=== PATIENT | female | born 1940 | race Caucasian/White ===

== ENCOUNTER 2018-12-27 11:58 | Inpatient (IN) | payer MEDICARE, OTHER ==
[~2018-12-27] VITALS: Ht 172.7 cm; Wt 48.4 kg
[2018-12-27] VITALS (12 sets, daily range): BP systolic 85–125; BP diastolic 55–79
[2018-12-27] MEDS ORDERED: RT-ALBUTEROL SULF 2.5 MG/3 ML PRE-MIX VIAL ONE (12:01)
[2018-12-27] MEDS ORDERED: RT-ALBUTEROL/IPRATROPIUM 3 ML (DUONEB) VIAL ONE (12:01)
[2018-12-27] MEDS ORDERED: RT-ALBUTEROL SULF 2.5 MG/3 ML PRE-MIX VIAL INH ONE (12:10)
[2018-12-27] MEDS ORDERED: RT-ALBUTEROL/IPRATROPIUM 3 ML (DUONEB) VIAL INH ONE (12:11)
--- NOTE | 2018-12-27 12:12 | ED Respiratory ---
General Stated Complaint: SOA Source: patient, EMS Exam Limitations: no limitations History of Present Illness Date Seen by Provider: Dec 27, 2018 Time Seen by Provider: 12:09 Initial Comments This 78-year-old white female presents with a complaint of increasing shortness of breath for the last several days. The patient has had multiple similar episodes in the past secondary to exacerbations of her COPD. The patient has been found to be flu positive in the last few days. The patient required steroids in the past for her exacerbations. She is under the care of Dr. Kirk in in [place]. Allergies and Home Medications Allergies Coded Allergies: No Known Drug Allergies (Unverified , 12/27/18) Patient Home Medication List Home Medication List Reviewed: Yes Review of Systems Review of Systems Constitutional: fever EENTM: No ear pain Respiratory: see HPI, cough, short of breath Cardiovascular: No chest pain, No palpitations Gastrointestinal: No abdominal pain, No diarrhea, No nausea, No vomiting Genitourinary: No dysuria, No frequency : No Musculoskeletal: No back pain Skin: No rash Psychiatric/Neurological: No Symptoms Reported Hematologic/Lymphatic: No Symptoms Reported Immunological/Allergic: no symptoms reported Past Uothbot-Qdddze-Ugwfpw Hx Past Med/Social Hx: Reviewed Nursing Past Med/Soc Hx Patient Social History Recent Foreign Travel: No Contact w/Someone Who Travel: No Physical Exam Vital Signs - First Documented 12/27/18 12:00 Temp 100.8 Pulse 115 Resp 18 B/P (MAP) 115/74 (88) Pulse Ox 96 O2 Delivery Nasal Cannula O2 Flow Rate 4.00 Capillary Refill : Height: '" Weight: lbs. oz. kg; BMI Method: General Appearance: WD/WN, mild distress Eyes: Bilateral Eye Normal Inspection HEENT: normal ENT inspection Neck: supple, normal inspection Respiratory: decreased breath sounds, wheezing Cardiovascular: regular rate, rhythm, tachycardia Gastrointestinal: normal bowel sounds Extremities: normal range of motion, non-tender, normal inspection Neurologic/Psychiatric: no motor/sensory deficits, alert, normal mood/affect, oriented x 3 Skin: normal color, warm/dry Focused Exam Lactate Level 12/27/18 12:25: Lactic Acid Level 1.42 Lactic Acid Level Laboratory Tests Test 12/27/18 12:25 Lactic Acid Level 1.42 MMOL/L (0.50-2.00) Progress/Results/Core Measures Suspected Sepsis SIRS Temperature: Pulse: Respiratory Rate: Laboratory Tests 12/27/18 12:25: White Blood Count 17.2H Blood Pressure / Mean: 12/27/18 12:25: Lactic Acid Level 1.42 Laboratory Tests 12/27/18 12:25: Creatinine 0.98, Platelet Count 304, Total Bilirubin 0.7 Results/Orders Lab Results Laboratory Tests Test 12/27/18 12:25 Range/Units White Blood Count 17.2 H 4.3-11.0 10^3/uL Red Blood Count 4.26 L 4.35-5.85 10^6/uL Hemoglobin 13.3 11.5-16.0 G/DL Hematocrit 41 35-52 % Mean Corpuscular Volume 97 80-99 FL Mean Corpuscular Hemoglobin 31 25-34 PG Mean Corpuscular Hemoglobin Concent 32 32-36 G/DL Red Cell Distribution Width 14.1 10.0-14.5 % Platelet Count 304 130-400 10^3/uL Mean Platelet Volume 10.2 7.4-10.4 FL Neutrophils (%) (Auto) 94 H 42-75 % Lymphocytes (%) (Auto) 4 L 12-44 % Monocytes (%) (Auto) 2 0-12 % Eosinophils (%) (Auto) 0 0-10 % Basophils (%) (Auto) 0 0-10 % Neutrophils # (Auto) 16.1 H 1.8-7.8 X 10^3 Lymphocytes # (Auto) 0.7 L 1.0-4.0 X 10^3 Monocytes # (Auto) 0.4 0.0-1.0 X 10^3 Eosinophils # (Auto) 0.0 0.0-0.3 10^3/uL Basophils # (Auto) 0.0 0.0-0.1 10^3/uL Neutrophils % (Manual) 85 % Lymphocytes % (Manual) 8 % Band Neutrophils 7 % Blood Morphology Comment NORMAL D-Dimer 1.07 H 0.00-0.49 UG/ML Sodium Level 141 135-145 MMOL/L Potassium Level 3.9 3.6-5.0 MMOL/L Chloride Level 105 98-107 MMOL/L Carbon Dioxide Level 24 21-32 MMOL/L Anion Gap 12 5-14 MMOL/L Blood Urea Nitrogen 10 7-18 MG/DL Creatinine 0.98 0.60-1.30 MG/DL Estimat Glomerular Filtration Rate 55 BUN/Creatinine Ratio 10 Glucose Level 104 70-105 MG/DL Lactic Acid Level 1.42 0.50-2.00 MMOL/L Calcium Level 8.7 8.5-10.1 MG/DL Corrected Calcium 8.9 8.5-10.1 MG/DL Total Bilirubin 0.7 0.1-1.0 MG/DL Aspartate Amino Transf (AST/SGOT) 51 H 5-34 U/L Alanine Aminotransferase (ALT/SGPT) 57 H 0-55 U/L Alkaline Phosphatase 78 40-136 U/L Troponin I < 0.028 <0.028 NG/ML B-Type Natriuretic Peptide 182.4 H <100.0 PG/ML Total Protein 6.5 6.4-8.2 GM/DL Albumin 3.7 3.2-4.5 GM/DL My Orders Orders - BENNIE ROSARIO MD Albuterol Pre-Mix Nebs (Rt) (Proventil (12/27/18 12:01) Albuterol/Ipra Inhalation Soln (Duoneb I (12/27/18 12:01) Blood Culture (12/27/18 12:05) Cbc With Automated Diff (12/27/18 12:05) Comprehensive Metabolic Panel (12/27/18 12:05) BNP (12/27/18 12:05) Fibrin Degradation Products (12/27/18 12:05) Chest 1 View, Ap/Pa Only (12/27/18 12:05) Ekg Tracing (12/27/18 12:05) Troponin I (12/27/18 12:05) Lactic Acid Analyzer (12/27/18 12:05) Albuterol Pre-Mix Nebs (Rt) (Proventil (12/27/18 12:10) Albuterol/Ipra Inhalation Soln (Duoneb I (12/27/18 12:11) Svn Small Volume Nebulizer (12/27/18 12:09) Svn Small Volume Nebulizer (12/27/18 12:09) Methylprednisolone Sod Succ (Solu-Medrol (12/27/18 12:15) Ceftriaxone For Iv Use (Rocephin For I (12/27/18 12:15) Manual Differential (12/27/18 12:25) Ns Iv 1000 Ml (Sodium Chloride 0.9%) (12/27/18 13:03) Medications Given in ED Current Medications Medications Dose Ordered Sig/Gokul Route Start Time Stop Time Status Last Admin Dose Admin Albuterol Sulfate 12.5 mg ONCE ONCE INH 12/27/18 12:10 12/27/18 12:11 DC 12/27/18 12:11 12.5 MG Albuterol/ Ipratropium 3 ml ONCE ONCE INH 12/27/18 12:11 12/27/18 12:12 DC 12/27/18 12:11 3 ML Ceftriaxone Sodium 2000 mg/ Sterile Water 20 ml @ 240 mls/hr ONCE ONCE IV 12/27/18 12:15 12/27/18 12:19 DC 12/27/18 13:01 240 MLS/HR Methylprednisolone Sodium Succinate 125 mg ONCE ONCE IVP 12/27/18 12:15 12/27/18 12:16 DC 12/27/18 13:01 125 MG Vital Signs/I&O 12/27/18 12/27/18 12:00 12:12 Temp 100.8 Pulse 115 Resp 18 B/P (MAP) 115/74 (88) Pulse Ox 96 97 O2 Delivery Nasal Cannula Nasal Cannula O2 Flow Rate 4.00 5.00 Capillary Refill : Progress Note : Time: 13:17 Progress Note Patient's laboratory evaluation demonstrated a leukocytosis. There was I believe a subtle infiltrate on the patient's right side on her chest x-ray. Treatment course patient was continued on supplemental oxygen which we humidified. 2 g Rocephin were given to the patient IV as well as 125 mg of Solu -Medrol IV. Dr. Bermudez was kind enough to admit the patient. Consult was placed with Dr. Gallegos. I have ordered Rocephin and Zithromax to be continued upstairs with steroids and frequent nebulized treatments. Departure Communication (Admissions) Time/Spoke to Admitting Phy: 13:18 Dr. Bermudez Time/Spoke to Consulting Phy: 13:18 Call was placed and a message left for Dr. Gallegos. Impression Primary Impression: Pneumonia Qualified Codes: J18.9 - Pneumonia, unspecified organism Disposition: ADMITTED INPATIENT Condition: Improved Admissions Decision to Admit Reason: Admit from ER (General) Decision to Admit/Date: Dec 27, 2018 Time/Decision to Admit Time: 13:20 Departure-Patient Inst. Referrals: BRITTNI KIRK MD (PCP/Family) Primary Care Physician BENNIE ROSARIO MD Dec 27, 2018 12:12
[2018-12-27] MEDS ORDERED: methylPREDNISolone 125 MG (Solu-MEDROL) VIAL IVP ONE (12:15)
[2018-12-27] MEDS ORDERED: cefTRIAXone FOR IV USE 2,000 MG in WATER (STERILE) FOR INJECTION 20 ML IV ONE (12:15)
--- NOTE | 2018-12-27 12:23 | NUR ---
VAPOTHERM 30L/45% TAKING RT HOUR LONG TX
[2018-12-27 12:46] LABS: BASOPHILS % (AUTO) 0 % (0-10); EOSINOPHILS % (AUTO) 0 % (0-10); HEMATOCRIT 41 % (35-52); HEMOGLOBIN 13.3 G/DL (11.5-16.0); LYMPHOCYTES # (AUTO) 0.7 X 10^3 (1.0-4.0); LYMPHOCYTES % (AUTO) 4 % (12-44); MEAN CORPUSCULAR HEMOGLOBIN 31 PG (25-34); MEAN CORPUSCULAR HGB CONC 32 G/DL (32-36); MEAN CORPUSCULAR VOLUME 97 FL (80-99); MEAN PLATELET VOLUME 10.2 FL (7.4-10.4); MONOCYTES # (AUTO) 0.4 X 10^3 (0.0-1.0); MONOCYTES % (AUTO) 2 % (0-12); NEUTROPHILS # (AUTO) 16.1 X 10^3 (1.8-7.8); NEUTROPHILS % (AUTO) 94 % (42-75); PLATELET COUNT 304 10^3/uL (130-400); RED CELL DISTRIBUTION WIDTH 14.1 % (10.0-14.5); WHITE BLOOD COUNT 17.2 10^3/uL (4.3-11.0)
[2018-12-27] MEDS ORDERED: NS IV 1000 ML 1,000 ML ONE (13:03)
[2018-12-27 13:05] LABS: ALANINE AMINOTRANSFERASE 57 U/L (0-55); ALBUMIN 3.7 GM/DL (3.2-4.5); ALKALINE PHOSPHATASE 78 U/L (40-136); BILIRUBIN,TOTAL 0.7 MG/DL (0.1-1.0); BUN/CREATININE RATIO 10; CALCIUM 8.7 MG/DL (8.5-10.1); CARBON DIOXIDE 24 MMOL/L (21-32); CHLORIDE 105 MMOL/L (98-107); CREATININE SERUM 0.98 MG/DL (0.60-1.30); GFR ESTIMATED 55; GLUCOSE 104 MG/DL (70-105); POTASSIUM 3.9 MMOL/L (3.6-5.0); SODIUM 141 MMOL/L (135-145); TOTAL PROTEIN 6.5 GM/DL (6.4-8.2)
--- NOTE | 2018-12-27 13:06 | Diagnostic Imaging Report ---
Indication: Shortness of air and fever. Time of exam: 12:54 PM Heart size is normal. There is some some interstitial and airspace infiltrate in the right perihilar and right basilar region suggestive of pneumonia. There is a small right effusion as well. Left lung is clear. Lungs are hyperinflated consistent with COPD. Impression: Right-sided pulmonary infiltrate suggestive of pneumonia. Dictated by: Dictated on workstation # [id number]
[2018-12-27 13:12] LABS: BAND NEUTROPHILS 7 %; LYMPHOCYTES % (MANUAL) 8 %; NEUTROPHILS % (MANUAL) 85 %; RBC MORPH NORMAL
[2018-12-27] MEDS: AZITHROMYCIN 500 MG/NS 250 ML IVPB IV SCH ×2 (16:01)
[2018-12-27] MEDS: methylPREDNISolone 125 MG (Solu-MEDROL) VIAL IVP SCH (17:24)
[2018-12-27] MEDS: RT-ALBUTEROL/IPRATROPIUM 3 ML (DUONEB) VIAL INH SCH (20:10)
[2018-12-27] MEDS ORDERED: ZOLPIDEM 5 MG (AMBIEN) TAB PO ONE (22:15)
[2018-12-28] VITALS (14 sets, daily range): BP systolic 87–149; BP diastolic 56–79
[2018-12-28] MEDS: methylPREDNISolone 125 MG (Solu-MEDROL) VIAL IVP SCH ×2 (00:40→05:22)
[2018-12-28 03:43] LABS: BASOPHILS % (AUTO) 0 % (0-10); EOSINOPHILS % (AUTO) 0 % (0-10); HEMATOCRIT 39 % (35-52); HEMOGLOBIN 12.5 G/DL (11.5-16.0); LYMPHOCYTES # (AUTO) 0.4 X 10^3 (1.0-4.0); LYMPHOCYTES % (AUTO) 2 % (12-44); MEAN CORPUSCULAR HEMOGLOBIN 31 PG (25-34); MEAN CORPUSCULAR HGB CONC 33 G/DL (32-36); MEAN CORPUSCULAR VOLUME 96 FL (80-99); MEAN PLATELET VOLUME 10.2 FL (7.4-10.4); MONOCYTES # (AUTO) 0.3 X 10^3 (0.0-1.0); MONOCYTES % (AUTO) 2 % (0-12); NEUTROPHILS # (AUTO) 18.4 X 10^3 (1.8-7.8); NEUTROPHILS % (AUTO) 96 % (42-75); PLATELET COUNT 267 10^3/uL (130-400); RED CELL DISTRIBUTION WIDTH 14.1 % (10.0-14.5); WHITE BLOOD COUNT 19.2 10^3/uL (4.3-11.0)
[2018-12-28 04:07] LABS: ALANINE AMINOTRANSFERASE 43 U/L (0-55); ALBUMIN 3.1 GM/DL (3.2-4.5); ALKALINE PHOSPHATASE 65 U/L (40-136); BILIRUBIN,TOTAL 0.4 MG/DL (0.1-1.0); BUN/CREATININE RATIO 15; CARBON DIOXIDE 22 MMOL/L (21-32); CHLORIDE 106 MMOL/L (98-107); CREATININE SERUM 0.85 MG/DL (0.60-1.30); GFR ESTIMATED > 60; GLUCOSE 159 MG/DL (70-105); MAGNESIUM 1.5 MG/DL (1.8-2.4); PHOSPHORUS 2.4 MG/DL (2.3-4.7); POTASSIUM 4.2 MMOL/L (3.6-5.0); SODIUM 139 MMOL/L (135-145); TOTAL PROTEIN 5.8 GM/DL (6.4-8.2)
[2018-12-28] MEDS: MAGNESIUM 1 GM/100 ML IVPB 100 ML IV SCH ×2 (05:22→06:25)
[2018-12-28] MEDS ORDERED: KCL 20 MEQ TAB (K-DUR) PO SCH (06:00)
[2018-12-28] MEDS ORDERED: POTASSIUM CL 10MEQ/50ML IVPB 50 ML IV SCH (06:00)
[2018-12-28] MEDS ORDERED: MAGNESIUM 1 GM/100 ML IVPB 100 ML IV SCH (06:00)
--- NOTE | 2018-12-28 06:27 | Pulmonary Consultation ---
History of Present Illness History of Present Illness Date of Consultation 12/28/18 06:22 Time Seen by Provider: 06:22 Date of Admission History of Present Illness 78yo with hx of severe COPD and multiple episodes of COPDAE presented to ED secondary to worsening SOB over the last several days. Pt was recently dx with influenza and was treated. Pt has been on prednisone prior to admission secondary to COPDAE. Pt failed out patient treatment. I am consulted for pulmonary management. Allergies and Home Medications Allergies Coded Allergies: No Known Drug Allergies (Unverified , 12/27/18) Home Medications Albuterol Sulfate 1 Puff Puff, 2 PUFF INH Q4H PRN for SHORTNESS OF BREATH, ( Reported) 1 PUFF = 90 MCG Albuterol Sulfate 2.5 Mg/3 Ml Vial.neb, 2.5 MG INH TID PRN for SHORTNESS OF BREATH, (Reported) Alendronate Sodium 70 Mg Tablet, 70 MG PO WEEK, (Reported) Alprazolam 0.5 Mg Tablet, 0.5 MG PO BID, (Reported) Fluticasone/Salmeterol 1 Each Blst.w.dev, 1 EACH IH BID, (Reported) Fluticasone/Vilanterol 1 Each Blst.w.dev, 1 EACH IH DAILY, (Reported) Oseltamivir Phosphate 75 Mg Cap, 75 MG PO BID, (Reported) Prescribed 12/23/18 Pravastatin Sodium 40 Mg Tablet, 40 MG PO DAILY, (Reported) Prednisone 20 Mg Tab, 0 PO UD, (Reported) Take 3 tabs x 3 days, 2 tabs x 3 days, 1 tab x 3 days. Prescribed 12/23/2018 Prednisone 5 Mg Tablet, 5 MG PO DAILY, (Reported) Tiotropium [place] 1 Inh Aerp, 1 INH IH DAILY, (Reported) Zolpidem Tartrate 5 Mg Tablet, 5 MG PO HS PRN for INSOMNIA, (Reported) Past Kvqsnfs-Yyfrqr-Wkslta Hx Past Med/Social Hx: Reviewed Nursing Past Med/Soc Hx Patient Social History Alcohol Use: Denies Use Recreational Drug Use: No Smoking Status: Former Smoker Type Used: Cigarettes Recent Foreign Travel: No Contact w/Someone Who Travel: No Recent Infectious Disease Expo: No Recent Hopitalizations: No Immunizations Up To Date Date of Pneumonia Vaccine: Dec 27, 2016 Date of Influenza Vaccine: Jul 27, 2018 Seasonal Allergies Seasonal Allergies: No Past Medical History Respiratory: Yes COPD, Emphysema Cardiac: No Neurological: No Genitourinary: No Gastrointestinal: No Musculoskeletal: No Endocrine: No HEENT: No Cancer: No Psychosocial: No Integumentary: No Review of Systems Time Seen by Provider: 05:31 Constitutional: Fever, Chills, Sweats, Weakness, Malaise Eyes: No: Pain, Vision change, Conjunctivae inflammation, Eyelid inflammation, Other, Redness ENT: Nose congestion; No: Ear pain, Ear discharge, Nose pain, Nose discharge, Mouth pain, Mouth swelling, Throat pain, Throat swelling, Other Respiratory: Cough, Dry, Shortness of breath, SOB with excertion, Wheezing, Pleuritic Pain, Sputum; No: Hemoptysis Cardiovascular: Palpitations, Paroxysmal Noc. Dyspnea Gastrointestinal: Nausea; No: Vomiting, Abdominal Pain Neurological: Weakness Sepsis Event Evaluation Height, Weight, BMI Height: 5'8.00" Weight: 109lbs. 2.0oz. [id number]; 16.6 BMI Method:Stated Exam Exam Vital Signs Date Time Temp Pulse Resp B/P (MAP) Pulse Ox O2 Delivery O2 Flow Rate FiO2 12/28/18 06:00 84 25 96/62 (73) 99 Vapotherm 40.00 35.00 12/28/18 05:00 84 25 108/79 (89) 99 Vapotherm 40.00 35.00 12/28/18 04:00 99 Vapotherm 35.00 12/28/18 04:00 98.8 12/28/18 04:00 85 19 98/56 (70) 96 Vapotherm 40.00 35.00 12/28/18 03:00 97 31 106/67 (80) 98 Vapotherm 40.00 35.00 12/28/18 02:00 89 25 92/62 (72) 97 Vapotherm 40.00 35.00 12/28/18 01:00 93 28 100/72 (81) 98 Vapotherm 40.00 35.00 12/28/18 01:00 93 12/28/18 00:00 97.3 12/28/18 00:00 99 Vapotherm 35.00 12/28/18 00:00 93 22 97/65 (76) 99 Vapotherm 40.00 35.00 12/27/18 23:11 99 Vapotherm 33.00 40 12/27/18 23:00 94 25 109/68 (82) 99 Vapotherm 40.00 35.00 12/27/18 22:00 96 27 125/76 (92) 99 Vapotherm 40.00 35.00 12/27/18 21:00 98 25 122/77 (92) 99 Vapotherm 40.00 35.00 12/27/18 20:10 99 Vapotherm 35.00 40 12/27/18 20:00 98.7 12/27/18 20:00 96 25 114/79 (91) 99 Vapotherm 40.00 35.00 12/27/18 20:00 99 Vapotherm 35.00 12/27/18 19:00 100 26 114/74 (87) 97 Vapotherm 40.00 35.00 12/27/18 19:00 103 12/27/18 18:00 106 28 115/76 (89) 99 Vapotherm 40.00 35.00 12/27/18 17:00 110 35 97/66 (76) 97 Vapotherm 40.00 35.00 12/27/18 16:30 111 22 103/71 (82) 98 Vapotherm 40.00 35.00 12/27/18 16:15 109 20 99/66 (77) 97 Vapotherm 40.00 35.00 12/27/18 16:00 109 23 85/55 (65) 97 Vapotherm 40.00 35.00 12/27/18 16:00 99.4 12/27/18 15:45 111 20 99/63 (75) 98 Vapotherm 40.00 35.00 12/27/18 15:30 97 Vapotherm 30.00 40 12/27/18 15:30 Vapotherm 35.00 40 12/27/18 15:30 100.3 12/27/18 15:30 112 19 102/57 (72) 97 Vapotherm 40.00 35.00 12/27/18 14:58 98.7 112 32 96/66 (76) 96 Vapotherm 12/27/18 12:12 97 Nasal Cannula 5.00 12/27/18 12:00 100.8 115 18 115/74 (88) 96 Nasal Cannula 4.00 I & O 12/28/18 07:00 Intake Total 870 ml Output Total 950 ml Balance -80 ml Height & Weight Height: 5'8.00" Weight: 109lbs. 2.0oz. 49.687884ux; 16.6 BMI Method:Stated General Appearance: Anxious, Chronically ill, Mild Distress HEENT: PERRL/EOMI, Pharynx Normal Neck: Full Range of Motion, Non Tender, Supple Respiratory: Accessory Muscle Use, Crackles, Decreased Breath Sounds Cardiovascular: Regular Rate, Rhythm Capillary Refill: Less Than 3 Seconds Gastrointestinal: normal bowel sounds Extremity: Normal Capillary Refill, Normal Inspection Neurologic/Psychiatric: Alert Skin: Normal Color, Warm/Dry Lymphatic: No Adenopathy Results Lab Laboratory Tests 12/27/18 12:25 12/28/18 03:07 Assessment/Plan Assessment/Plan PNA with sepsis - failed out patient treatment -Continue Rocephin and azithromycin Recent dx of influenza - only partially treated as out patient -Resume Tamiflu COPDAE- pt does have home oxygen -SVNS -SOlumedrol - change to 40 IV Q 6 -Check MARIELOS DUCKWORTH DO Dec 28, 2018 06:27
[2018-12-28] MEDS ORDERED: fentaNYL 15 MCG/3 ML NS SYRINGE (PACU) IV NR (06:57)
[2018-12-28] MEDS: RT-ALBUTEROL/IPRATROPIUM 3 ML (DUONEB) VIAL INH SCH ×4 (07:30→19:41)
--- NOTE | 2018-12-28 07:37 | History & Physicial ([facility]) ---
HPI History of Present Illness: 78 yo female diagnosed with influenza A on Saturday of this week and was taking Tamiflu, got better but then had sudden worsening Saturday night. She denies fever. She does have underlying COPD and usually wears 3 lpm of supplemental oxygen at baseline. Her this week as well, so she is feeling a little overwhelmed. Date seen by provider: Dec 28, 2018 Time Seen by Provider: 06:35 Attending Physician Melissa Bermudez MD PCP Brittni Kirk MD Consult Date of Admission Dec 27, 2018 at 13:00 Home Medications Home Medications Reviewed patient Home Medication Reconciliation performed by pharmacy medication reconciliations deburr technician and/or nursing. Patients Allergies have been reviewed. Allergies Coded Allergies: No Known Drug Allergies (Unverified , 12/27/18) OJJ-Asqzbv-Btjhsr Hx Patient Social History Alcohol Use: Denies Use Recreational Drug Use: No Smoking Status: Former Smoker Type Used: Cigarettes Recent Foreign Travel: No Contact w/other who traveled: No Recent Hopitalizations: No Recent Infectious Disease Expo: No Immunizations Up To Date Date of Pneumonia Vaccine: Dec 27, 2016 Date of Influenza Vaccine: Jul 27, 2018 Past Medical History PMHx: COPD Osteoporosis Family Medical History Significant Family History: No Pertinent Family Hx Review of Systems ([facility]) Constitutional: No fever; malaise EENTM: nose congestion; No throat pain Respiratory: short of breath Cardiovascular: No chest pain Gastrointestinal: No abdominal pain, No constipation; diarrhea; No nausea, No vomiting Musculoskeletal: No joint pain Skin: No rash Psychiatric/Neurological: See HPI Reviewed Test Results Reviewed Test Results Lab Laboratory Tests Test 12/27/18 12:25 12/28/18 03:07 Range/Units White Blood Count 17.2 H 19.2 H 4.3-11.0 10^3/uL Red Blood Count 4.26 L 4.03 L 4.35-5.85 10^6/uL Hemoglobin 13.3 12.5 11.5-16.0 G/DL Hematocrit 41 39 35-52 % Mean Corpuscular Volume 97 96 80-99 FL Mean Corpuscular Hemoglobin 31 31 25-34 PG Mean Corpuscular Hemoglobin Concent 32 33 32-36 G/DL Red Cell Distribution Width 14.1 14.1 10.0-14.5 % Platelet Count 304 267 130-400 10^3/uL Mean Platelet Volume 10.2 10.2 7.4-10.4 FL Neutrophils (%) (Auto) 94 H 96 H 42-75 % Lymphocytes (%) (Auto) 4 L 2 L 12-44 % Monocytes (%) (Auto) 2 2 0-12 % Eosinophils (%) (Auto) 0 0 0-10 % Basophils (%) (Auto) 0 0 0-10 % Neutrophils # (Auto) 16.1 H 18.4 H 1.8-7.8 X 10^3 Lymphocytes # (Auto) 0.7 L 0.4 L 1.0-4.0 X 10^3 Monocytes # (Auto) 0.4 0.3 0.0-1.0 X 10^3 Eosinophils # (Auto) 0.0 0.0 0.0-0.3 10^3/uL Basophils # (Auto) 0.0 0.0 0.0-0.1 10^3/uL Neutrophils % (Manual) 85 % Lymphocytes % (Manual) 8 % Band Neutrophils 7 % Blood Morphology Comment NORMAL D-Dimer 1.07 H 0.00-0.49 UG/ML Sodium Level 141 139 135-145 MMOL/L Potassium Level 3.9 4.2 3.6-5.0 MMOL/L Chloride Level 105 106 98-107 MMOL/L Carbon Dioxide Level 24 22 21-32 MMOL/L Anion Gap 12 11 5-14 MMOL/L Blood Urea Nitrogen 10 13 7-18 MG/DL Creatinine 0.98 0.85 0.60-1.30 MG/DL Estimat Glomerular Filtration Rate 55 > 60 BUN/Creatinine Ratio 10 15 Glucose Level 104 159 H 70-105 MG/DL Lactic Acid Level 1.42 0.50-2.00 MMOL/L Calcium Level 8.7 8.0 L 8.5-10.1 MG/DL Corrected Calcium 8.9 8.7 8.5-10.1 MG/DL Total Bilirubin 0.7 0.4 0.1-1.0 MG/DL Aspartate Amino Transf (AST/SGOT) 51 H 38 H 5-34 U/L Alanine Aminotransferase (ALT/SGPT) 57 H 43 0-55 U/L Alkaline Phosphatase 78 65 40-136 U/L Troponin I < 0.028 <0.028 NG/ML B-Type Natriuretic Peptide 182.4 H <100.0 PG/ML Total Protein 6.5 5.8 L 6.4-8.2 GM/DL Albumin 3.7 3.1 L 3.2-4.5 GM/DL Phosphorus Level 2.4 2.3-4.7 MG/DL Magnesium Level 1.5 L 1.8-2.4 MG/DL Radiology CXR 12/27/18: Impression: Right-sided pulmonary infiltrate suggestive of pneumonia. Physical Exam-([facility]) Physical Exam Vital Signs VS - Last 72 Hours, by Label 12/27/18 12/27/18 12/27/18 12/27/18 12:00 12:12 14:58 15:30 Temp 100.8 98.7 Pulse 115 112 112 Resp 18 32 19 B/P (MAP) 115/74 (88) 96/66 (76) 102/57 (72) Pulse Ox 96 97 96 97 O2 Delivery Nasal Cannula Nasal Cannula Vapotherm Vapotherm O2 Flow Rate 4.00 5.00 40.00 35.00 12/27/18 12/27/18 12/27/18 12/27/18 15:30 15:30 15:30 15:45 Temp 100.3 Pulse 111 Resp 20 B/P (MAP) 99/63 (75) Pulse Ox 97 98 O2 Delivery Vapotherm Vapotherm Vapotherm O2 Flow Rate 35.00 30.00 40.00 35.00 FiO2 40 40 12/27/18 12/27/18 12/27/18 12/27/18 16:00 16:00 16:15 16:30 Temp 99.4 Pulse 109 109 111 Resp 23 20 22 B/P (MAP) 85/55 (65) 99/66 (77) 103/71 (82) Pulse Ox 97 97 98 O2 Delivery Vapotherm Vapotherm Vapotherm O2 Flow Rate 40.00 40.00 40.00 35.00 35.00 35.00 12/27/18 12/27/18 12/27/18 12/27/18 17:00 18:00 19:00 19:00 Pulse 110 106 103 100 Resp 35 28 26 B/P (MAP) 97/66 (76) 115/76 (89) 114/74 (87) Pulse Ox 97 99 97 O2 Delivery Vapotherm Vapotherm Vapotherm O2 Flow Rate 40.00 40.00 40.00 35.00 35.00 35.00 12/27/18 12/27/18 12/27/18 12/27/18 20:00 20:00 20:00 20:10 Temp 98.7 Pulse 96 Resp 25 B/P (MAP) 114/79 (91) Pulse Ox 99 99 99 O2 Delivery Vapotherm Vapotherm Vapotherm O2 Flow Rate 35.00 40.00 35.00 35.00 FiO2 40 12/27/18 12/27/18 12/27/18 12/27/18 21:00 22:00 23:00 23:11 Pulse 98 96 94 Resp 25 27 25 B/P (MAP) 122/77 (92) 125/76 (92) 109/68 (82) Pulse Ox 99 99 99 99 O2 Delivery Vapotherm Vapotherm Vapotherm Vapotherm O2 Flow Rate 40.00 40.00 40.00 33.00 35.00 35.00 35.00 FiO2 40 12/28/18 12/28/18 12/28/18 12/28/18 00:00 00:00 00:00 01:00 Temp 97.3 Pulse 93 93 Resp 22 B/P (MAP) 97/65 (76) Pulse Ox 99 99 O2 Delivery Vapotherm Vapotherm O2 Flow Rate 40.00 35.00 35.00 12/28/18 12/28/18 12/28/18 12/28/18 01:00 02:00 03:00 04:00 Pulse 93 89 97 85 Resp 28 25 31 19 B/P (MAP) 100/72 (81) 92/62 (72) 106/67 (80) 98/56 (70) Pulse Ox 98 97 98 96 O2 Delivery Vapotherm Vapotherm Vapotherm Vapotherm O2 Flow Rate 40.00 40.00 40.00 40.00 35.00 35.00 35.00 35.00 12/28/18 12/28/18 12/28/18 12/28/18 04:00 04:00 05:00 06:00 Temp 98.8 Pulse 84 84 Resp 25 25 B/P (MAP) 108/79 (89) 96/62 (73) Pulse Ox 99 99 99 O2 Delivery Vapotherm Vapotherm Vapotherm O2 Flow Rate 35.00 40.00 40.00 35.00 35.00 Capillary Refill : Less Than 3 Seconds General Appearance: mild distress, thin Respiratory: lungs clear, no respiratory distress, decreased breath sounds Cardiovascular: regular rate, rhythm, no murmur Gastrointestinal: normal bowel sounds, non tender, soft Extremities: no pedal edema Neurologic/Psychiatric: normal mood/affect Skin: normal color, warm/dry Assessment/Plan Assessment/Plan Admission Status: Inpatient Order (span 2 midnights) Reason for Inpatient Admission: Pneumonia with underlying COPD at high risk for severe illness, requires IV antibiotics and respiratory support. (1) Sepsis Status: Acute Assessment & Plan: Secondary to pneumonia. No evidence of severe sepsis. Treatment for pneumonia as noted. Qualifiers: Qualified Codes: A41.9 - Sepsis, unspecified organism (2) Pneumonia Status: Acute Assessment & Plan: Azithromycin and ceftriaxone for CAP that was likely secondary to her influenza. RT. Supplemental oxygen as needed, currently on vapotherm at 40% FiO2 with 30 lpm flow. Qualifiers: Qualified Codes: J18.9 - Pneumonia, unspecified organism (3) COPD (chronic obstructive pulmonary disease) Status: Chronic Assessment & Plan: Treated for COPD exacerbation outpatient with steroids along with the Tamiflu, will continue steroids for now. Respiratory support as needed, on 3 lpm supplemental O2 at baseline. Dr. Gallegos consulted, appreciate recommendations. (4) Influenza A Status: Acute Assessment & Plan: Treated with 4/5 days of Tamiflu. (5) DVT prophylaxis Status: Acute Assessment & Plan: Enoxaparin Clinical Quality Measures DVT/VTE Risk/Contraindication: Risk Factor Score Per Nursin RFS Level Per Nursing on Admit: 4+=Very High Copy Copies To 1: BRITTNI KIRK MD, BETHANY N MD Dec 28, 2018 07:36
[2018-12-28 07:54] LABS: ABG BASE EXCESS 0.1 MMOL/L (-2.5-2.5); ABG OXYGEN SATURATION 96 % (94-100); ABG PCO2 38 MMHG (35-45); ABG PH 7.42 (7.37-7.43); ABG PO2 69 MMHG (79-93); ABG TCO2 25.3 MMOL/L (21.0-31.0)
[2018-12-28] MEDS ORDERED: RT-ALBUINH INH (08:01)
[2018-12-28] MEDS ORDERED: ALBU2.5V4 INH (08:01)
[2018-12-28] MEDS ORDERED: TIOT18CA2 IH (08:01)
[2018-12-28] MEDS ORDERED: FLUT1DIS26 IH (08:01)
[2018-12-28] MEDS ORDERED: PRED5TAB PO (08:01)
[2018-12-28] MEDS ORDERED: ALEN70TA5 PO (08:01)
[2018-12-28] MEDS ORDERED: ALPR0.5T7 PO (08:01)
[2018-12-28] MEDS ORDERED: PRAV40TA2 PO (08:01)
[2018-12-28] MEDS ORDERED: FLUT1BLS IH (08:01)
[2018-12-28] MEDS ORDERED: ZOLP5TAB7 PO (08:01)
[2018-12-28] MEDS ORDERED: PRD20T PO (08:01)
[2018-12-28] MEDS ORDERED: OSLT75C PO (08:01)
[2018-12-28 08:05] LABS: ALLENS TEST YES-POS; INSPIRED O2 30%; PATIENT TEMP 97.7
[2018-12-28] MEDS ORDERED: ENOXAPARIN 40 MG/0.4 ML (LOVENOX) SYR SC SCH (08:15)
[2018-12-28] MEDS: ENOXAPARIN 30 MG/0.3 ML (LOVENOX) SYR SC SCH (08:57)
[2018-12-28] MEDS: OSELTAMIVIR 75 MG (TAMIFLU) CAPSULE PO SCH ×2 (08:58→20:50)
[2018-12-28] MEDS ORDERED: cefTRIAXone 1,000 MG/SWFI 10 ML IV PUSH IV SCH ×2 (09:00)
[2018-12-28] MEDS: IBUPROFEN 600 MG (MOTRIN) TAB PO PRN (09:50)
--- NOTE | 2018-12-28 10:44 | Diagnostic Imaging Report ---
Indication: Dyspnea. Time of exam: 2:42 AM Correlation is made with prior study one day earlier. The heart size is stable. Infiltrate in the right mid and lower lung field has increased since yesterday's study. There is a small amount of pleural fluid on the right as well. Left lung remains clear. No pneumothorax is seen. Impression: Worsening right-sided infiltrate suggestive of pneumonia when compared with examination one day earlier. Dictated by: Dictated on workstation # [id number]
[2018-12-28] MEDS: methylPREDNISolone 40 MG/ML (Solu-MEDROL) VIAL IV SCH ×2 (13:58→17:53)
[2018-12-28] MEDS: NS IV 1000 ML 1,000 ML IV SCH (14:15)
[2018-12-28] MEDS: AZITHROMYCIN 500 MG/NS 250 ML IVPB IV SCH ×2 (16:29)
[2018-12-28] MEDS ORDERED: RT-ADVAIR HFA 115/21 MCG PER PUFF IH SCH (20:00)
[2018-12-28] MEDS ORDERED: RT-ALBUTEROL/IPRATROPIUM 3 ML (DUONEB) VIAL INH PRN (20:15)
--- NOTE | 2018-12-28 20:25 | NUR ---
CONTACTED DR BEJARANO ABOUT PRN BREATHING TREATMENTS FOR THE NIGHT. DR BEJARANO ORDERED Q4HR PRN TREATMENTS.
[2018-12-28] MEDS: ALPRAZolam 0.5 MG (XANAX) TAB PO SCH (20:50)
[2018-12-28] MEDS: SIMvastatin 20 MG (ZOCOR) TAB PO SCH (20:50)
[2018-12-29] VITALS (7 sets, daily range): BP systolic 107–160; BP diastolic 61–87
[2018-12-29] MEDS: methylPREDNISolone 40 MG/ML (Solu-MEDROL) VIAL IV SCH ×5 (00:07→17:46)
[2018-12-29] MEDS ORDERED: WATER (STERILE) FOR INJECTION 20 ML ONE (05:50)
[2018-12-29] MEDS ORDERED: cefTRIAXone 2 GM IV (ROCEPHIN) VIAL ONE (05:50)
[2018-12-29 06:07] LABS: HEMOGLOBIN 11.2 G/DL (11.5-16.0); MEAN PLATELET VOLUME 9.9 FL (7.4-10.4); RED CELL DISTRIBUTION WIDTH 14.3 % (10.0-14.5); WHITE BLOOD COUNT 14.8 10^3/uL (4.3-11.0)
[2018-12-29 06:32] LABS: ALANINE AMINOTRANSFERASE 39 U/L (0-55); ALBUMIN 2.9 GM/DL (3.2-4.5); ALKALINE PHOSPHATASE 59 U/L (40-136); BILIRUBIN,TOTAL 0.3 MG/DL (0.1-1.0); BUN/CREATININE RATIO 20; CALCIUM 7.9 MG/DL (8.5-10.1); CARBON DIOXIDE 23 MMOL/L (21-32); CHLORIDE 109 MMOL/L (98-107); CREATININE SERUM 0.75 MG/DL (0.60-1.30); GFR ESTIMATED > 60; GLUCOSE 168 MG/DL (70-105); POTASSIUM 3.7 MMOL/L (3.6-5.0); SODIUM 142 MMOL/L (135-145); TOTAL PROTEIN 5.6 GM/DL (6.4-8.2)
[2018-12-29] MEDS: RT-ALBUTEROL/IPRATROPIUM 3 ML (DUONEB) VIAL INH SCH ×4 (07:51→23:17)
[2018-12-29] MEDS: ADVAIR HFA 115/21 MCG INHALER 8 GM IH SCH ×2 (07:53→20:00)
[2018-12-29] MEDS: NS IV 1000 ML 1,000 ML IV SCH (08:22)
[2018-12-29] MEDS: ENOXAPARIN 30 MG/0.3 ML (LOVENOX) SYR SC SCH (08:23)
[2018-12-29] MEDS: ALPRAZolam 0.5 MG (XANAX) TAB PO SCH ×2 (08:24→20:42)
[2018-12-29] MEDS: IBUPROFEN 600 MG (MOTRIN) TAB PO PRN (08:25)
[2018-12-29] MEDS: cefTRIAXone 1,000 MG/SWFI 10 ML IV PUSH IV SCH ×2 (08:27)
[2018-12-29] MEDS: OSELTAMIVIR 30 MG (TAMIFLU) CAPSULE PO SCH ×2 (08:30→20:42)
--- NOTE | 2018-12-29 08:51 | Progress Note-Hospitalist ---
Subjective HPI/CC On Admission Date Seen by Provider: Dec 29, 2018 Time Seen by Provider: 09:30 Subjective/Events-last exam Pt reports she is still short of breath and wheezing. Pt needs help with constipation so meds were ordered. All home meds were restarted. Appreciate Dr. Gallegos's expertise. Pt maintained on Vapotherm. Influenza treatment tolerated. Pt wears oxygen 24/7 at home. Review of Systems Pulmonary: Dyspnea Gastrointestinal: Constipation Focused Exam Lactate Level 12/27/18 12:25: Lactic Acid Level 1.42 Objective Exam Vital Signs Vital Signs Date Time Temp Pulse Resp B/P (MAP) Pulse Ox O2 Delivery O2 Flow Rate FiO2 12/29/18 19:58 98 Vapotherm 20.00 30 12/29/18 16:36 98.0 97 16 153/87 (109) Capillary Refill : Less Than 3 Seconds General Appearance: WD/WN, Anxious, Chronically ill, Cachetic, Mild Distress Respiratory: Chest Non Tender, Accessory Muscle Use, Crackles, Decreased Breath Sounds, Rales, Wheezing Cardiovascular: Regular Rate, Rhythm, No Edema Neurologic/Psychiatric: Alert, Oriented x3, No Motor/Sensory Deficits, Normal Mood/Affect Results/Procedures Lab Laboratory Tests 12/29/18 05:45 Patient resulted labs reviewed. Assessment/Plan Assessment and Plan Assess & Plan/Chief Complaint AECOPD Influenza A Chronic hypoxia Anxiety Plan: Tamiflu Steroids Guarded prognosis Diagnosis/Problems Diagnosis/Problems (1) Pneumonia Status: Acute Qualifiers: Pneumonia type: due to unspecified organism Laterality: right Lung location: unspecified part of lung Qualified Codes: J18.9 - Pneumonia, unspecified organism (2) Sepsis Status: Acute Qualifiers: Sepsis type: sepsis due to unspecified organism Qualified Codes: A41.9 - Sepsis, unspecified organism (3) Influenza A Status: Acute (4) COPD (chronic obstructive pulmonary disease) Status: Chronic Qualifiers: COPD type: unspecified COPD Qualified Codes: J44.9 - Chronic obstructive pulmonary disease, unspecified (5) Osteoporosis Status: Chronic (6) DVT prophylaxis Status: Acute (7) Hyperlipidemia Status: Chronic Clinical Quality Measures DVT/VTE Risk/Contraindication: Risk Factor Score Per Nursin RFS Level Per Nursing on Admit: 4+=Very High MARYAN HUGHES DO Dec 29, 2018 08:50
[2018-12-29] MEDS ORDERED: NON-FORMULARY MEDICATION 1 EA EA (Fluticasone/Vilanterol (Breo Ellipta 200-25 Mcg INH) 1 E IH SCH (09:00)
[2018-12-29] MEDS ORDERED: NON-FORMULARY MEDICATION 1 EA EA (Pravastatin Sodium 40 MG) PO SCH (09:00)
[2018-12-29] MEDS: SENNA W/DOCUSATE (SENOKOT S) TABLET PO SCH ×2 (10:27→20:43)
[2018-12-29] MEDS: LACTULOSE SYRUP 10GM/15ML (ENULOSE) 30ML UDC PO SCH ×2 (10:27→20:43)
[2018-12-29] MEDS: POLYETHYLENE GLYCOL 17 GM (MIRALAX) PACK PO SCH ×2 (10:27→20:43)
--- NOTE | 2018-12-29 16:51 | Pulmonary Progress Note ---
Subjective Time Seen by a Provider: 15:00 Subjective/Events-last exam SOB is about the same. Sepsis Event Evaluation Height, Weight, BMI Height: 5'8.00" Weight: 110lbs. 2.0oz. 49.489444pa; 16.6 BMI Method:Stated Focused Exam Lactate Level 12/27/18 12:25: Lactic Acid Level 1.42 Exam Exam Vital Signs Date Time Temp Pulse Resp B/P (MAP) Pulse Ox O2 Delivery O2 Flow Rate FiO2 12/29/18 16:36 98.0 97 16 153/87 (109) 96 12/29/18 16:25 96 Vapotherm 20.00 30 12/29/18 12:00 97.0 98 18 147/69 (95) 97 Vapotherm 30.00 25.00 12/29/18 08:41 Vapotherm 25.00 30 12/29/18 08:01 97.8 89 22 124/73 (90) 98 Venturi Mask 30.00 35.00 12/29/18 07:51 97 Vapotherm 35.00 30 12/29/18 04:57 96.9 91 22 160/73 (102) 98 Vapotherm 35.00 25.00 12/29/18 02:43 98 Vapotherm 35.00 30 12/29/18 01:02 96.7 83 24 117/61 (79) 95 Vapotherm 35.00 25.00 12/29/18 00:00 96.7 83 24 117/61 (79) 95 Vapotherm 35.00 25.00 12/28/18 23:45 96 Vapotherm 30 12/28/18 21:00 Vapotherm 25.00 30 12/28/18 20:00 98.1 95 28 145/70 (95) 95 Vapotherm 35.00 25.00 12/28/18 19:41 96 Vapotherm 35.00 30 12/28/18 17:04 97.8 96 28 149/71 (97) 96 Vapotherm 35.00 25.00 I & O 12/29/18 07:00 Intake Total 1390 ml Output Total 1825 ml Balance -435 ml Height & Weight Height: 5'8.00" Weight: 110lbs. 2.0oz. 49.109052pw; 16.6 BMI Method:Stated General Appearance: Anxious, Mild Distress, Thin HEENT: PERRL/EOMI, Normal ENT Inspection, Pharynx Normal Neck: Full Range of Motion, Non Tender, Supple Respiratory: Crackles, Decreased Breath Sounds, Wheezing Cardiovascular: Regular Rate, Rhythm, No Edema Capillary Refill: Less Than 3 Seconds Gastrointestinal: normal bowel sounds, non tender, soft Extremity: Normal Capillary Refill, Normal Inspection Neurologic/Psychiatric: Alert Skin: Normal Color, Warm/Dry Results Lab Laboratory Tests 12/28/18 03:07 12/29/18 05:45 Assessment/Plan Assessment/Plan PNA with sepsis -Continue Rocephin and azithromycin -Repeat CXR shows worsening infiltration -repeat CXR in AM -Give 60mg of lasix now and 40 kcl Recent dx of influenza - only partially treated as out patient - Tamiflu COPDAE- pt does have home oxygen -SVNS -SOlumedrol - change to 40 IV Q 6 -Check MARIELOS DUCKWORTH DO Dec 29, 2018 16:51
[2018-12-29] MEDS ORDERED: FUROSEMIDE 40 MG/4 ML INJ (LASIX) IVP NR (17:00)
[2018-12-29] MEDS: AZITHROMYCIN 250 MG TAB (ZITHROMAX) PO SCH (17:32)
[2018-12-29] MEDS: POTASSIUM CL 10MEQ/50ML IVPB 50 ML IV SCH ×3 (17:33→20:42)
[2018-12-29] MEDS ORDERED: methylPREDNISolone 125 MG (Solu-MEDROL) VIAL IM NR (17:45)
[2018-12-29] MEDS: RT-ALBUTEROL/IPRATROPIUM 3 ML (DUONEB) VIAL INH PRN (19:59)
[2018-12-29] MEDS ORDERED: RT-ALBUTEROL/IPRATROPIUM 3 ML (DUONEB) VIAL INH SCH (20:00)
[2018-12-29] MEDS: SIMvastatin 20 MG (ZOCOR) TAB PO SCH (20:43)
--- NOTE | 2018-12-29 21:52 | NUR ---
Last bag of potassium was given at this time. eMAR wouldn't allow me to scan it.
[2018-12-30] VITALS (7 sets, daily range): BP systolic 99–167; BP diastolic 62–78
[2018-12-30] MEDS: methylPREDNISolone 40 MG/ML (Solu-MEDROL) VIAL IV SCH ×4 (00:11→16:46)
[2018-12-30] MEDS: RT-ALBUTEROL/IPRATROPIUM 3 ML (DUONEB) VIAL INH SCH ×6 (03:03→20:39)
--- NOTE | 2018-12-30 05:40 | Pulmonary Progress Note ---
Subjective Time Seen by a Provider: 05:39 Subjective/Events-last exam Persistent SOB and nonproductive cough. Sepsis Event Evaluation Height, Weight, BMI Height: 5'8.00" Weight: 107lbs. 9.6oz. 48.190529gi; 16.6 BMI Method:Stated Focused Exam Lactate Level 12/27/18 12:25: Lactic Acid Level 1.42 Exam Exam Vital Signs Date Time Temp Pulse Resp B/P (MAP) Pulse Ox O2 Delivery O2 Flow Rate FiO2 12/30/18 05:00 94.1 91 16 167/78 (107) 94 Vapotherm 30.00 25.00 12/30/18 03:03 95 Vapotherm 20.00 30 12/30/18 00:46 97.9 92 16 162/73 (102) 95 Vapotherm 30.00 25.00 12/29/18 23:17 93 Vapotherm 20.00 30 12/29/18 21:00 Nasal Cannula 10.00 12/29/18 20:00 97.6 88 16 107/62 (77) 93 Vapotherm 30.00 25.00 12/29/18 19:58 98 Vapotherm 20.00 30 12/29/18 16:36 98.0 97 16 153/87 (109) 96 12/29/18 16:25 96 Vapotherm 20.00 30 12/29/18 12:00 97.0 98 18 147/69 (95) 97 Vapotherm 30.00 25.00 12/29/18 08:41 Vapotherm 25.00 30 12/29/18 08:01 97.8 89 22 124/73 (90) 98 Venturi Mask 30.00 35.00 12/29/18 07:51 97 Vapotherm 35.00 30 I & O 12/30/18 07:00 Intake Total 1760 ml Output Total 2000 ml Balance -240 ml Height & Weight Height: 5'8.00" Weight: 107lbs. 9.6oz. 48.497451ua; 16.6 BMI Method:Stated General Appearance: Anxious, Mild Distress, Thin HEENT: PERRL/EOMI, Normal ENT Inspection, Pharynx Normal Neck: Full Range of Motion, Non Tender, Supple Respiratory: Crackles, Decreased Breath Sounds, Wheezing Cardiovascular: Regular Rate, Rhythm, No Edema Capillary Refill: Less Than 3 Seconds Gastrointestinal: normal bowel sounds, non tender, soft Extremity: Normal Capillary Refill, Normal Inspection Neurologic/Psychiatric: Alert Skin: Normal Color, Warm/Dry Lymphatic: No Adenopathy Results Lab Laboratory Tests 12/29/18 05:45 Assessment/Plan Assessment/Plan PNA with sepsis - failed out patient treatment - Rocephin and azithromycin Recent dx of influenza - only partially treated as out patient - Tamiflu COPDAE- pt does have home oxygen -SVNS -SOlumedrol -40 IV Q 6 MARIELOS SHEPARD DO Dec 30, 2018 05:40
[2018-12-30] MEDS: ADVAIR HFA 115/21 MCG INHALER 8 GM IH SCH ×2 (06:53→20:39)
[2018-12-30] MEDS: POLYETHYLENE GLYCOL 17 GM (MIRALAX) PACK PO SCH ×2 (08:57→19:31)
[2018-12-30] MEDS: SENNA W/DOCUSATE (SENOKOT S) TABLET PO SCH ×2 (08:57→19:32)
[2018-12-30] MEDS: LACTULOSE SYRUP 10GM/15ML (ENULOSE) 30ML UDC PO SCH ×2 (08:57→19:31)
[2018-12-30] MEDS: cefTRIAXone 1,000 MG/SWFI 10 ML IV PUSH IV SCH ×2 (08:57)
[2018-12-30] MEDS: ENOXAPARIN 30 MG/0.3 ML (LOVENOX) SYR SC SCH (08:57)
[2018-12-30] MEDS: ALPRAZolam 0.5 MG (XANAX) TAB PO SCH ×2 (08:58→20:21)
[2018-12-30] MEDS: OSELTAMIVIR 30 MG (TAMIFLU) CAPSULE PO SCH ×2 (08:58→20:21)
[2018-12-30] MEDS: IBUPROFEN 600 MG (MOTRIN) TAB PO PRN (09:01)
[2018-12-30] MEDS: POTASSIUM CL 10MEQ/50ML IVPB 50 ML IV SCH (09:11)
[2018-12-30] MEDS ORDERED: FUROSEMIDE 40 MG/4 ML INJ (LASIX) IVP NR (09:15)
[2018-12-30] MEDS ORDERED: KCL 8 MEQ (MICRO K) TABLET PO NR (09:15)
--- NOTE | 2018-12-30 09:47 | Progress Note-Hospitalist ---
MARYAN HUGHES DO 12/30/18 0947: Subjective HPI/CC On Admission Date Seen by Provider: Dec 30, 2018 Time Seen by Provider: 09:00 Subjective/Events-last exam Patient has worsened and in respiratory distress Dr Gallegos initiated meds and uon recheck she is doing much better and sis not require transfer to ICU Very poor reserve Pt is worse with worse with worsening shortness of breath and wheezing. On Vapotherm and still having some difficulty, so will transfer over to the ICU under Dr. Gallegos pulmonary consultation. Overall frail status and poor reserve, and her recently so she has significant issues with motivation and trying to improve her status. [id number] at the bedside trying to give her her home medications. Will need BiPAP or intubation if worsens. Reviewed meds and labs. Review of Systems Pulmonary: Dyspnea Focused Exam Lactate Level Objective Exam Vital Signs Vital Signs Date Time Temp Pulse Resp B/P (MAP) Pulse Ox O2 Delivery O2 Flow Rate FiO2 12/30/18 16:50 98.2 100 22 99/64 (76) 94 Nasal Cannula 2.00 12/30/18 10:37 30 Capillary Refill : Less Than 3 Seconds General Appearance: Anxious, Chronically ill, Moderate Distress, Thin HEENT: PERRL/EOMI, Normal ENT Inspection, Pharynx Normal Neck: Full Range of Motion, Non Tender, Supple Respiratory: Accessory Muscle Use, Crackles, Decreased Breath Sounds, Rales, Respiratory Distress, Wheezing Cardiovascular: Regular Rate, Rhythm, No Edema Extremity: Normal Capillary Refill, Normal Inspection Neurologic/Psychiatric: Alert Skin: Normal Color, Warm/Dry Lymphatic: No Adenopathy Results/Procedures Lab Laboratory Tests 12/30/18 10:30 Patient resulted labs reviewed. Assessment/Plan Assessment and Plan Assess & Plan/Chief Complaint Acute respiratory distress may need transfer to ICU for vent AECOPD Influenza A Chronic hypoxia Anxiety Plan: Tamiflu May need ICU Steroids Guarded prognosis Diagnosis/Problems Diagnosis/Problems (1) Respiratory insufficiency Status: Acute (2) Pneumonia Status: Acute Qualifiers: Pneumonia type: due to unspecified organism Laterality: right Lung location: unspecified part of lung Qualified Codes: J18.9 - Pneumonia, unspecified organism (3) Sepsis Status: Acute Qualifiers: Sepsis type: sepsis due to unspecified organism Qualified Codes: A41.9 - Sepsis, unspecified organism (4) Influenza A Status: Acute (5) COPD (chronic obstructive pulmonary disease) Status: Chronic Qualifiers: COPD type: unspecified COPD Qualified Codes: J44.9 - Chronic obstructive pulmonary disease, unspecified (6) Osteoporosis Status: Chronic (7) DVT prophylaxis Status: Acute (8) Hyperlipidemia Status: Chronic (9) Grief reaction Status: Acute (10) Frailty Status: Acute Clinical Quality Measures DVT/VTE Risk/Contraindication: Risk Factor Score Per Nursin RFS Level Per Nursing on Admit: 4+=Very High KALYANI FUNEZ MEDICAL STUDENT 12/30/18 1348: Subjective HPI/CC On Admission CC: Dyspnea HPI: This is a 78 white female who presented to ER last week with worsening dyspnea. Pt had been diagnosed with influenza and started Tamiflu earlier in the week. She has a hx of COPD and is on 3L of O2 at home. Subjective/Events-last exam Pt states she is having harder time breathing Her voqqrr-qq-zbe is present and also thinks pt is not eating/drinking enough Pt denies pain, f/c Review of Systems General: No Chills HEENT: No Head Aches Pulmonary: Dyspnea; No Pleuritic Chest Pain Gastrointestinal: No: Nausea, Vomiting, Abdominal Pain, Constipation Genitourinary: No Dysuria Neurological: No: Weakness Objective Exam General Appearance: Chronically ill, Mild Distress, Thin HEENT: PERRL/EOMI, Normal ENT Inspection, Pharynx Normal Neck: Full Range of Motion, Non Tender Respiratory: Chest Non Tender, Accessory Muscle Use, Crackles, Decreased Breath Sounds, Respiratory Distress, Wheezing Cardiovascular: Regular Rate, Rhythm, No Edema Gastrointestinal: Normal Bowel Sounds, Non Tender, Soft Extremity: Normal Capillary Refill, Normal Inspection Neurologic/Psychiatric: Alert, Oriented x3 Skin: Normal Color, Warm/Dry Lymphatic: No Adenopathy Results/Procedures Imaging: Reviewed Imaging Films, Reviewed Imaging Report Assessment/Plan Assessment and Plan Assess & Plan/Chief Complaint Assessment: Hypokalemia Hyperglycemia Acute exacerbation, COPD Oxygen dependent Influenza A Plan: Tamiflu IV steroids, nebulizer txs Pt on vapotherm Replete potassium Sugar control Appreciate Dr. Gallegos's recommendations Diagnosis/Problems Diagnosis/Problems (1) Pneumonia Status: Acute Qualifiers: Pneumonia type: due to unspecified organism Laterality: right Lung location: unspecified part of lung Qualified Codes: J18.9 - Pneumonia, unspecified organism (2) Influenza A Status: Acute (3) DVT prophylaxis Status: Acute (4) COPD (chronic obstructive pulmonary disease) Status: Chronic Qualifiers: COPD type: unspecified COPD Qualified Codes: J44.9 - Chronic obstructive pulmonary disease, unspecified (5) Hyperlipidemia Status: Chronic MARYAN HUGHES DO Dec 30, 2018 09:47 KALYANI FUNEZ MEDICAL STUDENT Dec 30, 2018 13:48
[2018-12-30 10:36] LABS: BASOPHILS % (AUTO) 0 % (0-10); EOSINOPHILS % (AUTO) 0 % (0-10); HEMATOCRIT 37 % (35-52); LYMPHOCYTES # (AUTO) 0.3 X 10^3 (1.0-4.0); LYMPHOCYTES % (AUTO) 2 % (12-44); MEAN CORPUSCULAR HEMOGLOBIN 31 PG (25-34); MEAN CORPUSCULAR HGB CONC 32 G/DL (32-36); MEAN CORPUSCULAR VOLUME 95 FL (80-99); MEAN PLATELET VOLUME 10.1 FL (7.4-10.4); MONOCYTES # (AUTO) 0.4 X 10^3 (0.0-1.0); MONOCYTES % (AUTO) 4 % (0-12); NEUTROPHILS # (AUTO) 11.7 X 10^3 (1.8-7.8); NEUTROPHILS % (AUTO) 94 % (42-75); PLATELET COUNT 312 10^3/uL (130-400); RED CELL DISTRIBUTION WIDTH 14.4 % (10.0-14.5); WHITE BLOOD COUNT 12.4 10^3/uL (4.3-11.0)
--- NOTE | 2018-12-30 10:50 | Diagnostic Imaging Report ---
INDICATION: Pneumonia. TECHNIQUE: Single view chest at 3:05 AM. CORRELATION STUDY: 12/28/2018. FINDINGS: Patchy airspace disease of the right mid lower lung field persists but does appear to be slightly less dense. Left lung is stable. Heart size and mediastinum are unchanged. IMPRESSION: Right-sided infiltrate persisting but perhaps very minimally improved from previous study. Dictated by: Dictated on workstation # [id number]
--- NOTE | 2018-12-30 11:00 | NUR ---
RT notified of the ABG
[2018-12-30 11:03] LABS: ALBUMIN 3.4 GM/DL (3.2-4.5); BILIRUBIN,TOTAL 0.3 MG/DL (0.1-1.0); CALCIUM 8.4 MG/DL (8.5-10.1); CREATININE SERUM 0.99 MG/DL (0.60-1.30); MAGNESIUM 1.8 MG/DL (1.8-2.4); POTASSIUM 3.1 MMOL/L (3.6-5.0)
[2018-12-30] MEDS: AZITHROMYCIN 250 MG TAB (ZITHROMAX) PO SCH (16:46)
[2018-12-30] MEDS: SIMvastatin 20 MG (ZOCOR) TAB PO SCH (20:21)
[2018-12-30] MEDS: ZOLPIDEM 5 MG (AMBIEN) TAB PO PRN (22:22)
[2018-12-31] MEDS: methylPREDNISolone 40 MG/ML (Solu-MEDROL) VIAL IV SCH ×5 (00:40→23:16)
[2018-12-31] MEDS: RT-ALBUTEROL/IPRATROPIUM 3 ML (DUONEB) VIAL INH SCH ×6 (02:27→22:31)
[2018-12-31 04:00] VITALS: BP 117/66
[2018-12-31] MEDS: ADVAIR HFA 115/21 MCG INHALER 8 GM IH SCH ×2 (06:33→19:04)
[2018-12-31] MEDS ORDERED: FUROSEMIDE 40 MG/4 ML INJ (LASIX) IVP NR (07:30)
[2018-12-31] MEDS ORDERED: KCL 10 MEQ TAB (MICRO K) PO NR (07:30)
--- NOTE | 2018-12-31 07:40 | Pulmonary Progress Note ---
Subjective Time Seen by a Provider: 07:40 Subjective/Events-last exam C/o SOB Sepsis Event Evaluation Height, Weight, BMI Height: 5'8.00" Weight: 108lbs. 5.0oz. 49.180145eo; 16.6 BMI Method:Stated Exam Exam Vital Signs Date Time Temp Pulse Resp B/P (MAP) Pulse Ox O2 Delivery O2 Flow Rate FiO2 12/31/18 06:34 96 High Flow N/C 2.00 12/31/18 04:00 97.5 95 20 117/66 (83) 96 Nasal Cannula 2.00 2.00 12/31/18 02:27 97 Nasal Cannula 2.00 12/30/18 23:31 98.1 98 18 99/62 (74) 96 Nasal Cannula 2.00 12/30/18 21:00 Nasal Cannula 3.00 12/30/18 20:42 97 Nasal Cannula 2.00 12/30/18 20:18 98.1 100 22 109/67 (81) 95 Nasal Cannula 2.00 12/30/18 16:50 98.2 100 22 99/64 (76) 94 Nasal Cannula 2.00 12/30/18 14:06 93 Nasal Cannula 2.00 12/30/18 12:00 98.6 101 22 113/73 (86) 95 Nasal Cannula 2.00 12/30/18 10:37 91 Vapotherm 10.00 30 12/30/18 09:00 Vapotherm 25.00 30 12/30/18 08:10 98.9 99 18 105/71 (82) 91 Vapotherm 30.00 10.00 I & O 12/31/18 07:00 Intake Total 2390 ml Output Total 500 ml Balance 1890 ml Height & Weight Height: 5'8.00" Weight: 108lbs. 5.0oz. 49.285473qf; 16.6 BMI Method:Stated General Appearance: Anxious, Chronically ill, Mild Distress, Thin HEENT: PERRL/EOMI, Normal ENT Inspection, Pharynx Normal Neck: Full Range of Motion, Non Tender, Supple Respiratory: Accessory Muscle Use, Crackles, Decreased Breath Sounds, Rales, Respiratory Distress, Wheezing Cardiovascular: Regular Rate, Rhythm, No Edema Capillary Refill: Less Than 3 Seconds Gastrointestinal: normal bowel sounds, non tender, soft Extremity: Normal Capillary Refill, Normal Inspection Neurologic/Psychiatric: Alert Skin: Normal Color, Warm/Dry Lymphatic: No Adenopathy Results Lab Laboratory Tests 12/30/18 10:30 Assessment/Plan Assessment/Plan PNA with sepsis - failed out patient treatment - Rocephin and azithromycin -Repeat labs -CXR reviewed. Recent dx of influenza - only partially treated as out patient - Tamiflu COPDAE- pt does have home oxygen -SVNS -SOlumedrol -40 IV Q 6 Pulmonary edema -Give 40mg of lasix IV x 1 - BNP is 413 MARIELOS SHEPARD DO Dec 31, 2018 07:40
[2018-12-31 08:00] VITALS: BP 113/65
[2018-12-31] MEDS: cefTRIAXone 1,000 MG/SWFI 10 ML IV PUSH IV SCH ×2 (08:34)
[2018-12-31] MEDS: ENOXAPARIN 30 MG/0.3 ML (LOVENOX) SYR SC SCH (08:34)
[2018-12-31] MEDS: LACTULOSE SYRUP 10GM/15ML (ENULOSE) 30ML UDC PO SCH ×2 (08:35→21:10)
[2018-12-31] MEDS: IBUPROFEN 600 MG (MOTRIN) TAB PO PRN (08:35)
[2018-12-31] MEDS: POLYETHYLENE GLYCOL 17 GM (MIRALAX) PACK PO SCH ×2 (08:35→21:10)
[2018-12-31] MEDS: SENNA W/DOCUSATE (SENOKOT S) TABLET PO SCH ×2 (08:35→21:10)
[2018-12-31] MEDS: OSELTAMIVIR 30 MG (TAMIFLU) CAPSULE PO SCH ×2 (08:35→21:10)
[2018-12-31] MEDS: ALPRAZolam 0.5 MG (XANAX) TAB PO SCH ×2 (08:35→21:10)
--- NOTE | 2018-12-31 09:52 | Diagnostic Imaging Report ---
Indication: Pneumonia. Time of exam 3:49 AM Correlation is made with prior study one day earlier. Heart size is stable. Interstitial and airspace infiltrate throughout the right lung particularly right perihilar and right basilar region persists. Left lung is clear. No significant effusion or pneumothorax is seen. Impression: No significant change in right-sided pneumonia when compared to examination one day earlier. Dictated by: Dictated on workstation # [id number]
--- NOTE | 2018-12-31 10:27 | Progress Note-Hospitalist ---
MARYAN HUGHES DO 12/31/18 1027: Subjective HPI/CC On Admission Date Seen by Provider: Dec 31, 2018 Time Seen by Provider: 10:00 CC: Dyspnea HPI: This is a 78 white female who presented to ER last week with worsening dyspnea. Pt had been diagnosed with influenza and started Tamiflu earlier in the week. She has a hx of COPD and is on 3L of O2 at home. Subjective/Events-last exam Pt is breathing better but still very wheezy. Lasix improved volume overload and shortness of breath. Did have a bowel movement and is taking meds to keep her regular. Will initiate physical therapy to get her out of bed. Guarded prognosis. May need swing bed in a senior living once oxygen requirements are decreased. Review of Systems General: Fatigue Pulmonary: Dyspnea Objective Exam Vital Signs Vital Signs Date Time Temp Pulse Resp B/P (MAP) Pulse Ox O2 Delivery O2 Flow Rate FiO2 12/31/18 19:12 High Flow N/C 2.00 12/31/18 19:04 94 12/31/18 16:37 98.4 99 18 108/70 (83) 12/30/18 10:37 30 Capillary Refill : Less Than 3 Seconds General Appearance: Anxious, Chronically ill, Mild Distress, Thin HEENT: PERRL/EOMI, Normal ENT Inspection, Pharynx Normal Neck: Full Range of Motion, Non Tender, Supple Respiratory: Accessory Muscle Use, Crackles, Decreased Breath Sounds, Rales, Respiratory Distress, Wheezing Cardiovascular: Regular Rate, Rhythm, No Edema Gastrointestinal: Normal Bowel Sounds, Non Tender, Soft Extremity: Normal Capillary Refill, Normal Inspection Neurologic/Psychiatric: Alert Skin: Normal Color, Warm/Dry Lymphatic: No Adenopathy Results/Procedures Lab Laboratory Tests 12/31/18 10:27 Patient resulted labs reviewed. Imaging: Reviewed Imaging Films, Reviewed Imaging Report Assessment/Plan Assessment and Plan Assess & Plan/Chief Complaint Acute respiratory distress may need additional oxygen support AECOPD Influenza A Chronic hypoxia Anxiety Plan: Tamiflu May need ICU if worsens Steroids Guarded prognosis PT for OOB today Diagnosis/Problems Diagnosis/Problems (1) Respiratory insufficiency Status: Acute (2) Pneumonia Status: Acute Qualifiers: Pneumonia type: due to unspecified organism Laterality: right Lung location: unspecified part of lung Qualified Codes: J18.9 - Pneumonia, unspecified organism (3) Sepsis Status: Acute Qualifiers: Sepsis type: sepsis due to unspecified organism Qualified Codes: A41.9 - Sepsis, unspecified organism (4) Influenza A Status: Acute (5) COPD (chronic obstructive pulmonary disease) Status: Chronic Qualifiers: COPD type: unspecified COPD Qualified Codes: J44.9 - Chronic obstructive pulmonary disease, unspecified (6) Osteoporosis Status: Chronic (7) DVT prophylaxis Status: Acute (8) Hyperlipidemia Status: Chronic (9) Grief reaction Status: Acute (10) Frailty Status: Acute Clinical Quality Measures DVT/VTE Risk/Contraindication: Risk Factor Score Per Nursin RFS Level Per Nursing on Admit: 4+=Very High KALYANI FUNEZ MEDICAL STUDENT 12/31/18 1526: Subjective HPI/CC On Admission CC: Dyspnea HPI: This is a 78 white female who presented to ER last week with worsening dyspnea. Pt had been diagnosed with influenza and started Tamiflu earlier in the week. She has a hx of COPD and is on 3L of O2 at home. Pt is a former smoker. Subjective/Events-last exam Pt received lasix for pulmonary edema, she states she feels it is easier to breath. She feels she has increased chest congestion, however. Denies pain/fever. Son is at bedside, states that pt hasn't moved from bed since Saturday. Review of Systems General: No Chills; Fatigue HEENT: No Head Aches Pulmonary: Dyspnea, Cough; No Pleuritic Chest Pain Cardiovascular: No: Chest Pain, Palpitations, Edema Gastrointestinal: No: Nausea Genitourinary: No Dysuria Neurological: No: Weakness Objective Exam General Appearance: WD/WN, Chronically ill, Mild Distress, Thin HEENT: Normal ENT Inspection, Pharynx Normal Neck: Full Range of Motion, Non Tender Respiratory: Chest Non Tender, Accessory Muscle Use, Crackles, Decreased Breath Sounds, Respiratory Distress, Wheezing Cardiovascular: Regular Rate, Rhythm, No Edema Gastrointestinal: Normal Bowel Sounds, Non Tender, Soft Extremity: Normal Capillary Refill, Normal Inspection Neurologic/Psychiatric: Alert, Oriented x3, No Motor/Sensory Deficits Skin: Normal Color, Warm/Dry Results/Procedures Imaging: Reviewed Imaging Films, Reviewed Imaging Report Assessment/Plan Assessment and Plan Assess & Plan/Chief Complaint Assessment: PNA w/ sepsis superimposed on influenza Acute exacerbation, COPD Oxygen dependent Pulmonary edema Hypophosphatemia Former smoker Plan: IV steroids, nebulizer txs Pt on vapotherm Replete phosphate Azithromycin and Rocephin for PNA Sugar control Appreciate Dr. Gallegos's recommendations MARYAN HUGHES DO Dec 31, 2018 10:27 KALYANI FUNEZ MEDICAL STUDENT Dec 31, 2018 15:26
[2018-12-31 10:37] LABS: BASOPHILS % (AUTO) 0 % (0-10); EOSINOPHILS % (AUTO) 0 % (0-10); HEMATOCRIT 39 % (35-52); HEMOGLOBIN 12.6 G/DL (11.5-16.0); LYMPHOCYTES # (AUTO) 0.4 X 10^3 (1.0-4.0); LYMPHOCYTES % (AUTO) 3 % (12-44); MEAN CORPUSCULAR HEMOGLOBIN 31 PG (25-34); MEAN CORPUSCULAR HGB CONC 33 G/DL (32-36); MEAN CORPUSCULAR VOLUME 96 FL (80-99); MEAN PLATELET VOLUME 9.7 FL (7.4-10.4); MONOCYTES # (AUTO) 0.5 X 10^3 (0.0-1.0); MONOCYTES % (AUTO) 4 % (0-12); NEUTROPHILS # (AUTO) 10.2 X 10^3 (1.8-7.8); NEUTROPHILS % (AUTO) 92 % (42-75); PLATELET COUNT 368 10^3/uL (130-400); RED CELL DISTRIBUTION WIDTH 14.6 % (10.0-14.5)
[2018-12-31 10:55] LABS: BUN/CREATININE RATIO 26; CALCIUM 8.6 MG/DL (8.5-10.1); CARBON DIOXIDE 26 MMOL/L (21-32); CHLORIDE 101 MMOL/L (98-107); CREATININE SERUM 0.85 MG/DL (0.60-1.30); GFR ESTIMATED > 60; GLUCOSE 193 MG/DL (70-105); MAGNESIUM 1.9 MG/DL (1.8-2.4); PHOSPHORUS 1.4 MG/DL (2.3-4.7); POTASSIUM 3.8 MMOL/L (3.6-5.0); SODIUM 143 MMOL/L (135-145)
[2018-12-31 12:00] VITALS: BP 104/67
--- NOTE | 2018-12-31 15:34 | Physical Therapy Evaluation ---
PT Evaluation-General Medical Diagnosis Admission Date Dec 27, 2018 at 13:00 Medical Diagnosis: Sepsis, Pneumonia Onset Date: Dec 27, 2018 Therapy Diagnosis Therapy Diagnosis: weakness, decreased mobility Height/Weight Height (Feet): 5 Height (Inches): 8.00 Weight (Pounds): 108 Weight (Ounces): 5.0 Precautions Precautions/Isolations: Droplet Isolation, Standard Precautions Weight Bear Status Right Lower Extremity: Right Full Weight Bearing Left Lower Extremity: Left Full Weight Bearing Referral Physician: Sherin Cook DO Reason for Referral: Evaluation/Treatment Medical History Pertinent Medical History: COPD Additional Medical History Osteoporosis Reviewed History: Yes Social History Home: Single Level Current Living Status: Alone Entry Into Home: Stairs Without Railing PT Steps Into Home: 2 Prior/Core FIM Prior Level of Function Therapy Code Descriptions/Definitions Functional [place] Measure: 0=Not Assessed/NA 4=Minimal Assistance 1=Total Assistance 5=Supervision or Setup 2=Maximal Assistance 6=Modified [place] 3=Moderate Assistance 7=Complete [place] Therapy Quality Codes: 6 Independent with activity with or without an assistive device 5 Patient requires set up or clean up by helper. Patient completes activity by themselves 4 Supervision or touching assist (CGA). [place] provide cues , steadying assist 3 The helper provides less than half the effort to complete the activity 2 The helper provides more than half the effort to complete the activity 1 Dependent. The helper does all the effort to complete an activity 7 Patient refused to complete or attempt activity 9 The patient did not perform the activity before the current illness or injury 88 Not attempted due to Medical conditions or safety concerns Functional Abilities and Goals: Independent: Patient completed the activities by him/herself, with or without an assistive device, with no assistance from a helper. Needed Some Help: Patient needed partial assistance from another person to complete activities. Dependent: A helper completed the activities for the patient. Unknown: Not Applicable: Bed Mobility: 7 Transfers (B,C,W/C) (FIM): 7 Gait: 7 Stairs: 7 Indoor Mobility (Ambulation): Independent Stairs: Independent Prior Devices Use: Walker Prior Device Use: 4WW Pt doesn't use 4WW very often PT Evaluation-Current Subjective Pt in recliner with familly in room and agrees to PT. Pain Numeric Pain Scale: 0-No Pain Location: No Pain Reported Pt/Family Goals Pt to return home. Objective Patient Orientation: Person, Place, Situation, Normal For Age Attachments: Oxygen (3L) ROM/Strength ROM Lower Extremities WNL Strength Lower Extremities Gross motor BLE 4/5 Neuromuscular (Tone, Coordination, Reflexes) NT Sensory Vision: Functional Hearing: Functional Sensation Right Lower Extremit: Intact Sensation Left Lower Extremity: Intact Transfers Therapy Code Descriptions/Definitions Functional [place] Measure: 0=Not Assessed/NA 4=Minimal Assistance 1=Total Assistance 5=Supervision or Setup 2=Maximal Assistance 6=Modified [place] 3=Moderate Assistance 7=Complete [place] Transfers (B, C, W/C) (FIM): 4 Scootin Sit to/from Stand: 4 Gait Mode of Locomotion: Walk Anticipated Mode of Locomotion: Walk Gait (FIM): 1 Distance (FIM): 1=up to 49 ft Distance: 15' Gait Level of Assist: 4 Gait Persons Needed: 1 Gait Assistive Device: FWW Comments/Gait Description Pt uses short step length Balance Sitting Static: Good Sitting Dynamic: Good Standing Static: Good Standing Dynamic: Good Assessment/Needs Pt was able to perform sit<>stand transfer from recliner to FWW with CGA. Pt was able to amb 15' with FWW and CGA for safety with O2 at 3L. Pt had audible wheezing during amb. Pt reported SOA after amb. Pt able to recover after a couple mins. Pt is in recliner with all needs met and family in room. PT to increase activity as pt is able to tolerate. Rehab Potential: Fair Post Rehab Potential-Barriers: co-morbidities PT Short Term Goals Short Term Goals Time Frame: Jan 07, 2019 Transfers (B,C,W/C) (FIM): 5 Gait (FIM): 1 Distance (FIM): 1=up to 49 ft Gait Distance Comment: 25' Gait Level of Assist: 4 Gait Assistive Device: FWW PT Plan Problem List Problem List: Activity Tolerance, Functional Strength, Safety, Balance, Gait, Transfer, Bed Mobility, ROM Treatment/Plan Treatment Plan: Continue Plan of Care Treatment Plan: Bed Mobility, Education, Functional Activity Karen, Functional Strength, Gait, Safety, Therapeutic Exercise, Transfers Treatment Duration: Jan 07, 2019 Frequency: 6 times per week Estimated Hrs Per Day: .25 hour per day (15-30') Patient and/or Family Agrees t: Yes Safety Risks/Education Patient Education: Gait Training, Transfer Techniques, Correct Positioning, Safety Issues Teaching Recipient: Patient Teaching Methods: Demonstration, Discussion Response to Teaching: Reinforcement Needed Discharge Recommendations Plan strengthening, endurance training, ambulation Therapy D/C Recommendations: Home w/ Family Support, Retirement (TCU/NH) Equpiment Recommendations-D/C: Front Wheeled Walker Time/GCodes Time In: 1501 Time Out: 1513 Total Billed Treatment Time: 12 Total Billed Treatment 1 visit EVL 12 min ZORAIDA RANDOLPH PT Dec 31, 2018 15:34
--- NOTE | 2018-12-31 15:36 | Occupational Therapy Eval ---
OT Evaluation-General/PLF Medical Diagnosis Admission Date Dec 27, 2018 at 13:00 Medical Diagnosis: pneumonia, sepsis Onset Date: Dec 27, 2018 Therapy Diagnosis Therapy Diagnosis: Decreased activity tolerance, impaired self care skills Height/Weight Height (Feet): 5 Height (Inches): 8.00 Weight (Pounds): 108 Weight (Ounces): 5.0 Precautions Precautions/Isolations: Droplet Isolation, Standard Precautions Safety Interventions: None Medical History Pertinent Medical History: COPD Additional Medical History osteoporosis Current History Pt was diagnosed with Influenza A. Was treated as an outpatient, but then began worsening. Pt has COPD. Social History Home: Single Level Current Living Status: Alone Entry Into Home: Stairs Without Railing Steps Into Home: 2 ADL-Prior Level of Function Therapy Code Descriptions/Definitions Functional [place] Measure: 0=Not Assessed/NA 4=Minimal Assistance 1=Total Assistance 5=Supervision or Setup 2=Maximal Assistance 6=Modified [place] 3=Moderate Assistance 7=Complete [place] Therapy Quality Codes: 6 Independent with activity with or without an assistive device 5 Patient requires set up or clean up by helper. Patient completes activity by themselves 4 Supervision or touching assist (CGA). [place] provide cues , steadying assist 3 The helper provides less than half the effort to complete the activity 2 The helper provides more than half the effort to complete the activity 1 Dependent. The helper does all the effort to complete an activity 7 Patient refused to complete or attempt activity 9 The patient did not perform the activity before the current illness or injury 88 Not attempted due to Medical conditions or safety concerns Functional Abilities and Goals: Independent: Patient completed the activities by him/herself, with or without an assistive device, with no assistance from a helper. Needed Some Help: Patient needed partial assistance from another person to complete activities. Dependent: A helper completed the activities for the patient. Unknown: Not Applicable: ADL PLOF Comments Pt states she is normally able to complete basic self care tasks. Spouse assisted with housework, but pt reports he about a week ago. Son states pt will have some assist at home, but they have not worked out the details yet. DME/Equipment: Tub/Shower son states they will be getting a shower chair Drive Self: Yes OT Current Status Subjective Pt sitting in chair, agrees to therapy. Pt has no c/o pain. Mental Status/Objective Patient Orientation: Person, Place, Situation Attachments: Oxygen Current Glasses/Contacts: Yes Hearing Aids: No Dentures/Partials: Yes (upper) Upper Extremity ROM Grossly WFL Upper Extremity Strength 3+/5 ADL-Treatment ADL-Current Pt participated in UE assessment while seated. Pt states she was able to feed herself after set up. Had some difficulty opening containers per report. Pt sit to stand with minimal assistance. Pt demonstrated ability to perform transfer with CGA using FWW. Pt has decreased activity tolerance and fatigues quickly. Requires rest break. Pt sitting in chair with needs met after session. Therapy Code Descriptions/Definitions Functional [place] Measure: 0=Not Assessed/NA 4=Minimal Assistance 1=Total Assistance 5=Supervision or Setup 2=Maximal Assistance 6=Modified [place] 3=Moderate Assistance 7=Complete [place] Therapy Quality Codes: 6 Independent with activity with or without an assistive device 5 Patient requires set up or clean up by helper. Patient completes activity by themselves 4 Supervision or touching assist (CGA). [place] provide cues , steadying assist 3 The helper provides less than half the effort to complete the activity 2 The helper provides more than half the effort to complete the activity 1 Dependent. The helper does all the effort to complete an activity 7 Patient refused to complete or attempt activity 9 The patient did not perform the activity before the current illness or injury 88 Not attempted due to Medical conditions or safety concerns Eating (FIM): 5 (By report) Transfers (B, C, W/C) (FIM): 4 Education OT Patient Education: Rehab process Teaching Recipient: Patient Teaching Methods: Discussion Response to Teaching: Verbalize Understanding OT Short Term Goals Short Term Goals 1=Demonstrate adherence to instructed precautions during ADL tasks. 2=Patient will verbalize/demonstrate understanding of assistive devices/ modifications for ADL. 3=Patient will improve strength/tolerance for activity to enable patient to perform ADL's. OT Correction Goals Correction Goals Time Frame: Jan 14, 2019 Eating (FIM): 6 Grooming(FIM): 6 Bathing(FIM): 5 Upper Body Dressing(FIM): 6 Lower Body Dressing(FIM): 6 Toileting(FIM): 6 Toilet/Commode Transfer(FIM): 6 Additional Goals: 1-Demonstrate ADL Tasks, 2-Verbalize Understanding, 3- ImproveStrength/Karen 1=Demonstrate adherence to instructed precautions during ADL tasks. 2=Patient will verbalize/demonstrate understanding of assistive devices/ modifications for ADL. 3=Patient will improve strength/tolerance for activity to enable patient to perform ADL's. OT Education/Plan Discharge Recommendations Plan/Recommendations: Continue POC Treatment Plan/Plan of Care Treatment,Training & Education: Yes Patient would benefit from OT for education, treatment and training to promote independence in ADL's, mobility, safety and/or upper extremity function for ADL' s. Plan of Care: ADL Retraining, Functional Mobility, UE Funct Exercise/Act Treatment Duration: Jan 14, 2019 Frequency: 5 times per week Estimated Hrs Per Day: .25 hour per day Rehab Potential: Fair Time/GCodes Start Time: 14:18 Stop Time: 14:38 Total Time Billed (hr/min): 20 Billed Treatment Time 1 visit, GAMA(20minutes) SRINIVASAN DRISCOLL OT Dec 31, 2018 15:35
[2018-12-31 16:37] VITALS: BP 108/70
[2018-12-31] MEDS: AZITHROMYCIN 250 MG TAB (ZITHROMAX) PO SCH (17:27)
[2018-12-31 20:00] VITALS: BP 95/67
[2018-12-31] MEDS: SIMvastatin 20 MG (ZOCOR) TAB PO SCH (21:10)
[2018-12-31] MEDS: ZOLPIDEM 5 MG (AMBIEN) TAB PO PRN (23:00)
[2019-01-01] VITALS (7 sets, daily range): BP systolic 95–131; BP diastolic 53–85
[2019-01-01] MEDS: RT-ALBUTEROL/IPRATROPIUM 3 ML (DUONEB) VIAL INH SCH ×6 (01:41→22:04)
[2019-01-01] MEDS: methylPREDNISolone 40 MG/ML (Solu-MEDROL) VIAL IV SCH (05:19)
[2019-01-01 05:47] LABS: BASOPHILS % (AUTO) 0 % (0-10); EOSINOPHILS % (AUTO) 0 % (0-10); HEMATOCRIT 39 % (35-52); HEMOGLOBIN 12.3 G/DL (11.5-16.0); LYMPHOCYTES # (AUTO) 0.4 X 10^3 (1.0-4.0); LYMPHOCYTES % (AUTO) 5 % (12-44); MEAN CORPUSCULAR HEMOGLOBIN 30 PG (25-34); MEAN CORPUSCULAR HGB CONC 32 G/DL (32-36); MEAN CORPUSCULAR VOLUME 96 FL (80-99); MEAN PLATELET VOLUME 9.7 FL (7.4-10.4); MONOCYTES # (AUTO) 0.6 X 10^3 (0.0-1.0); MONOCYTES % (AUTO) 7 % (0-12); NEUTROPHILS # (AUTO) 7.9 X 10^3 (1.8-7.8); NEUTROPHILS % (AUTO) 88 % (42-75); PLATELET COUNT 342 10^3/uL (130-400); RED CELL DISTRIBUTION WIDTH 14.2 % (10.0-14.5); WHITE BLOOD COUNT 8.9 10^3/uL (4.3-11.0)
[2019-01-01 06:06] LABS: BUN/CREATININE RATIO 31; CALCIUM 8.6 MG/DL (8.5-10.1); CARBON DIOXIDE 29 MMOL/L (21-32); CHLORIDE 102 MMOL/L (98-107); CREATININE SERUM 0.78 MG/DL (0.60-1.30); GFR ESTIMATED > 60; GLUCOSE 153 MG/DL (70-105); POTASSIUM 4.4 MMOL/L (3.6-5.0); SODIUM 140 MMOL/L (135-145)
--- NOTE | 2019-01-01 06:07 | Diagnostic Imaging Report ---
INDICATION: Lower respiratory infection Portable chest 4:45 AM There is interstitial infiltrate present in the right lower lung unchanged in appearance from the previous days comparison exam. Left lung is clear. IMPRESSION: Stable interstitial infiltrate right lower lung. Dictated by: Dictated on workstation # [id number]
[2019-01-01] MEDS: ADVAIR HFA 115/21 MCG INHALER 8 GM IH SCH ×2 (07:46→22:05)
--- NOTE | 2019-01-01 09:14 | Pulmonary Progress Note ---
Sepsis Event Evaluation Height, Weight, BMI Height: 5'8.00" Weight: 108lbs. 3.2oz. 49.062335ox; 16.6 BMI Method:Stated Exam Exam Vital Signs Date Time Temp Pulse Resp B/P (MAP) Pulse Ox O2 Delivery O2 Flow Rate FiO2 01/01/19 07:46 94 High Flow N/C 2.00 01/01/19 07:38 94 High Flow N/C 2.00 01/01/19 04:37 96.5 87 16 106/53 (70) 99 Nasal Cannula 2.00 01/01/19 01:41 97 High Flow N/C 2.00 01/01/19 00:00 96.7 87 14 105/60 (75) 95 Nasal Cannula 2.00 12/31/18 22:31 96 High Flow N/C 2.00 12/31/18 21:00 Nasal Cannula 3.00 12/31/18 20:00 98.1 104 18 95/67 (76) 94 Nasal Cannula 2.00 12/31/18 19:12 High Flow N/C 2.00 12/31/18 19:04 94 High Flow N/C 2.00 12/31/18 16:37 98.4 99 18 108/70 (83) 96 Nasal Cannula 2.00 12/31/18 14:46 High Flow N/C 2.00 12/31/18 12:00 97.7 94 18 104/67 (79) 98 Nasal Cannula 2.00 12/31/18 11:00 95 High Flow N/C 2.00 I & O 01/01/19 06:59 Intake Total 1320 ml Balance 1320 ml Height & Weight Height: 5'8.00" Weight: 108lbs. 3.2oz. 49.534884qy; 16.6 BMI Method:Stated General Appearance: Anxious, Chronically ill, Mild Distress, Thin HEENT: PERRL/EOMI, Normal ENT Inspection, Pharynx Normal Neck: Full Range of Motion, Non Tender, Supple Respiratory: Accessory Muscle Use, Crackles, Decreased Breath Sounds, Rales, Respiratory Distress, Wheezing Cardiovascular: Regular Rate, Rhythm, No Edema Capillary Refill: Less Than 3 Seconds Gastrointestinal: normal bowel sounds, non tender, soft Extremity: Normal Capillary Refill, Normal Inspection Neurologic/Psychiatric: Alert Skin: Normal Color, Warm/Dry Lymphatic: No Adenopathy Results Lab Laboratory Tests 12/30/18 10:30 12/31/18 10:27 01/01/19 05:20 01/01/19 05:25 Assessment/Plan Assessment/Plan PNA with sepsis - failed out patient treatment - Rocephin and azithromycin -CXR reviewed. Recent dx of influenza - only partially treated as out patient - Tamiflu COPDAE- pt does have home oxygen -SVNS -SOlumedrol-- change to prednisone taper Pulmonary edema -MARIELOS Gentile DO Jan 01, 2019 09:14
--- NOTE | 2019-01-01 09:15 | Progress Note-Hospitalist ---
Subjective HPI/CC On Admission Date Seen by Provider: Jan 01, 2019 Time Seen by Provider: 09:45 CC: Dyspnea HPI: This is a 78 white female who presented to ER last week with worsening dyspnea. Pt had been diagnosed with influenza and started Tamiflu earlier in the week. She has a hx of COPD and is on 3L of O2 at home. Pt is a former smoker. Subjective/Events-last exam Patient doing better Less dyspneic Needs NH and we talked about that along with SW Improved overall BM+ so holding meds Thrush treatment initiated Review of Systems General: Fatigue Pulmonary: Dyspnea Objective Exam Vital Signs Vital Signs Date Time Temp Pulse Resp B/P (MAP) Pulse Ox O2 Delivery O2 Flow Rate FiO2 01/01/19 10:55 95 High Flow N/C 2.00 01/01/19 08:00 98.9 94 18 131/83 (99) 12/30/18 10:37 30 Capillary Refill : Less Than 3 Seconds General Appearance: No Apparent Distress, Anxious, Chronically ill, Thin HEENT: PERRL/EOMI, Normal ENT Inspection, Pharynx Normal Neck: Full Range of Motion, Non Tender, Supple Respiratory: Accessory Muscle Use, Crackles, Decreased Breath Sounds, Rales, Respiratory Distress, Wheezing Cardiovascular: Regular Rate, Rhythm, No Edema Gastrointestinal: Normal Bowel Sounds, Non Tender, Soft Extremity: Normal Capillary Refill, Normal Inspection Neurologic/Psychiatric: Alert Skin: Normal Color, Warm/Dry Lymphatic: No Adenopathy Results/Procedures Lab Laboratory Tests 01/01/19 05:20 01/01/19 05:25 Patient resulted labs reviewed. Imaging: Reviewed Imaging Films, Reviewed Imaging Report Assessment/Plan Assessment and Plan Assess & Plan/Chief Complaint Acute respiratory distress now improved AECOPD on steroids Influenza A s/p treatment Chronic hypoxia Anxiety Plan: Tamiflu Steroids Guarded prognosis PT for OOB today PT/OT NHP Diagnosis/Problems Diagnosis/Problems (1) Respiratory insufficiency Status: Acute (2) Pneumonia Status: Acute Qualifiers: Pneumonia type: due to unspecified organism Laterality: right Lung location: unspecified part of lung Qualified Codes: J18.9 - Pneumonia, unspecified organism (3) Sepsis Status: Acute Qualifiers: Sepsis type: sepsis due to unspecified organism Qualified Codes: A41.9 - Sepsis, unspecified organism (4) Influenza A Status: Acute (5) COPD (chronic obstructive pulmonary disease) Status: Chronic Qualifiers: COPD type: unspecified COPD Qualified Codes: J44.9 - Chronic obstructive pulmonary disease, unspecified (6) Osteoporosis Status: Chronic (7) DVT prophylaxis Status: Acute (8) Hyperlipidemia Status: Chronic (9) Grief reaction Status: Acute (10) Frailty Status: Acute Clinical Quality Measures DVT/VTE Risk/Contraindication: Risk Factor Score Per Nursin RFS Level Per Nursing on Admit: 4+=Very High MARYAN HUGHES DO Jan 01, 2019 09:15
[2019-01-01] MEDS ORDERED: NYSTATIN ORAL SUSP 5 ML UDC PO NR (10:00)
[2019-01-01] MEDS: ENOXAPARIN 30 MG/0.3 ML (LOVENOX) SYR SC SCH (10:17)
[2019-01-01] MEDS: cefTRIAXone 1,000 MG/SWFI 10 ML IV PUSH IV SCH ×2 (10:17)
[2019-01-01] MEDS: ALPRAZolam 0.5 MG (XANAX) TAB PO SCH ×2 (10:18→20:31)
[2019-01-01] MEDS: OSELTAMIVIR 30 MG (TAMIFLU) CAPSULE PO SCH ×2 (10:18→20:31)
[2019-01-01] MEDS: LACTULOSE SYRUP 10GM/15ML (ENULOSE) 30ML UDC PO SCH ×2 (10:22→20:31)
[2019-01-01] MEDS: SENNA W/DOCUSATE (SENOKOT S) TABLET PO SCH ×2 (10:22→20:32)
[2019-01-01] MEDS: POLYETHYLENE GLYCOL 17 GM (MIRALAX) PACK PO SCH ×2 (10:22→20:31)
[2019-01-01] MEDS: fluCOnazole (DIFLUCAN) 100 MG TAB PO SCH (10:32)
--- NOTE | 2019-01-01 11:17 | Physical Therapy Daily Note ---
PT Daily Note-Current Subjective Pt in bed and agrees to PT. Daughter in room and her and pt report that pt is feeling much weaker today than yesterday. Mental Status Patient Orientation: Person, Place, Situation Attachments: Oxygen (3L), IV Transfers Therapy Code Descriptions/Definitions Functional [place] Measure: 0=Not Assessed/NA 4=Minimal Assistance 1=Total Assistance 5=Supervision or Setup 2=Maximal Assistance 6=Modified [place] 3=Moderate Assistance 7=Complete [place] Therapy Quality Codes: 6 Independent with activity with or without an assistive device 5 Patient requires set up or clean up by helper. Patient completes activity by themselves 4 Supervision or touching assist (CGA). [place] provide cues , steadying assist 3 The helper provides less than half the effort to complete the activity 2 The helper provides more than half the effort to complete the activity 1 Dependent. The helper does all the effort to complete an activity 7 Patient refused to complete or attempt activity 9 The patient did not perform the activity before the current illness or injury 88 Not attempted due to Medical conditions or safety concerns Transfers (B, C, W/C) (FIM): 4 Scootin Supine to/from Sit: 4 Sit to/from Stand: 4 Weight Bearing Right Lower Extremity: Right Full Weight Bearing Left Lower Extremity: Left Full Weight Bearing Gait Training Gait (FIM): 1 Distance (FIM): 1=up to 49 ft Distance: 5' Gait Level of Assist: 4 Gait Persons Needed: 1 Gait Assistive Device: FWW small step length. very slow gait speed. Assessment Current Status: Poor Progress Pt was able to perform bed mobility min A-SBA. Pt sit<>stand transfer from EOB to FWW is min A. Pt attempted to walk around bed but only made it 2' and had to turn and go to the recliner for a total of 5' with FWW and min A-CGA and 3L O2. Pt was fatigued and SOA. Pt is in recliner with all needs met and daughter in room. PT Short Term Goals Short Term Goals Time Frame: Jan 07, 2019 Transfers (B,C,W/C) (FIM): 5 Gait (FIM): 1 Distance (FIM): 1=up to 49 ft Gait Distance Comment: 25' Gait Level of Assist: 4 Gait Assistive Device: FWW PT Plan Problem List Problem List: Activity Tolerance, Functional Strength, Safety, Balance, Gait, Transfer, Bed Mobility, ROM Treatment/Plan Treatment Plan: Continue Plan of Care Treatment Plan: Bed Mobility, Education, Functional Activity Karen, Functional Strength, Gait, Safety, Therapeutic Exercise, Transfers Treatment Duration: Jan 07, 2019 Frequency: 6 times per week Estimated Hrs Per Day: .25 hour per day Patient and/or Family Agrees t: Yes Time/GCodes Time In: 1019 Time Out: 1034 Total Billed Treatment Time: 15 Total Billed Treatment 1 visit FA 15 min KRISTI BERNAL PT Jan 01, 2019 11:17
--- NOTE | 2019-01-01 11:59 | NUR ---
SWINGBED/DISCHARGE PLANNING: Received a SWINGBED referral for this patient. Visited with the patient and her [id number] about POC for post acute care. Discussed with them [facility] options including for short term with the expectation of discharge eventually to home with [facility]. Patient does not seem apposed but definitely does not want to be a time buyer resident of a fci. Took the opportunity to discuss the COPD disease process and educate on the hospice benefit.They were appreciative of the education. REJI Angela will follow up for the choice facility of the patient and complete the referral process.
--- NOTE | 2019-01-01 13:51 | Occupational Ther Daily Note ---
OT Current Status-Daily Note Subjective Pt alert, sitting in recliner. Pt states that she is exhausted today because she was up/down all night going to the toilet. Pt agrees to therapy. Mental Status/Objective Patient Orientation: Person, Place, Time, Situation Therapy Code Descriptions/Definitions Functional [place] Measure: 0=Not Assessed/NA 4=Minimal Assistance 1=Total Assistance 5=Supervision or Setup 2=Maximal Assistance 6=Modified [place] 3=Moderate Assistance 7=Complete [place] Attachments: Oxygen ADL-Treatment Pt was incontinent of bowel/bladder. Offered BSC, pt agrees prior to get into bed. Pt transferred with CGA using FWW to BS. Assist to don/doff briefs over feet then able to complete with CGA. [place] stepped out for 10 min due to pt wanting to sit on BSC to empty self out as much as possible. Family present in room. Pt able to complete own hygiene with SBA for safety. Tied neck of hospital gown for pt to work on lifting shirt over head. CGA to transfer to bed then assist to lift LE's into bed. After therapy, pt lying in bed with call light/phone in reach. All needs met in room. Nrsg and family present in room. Upper Body (FIM): 5 Lower Body Dressing (FIM): 4 Toileting (FIM): 4 (CGA) Transfers (B, C, W/C) (FIM): 4 (CGA) Toilet/Commode Transfer (FIM): 4 (CGA) OT Short Term Goals Short Term Goals Transfers (B,C,W/C) (FIM): 5 1=Demonstrate adherence to instructed precautions during ADL tasks. 2=Patient will verbalize/demonstrate understanding of assistive devices/ modifications for ADL. 3=Patient will improve strength/tolerance for activity to enable patient to perform ADL's. OT Chcf Goals Chcf Goals Time Frame: Jan 14, 2019 Eating (FIM): 6 Grooming(FIM): 6 Bathing(FIM): 5 Upper Body Dressing(FIM): 6 Lower Body Dressing(FIM): 6 Toileting(FIM): 6 Toilet/Commode Transfer(FIM): 6 Additional Goals: 1-Demonstrate ADL Tasks, 2-Verbalize Understanding, 3- ImproveStrength/Karen 1=Demonstrate adherence to instructed precautions during ADL tasks. 2=Patient will verbalize/demonstrate understanding of assistive devices/ modifications for ADL. 3=Patient will improve strength/tolerance for activity to enable patient to perform ADL's. OT Education/Plan Discharge Recommendations Plan/Recommendations: Continue POC Treatment Plan/Plan of Care Patient would benefit from OT for education, treatment and training to promote independence in ADL's, mobility, safety and/or upper extremity function for ADL' s. Plan of Care: ADL Retraining, Functional Mobility, UE Funct Exercise/Act Treatment Duration: Jan 14, 2019 Frequency: 5 times per week Estimated Hrs Per Day: .25 hour per day Rehab Potential: Fair Time/GCodes Start Time: 13:50 ([id number]) Stop Time: 14:20 ([id number]) Total Time Billed (hr/min): 20 Billed Treatment Time 1 [id number] JESENIA JOSHI Jan 01, 2019 13:51
[2019-01-01] MEDS: NYSTATIN ORAL SUSP 5 ML UDC PO SCH ×2 (14:51→17:03)
[2019-01-01] MEDS: predniSONE 10 MG TAB PO SCH (14:52)
--- NOTE | 2019-01-01 15:50 | NUR ---
DISCHARGE PLANNING: Patient has yet to make a decision regarding discharge location. Encouraging them toward SNF. They may be leaning this direction, however she is not super excited bout this. Another option is for home with daughter with HHC.
[2019-01-01] MEDS: SIMvastatin 20 MG (ZOCOR) TAB PO SCH (20:31)
[2019-01-02] MEDS: NYSTATIN ORAL SUSP 5 ML UDC PO SCH ×5 (00:13→23:11)
[2019-01-02] MEDS: ZOLPIDEM 5 MG (AMBIEN) TAB PO PRN ×2 (00:19→23:11)
[2019-01-02] MEDS: RT-ALBUTEROL/IPRATROPIUM 3 ML (DUONEB) VIAL INH SCH ×6 (02:58→22:45)
[2019-01-02 03:59] VITALS: BP 107/60
[2019-01-02] MEDS: predniSONE 10 MG TAB PO SCH (05:53)
[2019-01-02 06:05] LABS: BASOPHILS % (AUTO) 0 % (0-10); EOSINOPHILS % (AUTO) 0 % (0-10); HEMATOCRIT 38 % (35-52); HEMOGLOBIN 12.1 G/DL (11.5-16.0); LYMPHOCYTES # (AUTO) 0.6 X 10^3 (1.0-4.0); LYMPHOCYTES % (AUTO) 6 % (12-44); MEAN CORPUSCULAR HEMOGLOBIN 31 PG (25-34); MEAN CORPUSCULAR HGB CONC 32 G/DL (32-36); MEAN CORPUSCULAR VOLUME 96 FL (80-99); MEAN PLATELET VOLUME 9.7 FL (7.4-10.4); MONOCYTES # (AUTO) 0.8 X 10^3 (0.0-1.0); MONOCYTES % (AUTO) 7 % (0-12); NEUTROPHILS # (AUTO) 9.7 X 10^3 (1.8-7.8); NEUTROPHILS % (AUTO) 87 % (42-75); PLATELET COUNT 373 10^3/uL (130-400); WHITE BLOOD COUNT 11.1 10^3/uL (4.3-11.0)
[2019-01-02 06:16] LABS: BUN/CREATININE RATIO 35; CALCIUM 8.6 MG/DL (8.5-10.1); CARBON DIOXIDE 29 MMOL/L (21-32); CHLORIDE 103 MMOL/L (98-107); CREATININE SERUM 0.72 MG/DL (0.60-1.30); GFR ESTIMATED > 60; GLUCOSE 131 MG/DL (70-105); PHOSPHORUS 2.8 MG/DL (2.3-4.7); POTASSIUM 4.3 MMOL/L (3.6-5.0); SODIUM 141 MMOL/L (135-145)
[2019-01-02 07:01] LABS: LYMPHOCYTES % (MANUAL) 9 %; MONOCYTES % (MANUAL) 10 %; NEUTROPHILS % (MANUAL) 81 %
[2019-01-02] MEDS: ADVAIR HFA 115/21 MCG INHALER 8 GM IH SCH ×2 (07:22→19:41)
--- NOTE | 2019-01-02 07:23 | Pulmonary Progress Note ---
Subjective Time Seen by a Provider: 11:12 Subjective/Events-last exam Pt appears to be doing better. Sepsis Event Evaluation Height, Weight, BMI Height: 5'8.00" Weight: 109lbs. 5.0oz. 49.747827pj; 16.6 BMI Method:Stated Exam Exam Vital Signs Date Time Temp Pulse Resp B/P (MAP) Pulse Ox O2 Delivery O2 Flow Rate FiO2 01/02/19 03:59 96.2 85 18 107/60 (76) 96 Nasal Cannula 2.00 01/02/19 02:58 99 High Flow N/C 2.00 01/01/19 23:05 96.4 90 16 116/85 (95) 97 Nasal Cannula 2.00 01/01/19 22:19 High Flow N/C 2.00 01/01/19 22:05 97 High Flow N/C 2.00 01/01/19 21:00 Nasal Cannula 3.00 01/01/19 19:58 96.4 94 16 119/84 (96) 94 Nasal Cannula 2.00 01/01/19 16:06 96.2 97 16 95/68 (77) 97 Nasal Cannula 2.00 01/01/19 14:20 98 High Flow N/C 2.00 01/01/19 12:00 97.9 106 20 106/72 (83) 94 Nasal Cannula 2.00 01/01/19 10:55 95 High Flow N/C 2.00 01/01/19 09:00 Nasal Cannula 3.00 01/01/19 08:00 98.9 94 18 131/83 (99) 94 Nasal Cannula 2.00 01/01/19 07:46 94 High Flow N/C 2.00 01/01/19 07:38 94 High Flow N/C 2.00 I & O 01/02/19 07:00 Intake Total 1620 ml Output Total 950 ml Balance 670 ml Height & Weight Height: 5'8.00" Weight: 109lbs. 5.0oz. 49.312943gr; 16.6 BMI Method:Stated General Appearance: No Apparent Distress, Anxious, Chronically ill, Thin HEENT: PERRL/EOMI, Normal ENT Inspection, Pharynx Normal Neck: Full Range of Motion, Non Tender, Supple Respiratory: Accessory Muscle Use, Crackles, Decreased Breath Sounds, Rales, Respiratory Distress, Wheezing Cardiovascular: Regular Rate, Rhythm, No Edema Capillary Refill: Less Than 3 Seconds Gastrointestinal: normal bowel sounds, non tender, soft Extremity: Normal Capillary Refill, Normal Inspection Neurologic/Psychiatric: Alert Skin: Normal Color, Warm/Dry Lymphatic: No Adenopathy Results Lab Laboratory Tests 12/31/18 10:27 01/01/19 05:20 01/01/19 05:25 01/02/19 05:10 Assessment/Plan Assessment/Plan PNA with sepsis - failed out patient treatment - Rocephin -CXR reviewed. Recent dx of influenza - only partially treated as out patient - Tamiflu COPDAE- pt does have home oxygen -SVNS - prednisone taper Pulmonary edema -MARIELOS Gentile DO Jan 02, 2019 07:23
[2019-01-02 08:00] VITALS: BP 133/85
[2019-01-02] MEDS: SENNA W/DOCUSATE (SENOKOT S) TABLET PO SCH ×2 (08:43→20:47)
[2019-01-02] MEDS: POLYETHYLENE GLYCOL 17 GM (MIRALAX) PACK PO SCH ×2 (08:43→20:47)
[2019-01-02] MEDS: LACTULOSE SYRUP 10GM/15ML (ENULOSE) 30ML UDC PO SCH ×2 (08:44→20:47)
[2019-01-02] MEDS: cefTRIAXone 1,000 MG/SWFI 10 ML IV PUSH IV SCH ×2 (08:46)
[2019-01-02] MEDS: ENOXAPARIN 30 MG/0.3 ML (LOVENOX) SYR SC SCH (08:46)
[2019-01-02] MEDS: fluCOnazole (DIFLUCAN) 100 MG TAB PO SCH (08:46)
--- NOTE | 2019-01-02 08:57 | Diagnostic Imaging Report ---
INDICATION: Followup pneumonia. TIME OF EXAMINATION: 4:11 AM. COMPARISON: 01/01/2019. FINDINGS: The heart size is normal. The right basilar infiltrate shows no real change. There is some mild right perihilar infiltrate as well. The left lung is clear. No effusion or pneumothorax is seen. IMPRESSION: No significant change in the right-sided infiltrates when compared with the exam of one day earlier. Dictated by: Dictated on workstation # [id number]
--- NOTE | 2019-01-02 10:56 | Progress Note-Hospitalist ---
MARYAN HUGHES DO 01/02/19 1056: Subjective HPI/CC On Admission Date Seen by Provider: Jan 02, 2019 Time Seen by Provider: 10:00 CC: Dyspnea HPI: This is a 78 white female who presented to ER last week with worsening dyspnea. Pt had been diagnosed with influenza and started Tamiflu earlier in the week. She has a hx of COPD and is on 3L of O2 at home. Pt is a former smoker. Subjective/Events-last exam patient doing very well Eating better Frail status will require NHP for skilled care Wants a walker so I ordered that Review of Systems General: Fatigue Pulmonary: Dyspnea Objective Exam Vital Signs Vital Signs Date Time Temp Pulse Resp B/P (MAP) Pulse Ox O2 Delivery O2 Flow Rate FiO2 01/02/19 16:12 98.1 102 20 153/82 (105) 99 Nasal Cannula 2.00 12/30/18 10:37 30 Capillary Refill : Less Than 3 Seconds General Appearance: No Apparent Distress, Anxious, Chronically ill, Cachetic, Thin HEENT: PERRL/EOMI, Normal ENT Inspection, Pharynx Normal Neck: Full Range of Motion, Non Tender, Supple Respiratory: Accessory Muscle Use, Crackles, Decreased Breath Sounds, Rales, Respiratory Distress, Wheezing Cardiovascular: Regular Rate, Rhythm, No Edema Gastrointestinal: Normal Bowel Sounds, Non Tender, Soft Extremity: Normal Capillary Refill, Normal Inspection Neurologic/Psychiatric: Alert Skin: Normal Color, Warm/Dry Lymphatic: No Adenopathy Results/Procedures Lab Laboratory Tests 01/02/19 05:10 Patient resulted labs reviewed. Imaging: Reviewed Imaging Films, Reviewed Imaging Report Assessment/Plan Assessment and Plan Assess & Plan/Chief Complaint Acute respiratory distress now improved AECOPD on steroids Influenza A s/p treatment Chronic hypoxia Anxiety Plan: Tamiflu Steroids Guarded prognosis [facility] but improved today PT/OT NHP Diagnosis/Problems Diagnosis/Problems (1) Respiratory insufficiency Status: Acute (2) Pneumonia Status: Acute Qualifiers: Pneumonia type: due to unspecified organism Laterality: right Lung location: unspecified part of lung Qualified Codes: J18.9 - Pneumonia, unspecified organism (3) Sepsis Status: Acute Qualifiers: Sepsis type: sepsis due to unspecified organism Qualified Codes: A41.9 - Sepsis, unspecified organism (4) Influenza A Status: Acute (5) COPD (chronic obstructive pulmonary disease) Status: Chronic Qualifiers: COPD type: unspecified COPD Qualified Codes: J44.9 - Chronic obstructive pulmonary disease, unspecified (6) Osteoporosis Status: Chronic (7) DVT prophylaxis Status: Acute (8) Hyperlipidemia Status: Chronic (9) Grief reaction Status: Acute (10) Frailty Status: Acute Clinical Quality Measures DVT/VTE Risk/Contraindication: Risk Factor Score Per Nursin RFS Level Per Nursing on Admit: 4+=Very High KALYANI FUNEZ MEDICAL STUDENT 01/02/19 1332: Subjective HPI/CC On Admission CC: Dyspnea HPI: This is a 78 white female who presented to ER last week with worsening dyspnea. Pt had been diagnosed with influenza and started Tamiflu earlier in the week. She has a hx of COPD and is on 3L of O2 at home. Pt is a former smoker. Subjective/Events-last exam Pt continues to improve. She says she feels much better, is breathing easier, and is now clearing some of the chest congestion with a cough She had several BMs yesterday Her throat feels better after the Nystatin Her daughter was present today, plan is for [facility], they need a script for a walker Review of Systems General: No Chills; Fatigue HEENT: No Sinus Congestion Pulmonary: Dyspnea, Cough; No Pleuritic Chest Pain Cardiovascular: No: Chest Pain, Edema Gastrointestinal: Diarrhea; No: Nausea, Vomiting, Abdominal Pain, Constipation Objective Exam General Appearance: No Apparent Distress, Chronically ill, Thin HEENT: PERRL/EOMI, Normal ENT Inspection, Pharynx Normal Neck: Full Range of Motion, Non Tender Respiratory: Chest Non Tender, No Accessory Muscle Use, No Respiratory Distress , Expiration, Wheezing Cardiovascular: Regular Rate, Rhythm, No Edema Gastrointestinal: Normal Bowel Sounds, Non Tender, Soft Extremity: Normal Capillary Refill, Normal Inspection Neurologic/Psychiatric: Alert Skin: Normal Color, Warm/Dry Lymphatic: No Adenopathy Assessment/Plan Assessment and Plan Assess & Plan/Chief Complaint Assessment: PNA w/ sepsis superimposed on influenza Acute exacerbation, COPD Oxygen dependent Pulmonary edema, improved Hypophosphatemia, resolved Former smoker Plan: IV steroids, nebulizer txs Continue decreasing O2 as tolerated Azithromycin and Rocephin for PNA Sugar control Prepare for transfer to [facility] Diagnosis/Problems Diagnosis/Problems (1) Pneumonia Status: Acute Qualifiers: Pneumonia type: due to unspecified organism Laterality: right Lung location: unspecified part of lung Qualified Codes: J18.9 - Pneumonia, unspecified organism (2) Influenza A Status: Acute (3) Sepsis Status: Acute Qualifiers: Sepsis type: sepsis due to unspecified organism Qualified Codes: A41.9 - Sepsis, unspecified organism (4) COPD (chronic obstructive pulmonary disease) Status: Chronic Qualifiers: COPD type: unspecified COPD Qualified Codes: J44.9 - Chronic obstructive pulmonary disease, unspecified (5) Osteoporosis Status: Chronic (6) Hyperlipidemia Status: Chronic (7) Grief reaction Status: Acute (8) Respiratory insufficiency Status: Acute (9) Frailty Status: Acute (10) LIMITATION OF ACTIVITIES DUE TO DISABILITY (11) DVT prophylaxis Status: Acute MARYAN HUGHES DO Jan 02, 2019 10:56 KALYANI FUNEZ MEDICAL STUDENT Jan 02, 2019 13:32
--- NOTE | 2019-01-02 11:05 | Physical Therapy Daily Note ---
PT Daily Note-Current Subjective Pt reports she has been up a lot already this morning but is agreeable to PT treatment. Daughter states pt has been walking to and from bathroom with walker and also walked recliner to and from bedroom door last night. Pt reports her biggest concern is her breathing and short of air Pain Numeric Pain Scale: 0-No Pain Appearance Pt sitting up in recliner awake and alert, with daughter present. At end of session, pt sitting up in recliner with daughter and psychotherapist social worker present, call light, phone and bedside table within reach. All needs met at this time Mental Status Patient Orientation: Person, Place, Time, Situation Attachments: Oxygen Transfers Therapy Code Descriptions/Definitions Functional [place] Measure: 0=Not Assessed/NA 4=Minimal Assistance 1=Total Assistance 5=Supervision or Setup 2=Maximal Assistance 6=Modified [place] 3=Moderate Assistance 7=Complete [place] Therapy Quality Codes: 6 Independent with activity with or without an assistive device 5 Patient requires set up or clean up by helper. Patient completes activity by themselves 4 Supervision or touching assist (CGA). [place] provide cues , steadying assist 3 The helper provides less than half the effort to complete the activity 2 The helper provides more than half the effort to complete the activity 1 Dependent. The helper does all the effort to complete an activity 7 Patient refused to complete or attempt activity 9 The patient did not perform the activity before the current illness or injury 88 Not attempted due to Medical conditions or safety concerns Transfers (B, C, W/C) (FIM): 5 Sit to/from Stand: 5 Pt demonstrating safe techniques with all transitions, although does perform very slowly, Weight Bearing Right Lower Extremity: Right Full Weight Bearing Left Lower Extremity: Left Full Weight Bearing Gait Training Gait (FIM): 1 Distance (FIM): 1=up to 49 ft Distance: 40 Gait Level of Assist: 5 Gait Persons Needed: 1 Gait Assistive Device: FWW good posture and positioning with walker, instruction in breathing while walking which did improve report of shortness of air. Pt with very slow pace, several long standing sessions during gait. Exercises Seated Therapy Exercises: Ankle pumps, Sit to stand, Long arc quads, Hip flexion, Hip abd/add Seated Reps: 10 Treatments transfer and gait training, breathing techniques, LE exercise Assessment Current Status: Good Progress PT Short Term Goals Short Term Goals Time Frame: Jan 07, 2019 Transfers (B,C,W/C) (FIM): 5 Gait (FIM): 1 Distance (FIM): 1=up to 49 ft Gait Distance Comment: 25' Gait Level of Assist: 4 Gait Assistive Device: FWW PT Plan Problem List Problem List: Activity Tolerance, Functional Strength, Gait, Transfer Treatment/Plan Treatment Plan: Continue Plan of Care Treatment Plan: Bed Mobility, Education, Functional Activity Karen, Functional Strength, Gait, Safety, Therapeutic Exercise, Transfers Treatment Duration: Jan 07, 2019 Frequency: 6 times per week Estimated Hrs Per Day: .25 hour per day Patient and/or Family Agrees t: Yes Safety Risks/Education Patient Education: Gait Training, Transfer Techniques, Safety Issues Teaching Recipient: Patient Teaching Methods: Demonstration, Discussion Response to Teaching: Verbalize Understanding, Return Demonstration Time/GCodes Time In: 936 Time Out: 954 Total Billed Treatment Time: 18 Total Billed Treatment 1 visit, GT x10', EX x8' GARY KAY REMEDIATION CONSULTANT Jan 02, 2019 11:05
--- NOTE | 2019-01-02 11:11 | NUR ---
DISCHARGE PLANNING: This morning when I came in there was a IRF eval. Now it is not in the orders. Unsure what happened to it, nut in talking with Alyce Rousseau, it is unlikely that the patient will be able to tolerate the 3 hours of therapy a day due to her current inability to walk further that from the bed to the recliner. Turns out that the [place] CHIEF ADMINISTRATIVE OFFICER has been in to speak with them and they have given authorization to sent clinical information to [facility]. This has been done after having spoken to Ivelisse at [facility].
[2019-01-02 12:00] VITALS: BP 148/80
[2019-01-02] MEDS: ALPRAZolam 0.5 MG (XANAX) TAB PO SCH ×2 (12:12→20:47)
[2019-01-02 16:12] VITALS: BP 153/82
[2019-01-02 20:00] VITALS: BP 134/86
[2019-01-02] MEDS: SIMvastatin 20 MG (ZOCOR) TAB PO SCH (20:47)
[2019-01-02 23:25] VITALS: BP 104/73
[2019-01-03] MEDS: RT-ALBUTEROL/IPRATROPIUM 3 ML (DUONEB) VIAL INH SCH ×5 (02:11→19:19)
[2019-01-03 03:52] VITALS: BP 122/59
[2019-01-03 05:29] LABS: BASOPHILS % (AUTO) 0 % (0-10); EOSINOPHILS % (AUTO) 0 % (0-10); HEMATOCRIT 37 % (35-52); LYMPHOCYTES # (AUTO) 1.1 X 10^3 (1.0-4.0); LYMPHOCYTES % (AUTO) 9 % (12-44); MEAN CORPUSCULAR HEMOGLOBIN 31 PG (25-34); MEAN CORPUSCULAR HGB CONC 32 G/DL (32-36); MEAN CORPUSCULAR VOLUME 96 FL (80-99); MEAN PLATELET VOLUME 9.5 FL (7.4-10.4); MONOCYTES # (AUTO) 0.8 X 10^3 (0.0-1.0); MONOCYTES % (AUTO) 7 % (0-12); NEUTROPHILS # (AUTO) 9.8 X 10^3 (1.8-7.8); NEUTROPHILS % (AUTO) 84 % (42-75); PLATELET COUNT 431 10^3/uL (130-400); RED CELL DISTRIBUTION WIDTH 14.2 % (10.0-14.5); WHITE BLOOD COUNT 11.7 10^3/uL (4.3-11.0)
[2019-01-03 05:49] LABS: BUN/CREATININE RATIO 29; CALCIUM 8.7 MG/DL (8.5-10.1); CARBON DIOXIDE 30 MMOL/L (21-32); CHLORIDE 103 MMOL/L (98-107); CREATININE SERUM 0.78 MG/DL (0.60-1.30); GFR ESTIMATED > 60; GLUCOSE 92 MG/DL (70-105); MAGNESIUM 1.9 MG/DL (1.8-2.4); PHOSPHORUS 3.5 MG/DL (2.3-4.7); POTASSIUM 3.8 MMOL/L (3.6-5.0); SODIUM 143 MMOL/L (135-145)
[2019-01-03] MEDS: NYSTATIN ORAL SUSP 5 ML UDC PO SCH ×3 (06:09→17:47)
[2019-01-03] MEDS: predniSONE 10 MG TAB PO SCH (06:09)
--- NOTE | 2019-01-03 06:47 | Diagnostic Imaging Report ---
INDICATION: Followup pneumonia. COMPARISON: 01/02/2019 FINDINGS: Single frontal radiographic view of the chest was obtained and demonstrates interval improved aeration of the right lower lung field. There is now suggestion of 3.3 cm right perihilar mass. Left lung is relatively clear. There is mild hyperaeration bilaterally. No large effusion or pneumothorax is seen. Cardiac silhouette and pulmonary vasculature are within normal limits. Bony structures show no gross acute abnormalities. IMPRESSION: 1. Interval improved aeration of the right lower lung field. 2. Rounded pneumonia versus mass in the right perihilar region. Continued followup is recommended. If the area in question persists, further characterization with CT chest is recommended. IV contrast is preferred. 3. Probable background of COPD. Dictated by: Dictated on workstation # [id number]
[2019-01-03 08:00] VITALS: BP 132/85
--- NOTE | 2019-01-03 08:25 | Pulmonary Progress Note ---
Subjective Time Seen by a Provider: 08:26 Subjective/Events-last exam Pt appears to be doing better. Sepsis Event Evaluation Height, Weight, BMI Height: 5'8.00" Weight: 108lbs. 5.0oz. 49.311303eu; 16.6 BMI Method:Stated Exam Exam Vital Signs Date Time Temp Pulse Resp B/P (MAP) Pulse Ox O2 Delivery O2 Flow Rate FiO2 01/03/19 03:52 96.4 92 20 122/59 (80) 97 Nasal Cannula 2.00 01/03/19 02:13 96 Nasal Cannula 2.00 01/02/19 23:25 97.5 102 18 104/73 (83) 95 Nasal Cannula 2.00 01/02/19 22:46 97 Nasal Cannula 2.00 01/02/19 21:00 Nasal Cannula 3.00 01/02/19 20:00 97.8 103 18 134/86 (102) 98 Nasal Cannula 2.00 01/02/19 19:41 97 Nasal Cannula 2.00 01/02/19 16:12 98.1 102 20 153/82 (105) 99 Nasal Cannula 2.00 01/02/19 14:45 97 Nasal Cannula 2.00 01/02/19 12:00 97.8 104 20 148/80 (102) 99 Nasal Cannula 2.00 01/02/19 11:31 96 Nasal Cannula 2.00 01/02/19 09:00 Nasal Cannula 3.00 I & O 01/03/19 07:00 Intake Total 1620 ml Output Total 1100 ml Balance 520 ml Height & Weight Height: 5'8.00" Weight: 108lbs. 5.0oz. 49.482014zu; 16.6 BMI Method:Stated General Appearance: No Apparent Distress, Anxious, Chronically ill, Cachetic, Thin HEENT: PERRL/EOMI, Normal ENT Inspection, Pharynx Normal Neck: Full Range of Motion, Non Tender, Supple Respiratory: Accessory Muscle Use, Crackles, Decreased Breath Sounds, Rales, Respiratory Distress, Wheezing Cardiovascular: Regular Rate, Rhythm, No Edema Capillary Refill: Less Than 3 Seconds Gastrointestinal: normal bowel sounds, non tender, soft Extremity: Normal Capillary Refill, Normal Inspection Neurologic/Psychiatric: Alert Skin: Normal Color, Warm/Dry Lymphatic: No Adenopathy Results Lab Laboratory Tests 01/02/19 05:10 01/03/19 04:20 Assessment/Plan Assessment/Plan PNA with sepsis - failed out patient treatment - Rocephin -CXR reviewed. Rounded atelectasis vs lung mass -Will continue to follow as an out patient. Recent dx of influenza - -s/p Tamiflu COPDAE- pt does have home oxygen -SVNS - prednisone taper Pulmonary edema -MARIELOS Gentile DO Jan 03, 2019 08:25
[2019-01-03] MEDS: ADVAIR HFA 115/21 MCG INHALER 8 GM IH SCH ×2 (08:32→20:03)
[2019-01-03] MEDS: cefTRIAXone 1,000 MG/SWFI 10 ML IV PUSH IV SCH ×2 (09:12)
[2019-01-03] MEDS: ENOXAPARIN 30 MG/0.3 ML (LOVENOX) SYR SC SCH (09:12)
[2019-01-03] MEDS: SENNA W/DOCUSATE (SENOKOT S) TABLET PO SCH ×2 (09:13→21:16)
[2019-01-03] MEDS: ALPRAZolam 0.5 MG (XANAX) TAB PO SCH ×2 (09:14→20:15)
[2019-01-03] MEDS: LACTULOSE SYRUP 10GM/15ML (ENULOSE) 30ML UDC PO SCH ×2 (09:17→21:16)
[2019-01-03] MEDS: fluCOnazole (DIFLUCAN) 100 MG TAB PO SCH (09:18)
[2019-01-03] MEDS: POLYETHYLENE GLYCOL 17 GM (MIRALAX) PACK PO SCH ×2 (09:18→21:16)
--- NOTE | 2019-01-03 11:03 | Progress Note-Hospitalist ---
Subjective HPI/CC On Admission Date Seen by Provider: Jan 03, 2019 Time Seen by Provider: 11:30 CC: Dyspnea HPI: This is a 78 white female who presented to ER last week with worsening dyspnea. Pt had been diagnosed with influenza and started Tamiflu earlier in the week. She has a hx of COPD and is on 3L of O2 at home. Pt is a former smoker. Subjective/Events-last exam Patient is doing much better Slow recovery NHP Saturday Walker order placed Wants a lift for the toilet and I explained that would all be arranged once she is DC from skilled care but I seriously doubt she will be strong enough to be DC home but will continue to be supportive of her wishes Pain is not reported Eating better Frail status Review of Systems General: Fatigue Pulmonary: Dyspnea Objective Exam Vital Signs Vital Signs Date Time Temp Pulse Resp B/P (MAP) Pulse Ox O2 Delivery O2 Flow Rate FiO2 01/03/19 16:00 97.9 100 20 90/63 (72) 96 Nasal Cannula 2.00 12/30/18 10:37 30 Capillary Refill : Less Than 3 Seconds General Appearance: No Apparent Distress, Anxious, Chronically ill, Cachetic, Thin HEENT: PERRL/EOMI, Normal ENT Inspection, Pharynx Normal Neck: Full Range of Motion, Non Tender, Supple Respiratory: No Accessory Muscle Use, No Respiratory Distress, Decreased Breath Sounds, Wheezing Cardiovascular: Regular Rate, Rhythm, No Edema Gastrointestinal: Normal Bowel Sounds, Non Tender, Soft Extremity: Normal Capillary Refill, Normal Inspection Neurologic/Psychiatric: Alert Skin: Normal Color, Warm/Dry Lymphatic: No Adenopathy Results/Procedures Lab Laboratory Tests 01/03/19 04:20 Patient resulted labs reviewed. 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 PT/OT NHP Frail status Diagnosis/Problems Diagnosis/Problems (1) Respiratory insufficiency Status: Resolved Resolution Date/Time: 01/03/19 @ 19:46 (2) Pneumonia Status: Acute Qualifiers: Pneumonia type: due to unspecified organism Laterality: right Lung location: unspecified part of lung Qualified Codes: J18.9 - Pneumonia, unspecified organism (3) Sepsis Status: Resolved Qualifiers: Sepsis type: sepsis due to unspecified organism Qualified Codes: A41.9 - Sepsis, unspecified organism Resolution Date/Time: 01/03/19 @ 19:46 (4) Influenza A Status: Resolved Resolution Date/Time: 01/03/19 @ 19:46 (5) COPD (chronic obstructive pulmonary disease) Status: Chronic Qualifiers: COPD type: unspecified COPD Qualified Codes: J44.9 - Chronic obstructive pulmonary disease, unspecified (6) Osteoporosis Status: Chronic (7) DVT prophylaxis Status: Acute (8) Hyperlipidemia Status: Chronic Qualifiers: Hyperlipidemia type: mixed hyperlipidemia Qualified Codes: E78.2 - Mixed hyperlipidemia (9) Grief reaction Status: Acute (10) Frailty Status: Chronic Clinical Quality Measures DVT/VTE Risk/Contraindication: Risk Factor Score Per Nursin RFS Level Per Nursing on Admit: 4+=Very High MARYAN HUGHES DO Jan 03, 2019 11:03
--- NOTE | 2019-01-03 11:11 | Physical Therapy Daily Note ---
PT Daily Note-Current Subjective Pt denies pain, agreeable to treatment. Pt sitting EOB upon arrival. Mental Status Patient Orientation: Person, Place, Situation Transfers Therapy Code Descriptions/Definitions Functional [place] Measure: 0=Not Assessed/NA 4=Minimal Assistance 1=Total Assistance 5=Supervision or Setup 2=Maximal Assistance 6=Modified [place] 3=Moderate Assistance 7=Complete [place] Therapy Quality Codes: 6 Independent with activity with or without an assistive device 5 Patient requires set up or clean up by helper. Patient completes activity by themselves 4 Supervision or touching assist (CGA). [place] provide cues , steadying assist 3 The helper provides less than half the effort to complete the activity 2 The helper provides more than half the effort to complete the activity 1 Dependent. The helper does all the effort to complete an activity 7 Patient refused to complete or attempt activity 9 The patient did not perform the activity before the current illness or injury 88 Not attempted due to Medical conditions or safety concerns Weight Bearing Right Lower Extremity: Right Full Weight Bearing Left Lower Extremity: Left Full Weight Bearing Exercises Seated Therapy Exercises: Ankle pumps, Long arc quads, Hip flexion Seated Reps: 15 Treatments Pt amb with FWW and CGA x 25ft. Pt stood at bedside x 5 min with support of walker. Pt back to sitting EOB post therapy. Assessment Current Status: Good Progress Pt appeared to tolerate very well with minimal SOB. Pt on O2 per nc throughout treatment. Pt ur[place] well. All needs met with call light in place. Granddaughter present PT Short Term Goals Short Term Goals Time Frame: Jan 07, 2019 Transfers (B,C,W/C) (FIM): 5 Gait (FIM): 1 Distance (FIM): 1=up to 49 ft Gait Distance Comment: 25' Gait Level of Assist: 4 Gait Assistive Device: FWW PT Plan Treatment/Plan Treatment Plan: Continue Plan of Care Treatment Plan: Bed Mobility, Education, Functional Activity Karen, Functional Strength, Gait, Safety, Therapeutic Exercise, Transfers Treatment Duration: Jan 07, 2019 Frequency: 6 times per week Estimated Hrs Per Day: .25 hour per day Patient and/or Family Agrees t: Yes Time/GCodes Time In: 810 Time Out: 833 Total Billed Treatment Time: 23 Total Billed Treatment 1, gait 13', ther ex 10' APRIL GREGORY CPTA Jan 03, 2019 11:11
[2019-01-03 11:47] VITALS: BP 128/81
[2019-01-03 16:00] VITALS: BP 90/63
[2019-01-03] MEDS: RT-ALBUTEROL/IPRATROPIUM 3 ML (DUONEB) VIAL INH PRN (20:03)
[2019-01-03] MEDS: SIMvastatin 20 MG (ZOCOR) TAB PO SCH (20:15)
[2019-01-03 23:01] VITALS: BP 146/75
[2019-01-04] MEDS: RT-ALBUTEROL/IPRATROPIUM 3 ML (DUONEB) VIAL INH SCH ×7 (01:10→23:25)
[2019-01-04] MEDS: NYSTATIN ORAL SUSP 5 ML UDC PO SCH ×5 (01:40→17:53)
[2019-01-04] MEDS: ZOLPIDEM 5 MG (AMBIEN) TAB PO PRN ×2 (01:45→22:19)
[2019-01-04] MEDS: predniSONE 10 MG TAB PO SCH (06:27)
[2019-01-04 06:29] LABS: BASOPHILS % (AUTO) 0 % (0-10); EOSINOPHILS # (AUTO) 0.1 10^3/uL (0.0-0.3); EOSINOPHILS % (AUTO) 1 % (0-10); HEMATOCRIT 39 % (35-52); HEMOGLOBIN 12.3 G/DL (11.5-16.0); LYMPHOCYTES # (AUTO) 0.9 X 10^3 (1.0-4.0); LYMPHOCYTES % (AUTO) 10 % (12-44); MEAN CORPUSCULAR HEMOGLOBIN 31 PG (25-34); MEAN CORPUSCULAR HGB CONC 32 G/DL (32-36); MEAN CORPUSCULAR VOLUME 97 FL (80-99); MEAN PLATELET VOLUME 9.5 FL (7.4-10.4); MONOCYTES # (AUTO) 0.6 X 10^3 (0.0-1.0); MONOCYTES % (AUTO) 6 % (0-12); NEUTROPHILS % (AUTO) 82 % (42-75); PLATELET COUNT 458 10^3/uL (130-400); RED CELL DISTRIBUTION WIDTH 14.3 % (10.0-14.5); WHITE BLOOD COUNT 8.6 10^3/uL (4.3-11.0)
[2019-01-04 07:06] LABS: BUN/CREATININE RATIO 28; CALCIUM 9.1 MG/DL (8.5-10.1); CARBON DIOXIDE 31 MMOL/L (21-32); CHLORIDE 100 MMOL/L (98-107); CREATININE SERUM 0.82 MG/DL (0.60-1.30); GFR ESTIMATED > 60; GLUCOSE 91 MG/DL (70-105); MAGNESIUM 1.9 MG/DL (1.8-2.4); PHOSPHORUS 3.9 MG/DL (2.3-4.7); POTASSIUM 3.9 MMOL/L (3.6-5.0); SODIUM 142 MMOL/L (135-145)
[2019-01-04] MEDS: ADVAIR HFA 115/21 MCG INHALER 8 GM IH SCH ×2 (07:21→19:22)
[2019-01-04 08:00] VITALS: BP 139/75
[2019-01-04] MEDS: SENNA W/DOCUSATE (SENOKOT S) TABLET PO SCH ×2 (08:33→20:46)
[2019-01-04] MEDS: ENOXAPARIN 30 MG/0.3 ML (LOVENOX) SYR SC SCH (08:33)
[2019-01-04] MEDS: ALPRAZolam 0.5 MG (XANAX) TAB PO SCH ×2 (08:33→20:48)
[2019-01-04] MEDS: fluCOnazole (DIFLUCAN) 100 MG TAB PO SCH (08:33)
[2019-01-04] MEDS: LACTULOSE SYRUP 10GM/15ML (ENULOSE) 30ML UDC PO SCH ×2 (09:01→20:48)
[2019-01-04] MEDS: POLYETHYLENE GLYCOL 17 GM (MIRALAX) PACK PO SCH ×2 (09:01→20:48)
--- NOTE | 2019-01-04 10:04 | Diagnostic Imaging Report ---
INDICATION: Pneumonia. FINDINGS: Upright portable chest shows normal heart size and vascularity. There is obstructive airway disease. There has been improved aeration of the right hilum. There remains mild parabronchial thickening. No consolidated infiltrates are seen. There is no effusion or pneumothorax. IMPRESSION: Improving chest since 01/03/2019 with improved aeration of the right hilum. Dictated by: Dictated on workstation # [id number]
--- NOTE | 2019-01-04 11:57 | Progress Note-Hospitalist ---
Subjective HPI/CC On Admission Date Seen by Provider: Jan 04, 2019 Time Seen by Provider: 10:45 CC: Dyspnea HPI: This is a 78 white female who presented to ER last week with worsening dyspnea. Pt had been diagnosed with influenza and started Tamiflu earlier in the week. She has a hx of COPD and is on 3L of O2 at home. Pt is a former smoker. Subjective/Events-last exam Patient doing well Slept well last night Appears to be very weak and fragile Likely NHP will be permanent No pain is reported Eating well Review of Systems General: Fatigue Pulmonary: Dyspnea Objective Exam Vital Signs Vital Signs Date Time Temp Pulse Resp B/P (MAP) Pulse Ox O2 Delivery O2 Flow Rate FiO2 01/04/19 10:39 95 Nasal Cannula 2.00 01/04/19 08:00 98.4 101 22 139/75 (96) 12/30/18 10:37 30 Capillary Refill : Less Than 3 Seconds General Appearance: No Apparent Distress, Anxious, Chronically ill, Cachetic, Thin HEENT: PERRL/EOMI, Normal ENT Inspection, Pharynx Normal Neck: Full Range of Motion, Non Tender, Supple Respiratory: No Accessory Muscle Use, No Respiratory Distress, Decreased Breath Sounds, Wheezing Cardiovascular: Regular Rate, Rhythm, No Edema Gastrointestinal: Normal Bowel Sounds, Non Tender, Soft Extremity: Normal Capillary Refill, Normal Inspection Neurologic/Psychiatric: Alert Skin: Normal Color, Warm/Dry Lymphatic: No Adenopathy Results/Procedures Lab Laboratory Tests 01/04/19 05:40 Patient resulted labs reviewed. Imaging: Reviewed Imaging Films, Reviewed Imaging Report Assessment/Plan Assessment and Plan Assess & Plan/Chief Complaint Acute respiratory distress now improved AECOPD on steroids Influenza A s/p treatment Chronic hypoxia Anxiety Plan: Tamiflu Steroids Guarded prognosis [facility] but improved today PT/OT NHP Frail status Diagnosis/Problems Diagnosis/Problems (1) Respiratory insufficiency Status: Resolved Resolution Date/Time: 01/03/19 @ 19:46 (2) Pneumonia Status: Acute Qualifiers: Pneumonia type: due to unspecified organism Laterality: right Lung location: unspecified part of lung Qualified Codes: J18.9 - Pneumonia, unspecified organism (3) Sepsis Status: Resolved Qualifiers: Sepsis type: sepsis due to unspecified organism Qualified Codes: A41.9 - Sepsis, unspecified organism Resolution Date/Time: 01/03/19 @ 19:46 (4) Influenza A Status: Resolved Resolution Date/Time: 01/03/19 @ 19:46 (5) COPD (chronic obstructive pulmonary disease) Status: Chronic Qualifiers: COPD type: unspecified COPD Qualified Codes: J44.9 - Chronic obstructive pulmonary disease, unspecified (6) Osteoporosis Status: Chronic (7) DVT prophylaxis Status: Acute (8) Hyperlipidemia Status: Chronic Qualifiers: Hyperlipidemia type: mixed hyperlipidemia Qualified Codes: E78.2 - Mixed hyperlipidemia (9) Grief reaction Status: Acute (10) Frailty Status: Chronic Clinical Quality Measures DVT/VTE Risk/Contraindication: Risk Factor Score Per Nursin RFS Level Per Nursing on Admit: 4+=Very High MARYAN HUGHES DO Jan 04, 2019 11:57
[2019-01-04] MEDS ORDERED: SALIVA STIMULANT MOUTH SPRAY (BIOTENE) 1.5 OZ MM PRN (12:00)
--- NOTE | 2019-01-04 12:41 | Pulmonary Progress Note ---
Subjective Time Seen by a Provider: 06:00 Subjective/Events-last exam No complications noted. Sepsis Event Evaluation Height, Weight, BMI Height: 5'8.00" Weight: 106lbs. 8.0oz. 48.265558it; 16.6 BMI Method:Stated Exam Exam Vital Signs Date Time Temp Pulse Resp B/P (MAP) Pulse Ox O2 Delivery O2 Flow Rate FiO2 01/04/19 10:39 95 Nasal Cannula 2.00 01/04/19 09:00 Nasal Cannula 2.00 01/04/19 08:00 98.4 101 22 139/75 (96) 97 Nasal Cannula 2.00 01/04/19 07:22 98 Nasal Cannula 2.00 01/04/19 03:08 99 Nasal Cannula 2.00 01/03/19 23:01 96.6 89 14 146/75 (98) 98 Nasal Cannula 2.00 01/03/19 21:00 Nasal Cannula 2.00 01/03/19 20:04 98 Nasal Cannula 2.00 01/03/19 16:00 97.9 100 20 90/63 (72) 96 Nasal Cannula 2.00 01/03/19 15:25 96 Nasal Cannula 2.00 I & O 01/04/19 07:00 Intake Total 3110 ml Output Total 1100 ml Balance 2010 ml Height & Weight Height: 5'8.00" Weight: 106lbs. 8.0oz. 48.338243bt; 16.6 BMI Method:Stated General Appearance: No Apparent Distress, Anxious, Chronically ill, Cachetic, Thin HEENT: PERRL/EOMI, Normal ENT Inspection, Pharynx Normal Neck: Full Range of Motion, Non Tender, Supple Respiratory: No Accessory Muscle Use, No Respiratory Distress, Decreased Breath Sounds, Wheezing Cardiovascular: Regular Rate, Rhythm, No Edema Capillary Refill: Less Than 3 Seconds Gastrointestinal: normal bowel sounds, non tender, soft Extremity: Normal Capillary Refill, Normal Inspection Neurologic/Psychiatric: Alert Skin: Normal Color, Warm/Dry Lymphatic: No Adenopathy Results Lab Laboratory Tests 01/03/19 04:20 01/04/19 05:40 Assessment/Plan Assessment/Plan PNA with sepsis - failed out patient treatment - Rocephin -CXR reviewed. Rounded atelectasis vs lung mass -Will continue to follow as an out patient. Recent dx of influenza - -s/p Tamiflu COPDAE- pt does have home oxygen -SVNS - prednisone taper Pulmonary edema -MARIELOS Gentile DO Jan 04, 2019 12:41
[2019-01-04 16:00] VITALS: BP 134/73
[2019-01-04] MEDS: SIMvastatin 20 MG (ZOCOR) TAB PO SCH (20:46)
[2019-01-04] MEDS: RT-ALBUTEROL/IPRATROPIUM 3 ML (DUONEB) VIAL INH PRN (23:35)
[2019-01-05] VITALS: BP 128/78
[2019-01-05] MEDS: RT-ALBUTEROL/IPRATROPIUM 3 ML (DUONEB) VIAL INH SCH ×4 (02:29→13:25)
[2019-01-05] MEDS: NYSTATIN ORAL SUSP 5 ML UDC PO SCH ×3 (06:26→13:28)
[2019-01-05] MEDS: predniSONE 10 MG TAB PO SCH (06:26)
[2019-01-05] MEDS: ADVAIR HFA 115/21 MCG INHALER 8 GM IH SCH (06:30)
[2019-01-05 06:38] LABS: BASOPHILS % (AUTO) 0 % (0-10); EOSINOPHILS # (AUTO) 0.2 10^3/uL (0.0-0.3); EOSINOPHILS % (AUTO) 2 % (0-10); HEMATOCRIT 40 % (35-52); HEMOGLOBIN 12.5 G/DL (11.5-16.0); LYMPHOCYTES # (AUTO) 1.2 X 10^3 (1.0-4.0); LYMPHOCYTES % (AUTO) 13 % (12-44); MEAN CORPUSCULAR HEMOGLOBIN 31 PG (25-34); MEAN CORPUSCULAR HGB CONC 32 G/DL (32-36); MEAN CORPUSCULAR VOLUME 99 FL (80-99); MEAN PLATELET VOLUME 9.9 FL (7.4-10.4); MONOCYTES # (AUTO) 0.7 X 10^3 (0.0-1.0); MONOCYTES % (AUTO) 8 % (0-12); NEUTROPHILS # (AUTO) 7.2 X 10^3 (1.8-7.8); NEUTROPHILS % (AUTO) 77 % (42-75); PLATELET COUNT 409 10^3/uL (130-400); WHITE BLOOD COUNT 9.3 10^3/uL (4.3-11.0)
[2019-01-05 07:12] LABS: BUN/CREATININE RATIO 29; CARBON DIOXIDE 26 MMOL/L (21-32); CHLORIDE 102 MMOL/L (98-107); CREATININE SERUM 0.85 MG/DL (0.60-1.30); GFR ESTIMATED > 60; GLUCOSE 87 MG/DL (70-105); MAGNESIUM 2.2 MG/DL (1.8-2.4); PHOSPHORUS 3.9 MG/DL (2.3-4.7); POTASSIUM 4.2 MMOL/L (3.6-5.0); SODIUM 139 MMOL/L (135-145)
--- NOTE | 2019-01-05 07:36 | Diagnostic Imaging Report ---
INDICATION: Pneumonia. Followup. COMPARISON: 01/04/2019 FINDINGS: Single frontal radiographic view of the chest was obtained and again demonstrates focal subsolid rounded opacity within the right perihilar region, stable compared to prior exams. There is background of COPD. There is no large effusion or pneumothorax. Overall, aeration is stable. Cardiac silhouette and pulmonary vasculature are stable as well. Bony structures show no adverse interval change. IMPRESSION: 1. Stable rounded subsolid opacity within the right perihilar region. Continued followup to resolution is recommended. Dictated by: Dictated on workstation # [id number]
[2019-01-05 07:45] VITALS: BP 128/61
--- NOTE | 2019-01-05 09:07 | Occupational Ther Daily Note ---
OT Current Status-Daily Note Subjective LATE ENTRY FOR 01/02/2019-Pt alert, sitting in recliner. Pt working with personal computer looking out window. Pt agrees to therapy. C/o increased fatigue and everything tiring pt out. Mental Status/Objective Patient Orientation: Person, Place, Time, Situation Therapy Code Descriptions/Definitions Functional [place] Measure: 0=Not Assessed/NA 4=Minimal Assistance 1=Total Assistance 5=Supervision or Setup 2=Maximal Assistance 6=Modified [place] 3=Moderate Assistance 7=Complete [place] Attachments: IV, Oxygen Other Treatment Began to discuss using energy conservation techniques for daily functional activities. Pt acknowledged understanding. Light resistance theraband given to use in room. Pt was able to complete 5 reps 2 sets with recovery breaks. Pt demonstrated decreased activity tolerance and was quick to fatigue with minimal exercise. Recommended that pt attempt to complete throughout the day with minimal reps. After therapy, pt sitting in recliner with call light/phone in reach. All needs met in room. OT Short Term Goals Short Term Goals Transfers (B,C,W/C) (FIM): 5 1=Demonstrate adherence to instructed precautions during ADL tasks. 2=Patient will verbalize/demonstrate understanding of assistive devices/ modifications for ADL. 3=Patient will improve strength/tolerance for activity to enable patient to perform ADL's. OT Inweaver Goals Inweaver Goals Time Frame: Jan 14, 2019 Eating (FIM): 6 Grooming(FIM): 6 Bathing(FIM): 5 Upper Body Dressing(FIM): 6 Lower Body Dressing(FIM): 6 Toileting(FIM): 6 Toilet/Commode Transfer(FIM): 6 Additional Goals: 1-Demonstrate ADL Tasks, 2-Verbalize Understanding, 3- ImproveStrength/Karen 1=Demonstrate adherence to instructed precautions during ADL tasks. 2=Patient will verbalize/demonstrate understanding of assistive devices/ modifications for ADL. 3=Patient will improve strength/tolerance for activity to enable patient to perform ADL's. OT Education/Plan Discharge Recommendations Plan/Recommendations: Continue POC Treatment Plan/Plan of Care Patient would benefit from OT for education, treatment and training to promote independence in ADL's, mobility, safety and/or upper extremity function for ADL' s. Plan of Care: ADL Retraining, Functional Mobility, UE Funct Exercise/Act Treatment Duration: Jan 14, 2019 Frequency: 5 times per week Estimated Hrs Per Day: .25 hour per day Rehab Potential: Fair Time/GCodes Start Time: 11:45 Stop Time: 11:55 Total Time Billed (hr/min): 10 Billed Treatment Time 1 visit-EX 1 (10 min) JESENIA JOSHI Jan 05, 2019 09:07
--- NOTE | 2019-01-05 09:17 | NUR ---
DISCHARGE PLANNING: Had gotten a call from [facility] about patient. Want added information and to know if patient still intended to come there. Spoke with the patient who is doing better and is still wanting to go to [facility] for short term to get better. I have collected and faxed requested information to the facility. Awaiting final determination regarding acceptance. Addendum: 01/05/19 at 1006 by ELIU MARIN RN She has been accepted to [facility] for admission today. Let Dr. Jaeger know and awaiting orders.
[2019-01-05] MEDS: fluCOnazole (DIFLUCAN) 100 MG TAB PO SCH (09:49)
[2019-01-05] MEDS: ALPRAZolam 0.5 MG (XANAX) TAB PO SCH (09:49)
[2019-01-05] MEDS: ENOXAPARIN 30 MG/0.3 ML (LOVENOX) SYR SC SCH (09:49)
[2019-01-05] MEDS: SENNA W/DOCUSATE (SENOKOT S) TABLET PO SCH (09:50)
[2019-01-05] MEDS: LACTULOSE SYRUP 10GM/15ML (ENULOSE) 30ML UDC PO SCH (09:50)
[2019-01-05] MEDS: POLYETHYLENE GLYCOL 17 GM (MIRALAX) PACK PO SCH (09:50)
--- NOTE | 2019-01-05 10:17 | NUR ---
CM/SS completed the CARE assessment with the patient. Copy of assessment was sent to FEMI Florez and a copy was retained in the patient chart.
--- NOTE | 2019-01-05 10:51 | Pulmonary Progress Note ---
Sepsis Event Evaluation Height, Weight, BMI Height: 5'8.00" Weight: 106lbs. 10.0oz. 48.868839qv; 16.6 BMI Method:Stated Exam Exam Vital Signs Date Time Temp Pulse Resp B/P (MAP) Pulse Ox O2 Delivery O2 Flow Rate FiO2 01/05/19 07:45 98.0 103 20 128/61 (83) 98 Nasal Cannula 2.00 01/05/19 06:30 97 Nasal Cannula 2.00 01/05/19 02:30 97 Nasal Cannula 2.00 01/05/19 00:00 96.7 88 20 128/78 (95) 98 Nasal Cannula 2.00 01/04/19 21:00 Nasal Cannula 2.00 01/04/19 19:24 96 Nasal Cannula 2.00 01/04/19 16:00 96.7 97 19 134/73 (93) 98 High Flow N/C 2.00 01/04/19 15:51 95 Nasal Cannula 2.00 96 I & O 01/05/19 07:00 Intake Total 3580 ml Output Total 1300 ml Balance 2280 ml Height & Weight Height: 5'8.00" Weight: 106lbs. 10.0oz. 48.359350ih; 16.6 BMI Method:Stated General Appearance: No Apparent Distress, Anxious, Chronically ill, Cachetic, Thin HEENT: PERRL/EOMI, Normal ENT Inspection, Pharynx Normal Neck: Full Range of Motion, Non Tender, Supple Respiratory: No Accessory Muscle Use, No Respiratory Distress, Decreased Breath Sounds, Wheezing Cardiovascular: Regular Rate, Rhythm, No Edema Capillary Refill: Less Than 3 Seconds Gastrointestinal: normal bowel sounds, non tender, soft Extremity: Normal Capillary Refill, Normal Inspection Neurologic/Psychiatric: Alert Skin: Normal Color, Warm/Dry Lymphatic: No Adenopathy Results Lab Laboratory Tests 01/04/19 05:40 01/05/19 05:33 Assessment/Plan Assessment/Plan PNA with sepsis - failed out patient treatment - Rocephin -CXR reviewed. Rounded atelectasis vs lung mass -Will continue to follow as an out patient. Recent dx of influenza - -s/p Tamiflu COPDAE- pt does have home oxygen -SVNS - prednisone taper Pulmonary edema -MARIELOS Gentile DO Jan 05, 2019 10:51
--- NOTE | 2019-01-05 11:36 | Discharge Summary ---
Diagnosis/Chief Complaint Date of Admission Dec 27, 2018 at 13:00 Date of Discharge Discharge Diagnosis Problems/Diagnosis: (1) Sepsis Assessment & Plan: Secondary to pneumonia. No evidence of severe sepsis. Treatment for pneumonia as noted. Qualifiers: Qualified Codes: A41.9 - Sepsis, unspecified organism Status: Resolved Resolution Date/Time: 01/03/19 @ 19:46 (2) Pneumonia Assessment & Plan: Azithromycin and ceftriaxone for CAP that was likely secondary to her influenza. RT. Supplemental oxygen as needed, currently on vapotherm at 40% FiO2 with 30 lpm flow. Qualifiers: Qualified Codes: J18.9 - Pneumonia, unspecified organism Status: Acute (3) COPD (chronic obstructive pulmonary disease) Assessment & Plan: Treated for COPD exacerbation outpatient with steroids along with the Tamiflu, will continue steroids for now. Respiratory support as needed, on 3 lpm supplemental O2 at baseline. Dr. Gallegos consulted, appreciate recommendations. Qualifiers: Qualified Codes: J44.9 - Chronic obstructive pulmonary disease, unspecified Status: Chronic (4) Influenza A Assessment & Plan: Treated with 4/5 days of Tamiflu. Status: Resolved Resolution Date/Time: 01/03/19 @ 19:46 (5) DVT prophylaxis Assessment & Plan: Enoxaparin Status: Acute Chief Complaint/HPI Chief Complaint/HPI 78 yo female diagnosed with influenza A on Saturday of this week and was taking Tamiflu, got better but then had sudden worsening Saturday night. She denies fever. She does have underlying COPD and usually wears 3 lpm of supplemental oxygen at baseline. Her this week as well, so she is feeling a little overwhelmed. Discharge Summary-Simple/Stand Consultations Discharge Physical Examination Allergies: Coded Allergies: No Known Drug Allergies (Unverified , 12/27/18) Vitals & I&Os Vital Sign - Last 12Hours Date Time Temp Pulse Resp B/P (MAP) Pulse Ox O2 Delivery O2 Flow Rate FiO2 01/05/19 10:56 97 Nasal Cannula 2.00 01/05/19 07:45 98.0 103 20 128/61 (83) 01/04/19 15:51 96 Intake and Output 01/05/19 00:00 Intake Total 3180 ml Output Total 1300 ml Balance 1880 ml Hospital Course See final discharge diagnosis. Radiology Reviewed CXR 12/27/18: Impression: Right-sided pulmonary infiltrate suggestive of pneumonia. Discharge Instructions to patient/family Please see electronic discharge instructions given to patient. Discharge Medications Reviewed and agree with Discharge Medication list on patient's Discharge Instruction sheet Clinical Quality Measures DVT/VTE Risk/Contraindication: Risk Factor Score Per Nursin RFS Level Per Nursing on Admit: 4+=Very High SONJA CORLEY MD Jan 05, 2019 11:36
[2019-01-05] MEDS ORDERED: PRD10T PO (11:41)
[2019-01-05] MEDS ORDERED: POLY17PO31 PO (11:41)
[2019-01-05] MEDS ORDERED: FLUC100T6 PO (11:41)
--- NOTE | 2019-01-05 11:43 | Discharge Inst-Skilled Nursing ---
Discharge Inst-Skilled NF Patient Instructions Patient Problems: CAP Influenza A COPD with oxygen dependence Goal: - Return to Independent living - Getting stronger Patient Instructions: - Make sure to complete steroid taper Consult/Follow Up/Orders Follow up appt.: - Dr Stein will see you at Rehab Skilled NF Admit to: [facility] Certifications SNF I certify that SNF services are required to be given on an inpatient basis because of the above named patient's need for [facility] care on a continuing basis for the conditions(s) for which he/she was receiving inpatient hospital services prior to his/her transfer to the SNF. Senior Living Facility Order: Nursing Services, [facility] Worker-Evaluate & Treat, Physical Therapy-Evaluate & Treat Oxygen Delivery Method: Nasal Cannula Discharge Diet: No Restrictions Discharge Medications New Medications: Fluconazole (Fluconazole) 100 Mg Tablet 100 MG PO DAILY, #7 TAB Polyethylene Glycol 3350 (Polyethylene Glycol 3350) 17 Gm Powd.pack 34 GM PO BID for 30 Days, EACH Prednisone (Prednisone) 10 Mg Tab 40 MG PO DAILY@0700 for 5 Days, TAB Start on Day 5 Continued Medications: Albuterol Sulfate (Ventolin Hfa) 1 Puff Puff 2 PUFF INH Q4H PRN for SHORTNESS OF BREATH, PUFF 1 PUFF = 90 MCG Albuterol Sulfate (Albuterol Sulfate) 2.5 Mg/3 Ml Vial.neb 2.5 MG INH TID PRN for SHORTNESS OF BREATH, EA Alprazolam (Alprazolam) 0.5 Mg Tablet 0.5 MG PO BID, TAB Fluticasone/Salmeterol (Advair 250-50 Diskus) 1 Each Blst.w.dev 1 EACH IH BID Pravastatin Sodium (Pravastatin Sodium) 40 Mg Tablet 40 MG PO DAILY, TAB Tiotropium [place] (Spiriva) 1 Inh Aerp 1 INH IH DAILY, INHALER Zolpidem Tartrate (Zolpidem Tartrate) 5 Mg Tablet 5 MG PO HS PRN for INSOMNIA, TAB Discontinued Medications: Alendronate Sodium (Alendronate Sodium) 70 Mg Tablet 70 MG PO WEEK, TAB Fluticasone/Vilanterol (Breo Ellipta 200-25 Mcg INH) 1 Each Blst.w.dev 1 EACH IH DAILY Oseltamivir Phosphate (Tamiflu) 75 Mg Cap 75 MG PO BID for 5 Days, CAP Prescribed 12/23/18 Prednisone (Prednisone) 20 Mg Tab 0 PO UD, TAB Take 3 tabs x 3 days, 2 tabs x 3 days, 1 tab x 3 days. Prescribed 12/23/2018 Prednisone (Prednisone) 5 Mg Tablet 5 MG PO DAILY, TAB Sonja Jaeger Jan 05, 2019 11:42 SONJA JAEGER MD Jan 05, 2019 11:43
--- NOTE | 2019-01-05 12:04 | Physical Therapy Daily Note ---
PT Daily Note-Current Subjective Pt sitting EOB with family in room and agrees to PT. Reports she is being dismissed to rehab in [place] today. Mental Status Patient Orientation: Person, Place, Situation, Normal For Age Attachments: Oxygen (2.5L) Transfers Therapy Code Descriptions/Definitions Functional [place] Measure: 0=Not Assessed/NA 4=Minimal Assistance 1=Total Assistance 5=Supervision or Setup 2=Maximal Assistance 6=Modified [place] 3=Moderate Assistance 7=Complete [place] Therapy Quality Codes: 6 Independent with activity with or without an assistive device 5 Patient requires set up or clean up by helper. Patient completes activity by themselves 4 Supervision or touching assist (CGA). [place] provide cues , steadying assist 3 The helper provides less than half the effort to complete the activity 2 The helper provides more than half the effort to complete the activity 1 Dependent. The helper does all the effort to complete an activity 7 Patient refused to complete or attempt activity 9 The patient did not perform the activity before the current illness or injury 88 Not attempted due to Medical conditions or safety concerns Transfers (B, C, W/C) (FIM): 5 Scootin Sit to/from Stand: 5 Weight Bearing Right Lower Extremity: Right Full Weight Bearing Left Lower Extremity: Left Full Weight Bearing Gait Training Gait (FIM): 2 Distance (FIM): 7=874-84 ft Distance: 100' Gait Persons Needed: 1 Gait Assistive Device: FWW Short step length Exercises Seated Therapy Exercises: Ankle pumps, Long arc quads, Hip flexion Seated Reps: 10 Assessment Current Status: Good Progress Pt able to perform transfers sit<>stand SBA to FWW. Pt amb with FWW and O2 2.5L for 100' with SBA. Pt was able to perform seated LE ex in recliner. Pt in recliner and has all needs met. PT Short Term Goals Short Term Goals Time Frame: Jan 07, 2019 Transfers (B,C,W/C) (FIM): 5 Gait (FIM): 1 Distance (FIM): 1=up to 49 ft Gait Distance Comment: 25' Gait Level of Assist: 4 Gait Assistive Device: FWW PT Plan Problem List Problem List: Activity Tolerance, Functional Strength, Safety, Balance, Gait, Transfer, Bed Mobility, ROM Treatment/Plan Treatment Plan: Continue Plan of Care Treatment Plan: Bed Mobility, Education, Functional Activity Karen, Functional Strength, Gait, Safety, Therapeutic Exercise, Transfers Treatment Duration: Jan 07, 2019 Frequency: 6 times per week Estimated Hrs Per Day: .25 hour per day Patient and/or Family Agrees t: Yes Time/GCodes Time In: 1043 Time Out: 1053 Total Billed Treatment Time: 10 Total Billed Treatment 1 visit FA 10 min KRISTI BERNAL PT Jan 05, 2019 12:04
== END 2019-01-05 15:12 | DRG 871 ==
LOC: ER 12:00 → ICU 13:00 → 4TH 12-28 10:52
PROVIDERS: ADMIT Family Medicine; ATTEND Family Medicine
DX: A41.89 Other specified sepsis (principal); J10.01 Influenza due to other identified influenza virus with the same other identified influenza virus pneumonia; J81.1 Chronic pulmonary edema; B37.0 Candidal stomatitis; J43.9 Emphysema, unspecified; R06.03 Acute respiratory distress; M81.0 Age-related osteoporosis without current pathological fracture; K59.00 Constipation, unspecified; F41.9 Anxiety disorder, unspecified; E78.2 Mixed hyperlipidemia; F43.20 Adjustment disorder, unspecified; R54 Age-related physical debility; E87.6 Hypokalemia; R73.9 Hyperglycemia, unspecified; E83.39 Other disorders of phosphorus metabolism; Z87.891 Personal history of nicotine dependence; Z99.81 Dependence on supplemental oxygen
CPT/HCPCS: 36415; 36600; 51702; 71045; 80048; 80053; 82805; 83605; 83735; 83880; 84100; 84484; 85007; 85025; 85027; 85379; 87040; 87081; 93005; 94640; 94760; 96365; 96375

== ENCOUNTER → 2019-03-24 | Outpatient (CLI) | payer MEDICARE, OTHER ==
[~2019-03-24] MED LIST: ALBU2.5V4 INH; ALEN70TA5 PO; ALPR0.5T7 PO; CATHETER FLUSH 10 ML SYR IV PRN; FLUC100T6 PO; FLUT1BLS IH; FLUT1DIS26 IH; HOLD METFORMIN - RECEIVED CONTRAST 20 ML VIAL IV SCH; IOHEXOL 350 MG/ML 100 ML (OMNIPAQUE 350) VIAL IV ONE; NS 100 ML (IVPB) BAG IV ONE; OSLT75C PO; POLY17PO31 PO; PRAV40TA2 PO; PRD10T PO; PRD20T PO; PRED5TAB PO; RT-ALBUINH INH; TIOT18CA2 IH; ZOLP5TAB7 PO
[2019-03-24 10:02] LABS: CREATININE SERUM 0.98 MG/DL (0.60-1.30)
--- NOTE | 2019-03-24 14:09 | Diagnostic Imaging Report ---
PROCEDURE: CT chest with contrast only. TECHNIQUE: Multiple contiguous axial images were obtained through the chest after administration of intravenous contrast. Auto Exposure Controls were utilized during the CT exam to meet ALARA standards for radiation dose reduction. INDICATION: Cough and shortness of breath. COMPARISON: Chest radiograph of 01/05/2019. FINDINGS: Lungs and airway: No endoluminal nodule within the trachea. Severe centrilobular and paraseptal emphysema is present. No pulmonary mass or consolidation. 7 mm nodule in the right lower lobe (image 57, series 3) is predominantly linear in nature and is likely a focus of nodular atelectasis. Pleura: No pleural effusion or pneumothorax. Heart and mediastinum: Thyroid is normal where visualized. No supraclavicular or axillary lymphadenopathy. No mediastinal, hilar or juxtaphrenic lymphadenopathy. Heart is normal in size and there is no pericardial effusion. Coronary artery calcifications are present. Extensive calcifications of the aorta are noted. Upper abdomen: Atherosclerotic calcifications of the abdominal aorta. Musculoskeletal: No concerning focal osseous lesion. IMPRESSION: 1. Severe emphysema. 2. Right lower lobe 7 mm nodular focus is most likely due to an area of atelectasis and architectural distortion. However, since patient is at elevated risk for primary lung cancer, followup CT chest in 6 months is recommended to assess stability. 3. No intrathoracic lymphadenopathy. Dictated by: Dictated on workstation # [id number]
== END ==
LOC: RAD FS 09:23
PROVIDERS: ATTEND Nurse Practitioner Family
DX: J43.2 Centrilobular emphysema (principal); J98.11 Atelectasis; J30.9 Allergic rhinitis, unspecified; J18.8 Other pneumonia, unspecified organism
CPT/HCPCS: 36415; 71260; 82565; 84520

== ENCOUNTER → 2019-06-10 | Outpatient (CLI) | payer MEDICARE, OTHER ==
[~2019-06-10] MED LIST changes: -CATHETER FLUSH 10 ML SYR IV PRN; -HOLD METFORMIN - RECEIVED CONTRAST 20 ML VIAL IV SCH; -IOHEXOL 350 MG/ML 100 ML (OMNIPAQUE 350) VIAL IV ONE; -NS 100 ML (IVPB) BAG IV ONE; +RT-ALBUTEROL SULF 2.5 MG/3 ML PRE-MIX VIAL INH ONE
== END ==
LOC: RT 11:53
PROVIDERS: ATTEND Nurse Practitioner Family
DX: J18.8 Other pneumonia, unspecified organism (principal); J30.9 Allergic rhinitis, unspecified
CPT/HCPCS: 94060; 94640; 94726; 94729

== ENCOUNTER 2019-07-14 08:52 | Inpatient (IN) | payer MEDICARE, OTHER ==
[~2019-07-14] VITALS: Ht 172.7 cm; Wt 45.4 kg
[~2019-07-14 08:52] MED LIST changes: -RT-ALBUTEROL SULF 2.5 MG/3 ML PRE-MIX VIAL INH ONE
[2019-07-14] MEDS ORDERED: RT-ALBUTEROL/IPRATROPIUM 3 ML (DUONEB) VIAL INH ONE (09:15)
--- NOTE | 2019-07-14 09:19 | ED Dyspnea ---
General Chief Complaint: Abdominal/GI Problems Stated Complaint: COUGH; FEVER; DIARRHEA Source of Information: Patient, Family History of Present Illness Date Seen by Provider: Jul 14, 2019 Time Seen by Provider: 09:19 Initial Comments 79 yo female O2 dependent COPD'r on prednisone 2d ago had hoarse voice then gradually developed cough with yellow/brown sputum, some fever/chills, and dyspnea some MEJIA some diarrhea no N/V no urinary sx's Allergies and Home Medications Allergies Coded Allergies: No Known Drug Allergies (Unverified , 12/27/18) Home Medications Albuterol Sulfate 1 Puff Puff, 2 PUFF INH Q4H PRN for SHORTNESS OF BREATH, (Reported) 1 PUFF = 90 MCG Albuterol Sulfate 2.5 Mg/3 Ml Vial.neb, 2.5 MG INH TID PRN for SHORTNESS OF BREATH, (Reported) Alprazolam 0.5 Mg Tablet, 0.5 MG PO BID, (Reported) Fluconazole 100 Mg Tablet, 100 MG PO DAILY Prescribed by: SONJA CORLEY on 01/05/19 1141 Fluticasone/Salmeterol 1 Each Blst.w.dev, 1 EACH IH BID, (Reported) Polyethylene Glycol 3350 17 Gm Powd.pack, 34 GM PO BID Prescribed by: SONJA CORLEY on 01/05/19 1141 Pravastatin Sodium 40 Mg Tablet, 40 MG PO DAILY, (Reported) Prednisone 10 Mg Tab, 40 MG PO DAILY@0700 Start on Day 5 Prescribed by: SONJA CORLEY on 01/05/19 1141 Tiotropium [place] 1 Inh Aerp, 1 INH IH DAILY, (Reported) Zolpidem Tartrate 5 Mg Tablet, 5 MG PO HS PRN for INSOMNIA, (Reported) Patient Home Medication List Home Medication List Reviewed: Yes Review of Systems Review of Systems Constitutional: fever EENTM: hoarseness Respiratory: cough, short of breath Cardiovascular: No chest pain, No palpitations, No syncope Gastrointestinal: No abdominal pain; diarrhea; No vomiting Genitourinary: no symptoms reported Past Ymivefs-Khgzdn-Oedxtd Hx Patient Social History Type Used: Cigarettes Recent Hopitalizations: No Immunizations Up To Date Date of Pneumonia Vaccine: Dec 27, 2016 Date of Influenza Vaccine: Jul 27, 2018 Seasonal Allergies Seasonal Allergies: No Past Medical History Respiratory: Yes COPD, Emphysema Cardiac: No Neurological: No Genitourinary: No Gastrointestinal: No Musculoskeletal: No Endocrine: No HEENT: No Cancer: No Psychosocial: No Integumentary: No Family Medical History No Pertinent Family Hx Physical Exam Vital Signs Vital Signs - First Documented 07/14/19 09:00 Temp 101.6 Pulse 104 Resp 22 B/P (MAP) 188/86 (120) Pulse Ox 98 O2 Delivery Room Air O2 Flow Rate 3.00 Capillary Refill : Height, Weight, BMI Height: 5'8.00" Weight: 106lbs. 10.0oz. 48.144824ql; 16.6 BMI Method:Stated General Appearance: Mild Distress HEENT: PERRL/EOMI, Pharynx Normal, Moist Mucous Membranes Neck: Supple Respiratory: Accessory Muscle Use, Rhonci Cardiovascular: Regular Rate, Rhythm Gastrointestinal: Normal Bowel Sounds, Non Tender, Soft Extremity: Normal Capillary Refill, No Pedal Edema Neurologic/Psychiatric: Alert, Oriented x3, No Motor/Sensory Deficits, manager ethics II- XII Norm as Tested Skin: Warm/Dry Progress/Results/Core Measures Results/Orders Lab Results Laboratory Tests Test 07/14/19 09:30 Range/Units White Blood Count 18.7 H 4.3-11.0 10^3/uL Red Blood Count 3.93 L 4.35-5.85 10^6/uL Hemoglobin 12.2 11.5-16.0 G/DL Hematocrit 39 35-52 % Mean Corpuscular Volume 99 80-99 FL Mean Corpuscular Hemoglobin 31 25-34 PG Mean Corpuscular Hemoglobin Concent 31 L 32-36 G/DL Red Cell Distribution Width 13.2 10.0-14.5 % Platelet Count 384 130-400 10^3/uL Mean Platelet Volume 9.6 7.4-10.4 FL Neutrophils (%) (Auto) 85 H 42-75 % Lymphocytes (%) (Auto) 7 L 12-44 % Monocytes (%) (Auto) 8 0-12 % Eosinophils (%) (Auto) 0 0-10 % Basophils (%) (Auto) 0 0-10 % Neutrophils # (Auto) 15.8 H 1.8-7.8 X 10^3 Lymphocytes # (Auto) 1.4 1.0-4.0 X 10^3 Monocytes # (Auto) 1.4 H 0.0-1.0 X 10^3 Eosinophils # (Auto) 0.0 0.0-0.3 10^3/uL Basophils # (Auto) 0.1 0.0-0.1 10^3/uL Neutrophils % (Manual) 69 % Lymphocytes % (Manual) 6 % Monocytes % (Manual) 4 % Band Neutrophils 19 % Atypical Lymphocytes 2 % Blood Morphology Comment NORMAL Sodium Level 141 135-145 MMOL/L Potassium Level 3.9 3.6-5.0 MMOL/L Chloride Level 97 L 98-107 MMOL/L Carbon Dioxide Level 30 21-32 MMOL/L Anion Gap 14 5-14 MMOL/L Blood Urea Nitrogen 15 7-18 MG/DL Creatinine 0.87 0.60-1.30 MG/DL Estimat Glomerular Filtration Rate > 60 BUN/Creatinine Ratio 17 Glucose Level 112 H 70-105 MG/DL Calcium Level 9.3 8.5-10.1 MG/DL Corrected Calcium 9.1 8.5-10.1 MG/DL Total Bilirubin 1.0 0.1-1.0 MG/DL Aspartate Amino Transf (AST/SGOT) 23 5-34 U/L Alanine Aminotransferase (ALT/SGPT) 15 0-55 U/L Alkaline Phosphatase 68 40-136 U/L Total Protein 7.3 6.4-8.2 GM/DL Albumin 4.3 3.2-4.5 GM/DL My Orders Orders - HAI ALONSO MD Cbc With Automated Diff (07/14/19 09:09) Comprehensive Metabolic Panel (07/14/19 09:09) Blood Culture (07/14/19 09:09) Chest 1 View Ap/Pa Only (07/14/19 09:09) Albuterol/Ipra Inhalation Soln (Duoneb I (07/14/19 09:15) Ekg Tracing (07/14/19 09:09) O2 (07/14/19 09:09) Ed Iv/Invasive Line Start (07/14/19 09:09) Monitor-Rhythm Ecg Trace Only (07/14/19 09:09) Svn Small Volume Nebulizer (07/14/19 09:09) Acetaminophen Tablet/Caplet (Tylenol T (07/14/19 09:30) Sputum Culture (07/14/19 09:29) Acetaminophen Tablet/Caplet (Tylenol T (07/14/19 09:27) Ceftriaxone For Iv Use (Rocephin For I (07/14/19 09:45) Methylprednisolone Sod Succ (Solu-Medrol (07/15/19 09:00) Manual Differential (07/14/19 09:30) Methylprednisolone Sod Succ (Solu-Medrol (07/14/19 09:53) Methylprednisolone Sod Succ (Solu-Medrol (07/14/19 10:15) Medications Given in ED Current Medications Medications Dose Ordered Sig/Gokul Route Start Time Stop Time Status Last Admin Dose Admin Acetaminophen 650 mg ONCE ONCE PO 07/14/19 09:30 07/14/19 09:35 DC 07/14/19 09:58 650 MG Albuterol/ Ipratropium 3 ml ONCE ONCE INH 07/14/19 09:15 07/14/19 09:16 DC 07/14/19 09:58 3 ML Ceftriaxone Sodium 1000 mg/ Sterile Water 10 ml @ 200 mls/hr ONCE ONCE IV 07/14/19 09:45 07/14/19 09:47 DC 07/14/19 10:09 200 MLS/HR Methylprednisolone Sodium Succinate 125 mg ONCE ONCE IVP 07/14/19 10:15 07/14/19 10:16 DC 07/14/19 10:09 125 MG Vital Signs/I&O 07/14/19 07/14/19 09:00 09:00 Temp 101.6 Pulse 104 Resp 22 B/P (MAP) 188/86 (120) Pulse Ox 98 98 O2 Delivery Room Air Nasal Cannula O2 Flow Rate 3.00 Progress Progress Note : Time: 10:17 Progress Note Hb 12.2 WBC 18,700 CMP ess neg VS stable sats good Assess - bronchitis, suspect early pneumonia COPD exacerbation Plan - admit floor bed [facility] discussed Dr. Cook admitting for [facility] wants Zosyn given, lactic acid, and Dr. Gallegos consulted Dr. Gallegos contacted, wants flu test UA C&S in addition to blood and sputum cultures being done all above ordered Initial ECG Impression Date: Jul 14, 2019 Initial ECG Impression Time: 10:25 Comment sinus @99 no acute changes 1 PVC Diagnostic Imaging Diagonstic Imaging: Xray Comments CXR COPD spiculated opacity which apparently is residual from infiltrate 6 months ago no new infiltrate Departure Communication (Admissions) Time/Spoke to Admitting Phy: 10:50 Time/Spoke to Consulting Phy: 10:50 Notes admitting physician requests constancesyn Impression Primary Impression: Pneumonia Qualified Codes: J18.9 - Pneumonia, unspecified organism Additional Impression: COPD (chronic obstructive pulmonary disease) Qualified Codes: J44.9 - Chronic obstructive pulmonary disease, unspecified Disposition: 09 ADMITTED INPATIENT Condition: Stable Admissions Decision to Admit Reason: Admit from ER (General) Decision to Admit/Date: Jul 14, 2019 Time/Decision to Admit Time: 10:52 Departure-Patient Inst. Referrals: BRITTNI KIRK MD (PCP/Family) Primary Care Physician HAI ALONSO MD Jul 14, 2019 09:19
[2019-07-14] MEDS ORDERED: ACETAMINOPHEN 325 MG TABLET ONE (09:27)
[2019-07-14] MEDS ORDERED: ACETAMINOPHEN 325 MG TABLET PO ONE (09:30)
[2019-07-14] MEDS ORDERED: cefTRIAXone FOR IV USE 1,000 MG in WATER (STERILE) FOR INJECTION 10 ML IV ONE (09:45)
[2019-07-14 09:48] LABS: HEMATOCRIT 39 % (35-52); HEMOGLOBIN 12.2 G/DL (11.5-16.0); MEAN CORPUSCULAR HEMOGLOBIN 31 PG (25-34); MEAN CORPUSCULAR HGB CONC 31 G/DL (32-36); MEAN CORPUSCULAR VOLUME 99 FL (80-99); WHITE BLOOD COUNT 18.7 10^3/uL (4.3-11.0)
--- NOTE | 2019-07-14 09:48 | Diagnostic Imaging Report ---
INDICATION: Cough. Shortness of air. COMPARISON: 01/05/2019 FINDINGS: Single frontal radiographic view of the chest was obtained and demonstrates normal cardiac silhouette and pulmonary vasculature. Lungs remain hyperinflated, but otherwise now clear. There has been interval resolution of previously described right perihilar opacity. There is no focal consolidation, large effusion, nor pneumothorax on today's exam. Osseous structures show no gross acute abnormalities. IMPRESSION: 1. No acute cardiopulmonary process. 2. Hyperinflated appearance consistent with background COPD changes. 3. Previously described right perihilar opacity appears resolved. However, review of interim CT suggest some residual spiculated opacity. Followup CT chest per recommendations from prior CT chest remains recommended. Dictated by: Dictated on workstation # [id number]
[2019-07-14 09:49] LABS: BASOPHILS # (AUTO) 0.1 10^3/uL (0.0-0.1); BASOPHILS % (AUTO) 0 % (0-10); EOSINOPHILS % (AUTO) 0 % (0-10); LYMPHOCYTES # (AUTO) 1.4 X 10^3 (1.0-4.0); LYMPHOCYTES % (AUTO) 7 % (12-44); MEAN PLATELET VOLUME 9.6 FL (7.4-10.4); MONOCYTES # (AUTO) 1.4 X 10^3 (0.0-1.0); MONOCYTES % (AUTO) 8 % (0-12); NEUTROPHILS # (AUTO) 15.8 X 10^3 (1.8-7.8); NEUTROPHILS % (AUTO) 85 % (42-75); PLATELET COUNT 384 10^3/uL (130-400); RED CELL DISTRIBUTION WIDTH 13.2 % (10.0-14.5)
[2019-07-14] MEDS ORDERED: methylPREDNISolone 125 MG (Solu-MEDROL) VIAL ONE (09:53)
[2019-07-14 09:58] LABS: CARBON DIOXIDE 30 MMOL/L (21-32); CHLORIDE 97 MMOL/L (98-107); POTASSIUM 3.9 MMOL/L (3.6-5.0); SODIUM 141 MMOL/L (135-145)
[2019-07-14 09:59] LABS: ALANINE AMINOTRANSFERASE 15 U/L (0-55); ALBUMIN 4.3 GM/DL (3.2-4.5); ALKALINE PHOSPHATASE 68 U/L (40-136); BUN/CREATININE RATIO 17; CALCIUM 9.3 MG/DL (8.5-10.1); CREATININE SERUM 0.87 MG/DL (0.60-1.30); GFR ESTIMATED > 60; GLUCOSE 112 MG/DL (70-105); TOTAL PROTEIN 7.3 GM/DL (6.4-8.2)
[2019-07-14 10:05] LABS: ATYPICAL LYMPHOCYTES 2 %; BAND NEUTROPHILS 19 %; LYMPHOCYTES % (MANUAL) 6 %; MONOCYTES % (MANUAL) 4 %; NEUTROPHILS % (MANUAL) 69 %; RBC MORPH NORMAL
[2019-07-14] MEDS: PIPERACILLIN/TAZOBACTAM (BULK) 4.5 GM in NS (IVPB) 100 ML IV ONE ×2 (10:09→11:26)
[2019-07-14] MEDS ORDERED: methylPREDNISolone 125 MG (Solu-MEDROL) VIAL IVP ONE (10:15)
[2019-07-14] MEDS ORDERED: PIPERACILLIN/TAZO 4.5 GM VIAL (ZOSYN) IV ONE (11:08)
[2019-07-14] MEDS ORDERED: NS (IVPB) 100 ML ONE (11:08)
[2019-07-14 11:32] LABS: CLARITY,URINE CLEAR; COLOR,URINE YELLOW; GLUCOSE, URINE (UA) NEGATIVE (NEGATIVE); PROTEIN,URINE 1+ (NEGATIVE)
[2019-07-14 11:33] LABS: BACTERIA,URINE NEGATIVE /HPF; BILIRUBIN,URINE NEGATIVE (NEGATIVE); KETONES,URINE NEGATIVE (NEGATIVE); LEUKOCYTE ESTERASE ,URINE TRACE (NEGATIVE); NITRITE,URINE NEGATIVE (NEGATIVE); UROBILINOGEN,URINE 0.2 MG/DL (NORMAL)
[2019-07-14 13:00] VITALS: BP 124/77
[2019-07-14] MEDS ORDERED: CATHETER FLUSH 10 ML SYR IV PRN (13:00)
--- NOTE | 2019-07-14 13:00 | NUR ---
HOLLY VAZQUEZ admitted to room 414-1, with an admitting diagnosis of bronchitis, on 07/14/19 from ED via stretcher, accompanied by [facility]. HOLLY VAZQUEZ introduced to surroundings, call light, bed controls, phone, TV, temperature control, lights, meal times, smoking policy, visitor policy, side rail policy, bathrooms and showers. Patient Rights given to patient in the handbook. HOLLY VAZQUEZ verbalizes understanding that [facility] is not responsible for the loss or damage to any personal effects or valuables that are kept in the patients possession during their hospitalization. The following Patient Care Plans were discussed with the patient and family: Discharge Planning, medications, pain management, and dehydration. HOLLY VAZQUEZ verbalizes understanding of Interdisciplinary Patient Education. Patient and/or family were informed about the Rapid Response Team and its purpose.
[2019-07-14] MEDS: NS IV 1000 ML 1,000 ML IV SCH (14:05)
[2019-07-14] MEDS: RT-ALBUTEROL SULF 2.5 MG/3 ML PRE-MIX VIAL IH SCH ×2 (14:40→18:45)
[2019-07-14] MEDS ORDERED: PRED5TAB PO (14:56)
[2019-07-14] MEDS ORDERED: ALEN70TA5 PO (14:56)
[2019-07-14] MEDS ORDERED: MIRT15TA6 PO (14:56)
[2019-07-14] MEDS ORDERED: CALC-676 PO (15:05)
[2019-07-14] MEDS ORDERED: FOLI1TAB7 PO (15:05)
--- NOTE | 2019-07-14 15:10 | NUR ---
PATIENT HAD A LIST OF HER MEDICATIONS WITH HER. I COMPARED THAT WITH THE EXT MED HX. IN ADDITION TO WHAT IS SHOWN ON THE EXT MED HX [facility] FILLED ADVAIR 250/50 AND SPIRIVA HANDIHALER 06-26-19. SHE STATES SHE DOES NOT TAKE THE MIRTAZAPINE AND ZOLPIDEM TOGETHER, SHE USUALLY TAKES ONE OR THE OTHER EVERY NIGHT BUT SHE ALTERNATES BETWEEN THE TWO. SHE TAKES CALCIUM AND A CHEWABLE MTV OTC DAILY.
[2019-07-14 16:20] VITALS: BP 134/63
[2019-07-14] MEDS ORDERED: ONDANSETRON 4 MG/2 ML (SDV) Z0FRAN IVP PRN (18:15)
[2019-07-14] MEDS ORDERED: ACETAMINOPHEN 325 MG TABLET PO PRN (18:15)
[2019-07-14] MEDS: PIPERACILLIN/TAZOBACTAM (BULK) 4.5 GM in NS (IVPB) 100 ML IV SCH (18:49)
[2019-07-14 19:54] VITALS: BP 130/66
--- NOTE | 2019-07-14 20:59 | NUR ---
PT SOA AT REST, AND WORSENED A LOT WITH EXERTION, PT ALSO CONCERNED ABOUT HOME MEDS. DR. HUGHES CONTACTED. ORDERED MAT PROTOCOL, AND TO RESTART PT HOME MEDS
[2019-07-14] MEDS ORDERED: NON-FORMULARY MEDICATION 1 EA EA (Mirtazapine 15 MG) PO PRN (21:15)
[2019-07-14] MEDS ORDERED: NON-FORMULARY MEDICATION 1 EA EA (Zolpidem Tartrate 5 MG) PO PRN (21:15)
[2019-07-14] MEDS ORDERED: MIRTAZAPINE 15 MG (REMERON) TAB PO PRN (21:45)
[2019-07-14] MEDS ORDERED: RT-ALBUTEROL/IPRATROPIUM 3 ML (DUONEB) VIAL INH PRN (21:45)
[2019-07-14] MEDS: ZOLPIDEM 5 MG (AMBIEN) TAB PO PRN (22:38)
[2019-07-15 00:30] VITALS: BP 115/67
[2019-07-15] MEDS: methylPREDNISolone 40 MG/ML (Solu-MEDROL) VIAL IV SCH ×4 (01:07→19:02)
[2019-07-15] MEDS: PIPERACILLIN/TAZOBACTAM (BULK) 4.5 GM in NS (IVPB) 100 ML IV SCH ×3 (01:52→19:02)
[2019-07-15] MEDS: NS IV 1000 ML 1,000 ML IV SCH (01:53)
[2019-07-15 04:20] VITALS: BP 115/64
[2019-07-15 05:48] LABS: BASOPHILS % (AUTO) 0 % (0-10); EOSINOPHILS % (AUTO) 0 % (0-10); HEMATOCRIT 33 % (35-52); HEMOGLOBIN 10.3 G/DL (11.5-16.0); LYMPHOCYTES # (AUTO) 0.5 X 10^3 (1.0-4.0); LYMPHOCYTES % (AUTO) 3 % (12-44); MEAN CORPUSCULAR HEMOGLOBIN 31 PG (25-34); MEAN CORPUSCULAR HGB CONC 31 G/DL (32-36); MEAN CORPUSCULAR VOLUME 99 FL (80-99); MEAN PLATELET VOLUME 10.2 FL (7.4-10.4); MONOCYTES # (AUTO) 0.5 X 10^3 (0.0-1.0); MONOCYTES % (AUTO) 3 % (0-12); NEUTROPHILS % (AUTO) 94 % (42-75); PLATELET COUNT 288 10^3/uL (130-400); RED CELL DISTRIBUTION WIDTH 13.5 % (10.0-14.5)
[2019-07-15 06:10] LABS: ALANINE AMINOTRANSFERASE 30 U/L (0-55); ALBUMIN 3.5 GM/DL (3.2-4.5); ALKALINE PHOSPHATASE 51 U/L (40-136); BILIRUBIN,TOTAL 0.8 MG/DL (0.1-1.0); BUN/CREATININE RATIO 19; CALCIUM 8.1 MG/DL (8.5-10.1); CARBON DIOXIDE 24 MMOL/L (21-32); CHLORIDE 108 MMOL/L (98-107); CREATININE SERUM 0.86 MG/DL (0.60-1.30); GFR ESTIMATED > 60; GLUCOSE 162 MG/DL (70-105); SODIUM 142 MMOL/L (135-145)
[2019-07-15] MEDS: MULTIVIT W/MINERALS TAB (THERAGRAN M) PO SCH (06:59)
--- NOTE | 2019-07-15 07:20 | Pulmonary Consultation ---
History of Present Illness History of Present Illness Date of Consultation 07/15/19 07:20 Time Seen by Provider: 13:37 Date of Admission History of Present Illness 79yo presented to ED secondary to worsening SOB, SPC of yellow sputum, wheezing, and fevers. Allergies and Home Medications Allergies Coded Allergies: No Known Drug Allergies (Unverified , 12/27/18) Home Medications Albuterol Sulfate 1 Puff Puff, 2 PUFF INH Q4H PRN for SHORTNESS OF BREATH, (Reported) 1 PUFF = 90 MCG Albuterol Sulfate 2.5 Mg/3 Ml Vial.neb, 2.5 MG INH Q4H PRN for SHORTNESS OF BREATH, (Reported) Alendronate Sodium 70 Mg Tablet, 70 MG PO Sa, (Reported) Alprazolam 0.5 Mg Tablet, 0.5 MG PO TID PRN for ANXIETY, (Reported) Calcium Carbonate/Vitamin D3 1 Each Tablet, 1 TAB PO DAILY, (Reported) Fluticasone/Salmeterol 1 Each Blst.w.dev, 1 PUFF IH BID, (Reported) Folic Acid/Multivit-Min/Lutein 1 Each Tab.chew, 1 TAB PO DAILY, (Reported) Mirtazapine 15 Mg Tablet, 15 MG PO HS PRN for SLEEP, (Reported) ALTERNATES WITH ZOLPIDEM Nystatin 100,000 Unit/1 Ml Oral.susp, 5 ML PO TID Prescribed by: CECILE BEJARANO on 07/21/191457 Pravastatin Sodium 40 Mg Tablet, 40 MG PO DAILY, (Reported) Prednisone 5 Mg Tablet, 5 MG PO DAILY, (Reported) Prednisone 10 Mg Tab, 0 PO UD Take 6 tabs(60mg)daily, decrease by 1 tab(10mg) every other day. Prescribed by: CECILE BEJARANO on 07/21/191457 Tiotropium [place] 1 Inh Aerp, 1 CAP IH DAILY, (Reported) Zolpidem Tartrate 5 Mg Tablet, 5 MG PO HS PRN for INSOMNIA, (Reported) ALTERNATES WITH MIRTAZAPINE Past Chpizki-Sxaunf-Ckfobs Hx Patient Social History Alcohol Use: Denies Use Recreational Drug Use: No Smoking Status: Former Smoker Type Used: Cigarettes 2nd Hand Smoke Exposure: No Recent Foreign Travel: No Contact w/Someone Who Travel: No Recent Infectious Disease Expo: No Recent Hopitalizations: No Physical Abuse: No Sexual Abuse: No Mistreated: No Fear: No Immunizations Up To Date Date of Pneumonia Vaccine: Dec 27, 2016 Date of Influenza Vaccine: Jul 27, 2018 Seasonal Allergies Seasonal Allergies: No Past Medical History Surgeries: No Respiratory: Yes COPD, Emphysema Cardiac: No Neurological: No Genitourinary: No Gastrointestinal: No Musculoskeletal: No Endocrine: No HEENT: No Cancer: No Psychosocial: No Integumentary: No Family Medical History No Pertinent Family Hx Review of Systems Time Seen by Provider: 13:39 Sepsis Event Evaluation Height, Weight, BMI Height: 5'8.00" Weight: 100lbs. 0.0oz. 45.716839cp; 15.2 BMI Method:Stated Exam Exam Vital Signs Date Time Temp Pulse Resp B/P (MAP) Pulse Ox O2 Delivery O2 Flow Rate FiO2 07/15/19 04:20 99.4 84 17 115/64 (81) 97 Nasal Cannula 3.00 07/15/19 00:30 98.0 84 16 115/67 (83) 97 Nasal Cannula 3.00 07/14/19 21:26 83 94 07/14/19 20:30 Nasal Cannula 3.00 07/14/19 19:54 98.9 102 24 130/66 (87) 97 Nasal Cannula 3.00 07/14/19 18:46 96 Nasal Cannula 3.50 07/14/19 16:20 99.0 96 22 134/63 (86) 92 Nasal Cannula 3.00 07/14/19 13:00 99.7 95 24 124/77 (93) 95 Nasal Cannula 3.00 07/14/19 13:00 99.7 95 24 124/77 95 Nasal Cannula 3.00 3.00 07/14/19 12:50 Nasal Cannula 3.00 07/14/19 11:52 100.4 94 25 128/47 (74) 98 Nasal Cannula 3.00 07/14/19 10:38 100.4 07/14/19 09:45 98 Nasal Cannula 3.00 07/14/19 09:00 98 Nasal Cannula 3.00 07/14/19 09:00 101.6 104 22 188/86 (120) 98 Room Air I & O 07/15/19 07:00 Intake Total 2140 ml Output Total 950 ml Balance 1190 ml Height & Weight Height: 5'8.00" Weight: 100lbs. 0.0oz. 45.810372zx; 15.2 BMI Method:Stated General Appearance: Mild Distress HEENT: PERRL/EOMI, Pharynx Normal, Moist Mucous Membranes Neck: Supple Respiratory: Accessory Muscle Use, Rhonci Cardiovascular: Regular Rate, Rhythm Capillary Refill: Less Than 3 Seconds Extremity: Normal Capillary Refill, No Pedal Edema Neurologic/Psychiatric: Alert, Oriented x3, No Motor/Sensory Deficits, office bookkeeper II- XII Norm as Tested Skin: Warm/Dry Results Lab Laboratory Tests 07/14/19 09:30 07/15/19 05:30 Assessment/Plan Assessment/Plan Pneumonia with severe sepsis (not septic shock) -Pt was started on Zosyn -Henson cultures -Influenza is negative -Check urine strep/legionella ag -Will give a liter bolus of LR and start IVF with LR at 150cc/hr COPDAE -Solumedrol -SVNS Anemia -Monitor -Check occult stool hx of spiculated lung nodule -This is being followed as an out pt by my office MARIELOS SHEPARD DO Jul 15, 2019 07:20
[2019-07-15] MEDS: RT-ALBUTEROL/IPRATROPIUM 3 ML (DUONEB) VIAL INH SCH ×4 (07:32→19:40)
[2019-07-15 08:00] VITALS: BP 147/70
[2019-07-15] MEDS ORDERED: NS IV SCH (09:00)
[2019-07-15] MEDS ORDERED: CALCIUM CARBONATE PO SCH (09:00)
[2019-07-15] MEDS ORDERED: METHYLPREDNISOLONE SOD SUCC IV SCH (09:00)
[2019-07-15] MEDS ORDERED: VITAMIN D3 PO SCH (09:00)
[2019-07-15] MEDS ORDERED: [UNRECOGNIZED DRUG - OTHER] PO SCH (09:00)
[2019-07-15] MEDS ORDERED: NON-FORMULARY MEDICATION 1 EA EA (Pravastatin Sodium 40 MG) PO SCH (09:00)
[2019-07-15] MEDS: ALPRAZolam 0.5 MG (XANAX) TAB PO PRN (09:03)
[2019-07-15] MEDS: CALCIUM CARB + VIT D 600 MG (CALCARB + D) TAB PO SCH (09:03)
--- NOTE | 2019-07-15 09:24 | Diagnostic Imaging Report ---
INDICATION: Shortness of air. COMPARISON: 07/14/2019. FINDINGS: Air trapping and COPD as chronic findings are stable. The hilar and mediastinal contours are unremarkable. No focal consolidation, effusion, or pneumothorax. No change. IMPRESSION: Chronic symmetrical hyperexpansion of emphysematous appearing lungs with no focal infiltrate or adverse development demonstrated. Dictated by: Dictated on workstation # [id number]
--- NOTE | 2019-07-15 11:00 | NUR ---
Initial visit with the pt. She engaged warmly, and shared that she is most closely affiliated with [employer], however her александр is more on a personal level and she does not participate in corporate александр activities. I offered hospitable presence to the pt and her daughter by engaging in rapport building, offering coffee and water to the daughter, and providing active listening.
[2019-07-15] MEDS: ENOXAPARIN 30 MG/0.3 ML (LOVENOX) SYR SC SCH (11:34)
[2019-07-15 12:00] VITALS: BP 119/61
--- NOTE | 2019-07-15 12:01 | Occupational Therapy Eval ---
OT Evaluation-General/PLF Medical Diagnosis Admission Date Jul 14, 2019 at 11:12 Medical Diagnosis: bronchitis Onset Date: Jul 15, 2019 Therapy Diagnosis Therapy Diagnosis: impaired ADLs and mobility Height/Weight Height (Feet): 5 Height (Inches): 8.00 Weight (Pounds): 100 Weight (Ounces): 0.0 Precautions Precautions/Isolations: Standard Precautions Safety Interventions: None Weight Bear Status Weight Bearing Restriction: Weight Bearing/Tolerated Referral Referral Reason: Activity Tolerance, Self Care, Evaluation/Treatment, Strengthening/ROM Medical History Pertinent Medical History: COPD Additional Medical History per H&P: "79 yo female O2 dependent COPD'r on prednisone 2d ago had hoarse voice then gradually developed cough with yellow/brown sputum, some fever/chills, and dyspnea some MEJIA some diarrhea no N/V no urinary sx's" Reviewed History: Yes Social History Home: Single Level Current Living Status: Alone Entry Into Home: Stairs Without Railing Steps Into Home: 2 ADL-Prior Level of Function Therapy Code Descriptions/Definitions Functional Webster Measure: 0=Not Assessed/NA 4=Minimal Assistance 1=Total Assistance 5=Supervision or Setup 2=Maximal Assistance 6=Modified Webster 3=Moderate Assistance 7=Complete Webster Therapy Quality Codes: 6 Independent with activity with or without an assistive device 5 Patient requires set up or clean up by helper. Patient completes activity by themselves 4 Supervision or touching assist (CGA). [place] provide cues , steadying a ssist 3 The helper provides less than half the effort to complete the activity 2 The helper provides more than half the effort to complete the activity 1 Dependent. The helper does all the effort to complete an activity 7 Patient refused to complete or attempt activity 9 The patient did not perform the activity before the current illness or injury 88 Not attempted due to Medical conditions or safety concerns Functional Abilities and Goals: Independent: Patient completed the activities by him/herself, with or without an assistive device, with no assistance from a helper. Needed Some Help: Patient needed partial assistance from another person to complete activities. Dependent: A helper completed the activities for the patient. Unknown: Not Applicable: ADL PLOF Comments indep PLOF using no AD Self Care: Independent Functional Cognition: Independent DME/Equipment: Tub/Shower Drive Self: Yes OT Current Status Subjective pt laying supine in bed upon OT arrival in no apparent distress. pt agreed to OT session. pt reports no pain. pt daughter is present during session. Pain Numeric Pain Scale: 0-No Pain Mental Status/Objective Patient Orientation: Person, Place, Time, Situation, Normal For Age Attachments: IV, Oxygen (3.5 L NC; pt wears 3L NC PLOF ) Current Glasses/Contacts: Yes Hearing Aids: No Dentures/Partials: Yes Hand Dominance: Right Upper Extremity ROM WNL Upper Extremity Coordination finger to nose WNL opposition: WNL Upper Extremity Sensation light touch: WNL Upper Extremity Strength 4-5 MMT ADL-Treatment Therapy Code Descriptions/Definitions Functional Webster Measure: 0=Not Assessed/NA 4=Minimal Assistance 1=Total Assistance 5=Supervision or Setup 2=Maximal Assistance 6=Modified Webster 3=Moderate Assistance 7=Complete Webster Therapy Quality Codes: 6 Independent with activity with or without an assistive device 5 Patient requires set up or clean up by helper. Patient completes activity by themselves 4 Supervision or touching assist (CGA). [place] provide cues , steadying assist 3 The helper provides less than half the effort to complete the activity 2 The helper provides more than half the effort to complete the activity 1 Dependent. The helper does all the effort to complete an activity 7 Patient refused to complete or attempt activity 9 The patient did not perform the activity before the current illness or injury 88 Not attempted due to Medical conditions or safety concerns Grooming (FIM): 5 (set up to wash face ) Lower Body Dressing (FIM): 5 (seated EOB. noted SOB with task and increase timing for energy conservation. ) Transfers (B, C, W/C) (FIM): 5 (use of RW in beginning then no AD for functional ambulation 8 ft. noted SOB with functional mobility. ) noted SOB with all tasks. requiring increase timing to complete tasks. noted pt O2 remained above 94% with tasks and HR increase to 114BPM. NSG is aware of tasks. pt education on importance of sitting in chair Vs. laying in bed. pt/ daughter verb understanding. pt sitting in recliner chair post OT session, call light, phone, tray within reach, all needs met. Other Treatments pt education on energy conservation techniques within ADL including pursed lip breathing. pt verbalized and demo understanding of trained techniques. Education OT Patient Education: Energy conservation, Purpose of tx/functional activities Teaching Recipient: Patient Teaching Methods: Discussion Response to Teaching: Verbalize Understanding, Return Demonstration OT Short Term Goals Short Term Goals Bathing(FIM): 5 1=Demonstrate adherence to instructed precautions during ADL tasks. 2=Patient will verbalize/demonstrate understanding of assistive devices/modifications for ADL. 3=Patient will improve strength/tolerance for activity to enable patient to perform ADL's. OT Finishing Room Supervisor Goals Finishing Room Supervisor Goals Time Frame: Jul 22, 2019 Grooming(FIM): 6 Bathing(FIM): 6 Upper Body Dressing(FIM): 6 Lower Body Dressing(FIM): 6 Toileting(FIM): 6 Transfers (B,C,W/C) (FIM): 6 Toilet/Commode Transfer(FIM): 6 Additional Goals: 1-Demonstrate ADL Tasks, 2-Verbalize Understanding, 3- ImproveStrength/Karen 1=Demonstrate adherence to instructed precautions during ADL tasks. 2=Patient will verbalize/demonstrate understanding of assistive devices/modifications for ADL. 3=Patient will improve strength/tolerance for activity to enable patient to perform ADL's. OT Education/Plan Problem List/Assessment Assessment: Decreased Activ Tolerance, Decreased UE Strength, Impaired I ADL's, Impaired Self-Care Skills Discharge Recommendations Plan/Recommendations: Continue POC Therapy D/C Recommendations: Acute Rehab, Home w/ Family Support Treatment Plan/Plan of Care Treatment,Training & Education: Yes Patient would benefit from OT for education, treatment and training to promote independence in ADL's, mobility, safety and/or upper extremity function for ADL's. Plan of Care: ADL Retraining, Functional Mobility, Group Exercise/Act as Ind, UE Funct Exercise/Act Treatment Duration: Jul 29, 2019 Frequency: 5 times per week Estimated Hrs Per Day: .25 hour per day Agreement: Yes Rehab Potential: Good Time/GCodes Start Time: 11:30 Stop Time: 11:50 Billed Treatment Time EVL 10 minutes FA 10 minutes, 1 unit SHAILANAOMY OT Jul 15, 2019 12:01
--- NOTE | 2019-07-15 13:12 | NUR ---
Pt is Alevism and indicates that she does not need spiritual support. Substance Abuse Services Director offered blessing.
[2019-07-15] MEDS ORDERED: LACTATED RINGERS 1,000 ML IV SCH (13:45)
--- NOTE | 2019-07-15 14:11 | Physical Therapy Evaluation ---
PT Evaluation-General Medical Diagnosis Admission Date Jul 14, 2019 at 11:12 Medical Diagnosis: bronchitis Onset Date: Jul 14, 2019 Therapy Diagnosis Therapy Diagnosis: impaired mobility, strength, endurance Height/Weight Height (Feet): 5 Height (Inches): 8.00 Weight (Pounds): 100 Weight (Ounces): 0.0 Precautions Precautions/Isolations: Standard Precautions Referral Physician: Sherin Cook DO Reason for Referral: Evaluation/Treatment Medical History Pertinent Medical History: COPD Additional Medical History Past Medical History Surgeries: No Respiratory: Yes COPD, Emphysema Cardiac: No Neurological: No Genitourinary: No Gastrointestinal: No Musculoskeletal: No Endocrine: No HEENT: No Cancer: No Psychosocial: No Integumentary: No Reviewed History: Yes Social History Home: Single Level Current Living Status: Alone Entry Into Home: Stairs Without Railing PT Steps Into Home: 1 Prior/Core FIM Prior Level of Function Therapy Code Descriptions/Definitions Functional [place] Measure: 0=Not Assessed/NA 4=Minimal Assistance 1=Total Assistance 5=Supervision or Setup 2=Maximal Assistance 6=Modified [place] 3=Moderate Assistance 7=Complete [place] Therapy Quality Codes: 6 Independent with activity with or without an assistive device 5 Patient requires set up or clean up by helper. Patient completes activity by themselves 4 Supervision or touching assist (CGA). [place] provide cues , steadying assist 3 The helper provides less than half the effort to complete the activity 2 The helper provides more than half the effort to complete the activity 1 Dependent. The helper does all the effort to complete an activity 7 Patient refused to complete or attempt activity 9 The patient did not perform the activity before the current illness or injury 88 Not attempted due to Medical conditions or safety concerns Functional Abilities and Goals: Independent: Patient completed the activities by him/herself, with or without an assistive device, with no assistance from a helper. Needed Some Help: Patient needed partial assistance from another person to complete activities. Dependent: A helper completed the activities for the patient. Unknown: Not Applicable: Bed Mobility: 7 Transfers (B,C,W/C) (FIM): 7 Gait: 7 Stairs: 7 Indoor Mobility (Ambulation): Independent Stairs: Independent PT Evaluation-Current Subjective Patient in recliner pre tx, agrees to PT, has no complaints of pain. Pt/Family Goals "to breathe better" Objective Patient Orientation: Person, Place, Situation Attachments: Oxygen 4L of O2 nasal canula ROM/Strength ROM Lower Extremities WNL Strength Lower Extremities bilateral hip flexion 3+/5, all other 4/5 gross Sensory Vision: Wears Glasses Hearing: Functional Hand Dominance: Right Sensation Right Lower Extremit: Intact Sensation Left Lower Extremity: Intact Transfers Therapy Code Descriptions/Definitions Functional [place] Measure: 0=Not Assessed/NA 4=Minimal Assistance 1=Total Assistance 5=Supervision or Setup 2=Maximal Assistance 6=Modified [place] 3=Moderate Assistance 7=Complete [place] Transfers (B, C, W/C) (FIM): 5 Sit to/from Stand: 5 Gait Mode of Locomotion: Walk Anticipated Mode of Locomotion: Walk Gait (FIM): 2 Distance: 80' Gait Level of Assist: 4 Gait Persons Needed: 1 Gait Assistive Device: None Comments/Gait Description CGA, slight unsteadiness when turning, SOB with ambulation, cues for purse lip breathing Balance Sitting Static: Normal Sitting Dynamic: Normal Standing Static: Good Standing Dynamic: Good Treatment BLE seated exercises x15 (AP, LAQ) Assessment/Needs Patient has impaired mobility, strength, endurance. She gets very SOB with activity. Rehab Potential: Fair PT Short Term Goals Short Term Goals Time Frame: Jul 22, 2019 Transfers (B,C,W/C) (FIM): 6 Gait (FIM): 5 Gait Distance Comment: 150' Gait Level of Assist: 5 Gait Assistive Device: None PT Plan Problem List Problem List: Activity Tolerance, Functional Strength, Safety, Balance, Gait, Transfer, Bed Mobility Treatment/Plan Treatment Plan: Continue Plan of Care Treatment Plan: Bed Mobility, Education, Functional Activity Karen, Functional Strength, Gait, Safety, Therapeutic Exercise, Transfers Treatment Duration: Jul 22, 2019 Frequency: 6 times per week Estimated Hrs Per Day: .25 hour per day Patient and/or Family Agrees t: Yes Safety Risks/Education Patient Education: Gait Training, Transfer Techniques, Correct Positioning, S afety Issues Teaching Recipient: Patient Teaching Methods: Demonstration, Discussion Response to Teaching: Reinforcement Needed Discharge Recommendations Plan Patient will perform bed mobility and transfer training, balance and endurance training, functional strengthening, stair training, gait training, and education, to improve functional mobility and independence at home. Therapy D/C Recommendations: Home w/ Family Support Time/GCodes Time In: 1350 Time Out: 1403 Total Billed Treatment Time: 13 Total Billed Treatment 1 visit EVM 13' ZORAIDA RANDOLPH PT Jul 15, 2019 14:11
--- NOTE | 2019-07-15 14:45 | History & Physical-Hospitalist ---
BRISEYDA RUTLEDGE [facility] 07/15/19 1444: History of Present Illness HPI/Chief Complaint C/C: Shortness of breath, coughing and phlegm production HPI: Dior is a 79 year old white female presenting with shortness of breath, coughing and phlegm production. She was brought in to the ER by her daughter in law. Patient states she has had prior episodes of pneumonia like this before and has PMH of oxygen dependent COPD. Date Seen 07/15/19 Time Seen by a Provider: 08:45 Attending Physician Maryan Hughes Katrina M MD Referring Physician Date of Admission Jul 14, 2019 at 11:12 Home Medications & Allergies Home Medications Reviewed patient Home Medication Reconciliation performed by pharmacy medication reconciliations sound effects technician and/or nursing. Patients Allergies have been reviewed. Allergies Allergies Coded Allergies No Known Drug Allergies (Unverified12/27/18) Pt denies allergies to medication, food and environmental triggers. 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 ) Alcohol Use: Denies Use Recreational Drug Use: No Smoking Status: Former Smoker Type Used: Cigarettes 2nd Hand Smoke Exposure: No Recent Foreign Travel: No Contact w/other who traveled: No Recent Hopitalizations: No Recent Infectious Disease Expo: No Immunizations Up To Date Date of Pneumonia Vaccine: Dec 27, 2016 Date of Influenza Vaccine: Jul 27, 2018 Seasonal Allergies Seasonal Allergies: No Past Medical History Respiratory: COPD Cardiac: High Cholesterol Psychosocial: Anxiety Right forearm wound Family History No Pertinent Family Hx, Heart Disease, Cancer Mother ( at 92): unknown cause Father( at 77): cancer of unknown type, heart attack Sister (75): has multiple medical issues. Review of Systems Constitutional: no symptoms reported EENTM: no symptoms reported Respiratory: cough, phlegm, short of breath Cardiovascular: no symptoms reported, other (Pt stated chest pain when coughing ) Gastrointestinal: no symptoms reported Genitourinary: no symptoms reported Musculoskeletal: no symptoms reported Skin: other (Right forearm wound from hitting it on kitchen cabinet ) Psychiatric/Neurological: Anxiety Physical Exam Physical Exam Vital Signs Vital Signs - First Documented 07/14/19 09:00 Temp 101.6 Pulse 104 Resp 22 B/P (MAP) 188/86 (120) Pulse Ox 98 O2 Delivery Room Air O2 Flow Rate 3.00 Capillary Refill : Less Than 3 Seconds Height, Weight, BMI Height: 5'8.00" Weight: 100lbs. 0.0oz. 45.376668oz; 15.2 BMI Method:Stated Neck: Full Range of Motion, Non Tender Respiratory: Chest Non Tender, No Respiratory Distress, Rhonci, Wheezing Cardiovascular: Regular Rate, Rhythm, No Edema, No JVD Gastrointestinal: Normal Bowel Sounds, Non Tender Extremity: Normal Capillary Refill Neurologic/Psychiatric: Alert, Oriented x3 Skin: Normal Color, Warm/Dry, Ecchymosis (Right forearm wound) Lymphatic: No Adenopathy Results Results/Procedures Labs Laboratory Tests 07/14/19 09:30 07/15/19 05:30 Patient resulted labs reviewed. Assessment/Plan Assessment and Plan Assessment: 1. Pneumonia 2. COPD Exacerbation 3. Sepsis 4. Chronic Bronchitis 5. PE 6. Leukocytosis 7. Hypercholesterolemia 8. UTI 9. Anxiety 10. Anemia 11. Insomnia 12. minor right arm wound Plan: 1. Consult Pulmonary 2. Chest X-ray 3. Continue Abx regimen and current medication regimen 4. Labs ( continue monitoring CBC with diff, CMP, lactic acid, PT/PTT) 5. Insensitive spirometry 6. DVT prophylaxis 7. Social work consult 8. RT evaluation and breathing tx PRN 9. Medication review 10. PT Clinical Quality Measures DVT/VTE Risk/Contraindication: Risk Factor Score Per Nursin RFS Level Per Nursing on Admit: 4+=Very High MARYAN HUGHES DO 07/15/192028: History of Present Illness HPI/Chief Complaint CC: SOB with productive cough HPI: This is a 79yoWF clinic pt of Dr. Stein who was admitted to [facility] in December for pneumonia found to have a spiculated mass, repeat CT scan by Dr. Gallegos revealed no extensive expansion of the mass. Pt had a pulmonary function test and was told to repeat the scan in September when she presented to the ER with SOB, fever, and productive cough she was found to have pneumonia with exacerbation of COPD in need of inpatient treatment due to oxygen dependency and increased oxygen requirements more than her two liters that she is dependent at home and definitive treatment with Pulmonology expertise. At this current time pt is feeling better, and she is a little bit more tachypneic when she is talking. Pt daughter is at the bedside, and pt denies any significant pain. I did review and restart most of her home meds and will be maintained on Zosyn antibiotics, nebulizer treatments, IV steroids and await for further recommendat ions by Dr. Gallegos. 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 ) Recreational Drug Use: No Smoking Status: Former Smoker Past Medical History Respiratory: COPD, Emphysema, Pneumonia Cardiac: High Cholesterol Review of Systems Constitutional: see HPI, malaise, weakness Respiratory: cough, dyspnea on exertion, phlegm, short of breath Physical Exam Physical Exam General Appearance: No Apparent Distress, WD/WN, Anxious, Chronically ill, Thin Respiratory: No Accessory Muscle Use, No Respiratory Distress, Crackles, Decreased Breath Sounds, Rhonci, Wheezing Neurologic/Psychiatric: Alert, Oriented x3, No Motor/Sensory Deficits, Normal Mood/Affect Assessment/Plan Admission Diagnosis Assessment: Acute on chronic resp failure COPD O2 dependent PNA Lung mass Frail status Plan: Home meds Nebs O2 Abx Steroids Admission Status: Inpatient Order (span 2 midnights) Reason for Inpatient Admission: Acute on chronic resp failure will require 3 days Diagnosis/Problems Diagnosis/Problems (1) Pneumonia Status: Acute Qualifiers: Pneumonia type: due to unspecified organism Laterality: unspecified laterality Lung location: unspecified part of lung Qualified Codes: J18.9 - Pneumonia, unspecified organism (2) COPD (chronic obstructive pulmonary disease) Status: Acute Qualifiers: COPD type: unspecified COPD Qualified Codes: J44.9 - Chronic obstructive pulmonary disease, unspecified (3) Frailty Status: Chronic (4) Respiratory insufficiency Status: Resolved Resolution Date/Time: 01/03/19 @ 19:46 (5) Osteoporosis Status: Chronic Supervisory-Addendum Brief Verification & Attestation Participated in pt care: history, MDM, physical Personally performed: exam, history, MDM, supervision of care Care discussed with: Medical Student Procedures: n/a Results interpretation: Verified all documentation Verification and Attestation of Medical Student E/M Service A medical student performed and documented this service in my presence. I reviewed and verified all information documented by the medical student and made modifications to such information, when appropriate. I personally performed the physical exam and medical decision making. Maryan Hughes, Jul 15, 2019,20:29 BRISEYDA RUTLEDGE [facility] Jul 15, 2019 14:44 MARYAN HUGHES DO Jul 15, 2019 20:29
[2019-07-15 16:48] VITALS: BP 137/66
[2019-07-15] MEDS: LACTATED RINGERS 1,000 ML IV SCH ×2 (18:58→20:50)
[2019-07-15] MEDS: RT-ADVAIR HFA 115/21 MCG PER PUFF IH SCH (19:45)
[2019-07-15] MEDS: UMECLIDINIUM BROMIDE (INCRUSE ELLIPTA) 7'S IH SCH (19:45)
[2019-07-15 20:12] VITALS: BP 159/73
[2019-07-15] MEDS: SIMvastatin 20 MG (ZOCOR) TAB PO SCH (20:50)
[2019-07-16] MEDS: methylPREDNISolone 40 MG/ML (Solu-MEDROL) VIAL IV SCH ×4 (00:20→17:35)
[2019-07-16 00:28] VITALS: BP 133/60
[2019-07-16] MEDS: ALPRAZolam 0.5 MG (XANAX) TAB PO PRN ×2 (00:28→20:29)
[2019-07-16] MEDS: ZOLPIDEM 5 MG (AMBIEN) TAB PO PRN (00:48)
[2019-07-16] MEDS: PIPERACILLIN/TAZOBACTAM (BULK) 4.5 GM in NS (IVPB) 100 ML IV SCH ×2 (01:59→10:17)
[2019-07-16] MEDS: LACTATED RINGERS 1,000 ML IV SCH (03:41)
[2019-07-16 04:26] VITALS: BP 120/56
[2019-07-16] MEDS: MULTIVIT W/MINERALS TAB (THERAGRAN M) PO SCH (06:10)
[2019-07-16] MEDS: RT-ADVAIR HFA 115/21 MCG PER PUFF IH SCH ×2 (07:02→20:52)
[2019-07-16] MEDS: UMECLIDINIUM BROMIDE (INCRUSE ELLIPTA) 7'S IH SCH (07:02)
[2019-07-16] MEDS: RT-ALBUTEROL/IPRATROPIUM 3 ML (DUONEB) VIAL INH SCH ×3 (07:02→20:52)
[2019-07-16 07:08] LABS: BASOPHILS % (AUTO) 0 % (0-10); EOSINOPHILS % (AUTO) 0 % (0-10); HEMATOCRIT 31 % (35-52); HEMOGLOBIN 9.6 G/DL (11.5-16.0); LYMPHOCYTES # (AUTO) 0.4 X 10^3 (1.0-4.0); LYMPHOCYTES % (AUTO) 3 % (12-44); MEAN CORPUSCULAR HEMOGLOBIN 30 PG (25-34); MEAN CORPUSCULAR HGB CONC 31 G/DL (32-36); MEAN CORPUSCULAR VOLUME 99 FL (80-99); MEAN PLATELET VOLUME 10.5 FL (7.4-10.4); MONOCYTES # (AUTO) 0.6 X 10^3 (0.0-1.0); MONOCYTES % (AUTO) 5 % (0-12); NEUTROPHILS # (AUTO) 11.8 X 10^3 (1.8-7.8); NEUTROPHILS % (AUTO) 92 % (42-75); PLATELET COUNT 291 10^3/uL (130-400); RED CELL DISTRIBUTION WIDTH 13.8 % (10.0-14.5); WHITE BLOOD COUNT 12.8 10^3/uL (4.3-11.0)
[2019-07-16 07:39] LABS: ALANINE AMINOTRANSFERASE 71 U/L (0-55); ALBUMIN 3.4 GM/DL (3.2-4.5); ALKALINE PHOSPHATASE 62 U/L (40-136); BILIRUBIN,TOTAL 0.5 MG/DL (0.1-1.0); BUN/CREATININE RATIO 20; CALCIUM 8.3 MG/DL (8.5-10.1); CARBON DIOXIDE 21 MMOL/L (21-32); CHLORIDE 110 MMOL/L (98-107); CREATININE SERUM 0.82 MG/DL (0.60-1.30); GFR ESTIMATED > 60; GLUCOSE 163 MG/DL (70-105); POTASSIUM 3.5 MMOL/L (3.6-5.0); SODIUM 143 MMOL/L (135-145); TOTAL PROTEIN 5.9 GM/DL (6.4-8.2)
[2019-07-16 08:00] VITALS: BP 134/62
[2019-07-16] MEDS: CALCIUM CARB + VIT D 600 MG (CALCARB + D) TAB PO SCH (08:38)
--- NOTE | 2019-07-16 10:28 | Occupational Ther Daily Note ---
OT Current Status-Daily Note Subjective Pt seen EOB finishing breakfast. Pt's daughter in law present. Pt stated rough night, coughing up sputum. Pt stated tired with no pain. Pt requested use of bathroom. Agreed OT tx session. Pain Numeric Pain Scale: 0-No Pain Location: No Pain Reported Mental Status/Objective Patient Orientation: Normal For Age Therapy Code Descriptions/Definitions Functional [place] Measure: 0=Not Assessed/NA 4=Minimal Assistance 1=Total Assistance 5=Supervision or Setup 2=Maximal Assistance 6=Modified [place] 3=Moderate Assistance 7=Complete [place] Attachments: Oxygen ADL-Treatment Eating (FIM): 6 (Pt completed eating breakfast) Grooming (FIM): 5 (Pt required s/u assist for combing hair and hand hygiene with wipes) Lower Body Dressing (FIM): 2 (Pt required assist threading BLE, pt able to pull up. ) Toileting (FIM): 3 (Pt required assist for thorough wiping. ) Transfers (B, C, W/C) (FIM): 5 (SBA for safety using no AD>) Toilet/Commode Transfer (FIM): 5 (SBA for safety) Pt competed toileting this date. Required cues for pursed lip breathing during activities and return demonstrated. Pt stated she has been wearing briefs and soiled self when coughing. Pt required brief change. Other Treatment Pt educated on OT process, pursed lip breathing, and sitting up during the day. Pt sat in chair within room, stating she required rest due to rough night. Pt's call light and phone within reach. All needs met. Education OT Patient Education: Correct positioning, Energy conservation, Purpose of tx/functional activities, Safety issues Teaching Recipient: Patient Teaching Methods: Demonstration, Discussion Response to Teaching: Verbalize Understanding, Return Demonstration OT Short Term Goals Short Term Goals Bathing(FIM): 5 Transfers (B,C,W/C) (FIM): 6 1=Demonstrate adherence to instructed precautions during ADL tasks. 2=Patient will verbalize/demonstrate understanding of assistive devices/modifications for ADL. 3=Patient will improve strength/tolerance for activity to enable patient to perform ADL's. OT Residential Goals Residential Goals Time Frame: Jul 22, 2019 Grooming(FIM): 6 Bathing(FIM): 6 Upper Body Dressing(FIM): 6 Lower Body Dressing(FIM): 6 Toileting(FIM): 6 Transfers (B,C,W/C) (FIM): 6 Toilet/Commode Transfer(FIM): 6 Additional Goals: 1-Demonstrate ADL Tasks, 2-Verbalize Understanding, 3- ImproveStrength/Karen 1=Demonstrate adherence to instructed precautions during ADL tasks. 2=Patient will verbalize/demonstrate understanding of assistive devices/modifications for ADL. 3=Patient will improve strength/tolerance for activity to enable patient to perform ADL's. OT Education/Plan Problem List/Assessment Assessment: Decreased Activ Tolerance, Decreased UE Strength, Impaired Funct Balance, Impaired Self-Care Skills Discharge Recommendations Plan/Recommendations: Continue POC Therapy Discharge Recommendati: Intermittent Supervision Treatment Plan/Plan of Care Treatment,Training & Education: Yes Patient would benefit from OT for education, treatment and training to promote independence in ADL's, mobility, safety and/or upper extremity function for ADL's. Plan of Care: ADL Retraining, Functional Mobility, Group Exercise/Act as Ind, UE Funct Exercise/Act Treatment Duration: Jul 29, 2019 Frequency: 5 times per week Estimated Hrs Per Day: .25 hour per day Agreement: Yes Rehab Potential: Fair Time/GCodes Start Time: 10:02 Stop Time: 10:19 Total Time Billed (hr/min): 17 Billed Treatment Time 1 ADL 17 DESTINI HACKETT OTR Jul 16, 2019 10:28
--- NOTE | 2019-07-16 10:53 | Progress Note - Hospitalist ---
BRISEYDA RUTLEDGE [facility] 07/16/19 1053: Subjective HPI/CC On Admission Date Seen by Provider: Jul 16, 2019 Time Seen by Provider: 07:25 CC: SOB with productive cough HPI: This is a 79yoWF clinic pt of Dr. Stein who was admitted to [facility] in December for pneumonia found to have a spiculated mass, repeat CT scan by Dr. Gallegos revealed no extensive expansion of the mass. Pt had a pulmonary function test and was told to repeat the scan in September when she presented to the ER with SOB, fever, and productive cough she was found to have pneumonia with exacerbation of COPD in need of inpatient treatment due to oxygen dependency and increased oxygen requirements more than her two liters that she is dependent at home and definitive treatment with Pulmonology expertise. At this current time pt is feeling better, and she is a little bit more tachypneic when she is talking. Pt daughter is at the bedside, and pt denies any significant pain. I did review and restart most of her home meds and will be maintained on Zosyn antibiotics, nebulizer treatments, IV steroids and await for further recommendations by Dr. Gallegos. Subjective/Events-last exam Patient was alert and oriented, no acute distress, but she had audible wheezing The patient had a rough night with trouble breathing but at this moment is doing fine. She funes not have any pain Pt is ambulating with PT\ Pt is eating and drinking Pt is urinating and having bowel movements. ROS: patient denied chest pain, SOB (currently on NC), N/V and she states she feels like she has a fever (temp was WNL) Heart: HRRR Lungs: Wheezing and crackles occurred diffusely, Labs: Stable Vitals: Stable Plan: Continue tx plan and have patient moving around more. Focused Exam Lactate Level 07/14/19 09:30: Lactic Acid Level 2.44*H 07/14/19 13:25: Lactic Acid Level 2.98*H Respiratory: Chest Non Tender, Crackles, Wheezing Cardiovascular: Regular Rate, Rhythm, No Edema, No JVD Skin: normal color, warm/dry Objective Exam Vital Signs Vital Signs Date Time Temp Pulse Resp B/P (MAP) Pulse Ox O2 Delivery O2 Flow Rate FiO2 07/16/19 10:29 98 Nasal Cannula 4.00 07/16/19 08:00 97.8 105 20 134/62 (86) Capillary Refill : Less Than 3 Seconds General Appearance: No Apparent Distress, Chronically ill Neck: Full Range of Motion, Non Tender Respiratory: Chest Non Tender, Crackles, Wheezing Cardiovascular: Regular Rate, Rhythm, No Edema, No JVD Extremity: Normal Capillary Refill Skin: Normal Color, Warm/Dry Results/Procedures Lab Laboratory Tests 07/16/19 06:03 07/16/19 06:31 Patient resulted labs reviewed. Assessment/Plan Assessment and Plan Assess & Plan/Chief Complaint Assessment: 1. Pneumonia 2. COPD Exacerbation 3. Sepsis 4. Chronic Bronchitis 5. PE 6. Leukocytosis 7. Hypercholesterolemia 8. UTI 9. Anxiety 10. Anemia 11. Insomnia 12. minor right arm wound Plan: 1. Consult Pulmonary 2. Review imaging 3. Continue Abx regimen and current medication regimen 4. Labs ( continue monitoring CBC with diff, CMP, lactic acid, PT/PTT) 5. Insensitive spirometry 6. DVT prophylaxis 7. Social work consult 8. RT evaluation and breathing tx PRN 9. Medication review 10. PT Clinical Quality Measures DVT/VTE Risk/Contraindication: Risk Factor Score Per Nursin RFS Level Per Nursing on Admit: 4+=Very High SHERIN HUGHES DO 07/16/192119: Subjective Subjective/Events-last exam Pt had an episode of SOB last night. Very difficult situation since she is very frail, has minimal reserve and requires high dose of IV steroids. Changing Zosyn to Rocephin and narrow spectrum. Likely needs swing bed to work on strengthening before going home to live alone. May indeed actually be an inpatient rehab candidate depending on how she does respiratory webber. Appreciate Dr. Gallegos's consultation. Review of Systems General: Fatigue Pulmonary: Dyspnea Objective Exam General Appearance: No Apparent Distress, WD/WN, Chronically ill Respiratory: Chest Non Tender, No Accessory Muscle Use, No Respiratory Distress, Crackles, Wheezing Cardiovascular: Regular Rate, Rhythm, No Edema, No Gallop, No JVD, No Murmur, Normal Peripheral Pulses Neurologic/Psychiatric: Alert, Oriented x3, No Motor/Sensory Deficits, Normal Mood/Affect Assessment/Plan Assessment and Plan Assess & Plan/Chief Complaint May need swing bed since lives alone at home Appreciate Dr Gallegos Diagnosis/Problems Diagnosis/Problems (1) Respiratory insufficiency Status: Resolved Resolution Date/Time: 2/16/19 @ 19:46 (2) COPD (chronic obstructive pulmonary disease) Status: Acute Qualifiers: Qualified Codes: J44.9 - Chronic obstructive pulmonary disease, unspecified (3) Frailty Status: Chronic (4) Osteoporosis Status: Chronic (5) Pneumonia Status: Acute Qualifiers: Qualified Codes: J18.9 - Pneumonia, unspecified organism (6) Hyperlipidemia Status: Chronic Supervisory-Addendum Brief Verification & Attestation Participated in pt care: history, MDM, physical Personally performed: exam, history, MDM, supervision of care Care discussed with: Medical Student Procedures: n/a Results interpretation: Verified all documentation Verification and Attestation of Medical Student E/M Service A medical student performed and documented this service in my presence. I reviewed and verified all information documented by the medical student and made modifications to such information, when appropriate. I personally performed the physical exam and medical decision making. Sherin Hughes, Jul 16, 2019,21:20 BRISEYDA RUTLEDGE [facility] Jul 16, 2019 10:53 SHERIN HUGHES DO Jul 16, 2019 21:20
[2019-07-16] MEDS ORDERED: cefTRIAXone 1,000 MG/SWFI 10 ML IV PUSH IV SCH ×2 (11:00)
[2019-07-16] MEDS: ENOXAPARIN 30 MG/0.3 ML (LOVENOX) SYR SC SCH (11:11)
[2019-07-16 12:00] VITALS: BP 155/62
--- NOTE | 2019-07-16 12:07 | Physical Therapy Daily Note ---
PT Daily Note-Current Subjective Patient states she had a bad night last night with her breathing. She also states she is currently feeling better and agrees to PT. Mental Status Patient Orientation: Normal For Age Attachments: Oxygen (4L NC) Transfers Therapy Code Descriptions/Definitions Functional [place] Measure: 0=Not Assessed/NA 4=Minimal Assistance 1=Total Assistance 5=Supervision or Setup 2=Maximal Assistance 6=Modified [place] 3=Moderate Assistance 7=Complete [place] Therapy Quality Codes: 6 Independent with activity with or without an assistive device 5 Patient requires set up or clean up by helper. Patient completes activity by themselves 4 Supervision or touching assist (CGA). [place] provide cues , steadying assist 3 The helper provides less than half the effort to complete the activity 2 The helper provides more than half the effort to complete the activity 1 Dependent. The helper does all the effort to complete an activity 7 Patient refused to complete or attempt activity 9 The patient did not perform the activity before the current illness or injury 88 Not attempted due to Medical conditions or safety concerns Transfers (B, C, W/C) (FIM): 7 Scootin Sit to/from Stand: 7 Gait Training Gait (FIM): 2 Distance (FIM): 5=924-31 ft Distance: 100' x 2 Gait Level of Assist: 7 Gait Assistive Device: None safe and functional/assist with O2 tank only. Assessment Patient required seated recovery period due to increase SOA with ambulation. Dr. Gallegos assess patient during treatment. PT Short Term Goals Short Term Goals Time Frame: Jul 22, 2019 Transfers (B,C,W/C) (FIM): 6 Gait (FIM): 5 Gait Distance Comment: 150' Gait Level of Assist: 5 Gait Assistive Device: None PT Plan Treatment/Plan Treatment Plan: Continue Plan of Care Treatment Plan: Bed Mobility, Education, Functional Activity Karen, Functional Strength, Gait, Safety, Therapeutic Exercise, Transfers Treatment Duration: Jul 22, 2019 Frequency: 6 times per week Estimated Hrs Per Day: .25 hour per day Patient and/or Family Agrees t: Yes Time/GCodes Time In: 1130 Time Out: 1143 Total Billed Treatment Time: 13 Total Billed Treatment 1 visit FA 13 min KRISTI BERNAL PT Jul 16, 2019 12:07
--- NOTE | 2019-07-16 15:15 | NUR ---
Swing Bed Note: Qualifies for swing bed continued need of IV abx et steroids (Pneumonia) with continued need of Physical et Occupational therapies to return to prior level of function. Thank you for this referral!
--- NOTE | 2019-07-16 15:33 | NUR ---
NOTE THT PT HAS HAD SOME SOFT FORMED BMS BUT STAFF HAS BEEN UNABLE TO COLLECT CARON FOR O.B. -- WHEN PT HAS BM HER URINE GET MIXED IN THE BACK HAT ON STOOL
--- NOTE | 2019-07-16 15:36 | Pulmonary Progress Note ---
Subjective Time Seen by a Provider: 08:12 Subjective/Events-last exam Walking halls with PT. Pt still wheezy. Sepsis Event Evaluation Height, Weight, BMI Height: 5'8.00" Weight: 100lbs. 0.0oz. [id number]; 15.2 BMI Method:Stated Focused Exam Lactate Level 07/14/19 09:30: Lactic Acid Level 2.44*H 07/14/19 13:25: Lactic Acid Level 2.98*H Exam Exam Vital Signs Date Time Temp Pulse Resp B/P (MAP) Pulse Ox O2 Delivery O2 Flow Rate FiO2 07/16/19 14:06 99 Nasal Cannula 4.00 07/16/19 12:00 97.4 95 20 155/62 (93) 94 Nasal Cannula 4.00 07/16/19 10:29 98 Nasal Cannula 4.00 07/16/19 08:00 Nasal Cannula 3.00 07/16/19 08:00 97.8 105 20 134/62 (86) 96 Nasal Cannula 4.00 07/16/19 07:02 99 Nasal Cannula 3.00 07/16/19 04:26 98.3 92 16 120/56 (77) 98 Nasal Cannula 4.00 07/16/19 00:32 95 Nasal Cannula 3.00 07/16/19 00:28 97.4 90 16 133/60 (84) 99 Nasal Cannula 4.00 07/15/19 20:12 97.8 101 18 159/73 (101) 98 Nasal Cannula 4.00 07/15/19 20:07 Nasal Cannula 3.00 07/15/19 19:45 94 Nasal Cannula 3.00 07/15/19 19:45 94 Nasal Cannula 3.00 07/15/19 19:40 93 Nasal Cannula 3.00 07/15/19 16:48 98.9 93 18 137/66 (89) 97 Nasal Cannula 4.00 I & O 07/16/19 07:00 Intake Total 2160 ml Output Total 1000 ml Balance 1160 ml Height & Weight Height: 5'8.00" Weight: 100lbs. 0.0oz. 45.741587qz; 15.2 BMI Method:Stated General Appearance: No Apparent Distress, Chronically ill HEENT: PERRL/EOMI, Pharynx Normal, Moist Mucous Membranes Neck: Full Range of Motion, Non Tender Respiratory: Chest Non Tender, Crackles, Wheezing Cardiovascular: Regular Rate, Rhythm, No Edema, No JVD Capillary Refill: Less Than 3 Seconds Gastrointestinal: non tender, soft, no organomegaly Extremity: Normal Capillary Refill Neurologic/Psychiatric: Alert, Oriented x3, No Motor/Sensory Deficits, Normal Mood/Affect Skin: Normal Color, Warm/Dry Lymphatic: No Adenopathy Results Lab Laboratory Tests 07/15/19 05:30 07/16/19 06:03 07/16/19 06:31 Assessment/Plan Assessment/Plan UTI - Zosyn -Influenza is negative COPDAE -Solumedrol -SVNS Anemia -Monitor -Check occult stool hx of spiculated lung nodule -This is being followed as an out pt by my office MARIELOS SHEPARD DO Jul 16, 2019 15:36
[2019-07-16 16:00] VITALS: BP 166/70
[2019-07-16 19:32] VITALS: BP 163/71
[2019-07-16] MEDS: SIMvastatin 20 MG (ZOCOR) TAB PO SCH (20:29)
[2019-07-17] MEDS: methylPREDNISolone 40 MG/ML (Solu-MEDROL) VIAL IV SCH ×2 (00:36→06:35)
[2019-07-17 00:45] VITALS: BP 146/67
[2019-07-17 05:53] LABS: BASOPHILS % (AUTO) 0 % (0-10); EOSINOPHILS % (AUTO) 0 % (0-10); HEMATOCRIT 34 % (35-52); HEMOGLOBIN 10.5 G/DL (11.5-16.0); LYMPHOCYTES # (AUTO) 0.4 X 10^3 (1.0-4.0); LYMPHOCYTES % (AUTO) 4 % (12-44); MEAN CORPUSCULAR HEMOGLOBIN 31 PG (25-34); MEAN CORPUSCULAR HGB CONC 31 G/DL (32-36); MEAN CORPUSCULAR VOLUME 99 FL (80-99); MEAN PLATELET VOLUME 10.3 FL (7.4-10.4); MONOCYTES # (AUTO) 0.6 X 10^3 (0.0-1.0); MONOCYTES % (AUTO) 6 % (0-12); NEUTROPHILS # (AUTO) 9.7 X 10^3 (1.8-7.8); NEUTROPHILS % (AUTO) 91 % (42-75); PLATELET COUNT 309 10^3/uL (130-400); RED CELL DISTRIBUTION WIDTH 13.8 % (10.0-14.5); WHITE BLOOD COUNT 10.7 10^3/uL (4.3-11.0)
[2019-07-17 06:14] LABS: ALANINE AMINOTRANSFERASE 82 U/L (0-55); ALBUMIN 3.6 GM/DL (3.2-4.5); ALKALINE PHOSPHATASE 59 U/L (40-136); BILIRUBIN,TOTAL 0.3 MG/DL (0.1-1.0); BUN/CREATININE RATIO 18; CARBON DIOXIDE 23 MMOL/L (21-32); CHLORIDE 108 MMOL/L (98-107); CREATININE SERUM 0.88 MG/DL (0.60-1.30); GFR ESTIMATED > 60; GLUCOSE 131 MG/DL (70-105); POTASSIUM 4.3 MMOL/L (3.6-5.0); SODIUM 145 MMOL/L (135-145); TOTAL PROTEIN 6.1 GM/DL (6.4-8.2)
[2019-07-17] MEDS: MULTIVIT W/MINERALS TAB (THERAGRAN M) PO SCH (06:35)
[2019-07-17] MEDS: RT-ADVAIR HFA 115/21 MCG PER PUFF IH SCH (07:13)
[2019-07-17] MEDS: UMECLIDINIUM BROMIDE (INCRUSE ELLIPTA) 7'S IH SCH (07:13)
[2019-07-17] MEDS: RT-ALBUTEROL/IPRATROPIUM 3 ML (DUONEB) VIAL INH SCH (07:13)
--- NOTE | 2019-07-17 08:15 | Pulmonary Progress Note ---
Subjective Time Seen by a Provider: 08:14 Subjective/Events-last exam c/o persistent cough and wheezing. Sepsis Event Evaluation Height, Weight, BMI Height: 5'8.00" Weight: 100lbs. 0.0oz. 45.230136lr; 15.2 BMI Method:Stated Focused Exam Lactate Level 07/14/19 09:30: Lactic Acid Level 2.44*H 07/14/19 13:25: Lactic Acid Level 2.98*H Exam Exam Vital Signs Date Time Temp Pulse Resp B/P (MAP) Pulse Ox O2 Delivery O2 Flow Rate FiO2 07/17/19 07:13 98 Nasal Cannula 4.00 07/17/19 00:45 97.8 91 18 146/67 (93) 97 Nasal Cannula 4.00 07/16/19 20:52 95 Nasal Cannula 4.00 07/16/19 20:00 Nasal Cannula 3.00 07/16/19 19:32 98.1 99 18 163/71 (101) 96 Nasal Cannula 4.00 07/16/19 16:00 98.5 101 18 166/70 (102) 98 Nasal Cannula 4.00 07/16/19 14:06 99 Nasal Cannula 4.00 07/16/19 12:00 97.4 95 20 155/62 (93) 94 Nasal Cannula 4.00 07/16/19 10:29 98 Nasal Cannula 4.00 I & O 07/17/19 07:00 Intake Total 2300 ml Output Total 703 ml Balance 1597 ml Height & Weight Height: 5'8.00" Weight: 100lbs. 0.0oz. 45.560571wo; 15.2 BMI Method:Stated General Appearance: No Apparent Distress, Chronically ill HEENT: PERRL/EOMI, Pharynx Normal, Moist Mucous Membranes Neck: Full Range of Motion, Non Tender Respiratory: Chest Non Tender, Crackles, Wheezing Cardiovascular: Regular Rate, Rhythm, No Edema, No JVD Capillary Refill: Less Than 3 Seconds Gastrointestinal: non tender, soft, no organomegaly Extremity: Normal Capillary Refill Neurologic/Psychiatric: Alert, Oriented x3, No Motor/Sensory Deficits, Normal Mood/Affect Skin: Normal Color, Warm/Dry Lymphatic: No Adenopathy Results Lab Laboratory Tests 07/16/19 06:03 07/16/19 06:31 07/17/19 05:25 Assessment/Plan Assessment/Plan UTI - ROcephin -Influenza is negative COPDAE -Solumedrol -SVNS - increase to Q 4 and Q2 PRN Anemia -Monitor hx of spiculated lung nodule -This is being followed as an out pt by my office MARIELOS SHEPARD DO Jul 17, 2019 08:15
[2019-07-17] MEDS ORDERED: RT-ALBUTEROL/IPRATROPIUM 3 ML (DUONEB) VIAL INH SCH (10:00)
[2019-07-17] MEDS: CALCIUM CARB + VIT D 600 MG (CALCARB + D) TAB PO SCH (10:01)
[2019-07-17] MEDS ORDERED: ALPRAZolam 0.5 MG (XANAX) TAB PO PRN (10:15)
[2019-07-17] MEDS ORDERED: RT-ALBUTEROL/IPRATROPIUM 3 ML (DUONEB) VIAL ONE (11:10)
--- NOTE | 2019-07-17 12:41 | Discharge Summary ---
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 Plan: Home meds Nebs O2 Abx Steroids Primary Care Kiley Stein MD Discharge Diagnosis (1) Respiratory insufficiency Status: Resolved (2) COPD (chronic obstructive pulmonary disease) Status: Acute (3) Frailty Status: Chronic (4) Osteoporosis Status: Chronic (5) Pneumonia Status: Acute (6) Hyperlipidemia Status: Chronic Discharge Summary Discharge Physical Exam Allergies: Coded Allergies: No Known Drug Allergies (Unverified , 12/27/18) Vitals & I&Os Vital Signs Date Time Temp Pulse Resp B/P (MAP) Pulse Ox O2 Delivery O2 Flow Rate FiO2 07/17/19 11:18 98 Nasal Cannula 4.00 07/17/19 00:45 97.8 91 18 146/67 (93) General Appearance: No Apparent Distress, WD/WN, Chronically ill, Thin Respiratory: Chest Non Tender, No Respiratory Distress, Wheezing Cardiovascular: Regular Rate, Rhythm, No Edema, No JVD, Normal Peripheral Pulses Gastrointestinal: Normal Bowel Sounds, Non Tender Extremity: Normal Capillary Refill Skin: Normal Color, Warm/Dry Neurologic/Psychiatric: Alert, Oriented x3 Hospital Course Was the Problem List Reviewed?: Yes Dior Palafox presented to the hospital from [facility] due to SOB, Coughing and phlegm production. Patient has had multiple issues of this type in the past and is an oxygen dependent COPD patient. While at [facility] she was managed for, but not limited to her COPD and Pneumonia dx by Dr. Gallegos Pulmonary and Dr. Hughes Internal medicine. 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 The patient continues to show improvement from a lung prospective but still has trouble moving certain distances without feeling SOB. From a vitals and lab standpoint the patient is stable. PT has continued to work with patient as she has been very receptive to improving her independence. The patient still has episodes of not being able to get air, but this has shown improvement while at the hospital. It is recommend that the patient continue her recovery by utilizing the rehab unit to help foster and strengthen the patients potential new normal with hopes of getting her back to her familiar setting. The aforementioned information is only a summary of the patients visit at [facility] and is no all inclusive. Please review notes for a more detailed understanding of this patients visit. Labs (last 24 hrs) Laboratory Tests 07/17/19 05:25: White Blood Count 10.7, Red Blood Count 3.40L, Hemoglobin 10.5L, Hematocrit 34L, Mean Corpuscular Volume 99, Mean Corpuscular Hemoglobin 31, Mean Corpuscular Hemoglobin Concent 31L, Red Cell Distribution Width 13.8, Platelet Count 309, Mean Platelet Volume 10.3, Neutrophils (%) (Auto) 91H, Lymphocytes (%) (Auto) 4L , Monocytes (%) (Auto) 6, Eosinophils (%) (Auto) 0, Basophils (%) (Auto) 0, Neutrophils # (Auto) 9.7H, Lymphocytes # (Auto) 0.4L, Monocytes # (Auto) 0.6, Eosinophils # (Auto) 0.0, Basophils # (Auto) 0.0, Sodium Level 145, Potassium Level 4.3, Chloride Level 108H, Carbon Dioxide Level 23, Anion Gap 14, Blood Urea Nitrogen 16, Creatinine 0.88, Estimat Glomerular Filtration Rate > 60, BUN/Creatinine Ratio 18, Glucose Level 131H, Calcium Level 9.0, Corrected Calcium 9.3, Total Bilirubin 0.3, Aspartate Amino Transf (AST/SGOT) 55H, Alanine Aminotransferase (ALT/SGPT) 82H, Alkaline Phosphatase 59, Total Protein 6.1L, Albumin 3.6 Microbiology 07/14/19 Blood Culture - Preliminary, Resulted No growth 07/14/19 Influenza Types A,B Antigen (ZOFIA) - Final, Complete 07/14/19 Urine Culture - Final, Complete 3 or more isolates Patient resulted labs reviewed. Pending Labs Laboratory Tests 07/17/19 05:25: White Blood Count 10.7, Red Blood Count 3.40, Hemoglobin 10.5, Hematocrit 34, Mean Corpuscular Volume 99, Mean Corpuscular Hemoglobin 31, Mean Corpuscular Hemoglobin Concent 31, Red Cell Distribution Width 13.8, Platelet Count 309, Mean Platelet Volume 10.3, Neutrophils (%) (Auto) 91, Lymphocytes (%) (Auto) 4, Monocytes (%) (Auto) 6, Eosinophils (%) (Auto) 0, Basophils (%) (Auto) 0, Neutrophils # (Auto) 9.7, Lymphocytes # (Auto) 0.4, Monocytes # (Auto) 0.6, Eosinophils # (Auto) 0.0, Basophils # (Auto) 0.0, Sodium Level 145, Potassium Level 4.3, Chloride Level 108, Carbon Dioxide Level 23, Anion Gap 14, Blood Urea Nitrogen 16, Creatinine 0.88, Estimat Glomerular Filtration Rate > 60, B UN/Creatinine Ratio 18, Glucose Level 131, Calcium Level 9.0, Corrected Calcium 9.3, Total Bilirubin 0.3, Aspartate Amino Transf (AST/SGOT) 55, Alanine Aminotransferase (ALT/SGPT) 82, Alkaline Phosphatase 59, Total Protein 6.1, Albumin 3.6 Discharge Home Medications: Active Scripts Active Reported Calcium 500 + Vit D 200 Caplet (Calcium Carbonate/Vitamin D3) 1 Each Tablet 1 Tab PO DAILY Centrum Silver Chewable Tablet (Folic Acid/Multivit-Min/Lutein) 1 Each Tab.chew 1 Tab PO DAILY Mirtazapine 15 Mg Tablet 15 Mg PO HS PRN ALTERNATES WITH ZOLPIDEM Prednisone 5 Mg Tablet 5 Mg PO DAILY Alendronate Sodium 70 Mg Tablet 70 Mg PO SA Spiriva (Tiotropium Glenn) 1 Inh Aerp 1 Cap IH DAILY Albuterol Sulfate 2.5 Mg/3 Ml Vial.neb 2.5 Mg INH Q4H PRN Alprazolam 0.5 Mg Tablet 0.5 Mg PO TID PRN Zolpidem Tartrate 5 Mg Tablet 5 Mg PO HS PRN ALTERNATES WITH MIRTAZAPINE Ventolin Hfa (Albuterol Sulfate) 1 Puff Puff 2 Puff INH Q4H PRN 1 PUFF = 90 MCG Advair 250-50 Diskus (Fluticasone/Salmeterol) 1 Each Blst.w.dev 1 Puff IH BID Pravastatin Sodium 40 Mg Tablet 40 Mg PO DAILY Instructions to patient/family Please see electronic discharge instructions given to patient. Clinical Quality Measures DVT/VTE Risk/Contraindication: Risk Factor Score Per Nursin RFS Level Per Nursing on Admit: 4+=Very High SHERIN HUGHES DO 07/17/19 0725: Discharge Summary Discharge Physical Exam Allergies: Coded Allergies: No Known Drug Allergies (Unverified , 12/27/18) General Appearance: No Apparent Distress, WD/WN Respiratory: Crackles, Wheezing Neurologic/Psychiatric: Alert, Oriented x3, No Motor/Sensory Deficits, Normal Mood/Affect Hospital Course Was the Problem List Reviewed?: Yes Verification and Attestation of Medical Student E/M Service A medical student performed and documented this service in my presence. I reviewed and verified all information documented by the medical student and made modifications to such information, when appropriate. I personally performed the physical exam and medical decision making. Sherin Hughes, Jul 17, 2019,16:53 Discussion & Recommendations Discharge Planning: <30 minutes discharge planning Supervisory-Addendum Brief Verification & Attestation Participated in pt care: history, MDM, physical Personally performed: exam, history, MDM, supervision of care Care discussed with: Medical Student Procedures: n/a Results interpretation: Verified all documentation Verification and Attestation of Medical Student E/M Service A medical student performed and documented this service in my presence. I reviewed and verified all information documented by the medical student and made modifications to such information, when appropriate. I personally performed the physical exam and medical decision making. Sherin Hughes, Jul 17, 2019,16:54 Problem Qualifiers (1) COPD (chronic obstructive pulmonary disease): COPD type: unspecified COPD Qualified Codes: J44.9 - Chronic obstructive pulmonary disease, unspecified (2) Pneumonia: Pneumonia type: due to unspecified organism Laterality: unspecified lateralit y Lung location: unspecified part of lung Qualified Codes: J18.9 - Pneumonia, unspecified organism BRISEYDA RUTLEDGE Jul 17, 2019 12:41 SHERIN HUGHES DO Jul 17, 2019 16:53
[2019-07-18] MEDS ORDERED: NON-FORMULARY MEDICATION 1 EA EA (Alendronate Sodium 70 MG) PO SCH (11:15)
[2019-07-21] MEDS ORDERED: PRD10T PO (14:58)
[2019-07-21] MEDS ORDERED: NYST1000 PO (14:58)
--- NOTE | 2019-07-21 16:11 | Physician Query Clarification ---
PQ-Conflicting Diagnosis Admission/Discharge Admission Date: Jul 14, 2019 at 11:12 Discharge Date: Jul 17, 2019 at 11:02 The medical record reflects the following clinical scenario: History/Risk Factors: pneumonia Clinical Findings: pneumonia, Emphysema, elevated lactic acid Treatment: Zosyn, Solumedrol Question: Do you agree with the impression of the pneumonia with severe sepsis per Dr. Gallegos? Please document a response in Progress Note or Discharge Summary. 1. Yes 2. No 3. Other, with explanation of clinical findings 4. Clinically undetermined, no explanation for clinical findings. PHYSICIAN RESPONSE Do you agree w/Consulting Dx?: Yes Please remember a lack of response to the above will prompt a phone page by CDI/Coding staff. In responding to this query, please exercise your independent professional judgment. The purpose of this communication is to more accurately reflect the complexity of your patients condition. The fact that a question is asked does not imply that any particular answer is desired or expected. Thank you for your timely response to this clarification. Requestors name: [ ] Phone # [ ] THIS PHYSICIAN QUERY FORM IS A PERMANENT PART OF THE MEDICAL RECORD TAI HARPER Jul 21, 2019 16:11 MARYAN HUGHES DO Jul 21, 2019 20:14
--- NOTE | 2019-07-21 16:24 | Physician Query Clarification ---
PQ-Uncertain Diagnosis Admission/Discharge Admission Date: Jul 14, 2019 at 11:12 Discharge Date: Jul 17, 2019 at 11:02 The medical record reflects the following clinical scenario: History/Risk Factors: abnormal UA Clinical Findings: abnormal UA Treatment: Maren, also treating pneumonia Question: Is UTI a clinically valid diagnosis? UTI was documented in the Dr Gallegos's 07/16 and 07/17 progress notes with no further documentation in the medical record. Please document a response in Progress Note or Discharge Summary. 1. Yes, clinically valid, condition resolved. 2. No, condition ruled out. 3. Other, with explanation of clinical findings. 4. Undetermined, no explanation for clinical findings. PHYSICIAN RESPONSE Diagnosis clinically valid: No, conditon ruled out Please remember a lack of response to the above will prompt a phone page by CDI/Coding staff. In responding to this query, please exercise your independent professional judgment. The purpose of this communication is to more accurately reflect the complexity of your patients condition. The fact that a question is asked does not imply that any particular answer is desired or expected. Thank you for your timely response to this clarification. Requestors name: [ ] Phone # [ ] THIS PHYSICIAN QUERY FORM IS A PERMANENT PART OF THE MEDICAL RECORD TAI HARPER Jul 21, 2019 16:24 MARYAN HUGHES DO Jul 21, 2019 20:14
== END 2019-07-17 11:02 | disposition swing bed (61) | DRG 871 ==
LOC: EDUNIT# 08:52 → ER FS 08:53 → 4TH 11:12
PROVIDERS: ADMIT Internal Medicine; ATTEND Internal Medicine
DX: A41.9 Sepsis, unspecified organism (principal); R65.20 Severe sepsis without septic shock; J18.9 Pneumonia, unspecified organism; J43.9 Emphysema, unspecified; J42 Unspecified chronic bronchitis; R51 Headache; R19.7 Diarrhea, unspecified; Z99.81 Dependence on supplemental oxygen; Z79.52 Long term (current) use of systemic steroids; Z87.891 Personal history of nicotine dependence; E78.00 Pure hypercholesterolemia, unspecified; F41.9 Anxiety disorder, unspecified; D72.829 Elevated white blood cell count, unspecified; D64.9 Anemia, unspecified; G47.00 Insomnia, unspecified; M81.0 Age-related osteoporosis without current pathological fracture; R06.89 Other abnormalities of breathing; R91.1 Solitary pulmonary nodule; S59.911A Unspecified injury of right forearm, initial encounter; W22.09XA Striking against other stationary object, initial encounter; Z86.711 Personal history of pulmonary embolism
CPT/HCPCS: 36415; 71045; 80053; 81000; 83605; 85007; 85025; 85027; 87040; 87070; 87088; 87205; 87804; 93005; 93041; 94640; 94760; 96374; 96375

== ENCOUNTER 2019-07-17 08:38 | Inpatient (IN) | payer MEDICARE, OTHER ==
[~2019-07-17] VITALS: Ht 172.7 cm; Wt 54.0 kg
[~2019-07-17 08:38] MED LIST changes: +CALC-676 PO; +FOLI1TAB7 PO; +MIRT15TA6 PO
[2019-07-17] MEDS ORDERED: CATHETER FLUSH 10 ML SYR IV PRN (11:15)
[2019-07-17] MEDS ORDERED: MIRTAZAPINE 15 MG (REMERON) TAB PO PRN (11:15)
[2019-07-17] MEDS ORDERED: ONDANSETRON 4 MG/2 ML (SDV) Z0FRAN IVP PRN (11:15)
[2019-07-17] MEDS ORDERED: RT-ALBUTEROL/IPRATROPIUM 3 ML (DUONEB) VIAL INH PRN (12:00)
--- NOTE | 2019-07-17 13:22 | Physical Therapy Evaluation ---
PT Evaluation-General Medical Diagnosis Admission Date Jul 17, 2019 at 11:06 Medical Diagnosis: bronchitis Onset Date: Jul 14, 2019 Therapy Diagnosis Therapy Diagnosis: decreased pulmonary function Height/Weight Height (Feet): 5 Height (Inches): 8.00 Weight (Pounds): 100 Weight (Ounces): 0.0 Referral Physician: Joey Reason for Referral: Evaluation/Treatment Medical History Pertinent Medical History: COPD Current History SWB status Reviewed History: Yes Social History Home: Single Level Current Living Status: Alone Entry Into Home: Stairs With Railing PT Steps Into Home: 1 Prior/Core FIM Prior Level of Function Therapy Code Descriptions/Definitions Functional Miller Measure: 0=Not Assessed/NA 4=Minimal Assistance 1=Total Assistance 5=Supervision or Setup 2=Maximal Assistance 6=Modified Miller 3=Moderate Assistance 7=Complete Miller Therapy Quality Codes: 6 Independent with activity with or without an assistive device 5 Patient requires set up or clean up by helper. Patient completes activity by themselves 4 Supervision or touching assist (CGA). [place] provide cues , steadying assist 3 The helper provides less than half the effort to complete the activity 2 The helper provides more than half the effort to complete the activity 1 Dependent. The helper does all the effort to complete an activity 7 Patient refused to complete or attempt activity 9 The patient did not perform the activity before the current illness or injury 88 Not attempted due to Medical conditions or safety concerns Functional Abilities and Goals: Independent: Patient completed the activities by him/herself, with or without an assistive device, with no assistance from a helper. Needed Some Help: Patient needed partial assistance from another person to complete activities. Dependent: A helper completed the activities for the patient. Unknown: Not Applicable: Bed Mobility: 7 Transfers (B,C,W/C) (FIM): 7 Gait: 7 Stairs: 7 Indoor Mobility (Ambulation): Independent Stairs: Independent Prior Devices Use: None PT Evaluation-Current Subjective Patient agrees to PT. No c/o. Pain Numeric Pain Scale: 0-No Pain Location: No Pain Reported Objective Patient Orientation: Normal For Age Problem Solving: Good Attachments: Oxygen (4L O2 NC) ROM/Strength ROM Lower Extremities bilateral LE WFL Strenght Lower Extremities 4/5 grossly bilateral LE Integumentary/Posture Integumentary refer to nursing notes Bowel Incontinence: No Bladder Incontinence: No Posture WFL Neuromuscular (Tone, Coordination, Reflexes) grossly intact Sensory Vision: Wears Glasses Hearing: Functional Sensation Right Lower Extremit: Intact Sensation Left Lower Extremity: Intact Transfers Therapy Code Descriptions/Definitions Functional Miller Measure: 0=Not Assessed/NA 4=Minimal Assistance 1=Total Assistance 5=Supervision or Setup 2=Maximal Assistance 6=Modified Miller 3=Moderate Assistance 7=Complete Miller Therapy Quality Codes: 6 Independent with activity with or without an assistive device 5 Patient requires set up or clean up by helper. Patient completes activity by themselves 4 Supervision or touching assist (CGA). [place] provide cues , steadying ass ist 3 The helper provides less than half the effort to complete the activity 2 The helper provides more than half the effort to complete the activity 1 Dependent. The helper does all the effort to complete an activity 7 Patient refused to complete or attempt activity 9 The patient did not perform the activity before the current illness or injury 88 Not attempted due to Medical conditions or safety concerns Transfers (B, C, W/C) (FIM): 7 Scootin Rollin Roll Left to Right (QC): 6 Supine to/from Sit: 7 Sit to/from Stand: 7 Sit to Lying (QC): 6 Lying to Sitting/Side of Bed(Q: 6 Sit to Stand (QC): 6 Chair/Wqt-wr-Gdide Xfer(QC): 6 Car Transfer (QC): 6 Gait Does the Patient Walk?: Yes Mode of Locomotion: Walk Anticipated Mode of Locomotion: Walk Gait (FIM): 7 Distance (FIM): 3=150 ft Walk 10 feet (QC): 6 Walk 50 ft with 2 Turns(QC): 6 Walk 150 ft (QC): 6 Walking 10ft/uneven surface-QC: 6 Distance: 150'x 3 Gait Level of Assist: 7 Gait Assistive Device: None Comments/Gait Description PT to address pulmonary function with ambulation and checking SAO2 during treatment. Patient SAO2 maintained >90% on 5L with O2 ambulating 150' x 3 with recovery periods secondary to SOA with time to recover. Balance Sitting Static: Normal Sitting Dynamic: Normal Standing Static: Normal Standing Dynamic: Normal Treatment PT to address pulmonary function with ambulation and checking SAO2 during treatment. Patient SAO2 maintained >90% on 5L with O2 ambulating 150' x 3 with recovery periods secondary to SOA with time to recover. Assessment/Needs 79 y.o. female, will be seen short term by skilled PT to address pulmonary function with activity. Rehab Potential: Fair PT Mcc Goals Band Tier Goals PT Mcc Goals Time Frame: Aug 01, 2019 Transfers (B,C,W/C) (FIM): 7 Sit to Lying (QC): 6 Lying-Sitting on Side/Bed(QC): 6 Sit to Stand (QC): 6 Rollin Roll Left to Right (QC): 6 Chair/Dvj-gb-Cxsdd Xfer(QC): 6 Car Transfer (QC): 6 Does the Patient Walk: Yes Gait (FIM): 7 Gait distance (FIM): 3=150 ft Walk 10 feet (QC): 6 Walk 10ft-Uneven Surface(QC): 6 Walk 50ft with 2 Turns (QC): 6 Walk 150 ft (QC): 6 Gait Level of Assist: 7 Gait Assistive Device: None PT Plan Problem List Problem List: Activity Tolerance Treatment/Plan Treatment Plan: Continue Plan of Care Treatment Plan: Education, Functional Activity Karen, Gait, Safety, Therapeutic Exercise Treatment Duration: Aug 01, 2019 Frequency: 6 times per week Estimated Hrs Per Day: .25 hour per day Patient and/or Family Agrees t: Yes Time/GCodes Time In: 1127 Time Out: 1150 Total Billed Treatment Time: 23 Total Billed Treatment 1 visit Tan 8 min FA 15 min KRISTI BERNAL PT Jul 17, 2019 13:22
--- NOTE | 2019-07-17 13:38 | Occupational Therapy Eval ---
OT Evaluation-General/PLF Medical Diagnosis Admission Date Jul 17, 2019 at 11:06 Medical Diagnosis: bronchitis Onset Date: Jul 14, 2019 Therapy Diagnosis Therapy Diagnosis: decreased ADL and functional endurance Height/Weight Height (Feet): 5 Height (Inches): 8.00 Weight (Pounds): 100 Weight (Ounces): 0.0 Precautions Precautions/Isolations: Standard Precautions Safety Interventions: None Referral Physician: Joey Referral Reason: Activity Tolerance, Self Care, Evaluation/Treatment, Strengthening/ROM Medical History Pertinent Medical History: COPD, OA Current History Per H&P: "Pt is a79 year old white female presenting with shortness of breath, coughing and phlegm production. She was brought in to the ER by her daughter in law. Patient states she has had prior episodes of pneumonia like this before and has PMH of oxygen dependent COPD." Reviewed History: Yes Social History Home: Single Level Current Living Status: Alone Entry Into Home: Stairs Without Railing Steps Into Home: 1 Steps Inside Home: 0 Pt lives alone but has good family support. Pt has support daily from either daughter in law or daughter. Pt only showers when family present; has tub shower with no grab bars or seat. Pt and daughter in law educated about shower chair and grab bar recommendation. ADL-Prior Level of Function Therapy Code Descriptions/Definitions Functional [place] Measure: 0=Not Assessed/NA 4=Minimal Assistance 1=Total Assistance 5=Supervision or Setup 2=Maximal Assistance 6=Modified [place] 3=Moderate Assistance 7=Complete [place] Therapy Quality Codes: 6 Independent with activity with or without an assistive device 5 Patient requires set up or clean up by helper. Patient completes activity by themselves 4 Supervision or touching assist (CGA). [place] provide cues , steadying assist 3 The helper provides less than half the effort to complete the activity 2 The helper provides more than half the effort to complete the activity 1 Dependent. The helper does all the effort to complete an activity 7 Patient refused to complete or attempt activity 9 The patient did not perform the activity before the current illness or injury 88 Not attempted due to Medical conditions or safety concerns Functional Abilities and Goals: Independent: Patient completed the activities by him/herself, with or without an assistive device, with no assistance from a helper. Needed Some Help: Patient needed partial assistance from another person to compl ete activities. Dependent: A helper completed the activities for the patient. Unknown: Not Applicable: Self Care: Independent (IND with SBA for showering and oven use.) Functional Cognition: Independent DME/Equipment Comments Pt did not utilize any DME/ AD Drive Self: Yes (Only when needed. ) OT Current Status Subjective Pt seen sitting in chair, daughter in law present. Pt states no pain and slept better previous night. Pt agreeable to OT eval and treat. Appearance Alert Mental Status/Objective Patient Orientation: Person, Place, Time, Situation, Normal For Age Attachments: Oxygen Current Glasses/Contacts: Yes Hearing Aids: No Dentures/Partials: Yes Hand Dominance: Right Upper Extremity ROM WFL all planes Upper Extremity Coordination WFL finger opposition Upper Extremity Sensation No c/o tingling/ numbness Upper Extremity Strength WFL 4-/5 Edema: none present ADL-Treatment Eating (FIM): 7 (Mod I due to dentures) Eating (QC): 6 Grooming (FIM): 6 (mod I for increased time) Oral Hygiene (QC): 6 Bathing (FIM): 0 Shower/Bathe Self (QC): 7 (Pt completed previously) Upper Body Dressing (FIM): 5 (completed with s/u due to high clothing items in closet) Upper Body Dressing (QC): 5 Lower Body Dressing (FIM): 5 Lower Body Dressing (QC): 6 On/Off Footwear (QC): 6 (increased time) Toileting (FIM): 6 (use of breifs) Toileting Hygiene (QC): 6 Transfers (B, C, W/C) (FIM): 6 (increased time) Toilet/Commode Transfer (FIM): 6 Toilet Transfer (QC): 6 Tub Transfer (FIM): 6 Pt completed ADLs with extended 02 tubing. Pt demonstrated good awareness of tubing and good safety awareness. pt educated on tripping hazards within the home and decreasing fall risks. Pt demonstrated SOB with UB dressing while standing, pt initiated rest break demonstrating good safety awareness. Other Treatments Pt completed HEP exercises with red theraband. Pt educated on correct positioni ng, reps, energy conservation, and SOB sx management through rest breaks and pursed lip breathing. Pt demonstrated good safety awareness and completed HEP with good UE endurance. Pt educated on OT process and d/c of OT services due to increased IND with ADL tasks. Pt will continue with PT services to increase funcitonal endurance. Pt verbalized understanding. Pt left sitting in chair with daughter and daughter in law present. Pt has call light in reach and all needs met. Education OT Patient Education: Correct positioning, Energy conservation, Exercise program, Home exercise program, Instructions to caregiver, Purpose of tx/functional activities, Rehab process, Safety issues, Transfer techniques Teaching Recipient: Patient, Family Teaching Methods: Demonstration, Handout, Discussion Response to Teaching: Verbalize Understanding, Return Demonstration Pt educated on shower chair and grab bars within the bathroom- pt and daughter in law state someone always present during showering task. Pt educated on pursed lip, energy conservation/ breaks during ADL/ IADL tasks, and safety with 02 tubing during functional mobility. Pt educated on HEP with red theraband to increase UE strength and endurance during activities. OT Short Term Goals Short Term Goals 1=Demonstrate adherence to instructed precautions during ADL tasks. 2=Patient will verbalize/demonstrate understanding of assistive liss nereida/modifications for ADL. 3=Patient will improve strength/tolerance for activity to enable patient to perform ADL's. OT Usp Goals Usp Goals 1=Demonstrate adherence to instructed precautions during ADL tasks. 2=Patient will verbalize/demonstrate understanding of assistive devices/modifications for ADL. 3=Patient will improve strength/tolerance for activity to enable patient to perform ADL's. OT Education/Plan Problem List/Assessment Assessment: No Skilled OT Needs ID'd Discharge Recommendations Plan/Recommendations: Discontinue OT Therapy Discharge Recommendati: Intermittent Supervision Equpiment Recommendations-D/C: Rails on Tub/Shower, Bath Chair Comment Pt educated on recommended equipment. Pt lives alone, has family members supervise/ visit once a day. Pt has assist with shower transfers and showering if needed. Target Placement Home with intermittent supervison Patient/Family Goals Increase endurance/ SOB. Treatment Plan/Plan of Care Treatment,Training & Education: Yes Pt demonstrates increased safety awareness, functional mobility, and increased IND within ADL tasks. PT will continue addressing functional endurance for safe d/c home. Frequency: 1 time per week (OT eval only) Estimated Hrs Per Day: Other (OT eval only) Agreement: Yes Rehab Potential: Good Time/GCodes Start Time: 12:55 Stop Time: 13:26 Total Time Billed (hr/min): 31 Billed Treatment Time 1 EVL10 ADL 21 DESTINI HACKETT OTR Jul 17, 2019 13:38
[2019-07-17] MEDS: RT-ALBUTEROL/IPRATROPIUM 3 ML (DUONEB) VIAL INH SCH ×3 (14:55→21:54)
[2019-07-17] MEDS: ENOXAPARIN 30 MG/0.3 ML (LOVENOX) SYR SC SCH (16:13)
[2019-07-17] MEDS: methylPREDNISolone 40 MG/ML (Solu-MEDROL) VIAL IV SCH ×2 (16:13→18:56)
[2019-07-17 18:00] VITALS: BP 127/57
[2019-07-17] MEDS: RT-ADVAIR HFA 115/21 MCG PER PUFF IH SCH (18:40)
[2019-07-17] MEDS: ALPRAZolam 0.5 MG (XANAX) TAB PO PRN (21:08)
[2019-07-17] MEDS: SIMvastatin 20 MG (ZOCOR) TAB PO SCH (21:09)
[2019-07-18] MEDS: methylPREDNISolone 40 MG/ML (Solu-MEDROL) VIAL IV SCH ×4 (00:14→18:45)
[2019-07-18] MEDS: RT-ALBUTEROL/IPRATROPIUM 3 ML (DUONEB) VIAL INH SCH ×6 (02:13→22:28)
[2019-07-18 05:45] VITALS: BP 106/69
[2019-07-18] MEDS: MULTIVIT W/MINERALS TAB (THERAGRAN M) PO SCH (06:25)
[2019-07-18] MEDS: ALPRAZolam 0.5 MG (XANAX) TAB PO PRN (06:32)
[2019-07-18] MEDS: RT-ADVAIR HFA 115/21 MCG PER PUFF IH SCH ×2 (06:56→19:10)
[2019-07-18] MEDS: UMECLIDINIUM BROMIDE (INCRUSE ELLIPTA) 7'S IH SCH (06:58)
--- NOTE | 2019-07-18 07:27 | Pulmonary Progress Note ---
Subjective Time Seen by a Provider: 13:46 Sepsis Event Evaluation Height, Weight, BMI Height: 5'8.00" Weight: 121lbs. 4.4oz. 55.719353xo; 15.2 BMI Method:Stated Exam Exam Vital Signs Date Time Temp Pulse Resp B/P (MAP) Pulse Ox O2 Delivery O2 Flow Rate FiO2 07/18/19 07:12 Nasal Cannula 3.00 07/18/19 07:11 Nasal Cannula 3.00 07/18/19 06:58 97 Nasal Cannula 3.00 07/18/19 05:45 98.2 79 18 106/69 (81) 99 Nasal Cannula 4.00 07/18/19 02:13 96 Nasal Cannula 3.00 07/17/19 21:55 97 Nasal Cannula 3.00 07/17/19 20:50 Nasal Cannula 3.00 07/17/19 18:45 Nasal Cannula 3.00 07/17/19 18:40 97 Nasal Cannula 3.00 07/17/19 18:00 98.5 92 16 127/57 (80) 98 Nasal Cannula 4.00 07/17/19 15:57 Nasal Cannula 3.00 I & O 07/18/19 07:00 Intake Total 1800 ml Output Total 3400 ml Balance -1600 ml Height & Weight Height: 5'8.00" Weight: 121lbs. 4.4oz. 55.092171ci; 15.2 BMI Method:Stated General Appearance: No Apparent Distress, WD/WN HEENT: PERRL/EOMI, Normal ENT Inspection, Pharynx Normal Neck: Full Range of Motion, Non Tender, Supple Respiratory: Chest Non Tender, No Accessory Muscle Use, No Respiratory Distress, Crackles, Decreased Breath Sounds Cardiovascular: Regular Rate, Rhythm, No Edema Capillary Refill: Less Than 3 Seconds Gastrointestinal: normal bowel sounds, non tender, soft Extremity: Normal Capillary Refill, Normal Inspection, No Pedal Edema Neurologic/Psychiatric: Alert Skin: Normal Color, Warm/Dry Assessment/Plan Assessment/Plan UTI - ROcephin -Influenza is negative COPDAE -Solumedrol -SVNS - increase to Q 4 and Q2 PRN Anemia -Monitor hx of spiculated lung nodule -This is being followed as an out pt by my office MARIELOS SHEPARD DO Jul 18, 2019 07:27
[2019-07-18] MEDS: CALCIUM CARB + VIT D 600 MG (CALCARB + D) TAB PO SCH (10:10)
[2019-07-18] MEDS: ENOXAPARIN 30 MG/0.3 ML (LOVENOX) SYR SC SCH (10:16)
[2019-07-18] MEDS: cefTRIAXone FOR IV USE 1,000 MG in WATER (STERILE) FOR INJECTION 10 ML IV SCH (10:29)
[2019-07-18] MEDS ORDERED: NON-FORMULARY MEDICATION 1 EA EA (Alendronate Sodium 70 MG) PO SCH (11:15)
--- NOTE | 2019-07-18 11:47 | Physical Therapy Daily Note ---
PT Daily Note-Current Subjective Pt c/o "I am worn out. Mornings are bad for me. I am out of air." Pt willing to try ther ex. Pt denies pain. Mental Status Patient Orientation: Person, Place, Situation Transfers Therapy Code Descriptions/Definitions Functional [place] Measure: 0=Not Assessed/NA 4=Minimal Assistance 1=Total Assistance 5=Supervision or Setup 2=Maximal Assistance 6=Modified [place] 3=Moderate Assistance 7=Complete [place] Therapy Quality Codes: 6 Independent with activity with or without an assistive device 5 Patient requires set up or clean up by helper. Patient completes activity by themselves 4 Supervision or touching assist (CGA). [place] provide cues , steadying assist 3 The helper provides less than half the effort to complete the activity 2 The helper provides more than half the effort to complete the activity 1 Dependent. The helper does all the effort to complete an activity 7 Patient refused to complete or attempt activity 9 The patient did not perform the activity before the current illness or injury 88 Not attempted due to Medical conditions or safety concerns Exercises Seated Therapy Exercises: Ankle pumps, Long arc quads, Hip flexion Seated Reps: 15 Treatments Pt amb with no AD, SBA in room x 50ft, O2 per nasal canula. Assessment Current Status: Good Progress, Fair Progress Pt with limited endurance, SOB this morning. Pt steady on her feet, mod (I) with mobility. Limited by SOA this morning. Pt resting in chair post therapy, Call light in reach, all needs met. PT Tree Driller Goals [place] Goals PT Tree Driller Goals Time Frame: Aug 01, 2019 Transfers (B,C,W/C) (FIM): 7 Sit to Lying (QC): 6 Lying-Sitting on Side/Bed(QC): 6 Sit to Stand (QC): 6 Rollin Roll Left to Right (QC): 6 Chair/Yzt-cd-Djzwk Xfer(QC): 6 Car Transfer (QC): 6 Does the Patient Walk: Yes Gait (FIM): 7 Gait distance (FIM): 3=150 ft Walk 10 feet (QC): 6 Walk 10ft-Uneven Surface(QC): 6 Walk 50ft with 2 Turns (QC): 6 Walk 150 ft (QC): 6 Gait Level of Assist: 7 Gait Assistive Device: None PT Plan Treatment/Plan Treatment Plan: Continue Plan of Care Treatment Plan: Education, Functional Activity Karen, Gait, Safety, Therapeutic Exercise Treatment Duration: Aug 01, 2019 Frequency: 6 times per week Estimated Hrs Per Day: .25 hour per day Patient and/or Family Agrees t: Yes Time/GCodes Time In: 910 Time Out: 925 Total Billed Treatment Time: 15 Total Billed Treatment 1, gait 10min, ther ex 5 min APRIL GREGORY CPTA Jul 18, 2019 11:47
[2019-07-18 18:50] VITALS: BP 110/75
[2019-07-18] MEDS: SIMvastatin 20 MG (ZOCOR) TAB PO SCH (20:20)
[2019-07-18] MEDS: ZOLPIDEM 5 MG (AMBIEN) TAB PO PRN (20:24)
[2019-07-19] MEDS: methylPREDNISolone 40 MG/ML (Solu-MEDROL) VIAL IV SCH ×5 (00:22→23:52)
[2019-07-19] MEDS: RT-ALBUTEROL/IPRATROPIUM 3 ML (DUONEB) VIAL INH SCH ×6 (02:06→22:15)
[2019-07-19 05:31] VITALS: BP 94/66
[2019-07-19] MEDS: MULTIVIT W/MINERALS TAB (THERAGRAN M) PO SCH (06:10)
--- NOTE | 2019-07-19 07:53 | Pulmonary Progress Note ---
Subjective Time Seen by a Provider: 07:52 Subjective/Events-last exam Still complains of SOB and wheezing. Sepsis Event Evaluation Height, Weight, BMI Height: 5'8.00" Weight: 123lbs. 3.2oz. 55.392647iu; 15.2 BMI Method:Stated Exam Exam Vital Signs Date Time Temp Pulse Resp B/P (MAP) Pulse Ox O2 Delivery O2 Flow Rate FiO2 07/19/19 06:42 96 Nasal Cannula 4.00 07/19/19 05:31 99.2 94 16 94/66 (75) 98 Nasal Cannula 4.00 07/19/19 02:06 98 Nasal Cannula 4.00 07/18/19 22:28 97 Nasal Cannula 4.00 07/18/19 21:23 Nasal Cannula 3.00 07/18/19 19:15 Nasal Cannula 4.00 07/18/19 19:10 99 Nasal Cannula 4.00 07/18/19 18:50 99.1 101 20 110/75 (87) 96 Nasal Cannula 4.00 07/18/19 15:47 96 Nasal Cannula 4.00 07/18/19 10:45 98 Nasal Cannula 3.00 07/18/19 09:00 Nasal Cannula 3.00 I & O 07/19/19 07:00 Intake Total 1790 ml Balance 1790 ml Height & Weight Height: 5'8.00" Weight: 123lbs. 3.2oz. 55.586371on; 15.2 BMI Method:Stated General Appearance: No Apparent Distress, WD/WN, Anxious, Chronically ill, Thin HEENT: PERRL/EOMI, Pharynx Normal Neck: Full Range of Motion, Non Tender, Supple Respiratory: Chest Non Tender, No Accessory Muscle Use, No Respiratory Distress, Decreased Breath Sounds, Wheezing Cardiovascular: Regular Rate, Rhythm, No Edema, No Murmur Capillary Refill: Less Than 3 Seconds Gastrointestinal: normal bowel sounds, non tender, soft Extremity: Normal Capillary Refill, Normal Inspection, No Pedal Edema Neurologic/Psychiatric: Alert Skin: Normal Color, Warm/Dry Lymphatic: No Adenopathy Assessment/Plan Assessment/Plan UTI - ROcephin -Influenza is negative COPDAE -Solumedrol -SVNS - increase to Q 4 and Q2 PRN -Pt is still very wheezy. Repeat CXR today Anemia -Monitor hx of spiculated lung nodule -This is being followed as an out pt by my office MARIELOS SHEPARD DO Jul 19, 2019 07:52
[2019-07-19] MEDS: CALCIUM CARB + VIT D 600 MG (CALCARB + D) TAB PO SCH (08:18)
[2019-07-19] MEDS: ALPRAZolam 0.5 MG (XANAX) TAB PO PRN ×2 (08:18→20:24)
[2019-07-19] MEDS: NYSTATIN ORAL SUSP 5 ML UDC PO SCH ×3 (08:23→20:23)
--- NOTE | 2019-07-19 11:23 | Diagnostic Imaging Report ---
INDICATION: Shortness of breath. Comparison is made with prior examination from 07/15/2019. FINDINGS: There is air-trapping compatible with COPD. Heart size normal. The mediastinum is unremarkable. There is no pleural effusion or pneumothorax. IMPRESSION: COPD No acute cardiopulmonary abnormality Dictated by: Dictated on workstation # [id number]
[2019-07-19] MEDS: ENOXAPARIN 30 MG/0.3 ML (LOVENOX) SYR SC SCH (12:42)
[2019-07-19] MEDS: cefTRIAXone FOR IV USE 1,000 MG in WATER (STERILE) FOR INJECTION 10 ML IV SCH (12:42)
[2019-07-19] MEDS: ACETAMINOPHEN 325 MG TABLET PO PRN (12:47)
--- NOTE | 2019-07-19 13:13 | Progress Note - Hospitalist ---
Subjective HPI/CC On Admission Date Seen by Provider: Jul 19, 2019 Time Seen by Provider: 12:00 Subjective/Events-last exam Patient doing pretty well Left ear is a little blocked Humidifying oxygen now since she started having some bleeding from ear nose and likely something to do with her left ear blocked Bowels are moving Sometimes has a headache Discharge planning for tomorrow or Saturday Wheezing persists but severity of COPD gives poor prognosis long-term Review of Systems Pulmonary: Dyspnea Objective Exam Vital Signs Vital Signs Date Time Temp Pulse Resp B/P (MAP) Pulse Ox O2 Delivery O2 Flow Rate FiO2 07/19/19 18:40 Nasal Cannula 4.00 07/19/19 18:35 98 07/19/19 17:36 97.4 97 26 126/66 (86) Capillary Refill : Less Than 3 Seconds General Appearance: No Apparent Distress, WD/WN Respiratory: No Accessory Muscle Use, No Respiratory Distress, Crackles, Decreased Breath Sounds, Wheezing Cardiovascular: Regular Rate, Rhythm, No Edema, No Gallop, No JVD, No Murmur, Normal Peripheral Pulses Neurologic/Psychiatric: Alert, Oriented x3, No Motor/Sensory Deficits, Normal Mood/Affect Results/Procedures Lab Patient resulted labs reviewed. Assessment/Plan Assessment and Plan Assess & Plan/Chief Complaint Assessment: AECOPD Pneumonia O2 dependence Frail status Poor prognosis Plan: O2 Nebs IV abx Steroids Diagnosis/Problems Diagnosis/Problems (1) Respiratory insufficiency Status: Resolved Resolution Date/Time: 01/03/19 @ 19:46 (2) COPD (chronic obstructive pulmonary disease) Status: Acute (3) Osteoporosis Status: Chronic (4) Frailty Status: Chronic (5) Hyperlipidemia Status: Chronic (6) Pneumonia Status: Acute Clinical Quality Measures DVT/VTE Risk/Contraindication: Risk Factor Score Per Nursin MARYAN HUGHES DO Jul 19, 2019 13:13
[2019-07-19 17:36] VITALS: BP 126/66
[2019-07-19] MEDS: RT-ADVAIR HFA 115/21 MCG PER PUFF IH SCH ×2 (18:35→18:37)
[2019-07-19] MEDS: SIMvastatin 20 MG (ZOCOR) TAB PO SCH (20:23)
[2019-07-19] MEDS: ZOLPIDEM 5 MG (AMBIEN) TAB PO PRN (22:29)
[2019-07-20] MEDS: RT-ALBUTEROL/IPRATROPIUM 3 ML (DUONEB) VIAL INH SCH ×6 (02:15→21:43)
[2019-07-20] MEDS: MULTIVIT W/MINERALS TAB (THERAGRAN M) PO SCH (05:20)
[2019-07-20] MEDS: methylPREDNISolone 40 MG/ML (Solu-MEDROL) VIAL IV SCH ×4 (05:20→23:48)
[2019-07-20 05:35] LABS: BASOPHILS % (AUTO) 0 % (0-10); EOSINOPHILS % (AUTO) 0 % (0-10); HEMATOCRIT 37 % (35-52); HEMOGLOBIN 11.5 G/DL (11.5-16.0); LYMPHOCYTES # (AUTO) 1.1 X 10^3 (1.0-4.0); LYMPHOCYTES % (AUTO) 10 % (12-44); MEAN CORPUSCULAR HEMOGLOBIN 31 PG (25-34); MEAN CORPUSCULAR HGB CONC 31 G/DL (32-36); MEAN CORPUSCULAR VOLUME 99 FL (80-99); MONOCYTES # (AUTO) 0.8 X 10^3 (0.0-1.0); MONOCYTES % (AUTO) 7 % (0-12); NEUTROPHILS # (AUTO) 8.8 X 10^3 (1.8-7.8); NEUTROPHILS % (AUTO) 83 % (42-75); PLATELET COUNT 349 10^3/uL (130-400); RED CELL DISTRIBUTION WIDTH 13.5 % (10.0-14.5); WHITE BLOOD COUNT 10.7 10^3/uL (4.3-11.0)
[2019-07-20 05:46] VITALS: BP 114/75
[2019-07-20 05:58] LABS: ALANINE AMINOTRANSFERASE 44 U/L (0-55); ALBUMIN 3.5 GM/DL (3.2-4.5); ALKALINE PHOSPHATASE 60 U/L (40-136); BILIRUBIN,TOTAL 0.4 MG/DL (0.1-1.0); BUN/CREATININE RATIO 23; CALCIUM 8.9 MG/DL (8.5-10.1); CARBON DIOXIDE 31 MMOL/L (21-32); CHLORIDE 101 MMOL/L (98-107); CREATININE SERUM 0.83 MG/DL (0.60-1.30); GFR ESTIMATED > 60; GLUCOSE 145 MG/DL (70-105); POTASSIUM 4.1 MMOL/L (3.6-5.0); SODIUM 143 MMOL/L (135-145); TOTAL PROTEIN 5.8 GM/DL (6.4-8.2)
[2019-07-20] MEDS: RT-ADVAIR HFA 115/21 MCG PER PUFF IH SCH ×2 (06:24→18:26)
[2019-07-20] MEDS: ALPRAZolam 0.5 MG (XANAX) TAB PO PRN (06:40)
[2019-07-20] MEDS: ACETAMINOPHEN 325 MG TABLET PO PRN ×2 (06:40→15:18)
--- NOTE | 2019-07-20 06:51 | Pulmonary Progress Note ---
Subjective Time Seen by a Provider: 06:51 Subjective/Events-last exam Still complains of wheezing. Sepsis Event Evaluation Height, Weight, BMI Height: 5'8.00" Weight: 122lbs. 1.6oz. 55.461829zx; 15.2 BMI Method:Stated Exam Exam Vital Signs Date Time Temp Pulse Resp B/P (MAP) Pulse Ox O2 Delivery O2 Flow Rate FiO2 07/20/19 06:31 Nasal Cannula 3.00 07/20/19 06:24 98 Nasal Cannula 4.00 07/20/19 05:46 97.8 83 16 114/75 (88) 98 Nasal Cannula 4.00 07/20/19 04:51 88 07/20/19 02:14 98 Nasal Cannula 4.00 07/19/19 22:16 98 Nasal Cannula 4.00 07/19/19 20:00 Nasal Cannula 4.00 07/19/19 18:40 Nasal Cannula 4.00 07/19/19 18:35 98 Nasal Cannula 4.00 07/19/19 17:36 97.4 97 26 126/66 (86) 96 Nasal Cannula 4.00 07/19/19 14:53 98 Nasal Cannula 4.00 07/19/19 10:31 98 Nasal Cannula 4.00 07/19/19 07:31 96 Nasal Cannula 3.00 I & O 07/20/19 07:00 Intake Total 2315 ml Balance 2315 ml Height & Weight Height: 5'8.00" Weight: 122lbs. 1.6oz. 55.800680ry; 15.2 BMI Method:Stated General Appearance: No Apparent Distress, WD/WN HEENT: PERRL/EOMI, Pharynx Normal Neck: Full Range of Motion, Non Tender, Supple Respiratory: No Accessory Muscle Use, No Respiratory Distress, Crackles, Decreased Breath Sounds, Wheezing Cardiovascular: Regular Rate, Rhythm, No Edema, No Gallop, No JVD, No Murmur, Normal Peripheral Pulses Capillary Refill: Less Than 3 Seconds Gastrointestinal: normal bowel sounds, non tender, soft Extremity: Normal Capillary Refill, Normal Inspection, No Pedal Edema Neurologic/Psychiatric: Alert, Oriented x3, No Motor/Sensory Deficits, Normal Mood/Affect Skin: Normal Color, Warm/Dry Lymphatic: No Adenopathy Results Lab Laboratory Tests 07/20/19 04:47 Assessment/Plan Assessment/Plan UTI - ROcephin -Influenza is negative COPDAE -Solumedrol -SVNS - increase to Q 4 and Q2 PRN -Pt is still very wheezy. CXR- reviewed - Anemia -Monitor hx of spiculated lung nodule -This is being followed as an out pt by my office MARIELOS SHEPARD DO Jul 20, 2019 06:51
[2019-07-20] MEDS: CALCIUM CARB + VIT D 600 MG (CALCARB + D) TAB PO SCH (08:16)
[2019-07-20] MEDS: NYSTATIN ORAL SUSP 5 ML UDC PO SCH ×3 (08:21→21:04)
--- NOTE | 2019-07-20 09:34 | Progress Note - Hospitalist ---
Subjective HPI/CC On Admission Date Seen by Provider: Jul 20, 2019 Time Seen by Provider: 09:30 Subjective/Events-last exam Patient doing much better but wheezing persist Patient reports she wheezes quite a bit at home anyway Very out of breath when she is walking just back and forth to the bathroom Still on IV steroids and antibiotics Very severe COPD unsure if we will improve by much more Overall prognosis very poor Actually she is a hospice candidate due to the severity of her COPD Bowels are moving Feels pretty weak Review of Systems Pulmonary: Dyspnea Objective Exam Vital Signs Vital Signs Date Time Temp Pulse Resp B/P (MAP) Pulse Ox O2 Delivery O2 Flow Rate FiO2 07/20/19 15:32 98 Nasal Cannula 2.00 07/20/19 05:46 97.8 83 16 114/75 (88) Capillary Refill : Less Than 3 Seconds General Appearance: No Apparent Distress, WD/WN, Anxious, Chronically ill, Thin Respiratory: Chest Non Tender, No Accessory Muscle Use, No Respiratory Distress, Wheezing Cardiovascular: Regular Rate, Rhythm, No Edema, No Gallop, No JVD, No Murmur, Normal Peripheral Pulses Neurologic/Psychiatric: Alert, Oriented x3, No Motor/Sensory Deficits, Normal Mood/Affect Results/Procedures Lab Laboratory Tests 07/20/19 04:47 Patient resulted labs reviewed. Assessment/Plan Assessment and Plan Assess & Plan/Chief Complaint Assessment: AECOPD Pneumonia O2 dependence Frail status Poor prognosis Plan: O2 Nebs IV abx Steroids May need NH since she lives at home and unsure if her lungs will improve much more than they are now Diagnosis/Problems Diagnosis/Problems (1) Respiratory insufficiency Status: Resolved Resolution Date/Time: 01/03/19 @ 19:46 (2) COPD (chronic obstructive pulmonary disease) Status: Acute (3) Osteoporosis Status: Chronic (4) Frailty Status: Chronic (5) Hyperlipidemia Status: Chronic (6) Pneumonia Status: Acute Clinical Quality Measures DVT/VTE Risk/Contraindication: Risk Factor Score Per Nursin MARYAN HUGHES DO Jul 20, 2019 09:34
[2019-07-20] MEDS: UMECLIDINIUM BROMIDE (INCRUSE ELLIPTA) 7'S IH SCH (11:15)
[2019-07-20] MEDS: ENOXAPARIN 30 MG/0.3 ML (LOVENOX) SYR SC SCH (12:42)
[2019-07-20] MEDS: cefTRIAXone FOR IV USE 1,000 MG in WATER (STERILE) FOR INJECTION 10 ML IV SCH (12:42)
--- NOTE | 2019-07-20 13:27 | Physical Therapy Daily Note ---
PT Daily Note-Current Subjective States that she is doing better. Pain Numeric Pain Scale: 0-No Pain Transfers Therapy Code Descriptions/Definitions Functional [place] Measure: 0=Not Assessed/NA 4=Minimal Assistance 1=Total Assistance 5=Supervision or Setup 2=Maximal Assistance 6=Modified [place] 3=Moderate Assistance 7=Complete [place] Therapy Quality Codes: 6 Independent with activity with or without an assistive device 5 Patient requires set up or clean up by helper. Patient completes activity by themselves 4 Supervision or touching assist (CGA). [place] provide cues , steadying assist 3 The helper provides less than half the effort to complete the activity 2 The helper provides more than half the effort to complete the activity 1 Dependent. The helper does all the effort to complete an activity 7 Patient refused to complete or attempt activity 9 The patient did not perform the activity before the current illness or injury 88 Not attempted due to Medical conditions or safety concerns Sit to/from Stand: 7 Gait Training Does the Patient Walk?: Yes Gait (FIM): 5 Distance (FIM): 3=150 ft Distance: 200 Gait Level of Assist: 5 Gait Persons Needed: 1 Assessment Current Status: Excellent Progress Patient had significant SOB during gait and needed frequent recovery periods. PT Residential Goals Prosthetic Lab Technician Goals PT Prosthetic Lab Technician Goals Time Frame: Aug 01, 2019 Transfers (B,C,W/C) (FIM): 7 Sit to Lying (QC): 6 Lying-Sitting on Side/Bed(QC): 6 Sit to Stand (QC): 6 Rollin Roll Left to Right (QC): 6 Chair/Buq-kc-Jwutx Xfer(QC): 6 Car Transfer (QC): 6 Does the Patient Walk: Yes Gait (FIM): 7 Gait distance (FIM): 3=150 ft Walk 10 feet (QC): 6 Walk 10ft-Uneven Surface(QC): 6 Walk 50ft with 2 Turns (QC): 6 Walk 150 ft (QC): 6 Gait Level of Assist: 7 Gait Assistive Device: None PT Plan Treatment/Plan Treatment Plan: Continue Plan of Care Treatment Plan: Education, Functional Activity Karen, Gait, Safety, Therapeutic Exercise Treatment Duration: Aug 01, 2019 Frequency: 6 times per week Estimated Hrs Per Day: .25 hour per day Patient and/or Family Agrees t: Yes Time/GCodes Time In: 1310 Time Out: 1325 Total Billed Treatment Time: 15 Total Billed Treatment 1, GT x 15 SUKHJINDER YBARRA PT Jul 20, 2019 13:27
[2019-07-20 17:55] VITALS: BP 102/69
[2019-07-20] MEDS: SIMvastatin 20 MG (ZOCOR) TAB PO SCH (21:04)
[2019-07-20] MEDS: ZOLPIDEM 5 MG (AMBIEN) TAB PO PRN (21:04)
[2019-07-21] MEDS: RT-ALBUTEROL/IPRATROPIUM 3 ML (DUONEB) VIAL INH SCH ×4 (01:37→15:27)
[2019-07-21] MEDS: MULTIVIT W/MINERALS TAB (THERAGRAN M) PO SCH (06:05)
[2019-07-21] MEDS: methylPREDNISolone 40 MG/ML (Solu-MEDROL) VIAL IV SCH ×2 (06:05→12:08)
[2019-07-21 06:07] VITALS: BP 156/74
[2019-07-21] MEDS: ALPRAZolam 0.5 MG (XANAX) TAB PO PRN ×2 (07:04→16:07)
[2019-07-21] MEDS: RT-ADVAIR HFA 115/21 MCG PER PUFF IH SCH (07:09)
[2019-07-21] MEDS: UMECLIDINIUM BROMIDE (INCRUSE ELLIPTA) 7'S IH SCH (07:09)
[2019-07-21] MEDS: ACETAMINOPHEN 325 MG TABLET PO PRN (08:41)
[2019-07-21] MEDS: NYSTATIN ORAL SUSP 5 ML UDC PO SCH ×2 (08:41→12:09)
[2019-07-21] MEDS: CALCIUM CARB + VIT D 600 MG (CALCARB + D) TAB PO SCH (08:41)
[2019-07-21] MEDS ORDERED: NS 100 ML (IVPB) BAG IV ONE (09:30)
[2019-07-21] MEDS ORDERED: HOLD METFORMIN - RECEIVED CONTRAST 20 ML VIAL IV SCH (09:30)
[2019-07-21] MEDS ORDERED: IOHEXOL 350 MG/ML 100 ML (OMNIPAQUE 350) VIAL IV ONE (09:30)
--- NOTE | 2019-07-21 09:58 | Physical Therapy Daily Note ---
PT Daily Note-Current Subjective Patient states she isn't getting any better and is very frustrated. Pain Numeric Pain Scale: 0-No Pain Location: No Pain Reported Mental Status Patient Orientation: Normal For Age Attachments: Oxygen Transfers Therapy Code Descriptions/Definitions Functional [place] Measure: 0=Not Assessed/NA 4=Minimal Assistance 1=Total Assistance 5=Supervision or Setup 2=Maximal Assistance 6=Modified [place] 3=Moderate Assistance 7=Complete [place] Therapy Quality Codes: 6 Independent with activity with or without an assistive device 5 Patient requires set up or clean up by helper. Patient completes activity by themselves 4 Supervision or touching assist (CGA). [place] provide cues , steadying assist 3 The helper provides less than half the effort to complete the activity 2 The helper provides more than half the effort to complete the activity 1 Dependent. The helper does all the effort to complete an activity 7 Patient refused to complete or attempt activity 9 The patient did not perform the activity before the current illness or inju ry 88 Not attempted due to Medical conditions or safety concerns Transfers (B, C, W/C) (FIM): 7 Scootin Rollin Roll Left to Right (QC): 6 Supine to/from Sit: 7 Sit to/from Stand: 7 Sit to Lying (QC): 6 Sit to Stand (QC): 6 Chair/Vex-te-Igbju Xfer(QC): 6 Bed to/from Chair: 7 Car Transfer (QC): 6 (simulated car) Gait Training Does the Patient Walk?: Yes Gait (FIM): 2 Distance (FIM): 9=824-16 ft Distance: 100' Walk 10 feet (QC): 6 Walk 50 ft with 2 Turns(QC): 6 Gait Level of Assist: 7 Gait Assistive Device: None PT to assist and check SAO2 >90% on 3L O2 NC Exercises Seated Therapy Exercises: Ankle pumps, Long arc quads Seated Reps: 15 Assessment Patient requires recovery period due to SOA with minimal activity. PT to continue with POC and increase activity as tolerated by patient. PT Classics Teacher Goals Classics Teacher Goals PT Classics Teacher Goals Time Frame: Aug 01, 2019 Transfers (B,C,W/C) (FIM): 7 Sit to Lying (QC): 6 Lying-Sitting on Side/Bed(QC): 6 Sit to Stand (QC): 6 Rollin Roll Left to Right (QC): 6 Chair/Xyf-rr-Nwzkd Xfer(QC): 6 Car Transfer (QC): 6 Does the Patient Walk: Yes Gait (FIM): 7 Gait distance (FIM): 3=150 ft Walk 10 feet (QC): 6 Walk 10ft-Uneven Surface(QC): 6 Walk 50ft with 2 Turns (QC): 6 Walk 150 ft (QC): 6 Gait Level of Assist: 7 Gait Assistive Device: None PT Plan Treatment/Plan Treatment Plan: Continue Plan of Care Treatment Plan: Education, Functional Activity Karen, Gait, Safety, Therapeutic Exercise Treatment Duration: Aug 01, 2019 Frequency: 6 times per week Estimated Hrs Per Day: .25 hour per day Patient and/or Family Agrees t: Yes Time/GCodes Time In: 906 Time Out: 921 Total Billed Treatment Time: 15 Total Billed Treatment 1 visit FA 15 min KRISTI BERNAL PT Jul 21, 2019 09:58
--- NOTE | 2019-07-21 11:34 | NUR ---
CM DISCHARGE PLANNING: F/U with CT in [place] for read of the CT Chest done this morning. Someone there will read shortly. This is to help with continued flow for discharge planning if patient is being discharged today.
--- NOTE | 2019-07-21 11:40 | Diagnostic Imaging Report ---
PROCEDURE: CT chest with contrast only. TECHNIQUE: Multiple contiguous axial images were obtained through the chest after administration of intravenous contrast. Auto Exposure Controls were utilized during the CT exam to meet ALARA standards for radiation dose reduction. INDICATION: COPD. Nonproductive cough. COMPARISON: 03/24/2019. FINDINGS: The heart size is within normal limits. No pericardial effusion is present. There is no mediastinal, hilar, or axillary lymphadenopathy. Diffuse centrilobular emphysema is again seen. The area of focal nodular opacity in the periphery of the right lower lobe is again seen measuring 0.7 cm with associated architectural distortion. No new suspicious pulmonary nodules or masses are seen. No focal consolidation. Mild bronchial wall thickening is seen in the lungs. No central endobronchial obstructing lesions are identified. There is no pleural effusion or pneumothorax. The osseous structures demonstrate no acute abnormalities. Limited views of the upper abdominal structures demonstrate no acute abnormalities. Both adrenal glands are unremarkable. IMPRESSION: 1. Stable nodule in the right lower lobe measuring 0.7 cm, likely due to scarring and/or atelectasis. Associated architectural distortion is unchanged. No new suspicious pulmonary nodules or focal consolidations. 2. Diffuse centrilobular emphysema. Dictated by: Dictated on workstation # [id number]
--- NOTE | 2019-07-21 11:45 | NUR ---
CM DISCHARGE PLANNING: Visited with patient et daughter at bedside about discharge planning options. We discussed SNF, HHC, et Hospice. Patient et daughter are discussing home with home health care vs. [facility]iary home placement at this time. I read the doctors progress notes et saw that she could potentially be discharged today 07/21/19. Set a goal with them of letting me know today what direction they are thinking of going so that a referral can be sent out. Dior acknowledges that she has episodes where she becomes very short of breath et this is scary for her. At this time I believe that she is leaning toward going home with HHC et was made aware that she can admit to a penitentiary facility from home within 30 days of dismissal from the hospital.
--- NOTE | 2019-07-21 11:46 | Pulmonary Progress Note ---
Sepsis Event Evaluation Height, Weight, BMI Height: 5'8.00" Weight: 119lbs. 1.0oz. 54.278299bk; 15.2 BMI Method:Stated Exam Exam Vital Signs Date Time Temp Pulse Resp B/P (MAP) Pulse Ox O2 Delivery O2 Flow Rate FiO2 07/21/19 11:20 97 Nasal Cannula 2.00 07/21/19 09:00 Nasal Cannula 2.00 07/21/19 07:07 95 Nasal Cannula 2.00 07/21/19 06:07 98.1 95 18 156/74 (101) 96 Nasal Cannula 2.00 07/21/19 01:37 98 Nasal Cannula 2.00 07/20/19 21:43 95 Nasal Cannula 2.00 07/20/19 21:00 Nasal Cannula 2.00 07/20/19 18:34 Nasal Cannula 2.00 07/20/19 18:26 92 Nasal Cannula 2.00 07/20/19 17:55 98.0 102 18 102/69 (80) 99 Nasal Cannula 4.00 07/20/19 15:32 98 Nasal Cannula 2.00 I & O 07/21/19 07:00 Intake Total 2190 ml Balance 2190 ml Height & Weight Height: 5'8.00" Weight: 119lbs. 1.0oz. 54.839348oo; 15.2 BMI Method:Stated General Appearance: No Apparent Distress, WD/WN HEENT: PERRL/EOMI, Pharynx Normal Neck: Full Range of Motion, Non Tender, Supple Respiratory: No Accessory Muscle Use, No Respiratory Distress, Crackles, Decreased Breath Sounds, Wheezing Cardiovascular: Regular Rate, Rhythm, No Edema, No Gallop, No JVD, No Murmur, Normal Peripheral Pulses Capillary Refill: Less Than 3 Seconds Gastrointestinal: normal bowel sounds, non tender, soft Extremity: Normal Capillary Refill, Normal Inspection, No Pedal Edema Neurologic/Psychiatric: Alert, Oriented x3, No Motor/Sensory Deficits, Normal Mood/Affect Skin: Normal Color, Warm/Dry Lymphatic: No Adenopathy Results Lab Laboratory Tests 07/20/19 04:47 Assessment/Plan Assessment/Plan UTI - ROcephin -Influenza is negative COPDAE -Secondary to persistent wheezing will check CT of chest with contrast. -Continue Solumedrol -SVNS - increase to Q 4 and Q2 PRN -Pt is still very wheezy. CXR- reviewed - Anemia -Monitor hx of spiculated lung nodule -This is being followed as an out pt by my office MARIELOS SHEPARD DO Jul 21, 2019 11:46
[2019-07-21] MEDS: ENOXAPARIN 30 MG/0.3 ML (LOVENOX) SYR SC SCH (12:08)
--- NOTE | 2019-07-21 13:51 | NUR ---
Patient has decided that she would like to go to a longterm home placement before returning home. Referral has been sent to [facility] per patient request et f/u phone call made to [facility] to ensure that she had beds available. They will review et see if they can accept/deny.
--- NOTE | 2019-07-21 14:12 | Therapy Team Discharge Summary ---
Therapy Discharge Summary Discharge Recommendations Date of Discharge 07/21/2019 Therapy D/C Recommendations: Home w/ Family Support, Meals on Wheels, Scheduled Assistance Occupational Therapy OT worked on ADLs and safe functional mobility during eval/ treatment session. Pt able to complete ADLs with supervision and good safety awareness. Pt educated on OT AE recommendations, rest breaks, pursed lip breathing and HEP. Pt barriers include SOB/ low endurance levels during OT tx session. Pt shows good self awareness of SOB and need for energy breaks, demonstrates good pursed lip breathing. D/c FIMs: Feeding 7, Grooming 6, UB dressing 5, LB dressing 5, Toileting 6, Toilet transfer 6, Shower transfer 6. Pt and daughter in law educated on AE recommendations, including: bath chair, grab bars within shower. D/c location: home with intermittent supervision from family members. Family support is strong, pt always showers with family member present. Pt completes community tasks with family support. Pt able to complete all ADLs with s/u to IND. With continued family support, no continued OT services rendered. No Skilled OT Needs ID'd PT Plastics Engineer Goals Plastics Engineer Goals PT Plastics Engineer Goals Time Frame: Aug 01, 2019 Transfers (B,C,W/C) (FIM): 7 Sit to Lying (QC): 6 Lying-Sitting on Side/Bed(QC): 6 Sit to Stand (QC): 6 Rollin Chair/Tlt-tm-Dbxer Xfer(QC): 6 Does the Patient Walk: Yes Gait (FIM): 7 Gait distance (FIM): 3=150 ft Walk 50ft with 2 Turns (QC): 6 Walk 150 ft (QC): 6 Gait Level of Assist: 7 Gait Assistive Device: None OT Plastics Engineer Goals Alf Goals 1=Demonstrate adherence to instructed precautions during ADL tasks. 2=Patient will verbalize/demonstrate understanding of assistive devices/modifica tions for ADL. 3=Patient will improve strength/tolerance for activity to enable patient to perform ADL's. DESTINI HACKETT OTR Jul 21, 2019 14:12
[2019-07-21] MEDS ORDERED: NYST1000 PO (14:58)
[2019-07-21] MEDS ORDERED: PRD10T PO (14:58)
--- NOTE | 2019-07-21 15:02 | Discharge Inst-Skilled Nursing ---
Discharge Inst-Skilled NF Patient Instructions Patient Problems: COPD exacerbation Consult/Follow Up/Orders Skilled NF Admit to: Certifications SNF I certify that SNF services are required to be given on an inpatient basis because of the above named patient's need for intermediate care on a contin uing basis for the conditions(s) for which he/she was receiving inpatient hospital services prior to his/her transfer to the SNF. Alf Facility Order: Nursing Services, Rib Stiffener And Heel Dipper-Evaluate & Treat, Physical Therapy-Evaluate & Treat Oxygen Delivery Method: Nasal Cannula Discharge Medications New, Converted or Re-Newed RX: Transmitted to Pharmacy New Medications: Prednisone (Prednisone) 10 Mg Tab 0 PO UD, #42 TAB 0 Refills Take 6 tabs(60mg)daily, decrease by 1 tab(10mg) every other day. Nystatin (Nystatin) 100,000 Unit/1 Ml Oral.susp 5 ML PO TID for 7 Days, #85 ML 0 Refills Continued Medications: Albuterol Sulfate (Ventolin Hfa) 1 Puff Puff 2 PUFF INH Q4H PRN for SHORTNESS OF BREATH, INHALER 1 PUFF = 90 MCG Albuterol Sulfate (Albuterol Sulfate) 2.5 Mg/3 Ml Vial.neb 2.5 MG INH Q4H PRN for SHORTNESS OF BREATH, EA Alendronate Sodium (Alendronate Sodium) 70 Mg Tablet 70 MG PO Sa, TAB Alprazolam (Alprazolam) 0.5 Mg Tablet 0.5 MG PO TID PRN for ANXIETY, TAB Calcium Carbonate/Vitamin D3 (Calcium 500 + Vit D 200 Caplet) 1 Each Tablet 1 TAB PO DAILY, TAB Fluticasone/Salmeterol (Advair 250-50 Diskus) 1 Each Blst.w.dev 1 PUFF IH BID, INHALER Folic Acid/Multivit-Min/Lutein (Centrum Silver Chewable Tablet) 1 Each Tab.chew 1 TAB PO DAILY, TAB Mirtazapine (Mirtazapine) 15 Mg Tablet 15 MG PO HS PRN for SLEEP, TAB ALTERNATES WITH ZOLPIDEM Pravastatin Sodium (Pravastatin Sodium) 40 Mg Tablet 40 MG PO DAILY, TAB Prednisone (Prednisone) 5 Mg Tablet 5 MG PO DAILY, TAB Tiotropium Enigma (Spiriva) 1 Inh Aerp 1 CAP IH DAILY, INHALER Zolpidem Tartrate (Zolpidem Tartrate) 5 Mg Tablet 5 MG PO HS PRN for INSOMNIA, TAB ALTERNATES WITH MIRTAZAPINE Cecile Bermudez Jul 21, 2019 15:01 CECILE BERMUDEZ MD Jul 21, 2019 15:02
--- NOTE | 2019-07-21 15:54 | NUR ---
CM/SS patient has been accepted at [facility]. Discharge paperwork sent to [facility]. Family will transport. RNing updated.
--- NOTE | 2019-07-21 16:00 | NUR ---
REPORT CALLED TO FELISA RAMIRES AT [facility] IN [place].
[2019-07-21 16:11] VITALS: BP 156/74
--- NOTE | 2019-07-21 20:33 | Discharge Summary ---
Diagnosis/Chief Complaint Date of Admission Jul 17, 2019 at 11:06 Date of Discharge Jul 21, 2019 at 16:55 Admission Diagnosis Admission Diagnosis AECOPD Pneumonia O2 dependence Frail status Discharge Diagnosis AECOPD Pneumonia O2 dependence Frail status Thrush Discharged to snf, on supplemental oxygen, oral steroid and nystatin. Antibiotics completed inpatient. Chief Complaint/HPI Chief Complaint/HPI From H&P "Dior is a 79 year old white female presenting with shortness of breath, coughing and phlegm production. She was brought in to the ER by her daughter in law. Patient states she has had prior episodes of pneumonia like this before and has PMH of oxygen dependent COPD." Discharge Summary-Simple/Stand Discharge Physical Examination Allergies: Coded Allergies: No Known Drug Allergies (Unverified , 12/27/18) Vitals & I&Os Vital Sign - Last 12Hours Date Time Temp Pulse Resp B/P (MAP) Pulse Ox O2 Delivery O2 Flow Rate FiO2 07/21/19 16:11 95 18 156/74 96 Nasal Cannula 2.00 07/21/19 06:07 98.1 Intake and Output 07/21/19 00:00 Intake Total 1740 ml Balance 1740 ml General Appearance: Alert, No Acute Distress Respiratory: Clear to Auscultation, Normal Air Movement Cardiovascular: Regular Rate, No Murmurs Psych/Mental Status: Mood NL Hospital Course See final discharge diagnosis. Discharge Instructions to patient/family Please see electronic discharge instructions given to patient. Discharge Medications Reviewed and agree with Discharge Medication list on patient's Discharge Instruction sheet Clinical Quality Measures DVT/VTE Risk/Contraindication: Risk Factor Score Per Nursin CECILE BEJARANO MD Jul 21, 2019 20:33
--- NOTE | 2019-07-22 10:06 | Therapy Team Discharge Summary ---
Therapy Discharge Summary Discharge Recommendations Date of Discharge Jul 21, 2019 at 16:55 Therapy D/C Recommendations: Home w/ Family Support, Meals on Wheels, Scheduled Assistance Occupational Therapy OT worked on ADLs and safe functional mobility during eval/ treatment session. Pt able to complete ADLs with supervision and good safety awareness. Pt educated on OT AE recommendations, rest breaks, pursed lip breathing and HEP. Pt barriers include SOB/ low endurance levels during OT tx session. Pt shows good self awareness of SOB and need for energy breaks, demonstrates good pursed lip breathing. D/c FIMs: Feeding 7, Grooming 6, UB dressing 5, LB dressing 5, Toileting 6, Toilet transfer 6, Shower transfer 6. Pt and daughter in law educated on AE recommendations, including: bath chair, grab bars within shower. D/c location: home with intermittent supervision from family members. Family support is strong, pt always showers with family member present. Pt completes community tasks with family support. Pt able to complete all ADLs with s/u to IND. With continued family support, no continued OT services rendered. No Skilled OT Needs ID'd No Skilled OT Needs ID'd PT Benefits Administrator Goals Care Home Goals PT Benefits Administrator Goals Time Frame: Aug 01, 2019 Transfers (B,C,W/C) (FIM): 7 Sit to Lying (QC): 6 Lying-Sitting on Side/Bed(QC): 6 Sit to Stand (QC): 6 Rollin Chair/Cos-ia-Pavzh Xfer(QC): 6 Does the Patient Walk: Yes Gait (FIM): 7 Gait distance (FIM): 3=150 ft Walk 50ft with 2 Turns (QC): 6 Walk 150 ft (QC): 6 Gait Level of Assist: 7 Gait Assistive Device: None OT Care Home Goals Care Home Goals 1=Demonstrate adherence to instructed precautions during ADL tasks. 2=Patient will verbalize/demonstrate understanding of assistive devices/modifications for ADL. 3=Patient will improve strength/tolerance for activity to enable patient to pe rform ADL's. DESTINI HACKETT OTR Jul 22, 2019 10:06
== END 2019-07-21 16:55 | DRG 194 ==
LOC: 4TH 11:06
PROVIDERS: ADMIT Internal Medicine; ATTEND Family Medicine
DX: J18.9 Pneumonia, unspecified organism (principal); B37.0 Candidal stomatitis; J43.9 Emphysema, unspecified; D64.9 Anemia, unspecified; R91.1 Solitary pulmonary nodule; E78.5 Hyperlipidemia, unspecified; M81.0 Age-related osteoporosis without current pathological fracture; R54 Age-related physical debility; E78.00 Pure hypercholesterolemia, unspecified; F41.9 Anxiety disorder, unspecified; G47.00 Insomnia, unspecified; Z99.81 Dependence on supplemental oxygen; Z86.711 Personal history of pulmonary embolism; Z87.891 Personal history of nicotine dependence
CPT/HCPCS: 36415; 71046; 71260; 76937; 80053; 85025; 87015; 87045; 87046; 87324; 87449; 87899; 89055; 94640; 94760

== ENCOUNTER 2019-08-02 08:56 | Emergency (ER) | payer MEDICARE, OTHER ==
[~2019-08-02] VITALS: Ht 172.7 cm; Wt 50.9 kg
[~2019-08-02 08:56] MED LIST changes: +NYST1000 PO
--- NOTE | 2019-08-02 09:38 | ED Cough/URI ---
General Chief Complaint: Respiratory Problems Stated Complaint: COUGH,CONGESTION Source: patient Exam Limitations: no limitations History of Present Illness Date Seen by Provider: Aug 02, 2019 Time Seen by Provider: 09:36 Initial Comments Patient complains of shortness of breath and nonproductive cough. She has a history of COPD and wears 3 L nasal Oxygen at all times. She was recently hospitalized for pneumonia. She denies chest pain. She comes very dyspneic with any exertion. Allergies and Home Medications Allergies Coded Allergies: No Known Drug Allergies (Unverified , 12/27/18) Home Medications Albuterol Sulfate 1 Puff Puff, 2 PUFF INH Q4H PRN for SHORTNESS OF BREATH, (Reported) 1 PUFF = 90 MCG Albuterol Sulfate 2.5 Mg/3 Ml Vial.neb, 2.5 MG INH Q4H PRN for SHORTNESS OF BREATH, (Reported) Alendronate Sodium 70 Mg Tablet, 70 MG PO Sa, (Reported) Alprazolam 0.5 Mg Tablet, 0.5 MG PO TID PRN for ANXIETY, (Reported) Calcium Carbonate/Vitamin D3 1 Each Tablet, 1 TAB PO DAILY, (Reported) Fluticasone/Salmeterol 1 Each Blst.w.dev, 1 PUFF IH BID, (Reported) Folic Acid/Multivit-Min/Lutein 1 Each Tab.chew, 1 TAB PO DAILY, (Reported) Mirtazapine 15 Mg Tablet, 15 MG PO HS PRN for SLEEP, (Reported) ALTERNATES WITH ZOLPIDEM Nystatin 100,000 Unit/1 Ml Oral.susp, 5 ML PO TID Prescribed by: CECILE BEJARANO on 07/21/19 1458 Pravastatin Sodium 40 Mg Tablet, 40 MG PO DAILY, (Reported) Prednisone 5 Mg Tablet, 5 MG PO DAILY, (Reported) Prednisone 10 Mg Tab, 0 PO UD Take 6 tabs(60mg)daily, decrease by 1 tab(10mg) every other day. Prescribed by: CECILE BEJARANO on 07/21/19 1458 Tiotropium [place] 1 Inh Aerp, 1 CAP IH DAILY, (Reported) Zolpidem Tartrate 5 Mg Tablet, 5 MG PO HS PRN for INSOMNIA, (Reported) ALTERNATES WITH MIRTAZAPINE Patient Home Medication List Home Medication List Reviewed: Yes Review of Systems Review of Systems Constitutional: no symptoms reported Respiratory: cough, dyspnea on exertion, short of breath, wheezing Cardiovascular: no symptoms reported Gastrointestinal: no symptoms reported Genitourinary: no symptoms reported Musculoskeletal: no symptoms reported Skin: no symptoms reported All Other Systems Reviewed Negative Unless Noted: Yes Past Gwzwgee-Xkpbzo-Lgkjck Hx Patient Social History Type Used: Cigarettes 2nd Hand Smoke Exposure: No Recent Hopitalizations: No Immunizations Up To Date Date of Pneumonia Vaccine: Dec 27, 2016 Date of Influenza Vaccine: Jul 27, 2018 Seasonal Allergies Seasonal Allergies: No Past Medical History Surgeries: No Respiratory: Yes COPD, Emphysema Cardiac: No High Cholesterol Neurological: No Genitourinary: No Gastrointestinal: No Musculoskeletal: No Endocrine: No HEENT: No Cancer: No Psychosocial: No Anxiety Integumentary: No Family Medical History No Pertinent Family Hx, Heart Disease, Cancer Mother ( at 92): unknown cause Father( at 77): cancer of unknown type, heart attack Sister (75): has multiple medical issues. Physical Exam Vital Signs - First Documented 08/02/19 09:20 Temp 36.8 Pulse 93 Resp 24 B/P (MAP) 160/68 (98) Pulse Ox 94 O2 Delivery Nasal Cannula O2 Flow Rate 3.00 Capillary Refill : Height: 5'8.00" Weight: 119lbs. 1.0oz. 54.465349ey; 15.2 BMI Method:Stated General Appearance: WD/WN, no apparent distress Eyes: Bilateral Eye Normal Inspection, Bilateral Eye PERRL, Bilateral Eye EOMI HEENT: PERRL/EOMI, pharynx normal Neck: supple Respiratory: decreased breath sounds; No accessory muscle use; wheezing, expiration Cardiovascular: regular rate, rhythm, no edema Gastrointestinal: non tender, soft Extremities: normal inspection Neurologic/Psychiatric: alert, normal mood/affect Skin: normal color, warm/dry Focused Exam Lactate Level 08/02/19 09:35: Lactic Acid Level 1.46 Lactic Acid Level Laboratory Tests Test 08/02/19 09:35 Lactic Acid Level 1.46 MMOL/L (0.50-2.00) Progress/Results/Core Measures Suspected Sepsis SIRS Temperature: Pulse: Respiratory Rate: Laboratory Tests 08/02/19 09:35: White Blood Count 12.2H Blood Pressure / Mean: 08/02/19 09:35: Lactic Acid Level 1.46 Laboratory Tests 08/02/19 09:35: Creatinine 0.95, Platelet Count 336, Total Bilirubin 1.2H Results/Orders Lab Results Laboratory Tests Test 08/02/19 09:35 Range/Units White Blood Count 12.2 H 4.3-11.0 10^3/uL Red Blood Count 4.06 L 4.35-5.85 10^6/uL Hemoglobin 12.6 11.5-16.0 G/DL Hematocrit 40 35-52 % Mean Corpuscular Volume 98 80-99 FL Mean Corpuscular Hemoglobin 31 25-34 PG Mean Corpuscular Hemoglobin Concent 32 32-36 G/DL Red Cell Distribution Width 13.0 10.0-14.5 % Platelet Count 336 130-400 10^3/uL Mean Platelet Volume 10.5 H 7.4-10.4 FL Neutrophils (%) (Auto) 86 H 42-75 % Lymphocytes (%) (Auto) 8 L 12-44 % Monocytes (%) (Auto) 5 0-12 % Eosinophils (%) (Auto) 1 0-10 % Basophils (%) (Auto) 0 0-10 % Neutrophils # (Auto) 10.4 H 1.8-7.8 X 10^3 Lymphocytes # (Auto) 1.0 1.0-4.0 X 10^3 Monocytes # (Auto) 0.5 0.0-1.0 X 10^3 Eosinophils # (Auto) 0.1 0.0-0.3 10^3/uL Basophils # (Auto) 0.1 0.0-0.1 10^3/uL Sodium Level 137 135-145 MMOL/L Potassium Level 4.2 3.6-5.0 MMOL/L Chloride Level 95 L 98-107 MMOL/L Carbon Dioxide Level 30 21-32 MMOL/L Anion Gap 12 5-14 MMOL/L Blood Urea Nitrogen 12 7-18 MG/DL Creatinine 0.95 0.60-1.30 MG/DL Estimat Glomerular Filtration Rate 57 BUN/Creatinine Ratio 13 Glucose Level 144 H 70-105 MG/DL Lactic Acid Level 1.46 0.50-2.00 MMOL/L Calcium Level 9.5 8.5-10.1 MG/DL Corrected Calcium 9.4 8.5-10.1 MG/DL Total Bilirubin 1.2 H 0.1-1.0 MG/DL Aspartate Amino Transf (AST/SGOT) 25 5-34 U/L Alanine Aminotransferase (ALT/SGPT) 23 0-55 U/L Alkaline Phosphatase 65 40-136 U/L Total Protein 6.7 6.4-8.2 GM/DL Albumin 4.1 3.2-4.5 GM/DL My Orders Orders - LIDYA MULLEN MD Chest Pa/Lat (2 View) (08/02/19 09:28) Cbc With Automated Diff (08/02/19 09:28) Comprehensive Metabolic Panel (08/02/19 09:28) Lactic Acid Analyzer (08/02/19 09:28) Manual Differential (08/02/19 09:35) Vital Signs/I&O 08/02/19 09:20 Temp 36.8 Pulse 93 Resp 24 B/P (MAP) 160/68 (98) Pulse Ox 94 O2 Delivery Nasal Cannula O2 Flow Rate 3.00 Capillary Refill : Progress Note : Time: 10:20 Progress Note Results were discussed with patient and/or family. I will order an increase in her prednisone from 5 mg daily to 10 mg daily. In addition I prescribed Tessalon Perles for cough. I see no reason for antibiotic therapy at this point. Departure Impression Primary Impression: COPD with exacerbation Disposition: 03 XFER SNF Condition: Stable Departure-Patient Inst. Decision time for Depature: 10:21 Referrals: BRITTNI KIRK MD (PCP/Family) Primary Care Physician Patient Instructions: Exacerbation of COPD (DC) Add. Discharge Instructions: Increase prednisone from 5 mg daily to 10 mg daily for 1 week. Start today. Tessalon as needed for cough. Continue other medicines. All discharge instruct ions reviewed with patient and/or family. Voiced understanding. Scripts Benzonatate (TESSALON PERLES) 100 Mg Capsule 200 MG PO BID PRN for COUGH, #20 CAP Prov: LIDYA MULLEN MD 08/02/19 LIDYA MULLEN MD Aug 02, 2019 09:38
--- NOTE | 2019-08-02 10:03 | Diagnostic Imaging Report ---
EXAMINATION: Chest 2 view HISTORY: Weakness and shortness of breath FINDINGS: Comparison is 12/07/2018. The lungs are clear. No edema. No pneumonia. No pleural effusion. No pneumothorax. Heart is normal in size. The lungs are hyperexpanded. IMPRESSION: 1. Clear lungs. Dictated by: Dictated on workstation # [id number]
[2019-08-02 10:10] LABS: BASOPHILS % (AUTO) 0 % (0-10); EOSINOPHILS % (AUTO) 1 % (0-10); HEMATOCRIT 40 % (35-52); HEMOGLOBIN 12.6 G/DL (11.5-16.0); LYMPHOCYTES % (AUTO) 8 % (12-44); MEAN CORPUSCULAR HEMOGLOBIN 31 PG (25-34); MEAN CORPUSCULAR HGB CONC 32 G/DL (32-36); MEAN CORPUSCULAR VOLUME 98 FL (80-99); MEAN PLATELET VOLUME 10.5 FL (7.4-10.4); MONOCYTES % (AUTO) 5 % (0-12); NEUTROPHILS # (AUTO) 10.4 X 10^3 (1.8-7.8); NEUTROPHILS % (AUTO) 86 % (42-75); PLATELET COUNT 336 10^3/uL (130-400); WHITE BLOOD COUNT 12.2 10^3/uL (4.3-11.0)
[2019-08-02 10:11] LABS: BASOPHILS # (AUTO) 0.1 10^3/uL (0.0-0.1); EOSINOPHILS # (AUTO) 0.1 10^3/uL (0.0-0.3); MONOCYTES # (AUTO) 0.5 X 10^3 (0.0-1.0)
[2019-08-02 10:12] LABS: POTASSIUM 4.2 MMOL/L (3.6-5.0)
[2019-08-02 10:13] LABS: ALBUMIN 4.1 GM/DL (3.2-4.5); BILIRUBIN,TOTAL 1.2 MG/DL (0.1-1.0); CALCIUM 9.5 MG/DL (8.5-10.1); CREATININE SERUM 0.95 MG/DL (0.60-1.30); TOTAL PROTEIN 6.7 GM/DL (6.4-8.2)
[2019-08-02] MEDS ORDERED: BENZ100C18 PO (10:23)
[2019-08-02 10:35] VITALS: BP 160/68
[2019-08-02 12:51] LABS: BAND NEUTROPHILS 7 %; LYMPHOCYTES % (MANUAL) 11 %; NEUTROPHILS % (MANUAL) 76 %
[2019-08-02 12:52] LABS: MONOCYTES % (MANUAL) 6 %; RBC MORPH NORMAL
== END 2019-08-02 10:35 ==
LOC: EDUNIT# 08:56 → ER FS 08:57
DX: J44.1 Chronic obstructive pulmonary disease with (acute) exacerbation (principal); E78.00 Pure hypercholesterolemia, unspecified; F41.9 Anxiety disorder, unspecified; Z99.81 Dependence on supplemental oxygen; Z79.51 Long term (current) use of inhaled steroids; Z87.09 Personal history of other diseases of the respiratory system; Z82.49 Family history of ischemic heart disease and other diseases of the circulatory system
CPT/HCPCS: 36415; 71046; 80053; 83605; 85007; 85027

== ENCOUNTER → 2021-04-04 | Outpatient (CLI) | payer MEDICARE, OTHER ==
[~2021-04-04] MED LIST changes: -ALEN70TA5 PO; +ALEN70TA80 PO; +BENZ100C18 PO; -POLY17PO31 PO; +POLY17PO54 PO
[2021-04-04 15:05] LABS: BILIRUBIN,TOTAL 0.3 MG/DL (0.1-1.0); CALCIUM 9.3 MG/DL (8.5-10.1); CREATININE SERUM 0.94 MG/DL (0.60-1.30); POTASSIUM 4.6 MMOL/L (3.6-5.0)
[2021-04-04 15:06] LABS: ALBUMIN 3.9 GM/DL (3.2-4.5)
== END ==
LOC: LAB FS 14:17
PROVIDERS: ATTEND Family Medicine
DX: E78.2 Mixed hyperlipidemia (principal)
CPT/HCPCS: 36415; 80053

== ENCOUNTER 2022-06-27 08:27 | Inpatient (IN) | payer MEDICARE, OTHER ==
[~2022-06-27] VITALS: Ht 172 cm; Wt 48.6 kg
[~2022-06-27 08:27] MED LIST changes: +FLUC100T10 PO; -FLUC100T6 PO; +MIRT-68 PO; -MIRT15TA6 PO
[2022-06-27] MEDS ORDERED: NS IV 500 ML 500 ML ONE (08:53)
[2022-06-27 08:57] LABS: BASOPHILS # (AUTO) 0.1 10^3/uL (0.0-0.1); BASOPHILS % (AUTO) 0 % (0-10); EOSINOPHILS # (AUTO) 0.2 10^3/uL (0.0-0.3); EOSINOPHILS % (AUTO) 1 % (0-10); HEMATOCRIT 34 % (35-52); HEMOGLOBIN 10.8 g/dL (11.5-16.0); LYMPHOCYTES # (AUTO) 1.2 10^3/uL (1.0-4.0); LYMPHOCYTES % (AUTO) 6 % (12-44); MEAN CORPUSCULAR HEMOGLOBIN 30 pg (25-34); MEAN CORPUSCULAR HGB CONC 32 g/dL (32-36); MEAN CORPUSCULAR VOLUME 94 fL (80-99); MEAN PLATELET VOLUME 9.6 fL (9.0-12.2); MONOCYTES # (AUTO) 1.4 10^3/uL (0.0-1.0); MONOCYTES % (AUTO) 7 % (0-12); NEUTROPHILS # (AUTO) 16.7 10^3/uL (1.8-7.8); NEUTROPHILS % (AUTO) 85 % (42-75); PLATELET COUNT 482 10^3/uL (130-400); WHITE BLOOD COUNT 19.6 10^3/uL (4.3-11.0)
[2022-06-27] MEDS ORDERED: methylPREDNISolone 125 MG (Solu-MEDROL) VIAL IVP ONE (09:00)
[2022-06-27] MEDS ORDERED: NS IV 1000 ML 500 ML IV SCH (09:00)
--- NOTE | 2022-06-27 09:02 | Diagnostic Imaging Report ---
INDICATION: Cough, shortness of air Study compared to 08/02/2019. FINDINGS: Air trapping and COPD as a chronic finding present. There is no failure pattern, effusion or pneumothorax. There is some thickening of the airways and bronchiectasis chronic but having increased in the interim. No consolidating pneumonia. IMPRESSION: Air trapping, COPD with progressive chronic bronchiectasis and interstitial disease, no consolidating pneumonia, failure pattern or acute pleural pathology however. Dictated by: Dictated on workstation # [id number]
[2022-06-27 09:23] LABS: CARBON DIOXIDE 29 MMOL/L (21-32); CHLORIDE 97 MMOL/L (98-107); POTASSIUM 4.5 MMOL/L (3.6-5.0); SODIUM 137 MMOL/L (135-145)
[2022-06-27 09:24] LABS: ALANINE AMINOTRANSFERASE 17 U/L (0-55); ALKALINE PHOSPHATASE 77 U/L (40-136); BILIRUBIN,TOTAL 0.4 MG/DL (0.1-1.0); BUN/CREATININE RATIO 12; CALCIUM 9.5 MG/DL (8.5-10.1); GFR ESTIMATED 51; GLUCOSE 101 MG/DL (70-105); TOTAL PROTEIN 6.9 GM/DL (6.4-8.2)
--- NOTE | 2022-06-27 09:52 | ED Cough/URI ---
General Chief Complaint: Respiratory Problems Stated Complaint: SOB Nursing Triage Note: PT REPORTS SHE BECAME SHORT OF BREATH AT ABOUT 0300. HX OF COPD/ ASTHMA. Source: patient Exam Limitations: no limitations History of Present Illness Date Seen by Provider: Jun 27, 2022 Time Seen by Provider: 09:00 Initial Comments Patient is a 82-year-old female with history of COPD and bronchiectasis who presents with multiple medical complaints. Patient complains shortness of breath productive cough throughout this morning. States she is generally weak and fatigued and is unable to stand from her chair or walk from her bed to the bathroom. She has used her inhaler multiple times a day without improvement. She denies fever chills, sweats. She reports dizziness and lightheadedness upon standing. She was recently placed on lisinopril 2 months ago. She is compliant with her blood pressure medication last took blood pressure medication 24 hours ago. Patient is borderline tachycardic with a heart rate of 107 on ED arrival. She is hypotensive with a systolic blood pressure 70s with diastolic blood pressure in the 40s. She denies chest pain palpitations. No other symptoms or complaints. Timing/Duration: just prior to arrival, other Severity/Quality: other Prior Episodes/Possible Cause: other Modifying Factors: Improves With Other Associated Symptoms: other Allergies and Home Medications Allergies Coded Allergies: No Known Drug Allergies (Unverified , 12/27/18) Patient Home Medication List Home Medication List Reviewed: Yes Albuterol Sulfate (Ventolin Hfa) 1 Puff Puff, 2 PUFF INH Q4H PRN for SHORTNESS OF BREATH, (Reported) Entered as Reported by: CECILE BEJARANO on 12/28/18 08 Albuterol Sulfate (Albuterol Sulfate) 2.5 Mg/3 Ml Vial.neb, 2.5 MG INH Q4H PRN for SHORTNESS OF BREATH, (Reported) Entered as Reported by: CECILE BEJARANO on 12/28/18 08 Alendronate Sodium (Alendronate Sodium) 70 Mg Tablet, 70 MG PO Sa, (Reported) Entered as Reported by: LUIS ALBERTO PRECIADO on 07/14/19 1456 Alprazolam (Alprazolam) 0.5 Mg Tablet, 0.5 MG PO TID PRN for ANXIETY, (Reported) Entered as Reported by: CECILE BEJARANO on 12/28/18 08 Benzonatate (Tessalon Perles) 100 Mg Capsule, 200 MG PO BID PRN for COUGH Prescribed by: LIDYA MULLEN on 08/02/19 1023 Calcium Carbonate/Vitamin D3 (Calcium 500 + Vit D 200 Caplet) 1 Each Tablet, 1 TAB PO DAILY, (Reported) Entered as Reported by: LUIS ALBERTO PRECIADO on 07/14/19 150 Fluticasone/Salmeterol (Advair 250-50 Diskus) 1 Each Blst.w.dev, 1 PUFF IH BID, (Reported) Entered as Reported by: CECILE BEJARANO on 12/28/18800 Folic Acid/Multivit-Min/Lutein (Centrum Silver Chewable Tablet) 1 Each Tab.chew, 1 TAB PO DAILY, (Reported) Entered as Reported by: LUIS ALBERTO PRECIADO on 07/14/19 150 Mirtazapine (Mirtazapine) 15 Mg Tablet, 15 MG PO HS PRN for SLEEP, (Reported) Entered as Reported by: LUIS ALBERTO PRECIADO on 07/14/19 145 Nystatin (Nystatin) 100,000 Unit/1 Ml Oral.susp, 5 ML PO TID Prescribed by: CECILE BEJARANO on 07/21/19 145 Pravastatin Sodium (Pravastatin Sodium) 40 Mg Tablet, 40 MG PO DAILY, (Reported) Entered as Reported by: CECILE BEJARANO on 12/28/18800 Prednisone (Prednisone) 5 Mg Tablet, 5 MG PO DAILY, (Reported) Entered as Reported by: LUIS ALBERTO PRECIADO on 07/14/19 145 Prednisone (Prednisone) 10 Mg Tab, 0 PO UD Prescribed by: CECILE BEJARANO on 07/21/19 145 Tiotropium [place] (Spiriva) 1 Inh Aerp, 1 CAP IH DAILY, (Reported) Entered as Reported by: CECILE BEJARANO on 12/28/18 08 Zolpidem Tartrate (Zolpidem Tartrate) 5 Mg Tablet, 5 MG PO HS PRN for INSOMNIA, (Reported) Entered as Reported by: CECILE BEJARANO on 12/28/18 08 Review of Systems Review of Systems Constitutional: see HPI EENTM: see HPI Respiratory: see HPI Cardiovascular: see HPI Gastrointestinal: see HPI Genitourinary: see HPI Musculoskeletal: see HPI Skin: see HPI Psychiatric/Neurological: See HPI Hematologic/Lymphatic: See HPI Immunological/Allergic: see HPI All Other Systems Reviewed Negative Unless Noted: No Past Sgoqxzg-Vfkxoc-Hvvddk Hx Patient Social History Tobacco Use?: Yes Tobacco type used: Cigarettes Smoking Status: Former Smoker Use of E-Cig and/or Vaping dev: No Substance use?: No Alcohol Use?: No Pt feels they are or have been: No Immunizations Up To Date First/Initial COVID19 Vaccinat: 2020 Second COVID19 Vaccination Reggie: 2020 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: [employer] Seasonal Allergies Seasonal Allergies: No Past Medical History Surgery/Hospitalization HX: COPD ASTHMA Surgeries: No Respiratory: Yes Pneumonia, COPD, Emphysema Cardiac: No High Cholesterol, Hypertension Neurological: No Genitourinary: No Gastrointestinal: No Musculoskeletal: Yes (Osteopenia) Endocrine: No HEENT: No Cancer: No Psychosocial: Yes Anxiety, Depression Integumentary: No Blood Disorders: No Family Medical History No Pertinent Family Hx, Heart Disease, Cancer Mother ( at 92): unknown cause Father( at 77): cancer of unknown type, heart attack Sister (75): has multiple medical issues. Physical Exam Vital Signs - First Documented 06/27/22 08:30 Temp 36.8 Pulse 114 Resp 20 B/P (MAP) 93/48 (63) Pulse Ox 100 O2 Delivery Nasal Cannula O2 Flow Rate 4.50 Capillary Refill : Less Than 3 Seconds Height: 5'8.00" Weight: 119lbs. 1.0oz. 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, alert, oriented x 3 Focused Exam Sepsis Stage: Sepsis Possible Source: Skin/Soft Tissue Lactate Level 06/27/22 08:39: Lactic Acid Level 1.55 Time of Focused Exam: 09:10 Respiratory: Decreased Breath Sounds, Rhonci Cardiovascular: Regular Rate, Rhythm Capillary Refill: Less Than 3 Seconds Skin: normal color, warm/dry Lactic Acid Level Laboratory Tests Test 06/27/22 08:39 Lactic Acid Level 1.55 MMOL/L (0.50-2.00) Within 3hrs of presentation: Other Progress/Results/Core Measures Suspected Sepsis SIRS Temperature: Pulse: 114 Respiratory Rate: 20 Laboratory Tests 06/27/22 08:39: White Blood Count 19.6H Blood Pressure 93 /48 Mean: 63 06/27/22 08:39: Lactic Acid Level 1.55 Laboratory Tests 06/27/22 08:39: Creatinine 1.10, Platelet Count 482H, Total Bilirubin 0.4 Results/Orders Lab Results Laboratory Tests Test 06/27/22 08:39 Range/Units White Blood Count 19.6 H 4.3-11.0 10^3/uL Red Blood Count 3.56 L 3.80-5.11 10^6/uL Hemoglobin 10.8 L 11.5-16.0 g/dL Hematocrit 34 L 35-52 % Mean Corpuscular Volume 94 80-99 fL Mean Corpuscular Hemoglobin 30 25-34 pg Mean Corpuscular Hemoglobin Concent 32 32-36 g/dL Red Cell Distribution Width 13.2 10.0-14.5 % Platelet Count 482 H 130-400 10^3/uL Mean Platelet Volume 9.6 9.0-12.2 fL Immature Granulocyte % (Auto) 0 % Neutrophils (%) (Auto) 85 H 42-75 % Lymphocytes (%) (Auto) 6 L 12-44 % Monocytes (%) (Auto) 7 0-12 % Eosinophils (%) (Auto) 1 0-10 % Basophils (%) (Auto) 0 0-10 % Neutrophils # (Auto) 16.7 H 1.8-7.8 10^3/uL Lymphocytes # (Auto) 1.2 1.0-4.0 10^3/uL Monocytes # (Auto) 1.4 H 0.0-1.0 10^3/uL Eosinophils # (Auto) 0.2 0.0-0.3 10^3/uL Basophils # (Auto) 0.1 0.0-0.1 10^3/uL Immature Granulocyte # (Auto) 0.1 0.0-0.1 10^3/uL Sodium Level 137 135-145 MMOL/L Potassium Level 4.5 3.6-5.0 MMOL/L Chloride Level 97 L 98-107 MMOL/L Carbon Dioxide Level 29 21-32 MMOL/L Anion Gap 11 5-14 MMOL/L Blood Urea Nitrogen 13 7-18 MG/DL Creatinine 1.10 0.60-1.30 MG/DL Estimat Glomerular Filtration Rate 51 BUN/Creatinine Ratio 12 Glucose Level 101 70-105 MG/DL Lactic Acid Level 1.55 0.50-2.00 MMOL/L Calcium Level 9.5 8.5-10.1 MG/DL Corrected Calcium 9.5 8.5-10.1 MG/DL Total Bilirubin 0.4 0.1-1.0 MG/DL Aspartate Amino Transf (AST/SGOT) 22 5-34 U/L Alanine Aminotransferase (ALT/SGPT) 17 0-55 U/L Alkaline Phosphatase 77 40-136 U/L Troponin I < 0.30 <0.30 NG/ML Pro-B-Type Natriuretic Peptide 856.3 H <450.0 PG/ML Total Protein 6.9 6.4-8.2 GM/DL Albumin 4.0 3.2-4.5 GM/DL My Orders Orders - SUKHJINDER SINGH DO Cbc With Automated Diff (06/27/22 08:51) Comprehensive Metabolic Panel (06/27/22 08:51) Ekg Tracing (06/27/22 08:51) Troponin I Fs (06/27/22 08:51) Chest 1 View Ap/Pa Only (06/27/22 08:51) Probnp Fs (06/27/22 08:51) Methylprednisolone Sod Succ (Solu-Medrol (06/27/22 09:00) Ns Iv 1000 Ml (Sodium Chloride 0.9%) (06/27/22 09:00) Ns Iv 500 Ml (Sodium Chloride 0.9%) (06/27/22 08:53) Manual Differential (06/27/22 08:39) Ua Culture If Indicated (06/27/22 10:02) Ns Iv 1000 Ml (Sodium Chloride 0.9%) (06/27/22 10:15) Lactic Acid Analyzer (06/27/22 10:02) Piperacillin Sodium/Tazobactam (Zosyn Vi (06/27/22 10:15) Vancomycin Injection (Vancomycin Injecti (06/27/22 10:15) Ns (Ivpb) (Sodium Chloride 0.9% Ivpb Bag (06/27/22 10:22) Medications Given in ED Current Medications Medications Dose Ordered Sig/Gokul Route Start Time Stop Time Status Last Admin Dose Admin Methylprednisolone Sodium Succinate 62.5 mg ONCE ONCE IVP 06/27/22 09:00 06/27/22 09:01 DC 06/27/22 08:57 62.5 MG Piperacillin Sod/ Tazobactam Sod 4.5 gm/Sodium Chloride 100 ml @ 200 mls/hr ONCE ONCE IV 06/27/22 10:15 06/27/22 10:44 06/27/22 10:28 200 MLS/HR Vital Signs/I&O 06/27/22 06/27/22 08:30 08:30 Temp 36.8 Pulse 114 Resp 20 B/P (MAP) 93/48 (63) Pulse Ox 100 O2 Delivery Nasal Cannula Nasal Cannula O2 Flow Rate 4.50 4.50 Capillary Refill : Less Than 3 Seconds Blood Pressure Mean: 63 Departure Communication (Admissions) Chest x-ray: Bronchiectasis without consolidative infiltrate per radiology report Sinus tachycardia, rate 106, interpretation limited by artifact, ME interval, QTC, QRS interval normal. Patient with persistent hypotension and mild dyspnea. No history of COPD/bronchiectasis. No respiratory distress. Patient able to maintain O2 saturations greater than 96% on 4-1/2 L which is her baseline oxygen requirement. Albuterol breathing treatment given by EMS. Solu-Medrol given in ED arrival. Patient with persistent hypotension with systolic blood pressure ranging from 50s to 70s. 1.5 L normal saline bolus given. Patient is asymptomatic at rest. . I suspect cumulative effect of patient's newly started KENIA inhibitor versus possible infection contributing to her symptoms. Patient takes 10 mg of prednisone daily. Patient is a 19,000 white count. Lactic acid is negative. IV antibiotics given due to possibility of occult sepsis. Patient accepted to the ICU per Dr. Burrows. Impression Primary Impression: Hypotension Additional Impression: COPD exacerbation Disposition: ADMITTED INPATIENT Condition: Critical Departure-Patient Inst. Referrals: BRITTNI KIRK MD (PCP/Family) Primary Care Physician SUKHJINDER SINGH DO Jun 27, 2022 09:52
[2022-06-27] MEDS ORDERED: VANCOMYCIN INJECTION 2,000 MG in NS IV 500 ML 500 ML IV SCH (10:15)
[2022-06-27] MEDS ORDERED: NS IV 1000 ML 1,000 ML IV SCH (10:15)
[2022-06-27] MEDS ORDERED: PIPERACILLIN SODIUM/TAZOBACTAM 4.5 GM in NS (IVPB) 100 ML IV ONE (10:15)
[2022-06-27] MEDS ORDERED: NS (IVPB) 100 ML ONE (10:22)
[2022-06-27 10:47] LABS: BAND NEUTROPHILS 2 %; BASOPHILS % (MANUAL) 0 %; EOSINOPHILS % (MANUAL) 1 %; LYMPHOCYTES % (MANUAL) 5 %; MONOCYTES % (MANUAL) 7 %; NEUTROPHILS % (MANUAL) 85 %
[2022-06-27] MEDS ORDERED: polyethylene glycoL POWDER 17 GM (MIRALAX) PACK PO PRN (11:45)
[2022-06-27] MEDS ORDERED: ACETAMINOPHEN 325 MG TABLET PO PRN (11:45)
[2022-06-27] MEDS ORDERED: ONDANSETRON 4 MG/2 ML (SDV) Z0FRAN IV PRN (11:45)
[2022-06-27] MEDS ORDERED: BISACODYL 10 MG SUPP (DULCOLAX) PR PRN (11:45)
[2022-06-27] MEDS ORDERED: RT-ALBUTEROL/IPRATROPIUM 3 ML (DUONEB) VIAL INH NR (12:15)
[2022-06-27] MEDS ORDERED: RT-ALBUTEROL/IPRATROPIUM 3 ML (DUONEB) VIAL ONE (12:18)
--- NOTE | 2022-06-27 12:38 | Tele-ICU Consult ---
History of Present Illness History of Present Illness Date Seen by Provider: Jun 27, 2022 Time Seen by Provider: 12:29 Date of Admission 82 yo F came to ED with weakness, SOB, has long Hx of COPD/bronchiectasis. No improvement with inhalers, In ED had SBP 70/40, No CP CXR shows marked hyperinflation but no infiltrate. At home on albuterol, Advair, Spiriva, prednisone Placed on 4 lpm NC with improvement in SpO2 to 100%, ED physical exam describes accessory muscle use, decreased BS WBC 19.6, Hb 10.8, LA 1.55, BNP 856 Started on IV Medrol, IV Zosyn, Vanco Allergies and Home Medications Allergies Coded Allergies: No Known Drug Allergies (Unverified , 12/27/18) Home Medications Albuterol Sulfate 1 Puff Puff, 2 PUFF INH Q4H PRN for SHORTNESS OF BREATH, (Reported) 1 PUFF = 90 MCG Albuterol Sulfate 2.5 Mg/3 Ml Vial.neb, 2.5 MG INH Q4H PRN for SHORTNESS OF BREATH, (Reported) Alendronate Sodium 70 Mg Tablet, 70 MG PO Sa, (Reported) Alprazolam 0.5 Mg Tablet, 0.5 MG PO TID PRN for ANXIETY, (Reported) Benzonatate 100 Mg Capsule, 200 MG PO BID PRN for COUGH Prescribed by: LIDYA MULLEN on 08/02/19 1023 Calcium Carbonate/Vitamin D3 1 Each Tablet, 1 TAB PO DAILY, (Reported) Fluticasone/Salmeterol 1 Each Blst.w.dev, 1 PUFF IH BID, (Reported) Folic Acid/Multivit-Min/Lutein 1 Each Tab.chew, 1 TAB PO DAILY, (Reported) Mirtazapine 15 Mg Tablet, 15 MG PO HS PRN for SLEEP, (Reported) ALTERNATES WITH ZOLPIDEM Nystatin 100,000 Unit/1 Ml Oral.susp, 5 ML PO TID Prescribed by: CECILE BEJARANO on 07/21/19 5608 Pravastatin Sodium 40 Mg Tablet, 40 MG PO DAILY, (Reported) Prednisone 5 Mg Tablet, 5 MG PO DAILY, (Reported) Prednisone 10 Mg Tab, 0 PO UD Take 6 tabs(60mg)daily, decrease by 1 tab(10mg) every other day. Prescribed by: CECILE BEJARANO on 07/21/19 1458 Tiotropium [place] 1 Inh Aerp, 1 CAP IH DAILY, (Reported) Zolpidem Tartrate 5 Mg Tablet, 5 MG PO HS PRN for INSOMNIA, (Reported) ALTERNATES WITH MIRTAZAPINE Past Medical/Social/Family Hx Patient Social History Tobacco Use?: Yes Tobacco type used: Cigarettes Smoking Status: Former Smoker Use of E-Cig and/or Vaping dev: No Substance use?: No Alcohol Use?: No Pt stated abuse/neglect: No Immunizations Up To Date First/Initial COVID19 Vaccinat: 2020 Second COVID19 Vaccination Reggie: 2020 Date of Pneumonia Vaccine: Dec 27, 2016 Current Status status: No Advance Directives: Yes Advance Directive Location: Unable to obtain copy Primary Language: Bangladeshi Preferred Spoken Language: Bangladeshi Past Medical History PMHx: COPD Osteoporosis Family Medical History Family Hx: Mother ( at 92): unknown cause Father( at 77): cancer of unknown type, heart attack Sister (75): has multiple medical issues. Review of Systems Constitutional: see HPI EENTM: see HPI Respiratory: see HPI Cardiovascular: see HPI Gastrointestinal: see HPI Genitourinary: see HPI Musculoskeletal: see HPI Skin: see HPI Psychiatric/Neurological: See HPI Focused Exam Lactate Level 06/27/22 08:39: Lactic Acid Level 1.55 Height, Weight, BMI Height: 5'8.00" Weight: 119lbs. 1.0oz. 54.089389dh; 18.00 BMI Method:Stated Time of Focused Exam: 09:10 Lactic Acid Level Laboratory Tests Test 06/27/22 08:39 Lactic Acid Level 1.55 MMOL/L (0.50-2.00) Exam Exam Patient acknowledged, consented, and participated in this virtual visit which was conducted using real time audio/video Vital Signs Date Time Temp Pulse Resp B/P (MAP) Pulse Ox O2 Delivery O2 Flow Rate FiO2 06/27/22 12:22 97 Nasal Cannula 4.00 06/27/22 12:19 98 06/27/22 11:05 36.5 95 18 111/60 100 Nasal Cannula 4.50 06/27/22 08:30 36.8 114 20 93/48 (63) 100 Nasal Cannula 4.50 06/27/22 08:30 Nasal Cannula 4.50 Height & Weight Height: 5'8.00" Weight: 119lbs. 1.0oz. 54.959450rq; 18.00 BMI Method:Stated General Appearance: Mild Distress Respiratory: Decreased Breath Sounds, Rhonci, Wheezing Cardiovascular: Regular Rate, Rhythm, No Edema Capillary Refill: Less Than 3 Seconds Gastrointestinal: normal bowel sounds, non tender, soft Extremity: Normal Capillary Refill Results Lab Laboratory Tests 06/27/22 08:39 Assessment/Plan Assessment/Plan AECOPD, don't see bronchicectasis on CXR but would be better seen on CT chest, would continue medrol, albuterol, would add a LAMA like [place]ir[place], monitor WOB, SpO2, continue IV Vanco and Zosyn but if cultures negative would stop Spoke to reliability technicians: Critically Ill Patient Time spent with patient (mins): 30 RAUL LUDWIG MD Jun 27, 2022 12:38
[2022-06-27] MEDS: NS IV 1000 ML 1,000 ML IV SCH ×2 (13:03→16:13)
--- NOTE | 2022-06-27 13:53 | History & Physical-Hospitalist ---
History of Present Illness HPI/Chief Complaint Patient is an 82-year-old female with a past medical history of COPD on chronic oxygen and daily steroids who presented to the emergency department due to shortness of breath and dizziness. She states she was feeling well until the middle of the night when she woke up and felt quite short of breath. She took her rescue inhaler without any relief so then used her nebulizer. She continued to feel short of breath and dizzy so called her son who summoned EMS. He was given Solu-Medrol in the emergency department and a breathing treatment and her breathing improved significantly. She was noted incidentally to be quite hypotensive with systolic blood pressures as low as the 50s. She was given a 1 and half liter bolus and blood pressure improved though with standing her blood pressure did drop again and she was quite dizzy. She was admitted to the ICU for further management of hypotension. She reports feeling much better today and is hopeful to be discharged home tomorrow. Source: patient Date Seen 06/27/22 Time Seen by a Provider: 13:48 Attending Physician Kiley Stein MD PCP Admitting Physician: Leif Olson MD Attending Physician: Leif Olson MD Referring Physician Date of Admission Jun 27, 2022 at 11:59 Home Medications & Allergies Home Medications Reviewed patient Home Medication Reconciliation performed by pharmacy medication reconciliations vacuum technician and/or nursing. Patients Allergies have been reviewed. Allergies Allergies Coded Allergies No Known Drug Allergies (Unverified12/27/18) Past Wgboehd-Rnzxgb-Cgcpcz Hx Patient Social History Employed/Student: retired Tobacco Use?: No Tobacco type used: Cigarettes Smoking Status: Former Smoker Use of E-Cig and/or Vaping dev: No Substance use?: No Alcohol Use?: No Pt feels they are or have been: No Immunizations Up To Date Date of Influenza Vaccine: Jul 27, 2018 First/Initial COVID19 Vaccinat: 2020 Second COVID19 Vaccination Reggie: 2020 Date of Pneumonia Vaccine: Dec 27, 2016 Seasonal Allergies Seasonal Allergies: No Current Status status: No Advance Directives: No Advance Directive Location: Unable to obtain copy Communicates: Verbally Primary Language: Kyrgyz Preferred Spoken Language: Kyrgyz Is interpretation needed?: No Sensory deficits: Vision impairment Past Medical History Pneumonia, COPD, Emphysema High Cholesterol, Hypertension Anxiety, Depression Blood Disorders: No PMHx: COPD Osteoporosis Family Medical History Reviewed Nursing Family Hx No Pertinent Family Hx, Heart Disease, Cancer Mother ( at 92): unknown cause Father( at 77): cancer of unknown type, heart attack Sister (75): has multiple medical issues. Review of Systems Constitutional: No chills, No fever; other (dizziness) EENTM: no symptoms reported Respiratory: see HPI, cough, short of breath, wheezing Cardiovascular: No chest pain, No edema Gastrointestinal: no symptoms reported Genitourinary: no symptoms reported Musculoskeletal: no symptoms reported Skin: no symptoms reported Psychiatric/Neurological: No Symptoms Reported Physical Exam Physical Exam Vital Signs Vital Signs - First Documented 06/27/22 08:30 Temp 36.8 Pulse 114 Resp 20 B/P (MAP) 93/48 (63) Pulse Ox 100 O2 Delivery Nasal Cannula O2 Flow Rate 4.50 Capillary Refill : Less Than 3 Seconds Height, Weight, BMI Height: 5'8.00" Weight: 119lbs. 1.0oz. 54.170396an; 18.59 BMI Method:Stated General Appearance: No Apparent Distress, Chronically ill, Thin HEENT: PERRL/EOMI, Moist Mucous Membranes Neck: Normal Inspection, Supple Respiratory: Lungs Clear, No Accessory Muscle Use, No Respiratory Distress Cardiovascular: Regular Rate, Rhythm, No JVD, No Murmur Gastrointestinal: Normal Bowel Sounds, Non Tender, Soft Genital/Rectal: Other (blanchard in place) Extremity: Normal Capillary Refill, No Calf Tenderness, No Pedal Edema Neurologic/Psychiatric: Alert, Oriented x3, Normal Mood/Affect; No Aphasia, No Facial Droop Skin: Normal Color, Warm/Dry Results Results/Procedures Labs Laboratory Tests 06/27/22 08:39 Patient resulted labs reviewed. Imaging: Reviewed Imaging Report Imaging [facility] [place] NAME: HOLLY VAZQUEZ [facility] REC#: [id number] PT STATUS: REG ER : 1940 PHYSICIAN: SUKHJINDER SINGH DO ADMIT DATE: 06/27/22/ER FS Signed Date of Exam:06/27/22 CHEST 1 VIEW AP/PA ONLY INDICATION: Cough, shortness of air Study compared to 08/02/2019. FINDINGS: Air trapping and COPD as a chronic finding present. There is no failure pattern, effusion or pneumothorax. There is some thickening of the airways and bronchiectasis chronic but having increased in the interim. No consolidating pneumonia. IMPRESSION: Air trapping, COPD with progressive chronic bronchiectasis and interstitial disease, no consolidating pneumonia, failure pattern or acute pleural pathology however. Dictated by: Dictated on workstation # [id number] Dict: 06/27/22 0859 Trans: 06/27/22 1113 [facility] [id number] Interpreted by: LEANDRO HOLT Electronically signed by: LEANDRO HOLT 06/27/22 1113 Assessment/Plan Admission Diagnosis Hypotension Admission Status: Observation Assessment and Plan Hypotension Likely iatrogenic from lisinopril Reports she checks her BP at home and it is normally 100/60 1.5L bolus given in the ER Continue IVF BP improved Received Vanc/Zosyn in the ER as precaution for sepsis due to leukocytosis will DC quickly if no evidence of infection presents itself tomorrow COPD Chronic respiraotry failure Solumedrol given this AM MAT protocol Continue home inhalers may use home meds On baseline 4.5LPM Diagnosis/Problems Diagnosis/Problems (1) Hypotension Status: Acute Qualifiers: Hypotension type: idiopathic hypotension Qualified Codes: I95.0 - Idiopathic hypotension (2) COPD (chronic obstructive pulmonary disease) Status: Acute Qualifiers: COPD type: emphysema Emphysema type: unspecified Qualified Codes: J43.9 - Emphysema, unspecified (3) Hyperlipidemia Status: Chronic Qualifiers: Hyperlipidemia type: mixed hyperlipidemia Qualified Codes: E78.2 - Mixed hyperlipidemia (4) Frailty Status: Chronic LEIF OLSON MD Jun 27, 2022 13:53
--- NOTE | 2022-06-27 14:01 | Physical Therapy Progress Note ---
Therapy Progress Note Order for PT bimal received. Patient would prefer wait until tomorrow. She just got to ICU from the [place] ER about an hour ago and doesn't feel up to doing anything right now. Will check back in the morning. ZORAIDA RANDOLPH PT Jun 27, 2022 14:01
[2022-06-27 14:05] VITALS: BP 104/70
--- NOTE | 2022-06-27 14:18 | Occ Therapy Progress Note ---
Therapy Progress Note OT orders received and chart was reviewed. Pt requesting to hold OT evaluation/treatment until 06/28/22 as she had just arrived to ICU and reports feeling "too exhausted" to do anything. Pt reports that at 0300 today, she was unable to complete any adls independently. Maria Esther Chen OT Jun 27, 2022 14:18
[2022-06-27] MEDS ORDERED: PATIENT MAY USE OWN MEDS, ALL MC SCH (15:00)
[2022-06-27 15:26] LABS: BILIRUBIN,URINE NEGATIVE (NEGATIVE); CLARITY,URINE CLOUDY; COLOR,URINE YELLOW; GLUCOSE, URINE (UA) TRACE (NEGATIVE); KETONES,URINE NEGATIVE (NEGATIVE); LEUKOCYTE ESTERASE ,URINE 3+ (NEGATIVE); NITRITE,URINE NEGATIVE (NEGATIVE); PROTEIN,URINE NEGATIVE (NEGATIVE)
[2022-06-27 15:58] LABS: BACTERIA,URINE FEW /HPF; WBC,URINE 50-100 /HPF
[2022-06-27] MEDS ORDERED: IPRA3AMP31 NEB (16:09)
[2022-06-27] MEDS ORDERED: MIRT-69 PO (16:09)
[2022-06-27] MEDS ORDERED: LISI10TA25 PO (16:09)
[2022-06-27] MEDS ORDERED: CALC-308 PO (16:09)
[2022-06-27] MEDS ORDERED: MULT200T12 PO (16:09)
[2022-06-27] MEDS ORDERED: ALPR1TAB7 PO (16:09)
[2022-06-27] MEDS ORDERED: PRD10T PO (16:09)
[2022-06-27] MEDS ORDERED: FLUT1BLS12 INH (16:09)
[2022-06-27] MEDS: inSUlin ASPART (NovoLOG) 1 UNIT/0.01 ML (CHARGE PER UNIT) SC SCH ×2 (16:13→20:40)
[2022-06-27] MEDS: RT-ALBUTEROL/IPRATROPIUM 3 ML (DUONEB) VIAL INH SCH ×2 (18:59→22:19)
[2022-06-27] MEDS: RT--FLUTICASONE/SALMETEROL 232-14 (AIRDUO RespiCLICK) IH SCH (18:59)
[2022-06-27] MEDS: MIRTAZAPINE 15 MG (REMERON) TAB PO SCH (20:18)
[2022-06-27] MEDS: ALPRAZolam 0.25 MG (XANAX) TAB PO PRN (20:38)
[2022-06-27] MEDS ORDERED: FUROSEMIDE 40 MG/4 ML INJ (LASIX) IVP ONE (20:45)
[2022-06-27] MEDS ORDERED: ADVAIR HFA 115/21 MCG INHALER 8 GM IH SCH (21:00)
[2022-06-28] MEDS: RT-ALBUTEROL/IPRATROPIUM 3 ML (DUONEB) VIAL INH SCH ×2 (02:12→07:23)
[2022-06-28 04:35] LABS: HEMATOCRIT 30 % (35-52); HEMOGLOBIN 9.5 g/dL (11.5-16.0); MEAN CORPUSCULAR HEMOGLOBIN 30 pg (25-34); MEAN CORPUSCULAR HGB CONC 31 g/dL (32-36); MEAN CORPUSCULAR VOLUME 97 fL (80-99); MEAN PLATELET VOLUME 9.3 fL (9.0-12.2); PLATELET COUNT 446 10^3/uL (130-400); WHITE BLOOD COUNT 25.6 10^3/uL (4.3-11.0)
[2022-06-28 04:57] LABS: CALCIUM 8.6 MG/DL (8.5-10.1); CREATININE SERUM 1.11 MG/DL (0.60-1.30); POTASSIUM 4.1 MMOL/L (3.6-5.0)
[2022-06-28] MEDS: inSUlin ASPART (NovoLOG) 1 UNIT/0.01 ML (CHARGE PER UNIT) SC SCH ×4 (05:09→21:41)
[2022-06-28] MEDS ORDERED: NS IV 500 ML 500 ML IV PRN (05:15)
[2022-06-28] MEDS: POTASSIUM CL 10MEQ/50ML IVPB 50 ML IV SCH (05:28)
[2022-06-28] MEDS: MAGNESIUM 1 GM/100 ML IVPB 100 ML IV SCH ×3 (06:17→08:16)
[2022-06-28] MEDS: KCL 20 MEQ TAB (K-DUR) PO SCH (06:17)
[2022-06-28] MEDS: UMECLIDINIUM BROMIDE (INCRUSE ELLIPTA) 7'S IH SCH (07:22)
[2022-06-28] MEDS: RT--FLUTICASONE/SALMETEROL 232-14 (AIRDUO RespiCLICK) IH SCH ×2 (07:23→21:14)
[2022-06-28] MEDS: ALPRAZolam 0.25 MG (XANAX) TAB PO PRN ×2 (08:34→13:34)
[2022-06-28] MEDS ORDERED: VANCOMYCIN 1 GM/NS 250 ML IVPB IV SCH ×2 (09:00)
[2022-06-28] MEDS ORDERED: predniSONE 20 MG TAB PO ONE (09:15)
--- NOTE | 2022-06-28 10:18 | Physical Therapy Evaluation ---
PT Evaluation-General Medical Diagnosis Admission Date Jun 27, 2022 at 11:59 Medical Diagnosis: hypotension Onset Date: Jun 27, 2022 Therapy Diagnosis Therapy Diagnosis: debility/weakness Height/Weight Height (Feet): 5 Height (Inches): 8.00 Weight (Pounds): 119 Weight (Ounces): 1.0 Precautions Precautions/Isolations: Fall Prevention, Standard Precautions Referral Physician: Nolan Reason for Referral: Evaluation/Treatment Medical History Pertinent Medical History: COPD, HTN, OA Current History ER secondary to SOA Reviewed History: Yes Social History Home: Single Level Current Living Status: Alone PT Steps Into Home: 1 Prior Prior Level of Function SCALE: Activities may be completed with or without assistive devices. 0-Prjyivndgk-jekfkdi completes the activity by him/herself with no assistance from a helper. 5-Set-up or Clean-up Assistance-helper sets up or cleans up; patient completes activity. [place] assists only prior to or following the activity. 4-Supervision or Touching Assistance-helper provides verbal cues and/or touching/steadying and/or contact guard assistance as patient completes activity. Assistance may be provided throughout the activity or intermittently. 3-Partial/Moderate Assistance-helper does LESS THAN HALF the effort. [place] lift s, holds or supports trunk or limbs, but provides less than half the effort. 2-Substantial/Maximal Assistance-helper does MORE THAN HALF the effort. [place] lifts or holds trunk or limbs and provides more than half the effort. 2-Uaizbucca-zkirvo does ALL the effort. Patient does none of the effort to complete the activity. Or, the assistance of 2 or more helpers is required for the patient to complete the activity. If activity was not attempted, code reason: 7-Patient Refused. 9-Not Applicable-not attempted and the patient did not perform the activity before the current illness, exacerbation or injury. 10-Not Attempted due to Environmental Limitations-(lack of equipment, weather restraints, etc.). 88-Not Attempted due to Medical Conditions or Safety Concerns. Bed Mobility: 6 Transfers (B,C,W/C): 6 Gait: 6 Stairs: 6 Indoor Mobility (Ambulation): Independent Stairs: Independent Prior Devices Use: None PT Evaluation-Current Subjective Patient states she does not use a cane or FWW due to O2 tubing in home and it gets "tangled" up. Patient denies falls. Objective Patient Orientation: Normal For Age Attachments: Oxygen (4L at home continuous) ROM/Strength ROM Lower Extremities bilateral LE WFL Strength Lower Extremities 3/5 grossly bilateral LE all planes Integumentary/Posture Integumentary refer to nursing notes Bowel Incontinence: Yes Bladder Incontinence: Yes Posture WFL Neuromuscular (Tone, Coordination, Reflexes) grossly intact Sensory Vision: Wears Glasses Hearing: Functional Transfers Roll Left to Right (QC): 6 Lying to Sitting/Side of Bed(Q: 6 Sit to Stand (QC): 4 Chair/Sth-ux-Cntqd Xfer(QC): 4 Toilet Transfer (QC): 4 Gait Mode of Locomotion: Walk Anticipated Mode of Locomotion: Walk Walk 10 feet (QC): 4 Walk 50 ft with 2 Turns(QC): 88 Walk 150 ft (QC): 88 Distance: 10' Gait Assistive Device: None Comments/Gait Description slightly unsteady with self correct Balance Sitting Static: Normal Sitting Dynamic: Normal Standing Static: Fair Standing Dynamic: Fair Treatment Patient displayed increase SOA with minimal activity with SAO2 decreasing to 76% on 2L NC. PT increased O2 to 3L (RN notified) with patient recovering to 90% after several minutes. Assessment/Needs 82 y.o. female, will benefit from skilled PT to address functional strength and mobility to improve current LOF to safely return to home at maximum LOF. Rehab Potential: Fair PT Database Analyst Goals Database Analyst Goals PT Nursing Home Goals Time Frame: Jul 07, 2022 Roll Left & Right (QC): 6 Sit to Lying (QC): 6 Lying-Sitting on Side/Bed(QC): 6 Sit to Stand (QC): 6 Chair/Jct-da-Ubbai Xfer(QC): 6 Toilet Transfer (QC): 6 Walk 10 feet (QC): 6 Walk 50ft with 2 Turns (QC): 6 PT Plan Problem List Problem List: Activity Tolerance, Functional Strength, Safety, Balance, Gait, Transfer Treatment/Plan Treatment Plan: Continue Plan of Care Treatment Plan: Education, Functional Activity Karen, Functional Strength, Gait, Safety, Therapeutic Exercise, Transfers Treatment Duration: Jul 07, 2022 Frequency: 6 times per week Estimated Hrs Per Day: .25 hour per day Patient and/or Family Agrees t: Yes Time/GCodes Time In: 800 Time Out: 814 Total Billed Treatment Time: 14 Total Billed Treatment 1 visit EVModC 14 min KRISTI BERNAL PT Jun 28, 2022 10:18
--- NOTE | 2022-06-28 11:46 | Occupational Therapy Eval ---
OT Evaluation-General/PLF Medical Diagnosis Admission Date Jun 27, 2022 at 11:59 Medical Diagnosis: hypotension Onset Date: Jun 27, 2022 Therapy Diagnosis Therapy Diagnosis: reduced adl status Height/Weight Height (Feet): 5 Height (Inches): 8.00 Weight (Pounds): 119 Weight (Ounces): 1.0 Precautions Precautions/Isolations: Fall Prevention, Standard Precautions Referral Physician: Nolan Medical History Pertinent Medical History: COPD (baseline 4.5L oxygen), HTN, OA Current History Pt presents to hospital with SOB, increased weakness, fatigue, and inability to walk. Per patient, she lives alone in a single story home. She was indep with adls and her daughter assists with iadls. Pt states that she only showers when her daughter is at her home. She does not use any AD at baseline. Wears 4.5L O2. Reviewed History: Yes Social History Home: Single Level Current Living Status: Alone Steps Into Home: 1 ADL-Prior Level of Function SCALE: Activities may be completed with or without assistive devices. 1-Efhyclfwxb-uvtdntu completes the activity by him/herself with no assistance from a helper. 5-Set-up or Clean-up Assistance-helper sets up or cleans up; patient completes activity. [place] assists only prior to or following the activity. 4-Supervision or Touching Assistance-helper provides verbal cues and/or touching/steadying and/or contact guard assistance as patient completes activity. Assistance may be provided throughout the activity or intermittently. 3-Partial/Moderate Assistance-helper does LESS THAN HALF the effort. [place] lifts, holds or supports trunk or limbs, but provides less than half the effort. 2-Substantial/Maximal Assistance-helper does MORE THAN HALF the effort. [place] lifts or holds trunk or limbs and provides more than half the effort. 5-Gyqxddozf-bcwohf does ALL the effort. Patient does none of the effort to complete the activity. Or, the assistance of 2 or more helpers is required for the patient to complete the activity. If activity was not attempted, code reason: 7-Patient Refused. 9-Not Applicable-not attempted and the patient did not perform the activity before the current illness, exacerbation or injury. 10-Not Attempted due to Environmental Limitations-(lack of equipment, weather restraints, etc.). 88-Not Attempted due to Medical Conditions or Safety Concerns. Self Care: Independent Functional Cognition: Independent DME/Equipment: Bath Chair, Grab Bars, Tub/Shower Drive Self: No OT Current Status Subjective Pt reports she had just gotten back into bed (from sitting in chair) due to SOA while sitting upright. Appearance Pt left supine in bed, all needs within reach. Mental Status/Objective Patient Orientation: Person, Place, Situation Attachments: IV, Oxygen (4L), Telemetry Current Glasses/Contacts: Yes Hand Dominance: Right Upper Extremity ROM WFL Upper Extremity Strength 3+/5 grossly ADL-Treatment Pt declines all adls or OOB/EOB activity. She verbalizes that physical therapy sat her in the chair and right after they left her room, she had to call for he lp due to inability to breath. While supine, pt's oxygen jumping from 77%-99%, yet pt denies feeling SOB at this time. She reports that she is too fatigue to complete bed level adls. Agreeable to UE exercises, however after performing 2 sets of 10 (bicep curl and forward punches), pt reports she is too fatigued to continue. Activity terminated. Education OT Patient Education: Correct positioning, Energy conservation, Exercise program, Purpose of tx/functional activities, Rehab process, Safety issues Teaching Recipient: Patient Teaching Methods: Demonstration, Discussion Response to Teaching: Verbalize Understanding, Return Demonstration, Reinforcement Needed OT Longterm Goals Vice President Of Academic Affairs Goals Time Frame: Jul 12, 2022 Eating (QC): 5 Oral Hygiene (QC): 5 Toileting Hygiene (QC): 4 Shower/Bathe Self (QC): 4 Upper Body Dressing (QC): 4 Lower Body Dressing (QC): 4 On/Off Footwear (QC): 4 1=Demonstrate adherence to instructed precautions during ADL tasks. 2=Patient will verbalize/demonstrate understanding of assistive devices/modifications for ADL. 3=Patient will improve strength/tolerance for activity to enable patient to perform ADL's. OT Education/Plan Problem List/Assessment Assessment: Decreased Activ Tolerance, Decreased UE Strength, Impaired Cognition, Impaired Funct Balance, Impaired Self-Care Skills Discharge Recommendations Plan/Recommendations: Continue POC Comment Ongoing assessment needed Treatment Plan/Plan of Care Treatment,Training & Education: Yes Patient would benefit from OT for education, treatment and training to promote independence in ADL's, mobility, safety and/or upper extremity function for ADL's. Plan of Care: ADL Retraining, Functional Mobility, Group Exercise/Act as Ind, UE Funct Exercise/Act Treatment Duration: Jul 12, 2022 Frequency: 3 times per week (3-5x/week) Estimated Hrs Per Day: .25 hour per day Rehab Potential: Guarded Time/GCodes Start Time: 11:12 Stop Time: 11:22 Total Time Billed (hr/min): 10 Billed Treatment Time 1 visit Maria Esther Donovan OT Jun 28, 2022 11:46
--- NOTE | 2022-06-28 11:58 | Progress Note - Hospitalist ---
Subjective HPI/CC On Admission Date Seen by Provider: Jun 28, 2022 Patient is an 82-year-old female with a past medical history of COPD on chronic oxygen and daily steroids who presented to the emergency department due to shortness of breath and dizziness. She states she was feeling well until the middle of the night when she woke up and felt quite short of breath. She took her rescue inhaler without any relief so then used her nebulizer. She continued to feel short of breath and dizzy so called her son who summoned EMS. He was given Solu-Medrol in the emergency department and a breathing treatment and her breathing improved significantly. She was noted incidentally to be quite hypotensive with systolic blood pressures as low as the 50s. She was given a 1 and half liter bolus and blood pressure improved though with standing her blood pressure did drop again and she was quite dizzy. She was admitted to the ICU for further management of hypotension. She reports feeling much better today and is hopeful to be discharged home tomorrow. Subjective/Events-last exam Pt reports having a rough night. States breathing got much worse after breathing treatment which is similar to what happens at home. Focused Exam Lactate Level 06/27/22 08:39: Lactic Acid Level 1.55 Time of Focused Exam: 09:10 Objective Exam Vital Signs Vital Signs Date Time Temp Pulse Resp B/P (MAP) Pulse Ox O2 Delivery O2 Flow Rate FiO2 06/28/22 11:00 101 33 137/71 98 Nasal Cannula 2.00 06/28/22 07:44 36.8 Capillary Refill : Less Than 3 Seconds General Appearance: No Apparent Distress, Anxious Respiratory: Lungs Clear, No Accessory Muscle Use Cardiovascular: Regular Rate, Rhythm, No Murmur Gastrointestinal: Normal Bowel Sounds, Soft Neurologic/Psychiatric: Alert, Oriented x3 Results/Procedures Lab Laboratory Tests 06/28/22 04:02 Patient resulted labs reviewed. Imaging: Reviewed Imaging Report Assessment/Plan Assessment and Plan Assess & Plan/Chief Complaint Hypotension- resolved Likely iatrogenic from lisinopril BP improved DC abx IRF eval placed PT/OT COPD Chronic respiraotry failure Continue prednisone MAT protocol Continue home inhalers may use home meds On baseline 4.5LPM- currently on 2lpm Critical Care Critically Ill Patient Diagnosis/Problems Diagnosis/Problems (1) Hypotension Status: Acute Qualifiers: Hypotension type: idiopathic hypotension Qualified Codes: I95.0 - Idiopathic hypotension (2) COPD (chronic obstructive pulmonary disease) Status: Acute Qualifiers: COPD type: emphysema Emphysema type: unspecified Qualified Codes: J43.9 - Emphysema, unspecified (3) Hyperlipidemia Status: Chronic Qualifiers: Hyperlipidemia type: mixed hyperlipidemia Qualified Codes: E78.2 - Mixed hyperlipidemia (4) Frailty Status: Chronic LEIF OLSON MD Jun 28, 2022 11:58
[2022-06-28] MEDS: NYSTATIN ORAL SUSP 5 ML UDC PO SCH ×3 (13:34→23:03)
[2022-06-28] MEDS: MIRTAZAPINE 15 MG (REMERON) TAB PO SCH (21:06)
[2022-06-29 05:38] LABS: HEMATOCRIT 31 % (35-52); HEMOGLOBIN 9.8 g/dL (11.5-16.0); MEAN CORPUSCULAR HEMOGLOBIN 31 pg (25-34); MEAN CORPUSCULAR HGB CONC 32 g/dL (32-36); MEAN CORPUSCULAR VOLUME 95 fL (80-99); MEAN PLATELET VOLUME 9.3 fL (9.0-12.2); PLATELET COUNT 457 10^3/uL (130-400); WHITE BLOOD COUNT 19.8 10^3/uL (4.3-11.0)
[2022-06-29] MEDS: inSUlin ASPART (NovoLOG) 1 UNIT/0.01 ML (CHARGE PER UNIT) SC SCH ×4 (05:55→20:28)
[2022-06-29 06:13] LABS: CALCIUM 8.9 MG/DL (8.5-10.1); CREATININE SERUM 0.99 MG/DL (0.60-1.30); POTASSIUM 4.5 MMOL/L (3.6-5.0)
[2022-06-29] MEDS: POTASSIUM CL 10MEQ/50ML IVPB 50 ML IV SCH (06:43)
[2022-06-29] MEDS: MAGNESIUM 1 GM/100 ML IVPB 100 ML IV SCH (06:44)
[2022-06-29] MEDS: KCL 20 MEQ TAB (K-DUR) PO SCH (06:45)
[2022-06-29] MEDS: NYSTATIN ORAL SUSP 5 ML UDC PO SCH ×4 (06:48→23:51)
[2022-06-29] MEDS: predniSONE 20 MG TAB PO SCH (06:48)
[2022-06-29] MEDS ORDERED: TROUGH ORDER-PHARMACY XX NR (08:00)
[2022-06-29] MEDS: RT--FLUTICASONE/SALMETEROL 232-14 (AIRDUO RespiCLICK) IH SCH ×2 (08:32→19:32)
[2022-06-29] MEDS: UMECLIDINIUM BROMIDE (INCRUSE ELLIPTA) 7'S IH SCH (08:32)
--- NOTE | 2022-06-29 09:25 | Physical Therapy Daily Note ---
PT Daily Note-Current Subjective Patient reluctantly agrees to PT. She states, "I can't breath when I do anything but sit or lay in bed." PT encouraged patient to ambulate in hallway. Patient currently on 4L O2 NC. Mental Status Patient Orientation: Normal For Age Attachments: Oxygen (4L at rest increased to 6L with activity) Transfers SCALE: Activities may be completed with or without assistive devices. 2-Lobtmurolp-akqxrxy completes the activity by him/herself with no assistance from a helper. 5-Set-up or Clean-up Assistance-helper sets up or cleans up; patient completes activity. [place] assists only prior to or following the activity. 4-Supervision or Touching Assistance-helper provides verbal cues and/or touching/steadying and/or contact guard assistance as patient completes activity. Assistance may be provided throughout the activity or intermittently. 3-Partial/Moderate Assistance-helper does LESS THAN HALF the effort. [place] lifts, holds or supports trunk or limbs, but provides less than half the effort. 2-Substantial/Maximal Assistance-helper does MORE THAN HALF the effort. [place] lifts or holds trunk or limbs and provides more than half the effort. 7-Holietujj-pygfyx does ALL the effort. Patient does none of the effort to complete the activity. Or, the assistance of 2 or more helpers is required for the patient to complete the activity. If activity was not attempted, code reason: 7-Patient Refused. 9-Not Applicable-not attempted and the patient did not perform the activity before the current illness, exacerbation or injury. 10-Not Attempted due to Environmental Limitations-(lack of equipment, weather restraints, etc.). 88-Not Attempted due to Medical Conditions or Safety Concerns. Lying to Sitting/Side of Bed(Q: 6 Sit to Stand (QC): 4 Chair/Ozy-gs-Litmx Xfer(QC): 4 Toilet Transfer (QC): 4 Gait Training Distance: 200' Walk 10 feet (QC): 4 Walk 50 ft with 2 Turns(QC): 4 Walk 150 ft (QC): 4 Gait Assistive Device: FWW safe and functional with no deviation Treatments Noted air hunger with minimal activity with SAO2 92% on 6L with activity. Patient has noted increase SOA with report of anxiety due to air hunger. RN notified. Patient in recliner recovering from ambulation and toileting. Assessment Patient recovering slowly in seated position in recliner. SAO2 continues to be >90% on 4L at rest. PT to continue to increase activity as tolerated by patient. Patient currently tolerates minimal activity and states she doesn't do much at home PLOF. PT Fpc Goals Fpc Goals PT Format Proofreader Goals Time Frame: Jul 07, 2022 Roll Left & Right (QC): 6 Sit to Lying (QC): 6 Lying-Sitting on Side/Bed(QC): 6 Sit to Stand (QC): 6 Chair/Vja-ze-Vschd Xfer(QC): 6 Toilet Transfer (QC): 6 Walk 10 feet (QC): 6 Walk 50ft with 2 Turns (QC): 6 PT Plan Treatment/Plan Treatment Plan: Continue Plan of Care Treatment Plan: Education, Functional Activity Karen, Functional Strength, Gait, Safety, Therapeutic Exercise, Transfers Treatment Duration: Jul 07, 2022 Frequency: 6 times per week Estimated Hrs Per Day: .25 hour per day Patient and/or Family Agrees t: Yes Time/GCodes Time In: 835 Time Out: 900 Total Billed Treatment Time: 25 Total Billed Treatment 1 visit FA x 2 25 min KRISTI BERNAL PT Jun 29, 2022 09:25
--- NOTE | 2022-06-29 10:25 | Occupational Ther Daily Note ---
OT Current Status-Daily Note Subjective Pt alert, lying in bed. Pt states that she has had a terrible morning with struggling with breathing and diarrhea. Pt is now resting comfortably in bed. Pt does agree to therapy though requests to stay in bed. Mental Status/Objective Patient Orientation: Person Attachments: Oxygen (2L) ADL-Treatment After supplies are gathered, pt able to complete oral care, washing face/neck and combing hair by self. Pt requests to use BSC. Supine to EOB with HOB raised, independent. Completed toileting independently. Independent with bed mobility. Pt takes increased time after activity for SOA. After therapy, pt lying in bed resting comfortably. Call light/phone in reach. All needs met in room. Therapy Code Descriptions/Definitions Functional Turner Measure: 0=Not Assessed/NA 4=Minimal Assistance 1=Total Assistance 5=Supervision or Setup 2=Maximal Assistance 6=Modified Turner 3=Moderate Assistance 7=Complete IndependenceSCALE: Activities may be completed with or without assistive devices. 7-Vtuaaxxded-rwmobfg completes the activity by him/herself with no assistance from a helper. 5-Set-up or Clean-up Assistance-helper sets up or cleans up; patient completes activity. [place] assists only prior to or following the activity. 4-Supervision or Touching Assistance-helper provides verbal cues and/or touching/steadying and/or contact guard assistance as patient completes activity. Assistance may be provided throughout the activity or intermittently. 3-Partial/Moderate Assistance-helper does LESS THAN HALF the effort. [place] lifts, holds or supports trunk or limbs, but provides less than half the effort. 2-Substantial/Maximal Assistance-helper does MORE THAN HALF the effort. [place] lifts or holds trunk or limbs and provides more than half the effort. 8-Lyotxtsfs-jlkjdx does ALL the effort. Patient does none of the effort to complete the activity. Or, the assistance of 2 or more helpers is required for the patient to complete the activity. If activity was not attempted, code reason: 7-Patient Refused. 9-Not Applicable-not attempted and the patient did not perform the activity before the current illness, exacerbation or injury. 10-Not Attempted due to Environmental Limitations-(lack of equipment, weather restraints, etc.). 88-Not Attempted due to Medical Conditions or Safety Concerns. Oral Hygiene (QC): 5 Toileting Hygiene (QC): 6 Toilet Transfer (QC): 6 OT Carbon Cutter Goals Assisted Goals Time Frame: Jul 12, 2022 Eating (QC): 5 Oral Hygiene (QC): 5 Toileting Hygiene (QC): 4 Shower/Bathe Self (QC): 4 Upper Body Dressing (QC): 4 Lower Body Dressing (QC): 4 On/Off Footwear (QC): 4 1=Demonstrate adherence to instructed precautions during ADL tasks. 2=Patient will verbalize/demonstrate understanding of assistive devices/modifications for ADL. 3=Patient will improve strength/tolerance for activity to enable patient to perform ADL's. OT Education/Plan Problem List/Assessment Assessment: Decreased Activ Tolerance Discharge Recommendations Plan/Recommendations: Continue POC Treatment Plan/Plan of Care Patient would benefit from OT for education, treatment and training to promote independence in ADL's, mobility, safety and/or upper extremity function for AD L's. Plan of Care: ADL Retraining, Functional Mobility, Group Exercise/Act as Ind, UE Funct Exercise/Act Treatment Duration: Jul 12, 2022 Frequency: 3 times per week (3-5x/week) Estimated Hrs Per Day: .25 hour per day Rehab Potential: Guarded Time/GCodes Start Time: 10:00 Stop Time: 10:41 Total Time Billed (hr/min): 41 Billed Treatment Time 1 visit-ADL 3 (41 min) JESENIA JOSHI Jun 29, 2022 10:25
--- NOTE | 2022-06-29 12:26 | Progress Note - Hospitalist ---
Subjective HPI/CC On Admission Date Seen by Provider: Jun 29, 2022 Patient is an 82-year-old female with a past medical history of COPD on chronic oxygen and daily steroids who presented to the emergency department due to shortness of breath and dizziness. She states she was feeling well until the middle of the night when she woke up and felt quite short of breath. She took her rescue inhaler without any relief so then used her nebulizer. She continued to feel short of breath and dizzy so called her son who summoned EMS. He was given Solu-Medrol in the emergency department and a breathing treatment and her breathing improved significantly. She was noted incidentally to be quite hypotensive with systolic blood pressures as low as the 50s. She was given a 1 and half liter bolus and blood pressure improved though with standing her blood pressure did drop again and she was quite dizzy. She was admitted to the ICU for further management of hypotension. She reports feeling much better today and is hopeful to be discharged home tomorrow. Subjective/Events-last exam Pt reports persistent dyspnea with exertion. Is unable to get from the bed to bathroom without significant dyspnea. Focused Exam Lactate Level Time of Focused Exam: 09:10 Objective Exam Vital Signs Vital Signs Date Time Temp Pulse Resp B/P (MAP) Pulse Ox O2 Delivery O2 Flow Rate FiO2 06/30/22 11:41 36.3 93 20 20/93 97 Nasal Cannula 4.00 06/30/22 11:15 4 Capillary Refill : Less Than 3 Seconds General Appearance: No Apparent Distress, Chronically ill, Thin Respiratory: No Accessory Muscle Use, Decreased Breath Sounds, Wheezing Cardiovascular: Regular Rate, Rhythm, No Murmur Neurologic/Psychiatric: Alert, Oriented x3 Results/Procedures Lab Laboratory Tests 06/30/22 05:25 Patient resulted labs reviewed. Imaging: Reviewed Imaging Report Assessment/Plan Assessment and Plan Assess & Plan/Chief Complaint Hypotension- resolved BP improved IRF eval placed PT/OT COPD Chronic respiraotry failure Continue prednisone MAT protocol Continue home inhalers may use home meds On baseline 4.5LPM UTI e coli on urine culture Critical Care Critically Ill Patient Diagnosis/Problems Diagnosis/Problems (1) Hypotension Status: Acute Qualifiers: Hypotension type: idiopathic hypotension Qualified Codes: I95.0 - Idiopathic hypotension (2) COPD (chronic obstructive pulmonary disease) Status: Acute Qualifiers: COPD type: emphysema Emphysema type: unspecified Qualified Codes: J43.9 - Emphysema, unspecified (3) Hyperlipidemia Status: Chronic Qualifiers: Hyperlipidemia type: mixed hyperlipidemia Qualified Codes: E78.2 - Mixed hyperlipidemia (4) Frailty Status: Chronic LEIF OLSON MD Jun 29, 2022 12:26
[2022-06-29] MEDS: CEPHALEXIN 250 MG (KEFLEX) CAP PO SCH ×2 (12:29→20:05)
[2022-06-29] MEDS ORDERED: LOPERAMIDE 2 MG (IMODIUM) TABLET PO PRN (12:30)
[2022-06-29] MEDS: ALPRAZolam 0.25 MG (XANAX) TAB PO PRN ×2 (13:36→16:48)
[2022-06-29] MEDS: MIRTAZAPINE 15 MG (REMERON) TAB PO SCH (20:05)
[2022-06-29] MEDS: MONTELUKAST 10 MG (SINGULAIR) TAB PO SCH (20:05)
[2022-06-30] MEDS: inSUlin ASPART (NovoLOG) 1 UNIT/0.01 ML (CHARGE PER UNIT) SC SCH ×4 (05:32→20:42)
[2022-06-30] MEDS: predniSONE 20 MG TAB PO SCH (06:04)
[2022-06-30] MEDS: NYSTATIN ORAL SUSP 5 ML UDC PO SCH ×3 (06:04→17:43)
[2022-06-30 06:18] LABS: HEMATOCRIT 30 % (35-52); HEMOGLOBIN 9.6 g/dL (11.5-16.0); MEAN CORPUSCULAR HEMOGLOBIN 30 pg (25-34); MEAN CORPUSCULAR HGB CONC 32 g/dL (32-36); MEAN CORPUSCULAR VOLUME 95 fL (80-99); MEAN PLATELET VOLUME 10.1 fL (9.0-12.2); PLATELET COUNT 398 10^3/uL (130-400); WHITE BLOOD COUNT 12.8 10^3/uL (4.3-11.0)
[2022-06-30 06:29] LABS: CALCIUM 8.5 MG/DL (8.5-10.1); CREATININE SERUM 0.86 MG/DL (0.60-1.30); POTASSIUM 4.1 MMOL/L (3.6-5.0)
[2022-06-30] MEDS: POTASSIUM CL 10MEQ/50ML IVPB 50 ML IV SCH (06:36)
[2022-06-30] MEDS: KCL 20 MEQ TAB (K-DUR) PO SCH (06:37)
[2022-06-30] MEDS: MAGNESIUM 1 GM/100 ML IVPB 100 ML IV SCH (06:37)
[2022-06-30] MEDS: CEPHALEXIN 250 MG (KEFLEX) CAP PO SCH ×2 (08:21→20:00)
[2022-06-30] MEDS: ALPRAZolam 0.25 MG (XANAX) TAB PO PRN (08:21)
[2022-06-30] MEDS: UMECLIDINIUM BROMIDE (INCRUSE ELLIPTA) 7'S IH SCH (08:21)
[2022-06-30] MEDS: RT--FLUTICASONE/SALMETEROL 232-14 (AIRDUO RespiCLICK) IH SCH ×2 (08:22→19:39)
--- NOTE | 2022-06-30 10:32 | Physical Therapy Progress Note ---
Therapy Progress Note Pt in bed, eating breakfast. Pt reports "I'm so tired right now I can hardly stay awake to eat". Pt declined to participate but agreeable to ambulate with nursing later this date. TAWNY CLAUDIO DPCarli Jun 30, 2022 10:32
[2022-06-30 11:15] VITALS: BP 96/60
[2022-06-30] MEDS: RT-ALBUTEROL/IPRATROPIUM 3 ML (DUONEB) VIAL INH PRN (11:15)
[2022-06-30] MEDS: LORazepam 0.5 MG (ATIVAN) TABLET PO PRN ×2 (11:30→20:00)
--- NOTE | 2022-06-30 11:55 | Progress Note - Hospitalist ---
Subjective HPI/CC On Admission Date Seen by Provider: Jun 30, 2022 Patient is an 82-year-old female with a past medical history of COPD on chronic oxygen and daily steroids who presented to the emergency department due to shortness of breath and dizziness. She states she was feeling well until the middle of the night when she woke up and felt quite short of breath. She took her rescue inhaler without any relief so then used her nebulizer. She continued to feel short of breath and dizzy so called her son who summoned EMS. He was given Solu-Medrol in the emergency department and a breathing treatment and her breathing improved significantly. She was noted incidentally to be quite hypotensive with systolic blood pressures as low as the 50s. She was given a 1 and half liter bolus and blood pressure improved though with standing her blood pressure did drop again and she was quite dizzy. She was admitted to the ICU for further management of hypotension. She reports feeling much better today and is hopeful to be discharged home tomorrow. Subjective/Events-last exam Pt reports up and moving a little better but still not back to normal. She thinks her anxiety is not helping and will like to adjust her anxiety medicine. Focused Exam Time of Focused Exam: 09:10 Objective Exam Vital Signs Vital Signs Date Time Temp Pulse Resp B/P (MAP) Pulse Ox O2 Delivery O2 Flow Rate FiO2 06/30/22 11:41 36.3 93 20 20/93 97 Nasal Cannula 4.00 06/30/22 11:15 4 Capillary Refill : Less Than 3 Seconds General Appearance: No Apparent Distress, Chronically ill, Cachetic Respiratory: No Respiratory Distress, Decreased Breath Sounds; No Wheezing Cardiovascular: Regular Rate, Rhythm, No Murmur Neurologic/Psychiatric: Alert, Oriented x3 Results/Procedures Lab Laboratory Tests 06/30/22 05:25 Patient resulted labs reviewed. Imaging: Reviewed Imaging Report Assessment/Plan Assessment and Plan Assess & Plan/Chief Complaint COPD Chronic respiratory failure Continue prednisone added singulair MAT protocol- will add Xopenex Continue home inhalers may use home meds On baseline 4.5LPM Having difficulty ambulating even to the bathroom Will likely need DEVAN or SNF placement upon discharge Hypotension- resolved BP stable IRF eval - denied PT/OT UTI e coli on urine culture COntinue Keflex per sensitivities Anxiety Reports Xanax is not lasting long enough Will switch to Ativan Could consider morphine if anxiety triggered by air hunger Would benefit from considering palliative care at that point Critical Care Critically Ill Patient Diagnosis/Problems Diagnosis/Problems (1) Hypotension Status: Acute Qualifiers: Hypotension type: idiopathic hypotension Qualified Codes: I95.0 - Idiopathic hypotension (2) COPD (chronic obstructive pulmonary disease) Status: Acute Qualifiers: COPD type: emphysema Emphysema type: unspecified Qualified Codes: J43.9 - Emphysema, unspecified (3) Hyperlipidemia Status: Chronic Qualifiers: Hyperlipidemia type: mixed hyperlipidemia Qualified Codes: E78.2 - Mixed hyperlipidemia (4) Frailty Status: Chronic LEIF OLSON MD Jun 30, 2022 11:55
[2022-06-30] MEDS ORDERED: RT-ALBUTEROL/IPRATROPIUM 3 ML (DUONEB) VIAL INH SCH (14:00)
[2022-06-30] MEDS ORDERED: RT-LEVALBUTEROL (XOPENEX) 1.25 MG/3 ML NEB NON-FORMULARY INH SCH (15:00)
[2022-06-30] MEDS ORDERED: RT-ALBUTEROL SULF 2.5 MG/3 ML PRE-MIX VIAL INH SCH (15:00)
[2022-06-30] MEDS: RT-LEVALBUTEROL (XOPENEX) 1.25 MG/3 ML NEB NON-FORMULARY INH SCH ×2 (15:52→19:38)
[2022-06-30] MEDS: MONTELUKAST 10 MG (SINGULAIR) TAB PO SCH (20:00)
[2022-06-30] MEDS: MIRTAZAPINE 15 MG (REMERON) TAB PO SCH (20:00)
[2022-07-01] MEDS: NYSTATIN ORAL SUSP 5 ML UDC PO SCH ×5 (00:54→23:03)
[2022-07-01] MEDS: RT-LEVALBUTEROL (XOPENEX) 1.25 MG/3 ML NEB NON-FORMULARY INH SCH ×4 (03:33→21:00)
[2022-07-01] MEDS: inSUlin ASPART (NovoLOG) 1 UNIT/0.01 ML (CHARGE PER UNIT) SC SCH ×4 (05:24→21:00)
[2022-07-01] MEDS: RT-ALBUTEROL/IPRATROPIUM 3 ML (DUONEB) VIAL INH PRN (05:28)
[2022-07-01] MEDS: predniSONE 20 MG TAB PO SCH (05:29)
[2022-07-01 06:44] LABS: CALCIUM 8.6 MG/DL (8.5-10.1); CREATININE SERUM 0.83 MG/DL (0.60-1.30); MAGNESIUM 1.8 MG/DL (1.6-2.4); POTASSIUM 3.9 MMOL/L (3.6-5.0)
[2022-07-01] MEDS: MAGNESIUM 1 GM/100 ML IVPB 100 ML IV SCH (06:47)
[2022-07-01] MEDS: POTASSIUM CL 10MEQ/50ML IVPB 50 ML IV SCH (06:47)
[2022-07-01] MEDS: KCL 20 MEQ TAB (K-DUR) PO SCH (06:47)
[2022-07-01] MEDS: CEPHALEXIN 250 MG (KEFLEX) CAP PO SCH ×2 (07:57→20:26)
[2022-07-01] MEDS: LORazepam 0.5 MG (ATIVAN) TABLET PO PRN ×3 (07:57→15:19)
[2022-07-01 08:08] LABS: BASOPHILS % (AUTO) 0 % (0-10); EOSINOPHILS # (AUTO) 0.1 10^3/uL (0.0-0.3); EOSINOPHILS % (AUTO) 1 % (0-10); HEMATOCRIT 27 % (35-52); HEMOGLOBIN 8.5 g/dL (11.5-16.0); LYMPHOCYTES # (AUTO) 1.1 10^3/uL (1.0-4.0); LYMPHOCYTES % (AUTO) 8 % (12-44); MEAN CORPUSCULAR HEMOGLOBIN 30 pg (25-34); MEAN CORPUSCULAR HGB CONC 32 g/dL (32-36); MEAN CORPUSCULAR VOLUME 95 fL (80-99); MONOCYTES # (AUTO) 0.8 10^3/uL (0.0-1.0); MONOCYTES % (AUTO) 6 % (0-12); NEUTROPHILS # (AUTO) 11.4 10^3/uL (1.8-7.8); NEUTROPHILS % (AUTO) 84 % (42-75); PLATELET COUNT 453 10^3/uL (130-400); WHITE BLOOD COUNT 13.5 10^3/uL (4.3-11.0)
[2022-07-01 08:20] LABS: POTASSIUM 3.7 MMOL/L (3.6-5.0)
[2022-07-01 08:21] LABS: CALCIUM 8.4 MG/DL (8.5-10.1)
[2022-07-01 08:23] LABS: TOTAL PROTEIN 5.6 GM/DL (6.4-8.2)
[2022-07-01 08:24] LABS: BILIRUBIN,TOTAL 0.3 MG/DL (0.1-1.0)
[2022-07-01 08:26] LABS: CREATININE SERUM 0.88 MG/DL (0.60-1.30)
[2022-07-01] MEDS: RT--FLUTICASONE/SALMETEROL 232-14 (AIRDUO RespiCLICK) IH SCH ×2 (09:37→21:00)
[2022-07-01] MEDS: UMECLIDINIUM BROMIDE (INCRUSE ELLIPTA) 7'S IH SCH (09:37)
[2022-07-01] MEDS: morphine INJ 4 MG/ML 1 ML (VIAL/SYRINGE) IVP PRN ×4 (10:18→17:14)
--- NOTE | 2022-07-01 11:18 | Progress Note - Hospitalist ---
Subjective HPI/CC On Admission Date Seen by Provider: Jul 01, 2022 Patient is an 82-year-old female with a past medical history of COPD on chronic oxygen and daily steroids who presented to the emergency department due to shortness of breath and dizziness. She states she was feeling well until the middle of the night when she woke up and felt quite short of breath. She took her rescue inhaler without any relief so then used her nebulizer. She continued to feel short of breath and dizzy so called her son who summoned EMS. He was given Solu-Medrol in the emergency department and a breathing treatment and her breathing improved significantly. She was noted incidentally to be quite hypotensive with systolic blood pressures as low as the 50s. She was given a 1 and half liter bolus and blood pressure improved though with standing her blood pressure did drop again and she was quite dizzy. She was admitted to the ICU for further management of hypotension. She reports feeling much better today and is hopeful to be discharged home tomorrow. Subjective/Events-last exam Called to bedside by RT due to increased wheezing following breathing treatment. Patient reports this is what happens at home as well. Offered morphine and discussed likelihood that she may be reaching end stages of COPD. Agreeable to morphine use to help with air hunger. Focused Exam Time of Focused Exam: 09:10 Objective Exam Vital Signs Vital Signs Date Time Temp Pulse Resp B/P (MAP) Pulse Ox O2 Delivery O2 Flow Rate FiO2 07/01/22 09:35 98 Nasal Cannula 5.00 07/01/22 08:00 140/63 07/01/22 08:00 36.4 95 19 06/30/22 11:15 4 Capillary Refill : Less Than 3 Seconds General Appearance: Anxious, Chronically ill, Cachetic, Mild Distress (appears short of breath) Respiratory: Wheezing (with decreased air movement) Cardiovascular: Regular Rate, Rhythm, No Murmur Gastrointestinal: Normal Bowel Sounds, Soft Neurologic/Psychiatric: Alert, Oriented x3 Results/Procedures Lab Laboratory Tests 07/01/22 05:40 07/01/22 07:57 Patient resulted labs reviewed. Imaging: Reviewed Imaging Report Assessment/Plan Assessment and Plan Assess & Plan/Chief Complaint COPD Chronic respiratory failure Change prednisone to IV steroids Continue singulair MAT protocol- with Xopenex Continue home inhalers may use home meds On 5lpm Having difficulty ambulating even to the bathroom Will likely need [facility]DC or SNF placement upon discharge Morphine added for air hunger Consider hospice upon discharge Hypotension- resolved BP stable IRF eval - denied PT/OT UTI e coli on urine culture Continue Keflex per sensitivities Anxiety Continue Ativan Moprhine for air hunger as able DVT ppx: Lovenox Critical Care Critically Ill Patient Diagnosis/Problems Diagnosis/Problems (1) Hypotension Status: Acute Qualifiers: Hypotension type: idiopathic hypotension Qualified Codes: I95.0 - Idiopathic hypotension (2) COPD (chronic obstructive pulmonary disease) Status: Acute Qualifiers: COPD type: emphysema Emphysema type: unspecified Qualified Codes: J43.9 - Emphysema, unspecified (3) Hyperlipidemia Status: Chronic Qualifiers: Hyperlipidemia type: mixed hyperlipidemia Qualified Codes: E78.2 - Mixed hyperlipidemia (4) Frailty Status: Chronic LEIF OLSON MD Jul 01, 2022 11:18
[2022-07-01] MEDS ORDERED: ENOXAPARIN 40 MG/0.4 ML (LOVENOX) SYR SQ SCH (11:30)
[2022-07-01] MEDS: methylPREDNISolone 40 MG/ML (Solu-MEDROL) VIAL IV SCH ×3 (11:30→23:03)
[2022-07-01] MEDS: ENOXAPARIN INJECTION 30 MG/0.3 ML SYR SC SCH (11:33)
[2022-07-01] MEDS: MONTELUKAST 10 MG (SINGULAIR) TAB PO SCH (20:26)
[2022-07-01] MEDS: MIRTAZAPINE 15 MG (REMERON) TAB PO SCH (20:26)
[2022-07-02] MEDS: RT-LEVALBUTEROL (XOPENEX) 1.25 MG/3 ML NEB NON-FORMULARY INH SCH ×4 (02:58→21:49)
[2022-07-02] MEDS: NYSTATIN ORAL SUSP 5 ML UDC PO SCH ×3 (04:50→17:28)
[2022-07-02] MEDS: methylPREDNISolone 40 MG/ML (Solu-MEDROL) VIAL IV SCH ×3 (04:50→12:16)
[2022-07-02] MEDS: inSUlin ASPART (NovoLOG) 1 UNIT/0.01 ML (CHARGE PER UNIT) SC SCH ×4 (05:13→20:57)
[2022-07-02] MEDS: POTASSIUM CL 10MEQ/50ML IVPB 50 ML IV SCH (06:47)
[2022-07-02] MEDS: MAGNESIUM 1 GM/100 ML IVPB 100 ML IV SCH (06:47)
[2022-07-02 06:48] LABS: BASOPHILS % (AUTO) 0 % (0-10); EOSINOPHILS % (AUTO) 0 % (0-10); HEMATOCRIT 31 % (35-52); HEMOGLOBIN 9.6 g/dL (11.5-16.0); LYMPHOCYTES # (AUTO) 0.4 10^3/uL (1.0-4.0); LYMPHOCYTES % (AUTO) 5 % (12-44); MEAN CORPUSCULAR HEMOGLOBIN 30 pg (25-34); MEAN CORPUSCULAR HGB CONC 32 g/dL (32-36); MEAN CORPUSCULAR VOLUME 95 fL (80-99); MEAN PLATELET VOLUME 9.1 fL (9.0-12.2); MONOCYTES # (AUTO) 0.3 10^3/uL (0.0-1.0); MONOCYTES % (AUTO) 4 % (0-12); NEUTROPHILS # (AUTO) 6.5 10^3/uL (1.8-7.8); NEUTROPHILS % (AUTO) 90 % (42-75); PLATELET COUNT 478 10^3/uL (130-400); WHITE BLOOD COUNT 7.2 10^3/uL (4.3-11.0)
[2022-07-02 06:59] LABS: ALBUMIN 3.3 GM/DL (3.2-4.5); POTASSIUM 4.5 MMOL/L (3.6-5.0)
[2022-07-02 07:00] LABS: CALCIUM 9.1 MG/DL (8.5-10.1)
[2022-07-02 07:01] LABS: TOTAL PROTEIN 6.1 GM/DL (6.4-8.2)
[2022-07-02 07:03] LABS: BILIRUBIN,TOTAL 0.3 MG/DL (0.1-1.0)
[2022-07-02 07:05] LABS: CREATININE SERUM 0.93 MG/DL (0.60-1.30)
[2022-07-02] MEDS: KCL 20 MEQ TAB (K-DUR) PO SCH (07:22)
[2022-07-02 07:29] LABS: BAND NEUTROPHILS 1 %; LYMPHOCYTES % (MANUAL) 4 %; MONOCYTES % (MANUAL) 1 %; NEUTROPHILS % (MANUAL) 94 %; RBC MORPH NORMAL
[2022-07-02] MEDS: UMECLIDINIUM BROMIDE (INCRUSE ELLIPTA) 7'S IH SCH (08:20)
[2022-07-02] MEDS: RT--FLUTICASONE/SALMETEROL 232-14 (AIRDUO RespiCLICK) IH SCH ×2 (08:20→21:49)
[2022-07-02] MEDS: LORazepam 0.5 MG (ATIVAN) TABLET PO PRN ×3 (08:32→20:57)
[2022-07-02] MEDS: CEPHALEXIN 250 MG (KEFLEX) CAP PO SCH ×2 (08:32→20:57)
--- NOTE | 2022-07-02 10:22 | Physical Therapy Daily Note ---
PT Daily Note-Current Subjective Patient agrees to PT. She states,"I liked the medicine they gave me. It helped my breathing." RN notified. Mental Status Patient Orientation: Normal For Age Attachments: Oxygen Transfers SCALE: Activities may be completed with or without assistive devices. 5-Juxlhlnaej-vbxjvlt completes the activity by him/herself with no assistance from a helper. 5-Set-up or Clean-up Assistance-helper sets up or cleans up; patient completes activity. [place] assists only prior to or following the activity. 4-Supervision or Touching Assistance-helper provides verbal cues and/or touching/steadying and/or contact guard assistance as patient completes activity. Assistance may be provided throughout the activity or intermittently. 3-Partial/Moderate Assistance-helper does LESS THAN HALF the effort. [place] lifts, holds or supports trunk or limbs, but provides less than half the effort. 2-Substantial/Maximal Assistance-helper does MORE THAN HALF the effort. [place] lifts or holds trunk or limbs and provides more than half the effort. 3-Uuhkrjqnr-bjiffl does ALL the effort. Patient does none of the effort to complete the activity. Or, the assistance of 2 or more helpers is required for the patient to complete the activity. If activity was not attempted, code reason: 7-Patient Refused. 9-Not Applicable-not attempted and the patient did not perform the activity be fore the current illness, exacerbation or injury. 10-Not Attempted due to Environmental Limitations-(lack of equipment, weather restraints, etc.). 88-Not Attempted due to Medical Conditions or Safety Concerns. Lying to Sitting/Side of Bed(Q: 6 Sit to Stand (QC): 4 Chair/Yle-ef-Vfyfq Xfer(QC): 4 Gait Training Distance: 5' Gait Assistive Device: None CGA for safety Assessment Noted increase SOA with minimal activity. Patient did recover after 3 minutes. Increase activity as tolerated by patient. PT Regulatory Compliance Officer Goals Regulatory Compliance Officer Goals PT Regulatory Compliance Officer Goals Time Frame: Jul 07, 2022 Roll Left & Right (QC): 6 Sit to Lying (QC): 6 Lying-Sitting on Side/Bed(QC): 6 Sit to Stand (QC): 6 Chair/Zqb-tp-Vaxjq Xfer(QC): 6 Toilet Transfer (QC): 6 Walk 10 feet (QC): 6 Walk 50ft with 2 Turns (QC): 6 PT Plan Treatment/Plan Treatment Plan: Continue Plan of Care Treatment Plan: Education, Functional Activity Karen, Functional Strength, Gait, Safety, Therapeutic Exercise, Transfers Treatment Duration: Jul 07, 2022 Frequency: 6 times per week Estimated Hrs Per Day: .25 hour per day Patient and/or Family Agrees t: Yes Time/GCodes Time In: 920 Time Out: 930 Total Billed Treatment Time: 10 Total Billed Treatment 1 visit FA 10 min KRISTI BERNAL PT Jul 02, 2022 10:22
[2022-07-02] MEDS: ENOXAPARIN INJECTION 30 MG/0.3 ML SYR SC SCH (11:43)
[2022-07-02] MEDS: morphine INJ 4 MG/ML 1 ML (VIAL/SYRINGE) IVP PRN (11:43)
[2022-07-02] MEDS ORDERED: predniSONE 20 MG TAB PO NR (12:45)
[2022-07-02] MEDS: morphine (ROXINOL) 10 MG/0.5 ML oral conc 0.5 ML PO PRN ×3 (12:55→20:58)
--- NOTE | 2022-07-02 13:39 | Occ Therapy Progress Note ---
Therapy Progress Note Pt declines therapy stating that she was struggling to breath and just had received morphine. This has not taken affect at the time ALFORD entered room. Will attempt therapy tomorrow. 1-refusal JESENIA JOSHI Jul 02, 2022 13:39
--- NOTE | 2022-07-02 16:21 | Progress Note - Hospitalist ---
Subjective HPI/CC On Admission Date Seen by Provider: Jul 02, 2022 Time Seen by Provider: 10:45 Patient is an 82-year-old female with a past medical history of COPD on chronic oxygen and daily steroids who presented to the emergency department due to shortness of breath and dizziness. She states she was feeling well until the middle of the night when she woke up and felt quite short of breath. She took her rescue inhaler without any relief so then used her nebulizer. She continued to feel short of breath and dizzy so called her son who summoned EMS. He was given Solu-Medrol in the emergency department and a breathing treatment and her breathing improved significantly. She was noted incidentally to be quite hypotensive with systolic blood pressures as low as the 50s. She was given a 1 and half liter bolus and blood pressure improved though with standing her blood pressure did drop again and she was quite dizzy. She was admitted to the ICU for further management of hypotension. She reports feeling much better today and is hopeful to be discharged home tomorrow. Subjective/Events-last exam She is still short of breath. She has a dry cough. She denies fevers. She denies pain. She does not have a good appetite. Focused Exam Time of Focused Exam: 09:10 Objective Exam Vital Signs Vital Signs Date Time Temp Pulse Resp B/P (MAP) Pulse Ox O2 Delivery O2 Flow Rate FiO2 07/02/22 12:51 99 07/02/22 12:21 36.6 19 111/74 100 Nasal Cannula 5.00 06/30/22 11:15 4 Capillary Refill : Less Than 3 Seconds General Appearance: Anxious, Chronically ill, Mild Distress (tachypnea) Respiratory: Decreased Breath Sounds, Respiratory Distress (tachypnea), Wheezing Cardiovascular: Regular Rate, Rhythm, No Murmur Gastrointestinal: Normal Bowel Sounds, Soft Extremity: Normal Inspection, No Pedal Edema Neurologic/Psychiatric: Alert, No Motor/Sensory Deficits Skin: Normal Color, Warm/Dry Results/Procedures Lab Laboratory Tests 07/02/22 06:39 Patient resulted labs reviewed. Imaging: Reviewed Imaging Report Assessment/Plan Assessment and Plan Assess & Plan/Chief Complaint End stage COPD with exacerbation Chronic respiratory failure with hypoxia Goals of care discussion Poor prognosis Anxiety Transtition to Prednisone MAT protocol- with Xopenex Continue home inhalers On baseline 5 lpm Morphine for air [facility] care consulted Planning for discharge on hospice UTI e coli on urine culture Continue Keflex per sensitivities DVT ppx: Lovenox Critical Care Critically Ill Patient Diagnosis/Problems Diagnosis/Problems (1) End stage COPD Status: Acute (2) Chronic respiratory failure with hypoxia Status: Acute (3) Goals of care, counseling/discussion Status: Acute (4) Anxiety Status: Acute (5) UTI (urinary tract infection) Status: Acute (6) COPD exacerbation Status: Acute DARIUS PICKETT MD Jul 02, 2022 16:21
[2022-07-02] MEDS: MIRTAZAPINE 15 MG (REMERON) TAB PO SCH (20:57)
[2022-07-02] MEDS: MONTELUKAST 10 MG (SINGULAIR) TAB PO SCH (20:57)
[2022-07-02] MEDS: MELATONIN 3 MG TABLET PO PRN (20:57)
[2022-07-03] MEDS: NYSTATIN ORAL SUSP 5 ML UDC PO SCH ×4 (01:20→17:00)
[2022-07-03] MEDS: inSUlin ASPART (NovoLOG) 1 UNIT/0.01 ML (CHARGE PER UNIT) SC SCH ×4 (05:39→20:34)
[2022-07-03 05:58] LABS: BASOPHILS % (AUTO) 0 % (0-10); EOSINOPHILS % (AUTO) 0 % (0-10); HEMATOCRIT 28 % (35-52); LYMPHOCYTES # (AUTO) 1.2 10^3/uL (1.0-4.0); LYMPHOCYTES % (AUTO) 13 % (12-44); MEAN CORPUSCULAR HEMOGLOBIN 31 pg (25-34); MEAN CORPUSCULAR HGB CONC 32 g/dL (32-36); MEAN CORPUSCULAR VOLUME 95 fL (80-99); MEAN PLATELET VOLUME 9.1 fL (9.0-12.2); MONOCYTES # (AUTO) 0.9 10^3/uL (0.0-1.0); MONOCYTES % (AUTO) 10 % (0-12); NEUTROPHILS # (AUTO) 7.2 10^3/uL (1.8-7.8); NEUTROPHILS % (AUTO) 76 % (42-75); PLATELET COUNT 450 10^3/uL (130-400); WHITE BLOOD COUNT 9.5 10^3/uL (4.3-11.0)
[2022-07-03] MEDS: KCL 20 MEQ TAB (K-DUR) PO SCH (06:00)
[2022-07-03] MEDS: MAGNESIUM 1 GM/100 ML IVPB 100 ML IV SCH (06:00)
[2022-07-03] MEDS: POTASSIUM CL 10MEQ/50ML IVPB 50 ML IV SCH (06:00)
[2022-07-03 06:04] LABS: ALBUMIN 3.2 GM/DL (3.2-4.5); POTASSIUM 3.8 MMOL/L (3.6-5.0)
[2022-07-03 06:05] LABS: CALCIUM 9.2 MG/DL (8.5-10.1)
[2022-07-03 06:07] LABS: TOTAL PROTEIN 5.8 GM/DL (6.4-8.2)
[2022-07-03 06:08] LABS: BILIRUBIN,TOTAL 0.3 MG/DL (0.1-1.0)
[2022-07-03 06:10] LABS: CREATININE SERUM 0.98 MG/DL (0.60-1.30)
[2022-07-03] MEDS: predniSONE 20 MG TAB PO SCH (06:14)
[2022-07-03 06:22] LABS: MAGNESIUM 1.8 MG/DL (1.6-2.4)
[2022-07-03] MEDS: CEPHALEXIN 250 MG (KEFLEX) CAP PO SCH ×2 (08:49→21:03)
[2022-07-03] MEDS: LORazepam 0.5 MG (ATIVAN) TABLET PO PRN ×3 (08:49→21:04)
[2022-07-03] MEDS: morphine (ROXINOL) 10 MG/0.5 ML oral conc 0.5 ML PO PRN ×3 (08:50→21:04)
--- NOTE | 2022-07-03 09:12 | Physical Therapy Daily Note ---
PT Daily Note-Current Subjective Patient agrees to PT. She reports she had morphine and ativan 5-10 minutes prior to PT. Mental Status Patient Orientation: Normal For Age Attachments: Oxygen Transfers SCALE: Activities may be completed with or without assistive devices. 5-Tpbdfcumga-hndhqse completes the activity by him/herself with no assistance from a helper. 5-Set-up or Clean-up Assistance-helper sets up or cleans up; patient completes activity. [place] assists only prior to or following the activity. 4-Supervision or Touching Assistance-helper provides verbal cues and/or touching/steadying and/or contact guard assistance as patient completes activity. Assistance may be provided throughout the activity or intermittently. 3-Partial/Moderate Assistance-helper does LESS THAN HALF the effort. [place] lifts, holds or supports trunk or limbs, but provides less than half the effort. 2-Substantial/Maximal Assistance-helper does MORE THAN HALF the effort. [place] lifts or holds trunk or limbs and provides more than half the effort. 1-Ijapubkzp-iwhbfd does ALL the effort. Patient does none of the effort to complete the activity. Or, the assistance of 2 or more helpers is required for the patient to complete the activity. If activity was not attempted, code reason: 7-Patient Refused. 9-Not Applicable-not attempted and the patient did not perform the activity before the current illness, exacerbation or injury. 10-Not Attempted due to Environmental Limitations-(lack of equipment, weather restraints, etc.). 88-Not Attempted due to Medical Conditions or Safety Concerns. Lying to Sitting/Side of Bed(Q: 6 Sit to Stand (QC): 4 Chair/Ekj-rt-Gaerc Xfer(QC): 4 Gait Training Distance: 5' Gait Assistive Device: None Exercises Seated Therapy Exercises: Ankle pumps, Long arc quads, Hip flexion Seated Reps: 15 Assessment Increase SOA with minimal activity. Patient up in recliner with needs met. PT Half-Way Goals Hand Drawer In Goals PT Half-Way Goals Time Frame: Jul 07, 2022 Roll Left & Right (QC): 6 Sit to Lying (QC): 6 Lying-Sitting on Side/Bed(QC): 6 Sit to Stand (QC): 6 Chair/Kkz-is-Epeeb Xfer(QC): 6 Toilet Transfer (QC): 6 Walk 10 feet (QC): 6 Walk 50ft with 2 Turns (QC): 6 PT Plan Treatment/Plan Treatment Plan: Continue Plan of Care Treatment Plan: Education, Functional Activity Karen, Functional Strength, Gait, Safety, Therapeutic Exercise, Transfers Treatment Duration: Jul 07, 2022 Frequency: 6 times per week Estimated Hrs Per Day: .25 hour per day Patient and/or Family Agrees t: Yes Time/GCodes Time In: 900 Time Out: 908 Total Billed Treatment Time: 8 Total Billed Treatment 1 visit EX 8 min KRISTI BERNAL PT Jul 03, 2022 09:11
[2022-07-03] MEDS: UMECLIDINIUM BROMIDE (INCRUSE ELLIPTA) 7'S IH SCH (09:49)
[2022-07-03] MEDS: RT-LEVALBUTEROL (XOPENEX) 1.25 MG/3 ML NEB NON-FORMULARY INH SCH ×3 (09:50→19:33)
[2022-07-03] MEDS: RT--FLUTICASONE/SALMETEROL 232-14 (AIRDUO RespiCLICK) IH SCH ×2 (09:50→19:33)
[2022-07-03] MEDS: ENOXAPARIN INJECTION 30 MG/0.3 ML SYR SC SCH (12:31)
--- NOTE | 2022-07-03 14:11 | Occ Therapy Progress Note ---
Therapy Progress Note When ALFORD entered room, pt was on the phone. ALFORD introduced self and pt stated that she did not want to participate in therapy this afternoon then began to talk on phone again. Will attempt to see pt tomorrow. JESENIA JOSHI Jul 03, 2022 14:11
--- NOTE | 2022-07-03 16:10 | Progress Note - Hospitalist ---
Subjective HPI/CC On Admission Date Seen by Provider: Jul 03, 2022 Time Seen by Provider: 10:15 Patient is an 82-year-old female with a past medical history of COPD on chronic oxygen and daily steroids who presented to the emergency department due to shortness of breath and dizziness. She states she was feeling well until the middle of the night when she woke up and felt quite short of breath. She took her rescue inhaler without any relief so then used her nebulizer. She continued to feel short of breath and dizzy so called her son who summoned EMS. He was given Solu-Medrol in the emergency department and a breathing treatment and her breathing improved significantly. She was noted incidentally to be quite hypotensive with systolic blood pressures as low as the 50s. She was given a 1 and half liter bolus and blood pressure improved though with standing her blood pressure did drop again and she was quite dizzy. She was admitted to the ICU for further management of hypotension. She reports feeling much better today and is hopeful to be discharged home tomorrow. Subjective/Events-last exam She is still very short of breath with activity. She is comfortable laying in bed. She denies pain. Focused Exam Time of Focused Exam: 09:10 Objective Exam Vital Signs Vital Signs Date Time Temp Pulse Resp B/P (MAP) Pulse Ox O2 Delivery O2 Flow Rate FiO2 07/03/22 14:54 100 Nasal Cannula 5.00 07/03/22 12:27 100 07/03/22 11:27 36.6 20 102/54 06/30/22 11:15 4 Capillary Refill : Less Than 3 Seconds General Appearance: No Apparent Distress, Chronically ill, Thin Respiratory: No Respiratory Distress, Wheezing Cardiovascular: Regular Rate, Rhythm, No Murmur Gastrointestinal: Normal Bowel Sounds, Non Tender, Soft Extremity: Normal Inspection, No Pedal Edema Neurologic/Psychiatric: Alert, Normal Mood/Affect Results/Procedures Lab Laboratory Tests 07/03/22 05:36 Patient resulted labs reviewed. Imaging: Reviewed Imaging Report Assessment/Plan Assessment and Plan Assess & Plan/Chief Complaint End stage COPD with exacerbation Chronic respiratory failure with hypoxia Goals of care discussion Poor prognosis Anxiety Continue Prednisone MAT protocol Continue home inhalers On baseline 5 lpm Morphine for air hunger Ativan for anxiety Palliative care consulted Planning for discharge on hospice UTI e coli on urine culture Continue Keflex per sensitivities DVT ppx: Lovenox Critical Care Critically Ill Patient Diagnosis/Problems Diagnosis/Problems (1) End stage COPD Status: Acute (2) Chronic respiratory failure with hypoxia Status: Acute (3) Goals of care, counseling/discussion Status: Acute (4) Anxiety Status: Acute (5) UTI (urinary tract infection) Status: Acute (6) COPD exacerbation Status: Acute DARIUS PICKETT MD Jul 03, 2022 16:10
[2022-07-03] MEDS: MIRTAZAPINE 15 MG (REMERON) TAB PO SCH (21:03)
[2022-07-03] MEDS: MONTELUKAST 10 MG (SINGULAIR) TAB PO SCH (21:03)
[2022-07-03] MEDS: MELATONIN 3 MG TABLET PO PRN (21:04)
[2022-07-04] MEDS: NYSTATIN ORAL SUSP 5 ML UDC PO SCH ×4 (03:07→18:26)
[2022-07-04] MEDS: RT-LEVALBUTEROL (XOPENEX) 1.25 MG/3 ML NEB NON-FORMULARY INH SCH ×2 (03:44→07:37)
[2022-07-04] MEDS: inSUlin ASPART (NovoLOG) 1 UNIT/0.01 ML (CHARGE PER UNIT) SC SCH ×3 (05:46→16:00)
[2022-07-04] MEDS: MAGNESIUM 1 GM/100 ML IVPB 100 ML IV SCH (06:00)
[2022-07-04] MEDS: POTASSIUM CL 10MEQ/50ML IVPB 50 ML IV SCH (06:00)
[2022-07-04] MEDS: KCL 20 MEQ TAB (K-DUR) PO SCH (06:00)
[2022-07-04 06:42] LABS: ALBUMIN 3.2 GM/DL (3.2-4.5); POTASSIUM 3.6 MMOL/L (3.6-5.0)
[2022-07-04 06:43] LABS: CALCIUM 9.5 MG/DL (8.5-10.1)
[2022-07-04 06:45] LABS: TOTAL PROTEIN 5.7 GM/DL (6.4-8.2)
[2022-07-04] MEDS ORDERED: KCL 20 MEQ TAB (K-DUR) PO ONE (06:45)
[2022-07-04 06:46] LABS: BILIRUBIN,TOTAL 0.4 MG/DL (0.1-1.0)
[2022-07-04] MEDS: predniSONE 20 MG TAB PO SCH (06:49)
[2022-07-04] MEDS ORDERED: KCL 20 MEQ TAB (K-DUR) PO NR (07:00)
[2022-07-04] MEDS: UMECLIDINIUM BROMIDE (INCRUSE ELLIPTA) 7'S IH SCH (07:31)
[2022-07-04] MEDS: RT--FLUTICASONE/SALMETEROL 232-14 (AIRDUO RespiCLICK) IH SCH (07:31)
[2022-07-04] MEDS: CEPHALEXIN 250 MG (KEFLEX) CAP PO SCH (08:29)
[2022-07-04] MEDS: LORazepam 0.5 MG (ATIVAN) TABLET PO PRN ×3 (08:29→18:26)
[2022-07-04] MEDS: morphine (ROXINOL) 10 MG/0.5 ML oral conc 0.5 ML PO PRN ×3 (08:29→18:26)
[2022-07-04] MEDS ORDERED: PRED10TA22 PO (10:42)
[2022-07-04] MEDS ORDERED: MORP100S7 PO ×2 (10:44→15:38)
[2022-07-04] MEDS ORDERED: LORA2ORA PO ×2 (10:44→15:38)
[2022-07-04] MEDS: ENOXAPARIN INJECTION 30 MG/0.3 ML SYR SC SCH (11:30)
--- NOTE | 2022-07-04 14:06 | Occ Therapy Progress Note ---
Therapy Progress Note Pt lying in bed eating late lunch. Pt stated that she was going to [facility] in [place] today and she declined to participate in therapy. JESENIA JOSHI Jul 04, 2022 14:06
--- NOTE | 2022-07-04 14:11 | Physical Therapy Progress Note ---
Therapy Progress Note Pt laying Supine in bed upon arrival. CROWN BUFFER encourages participation in PT but pt refuses stating "I'm too tired and will be leaving for SNF ([facility] in [place]) later today". PT will check on pt tomorrow is still in hospital. 1, refused BOBIB QURESHI CROWN BUFFER Jul 04, 2022 14:11
--- NOTE | 2022-07-04 18:52 | Discharge Summary ---
Discharge Summary Hospital Course Was the Problem List Reviewed?: Yes Problems/Dx: (1) End stage COPD Status: Acute (2) Chronic respiratory failure with hypoxia Status: Acute (3) Goals of care, counseling/discussion Status: Acute (4) Anxiety Status: Acute (5) UTI (urinary tract infection) Status: Acute (6) COPD exacerbation Status: Acute Hospital Course Date of Admission: Jun 29, 2022 at 11:31 Admission Diagnosis : Acute on chronic respiratory failure with hypoxia due to COPD exacerbation Family Physician/Provider: Brittni Kirk MD Date of Discharge: 07/04/22 Discharge Diagnosis: Acute on chronic respiratory failure with hypoxia due to COPD exacerbation, poor prognosis, end stage COPD Hospital Course: Dior Palafox is an 82 year old female with PMH COPD who was admitted with acute on chronic respiratory failure with hypoxia due to COPD exacerbation. She was treated with steroids and breathing treatements. Her shortness of breath persisted, especially with activity. She was requiring 5 L supplemental oxygen continuously. Palliative care was consulted and she decided to go to [facility] due to end stage COPD. She was discharged to the facility in fair condition. Labs and Pending Lab Test: Laboratory Tests 07/03/22 20:26: Glucometer 118H 07/04/22 05:31: Glucometer 83 07/04/22 05:32: Sodium Level 137, Potassium Level 3.6, Chloride Level 94L, Carbon Dioxide Level 32, Anion Gap 11, Blood Urea Nitrogen 16, Creatinine 1.00, Estimat Glomerular Filtration Rate 57, BUN/Creatinine Ratio 16, Glucose Level 81, Calcium Level 9.5, Corrected Calcium 10.1, Magnesium Level 2.0, Total Bilirubin 0.4, Aspartate Amino Transf (AST/SGOT) 16, Alanine Aminotransferase (ALT/SGPT) 23, Alkaline Phosphatase 52, Total Protein 5.7L, Albumin 3.2 07/04/22 10:52: Glucometer 157H 07/04/22 15:26: Glucometer 136H Microbiology 06/27/22 Urine Culture - Final, Complete Escherichia coli 06/27/22 Blood Culture - Final, Complete Staph, Coag Neg ([employer]) Home Meds Active Lorazepam Intensol (Lorazepam) 2 Mg/Ml Oral.conc 2 Mg PO Q2H PRN 7 Days Morphine Conc. 20mg/ml (Morphine Sulfate) 100 Mg/5 Ml (20 Mg/Ml) Solution 10 Mg PO Q2H PRN 7 Days Prednisone 10 Mg Tab.ds.pk 10 Mg PO DAILY Take 6 tabs(60mg)daily,decrease by 1 tab(10mg)every other day. Reported Multivitamin Gummies (Multivit-Minerals/Folic Acid) 200 Mcg Tab.chew 200 Mcg PO HS Calcium (Calcium Carbonate) 500 Mg Calcium (1250 Mg) Tab.chew 500 Mg PO HS Fluticasone-Salmeterol 250-50 (Fluticasone Propion/Salmeterol) 250 Mcg-50 Mcg/Dose Blst.w.dev 1 Puff INH BID Alprazolam 1 Mg Tablet 0.5-1 Mg PO Q4H PRN MDD 3MG Lisinopril 10 Mg Tablet 10 Mg PO DAILY Mirtazapine 30 Mg Tablet 30 Mg PO HS Iprat-Albut 0.5-3(2.5) mg/3 ml (Ipratropium/Albuterol Sulfate) 0.5 Mg-3 Mg (2.5 Mg Base)/3 Ml Ampul.neb 3 Ml NEB Q6H Prednisone 10 Mg Tab 10 Mg PO DAILY Alendronate Sodium 70 Mg Tablet 70 Mg PO SAT Ventolin Hfa (Albuterol Sulfate) 1 Puff Puff 2 Puff INH Q4H PRN Pravastatin Sodium 40 Mg Tablet 40 Mg PO DAILY Assessment/Pt Instructions Discharged to [facility] Discharge Planning: >30 minutes discharge planning Discharge Instructions Discharge Diet: No Restrictions Activity as Tolerated: Yes Discharge Physical Examination Vital Signs Vital Signs Date Time Temp Pulse Resp B/P (MAP) Pulse Ox O2 Delivery O2 Flow Rate FiO2 07/04/22 16:25 36.4 86 18 104/58 99 Nasal Cannula 5.00 06/30/22 11:15 4 General Appearance: No Apparent Distress, Anxious, Chronically ill, Cachetic Respiratory: No Respiratory Distress, Wheezing Cardiovascular: Regular Rate, Rhythm, No Murmur Gastrointestinal: Normal Bowel Sounds, Soft Extremity: Normal Inspection, No Pedal Edema Neurologic/Psychiatric: Alert, Motor Weakness Allergies: Coded Allergies: No Known Drug Allergies (Unverified , 12/27/18) Copy Copies To 1: BRITTNI KIRK MD Discharge Summary Date of Admission Jun 29, 2022 at 11:31 Date of Discharge Discharge Date: Jun 28, 2022 Discharge Time: 18:50 Admission Diagnosis Hypotension Comfort Measures/ End of Life Care: Hospice Care (Home) Advance Care discuss with: patient, family member (s) Plan: initiate discussion, clarifying prognosis, identified end-of-life goals, developed treatment plan Time spent on discussion (min): 30 Discharge Diagnosis End stage COPD with exacerbation Chronic respiratory failure with hypoxia COPD cachexia Goals of care discussion Poor prognosis Anxiety UTI (1) End stage COPD Status: Acute (2) Chronic respiratory failure with hypoxia Status: Acute (3) Goals of care, counseling/discussion Status: Acute (4) Anxiety Status: Acute (5) UTI (urinary tract infection) Status: Acute (6) COPD exacerbation Status: Acute DARIUS PICKETT MD Jul 04, 2022 18:51
== END 2022-07-04 18:53 | disposition hospice, home (50) | DRG 189 ==
LOC: EDUNIT# 08:27 → ER FS 08:28 → ICU 11:59 → INTOOBSV 11:59 → 4TH 06-28 19:37 → OBSVTOIN 06-29 11:31
PROVIDERS: ADMIT Family Medicine; ATTEND Internal Medicine
PROC: 5A0935A Assistance with Respiratory Ventilation, Less than 24 Consecutive Hours, High Flow/Velocity Cannula (ICD-10-PCS; principal; 2022-07-02)
DX: J96.21 Acute and chronic respiratory failure with hypoxia (principal); N39.0 Urinary tract infection, site not specified; J43.9 Emphysema, unspecified; I95.2 Hypotension due to drugs; I10 Essential (primary) hypertension; E78.2 Mixed hyperlipidemia; F41.9 Anxiety disorder, unspecified; Z66 Do not resuscitate; B96.20 Unspecified Escherichia coli [E. coli] as the cause of diseases classified elsewhere; Z79.52 Long term (current) use of systemic steroids; Z87.891 Personal history of nicotine dependence; Z87.01 Personal history of pneumonia (recurrent); Z99.81 Dependence on supplemental oxygen; T46.4X5A Adverse effect of angiotensin-converting-enzyme inhibitors, initial encounter
CPT/HCPCS: 36415; 71045; 80048; 80053; 80202; 81000; 82947; 83605; 83735; 83880; 84484; 85007; 85025; 85027; 87040; 87077; 87088; 87186; 93005; 94640; 94760; G0378

== ENCOUNTER → 2022-10-02 | Outpatient (CLI) | payer MEDICARE, OTHER ==
[~2022-10-02] MED LIST changes: +ALPR1TAB7 PO; +CALC-308 PO; +FLUT1BLS12 INH; +IPRA3AMP31 NEB; +LISI10TA25 PO; +LORA2ORA PO; +MIRT-69 PO; +MORP100S7 PO; +MULT200T12 PO; +PRED10TA22 PO
[2022-10-02 18:13] LABS: CLARITY,URINE SL CLOUDY; GLUCOSE, URINE (UA) NEGATIVE (NEGATIVE); KETONES,URINE NEGATIVE (NEGATIVE); LEUKOCYTE ESTERASE ,URINE TRACE (NEGATIVE); NITRITE,URINE NEGATIVE (NEGATIVE); PH,URINE 5.5 (5-9); PROTEIN,URINE NEGATIVE (NEGATIVE)
[2022-10-02 18:25] LABS: BACTERIA,URINE FEW /HPF; BILIRUBIN,URINE 1+ (NEGATIVE)
[2022-10-02 18:27] LABS: COLOR,URINE DARK YELLOW
== END ==
LOC: PVFS 16:21
PROVIDERS: ATTEND Family Medicine
DX: R82.90 Unspecified abnormal findings in urine (principal)
CPT/HCPCS: 81000; 87088